=== PATIENT | female | born 1945 | race Caucasian/White ===

== ENCOUNTER 2022-02-27 08:54 | Outpatient (CLI) | payer MEDICARE, BC, SELFPAY ==
--- NOTE | 2022-02-27 09:15 | CRLHL7_ITS ---
For Patients: As a result of the Cures Act, medical imaging exams and procedure reports are released immediately into your electronic medical record. You may view this report before your referring provider. If you have questions, please contact your health care provider. CLINICAL HISTORY: UTI COMPARISON: none TECHNIQUE: Vance scale and color Doppler images were acquired of the kidneys and urinary bladder. FINDINGS: Distension of the left renal pelvis noted measuring 1.4 cm. Normal right renal pelvis. There is no evidence of mass or calculus. The right kidney measures 8.1cm in length and the left kidney measures 8.7cm in length. The renal cortex appears mildly thickened. Bladder wall is mildly prominent measuring 4.6 millimeters. Prevoid bladder volume 178 cc. Postvoid bladder volume 23 cc. Color Doppler images reveal a normal appearance of both ureteral jets. There is no evidence of bladder calculi or diverticula. IMPRESSION: Mild bladder wall thickening is present measuring 4.6 millimeters which may be related to cystitis in the appropriate clinical setting. Distention of the left renal pelvis measuring 1.4 cm, extrarenal pelvis versus mild hydronephrosis. Dictated by Benedicto Miner MD @ 02/27/2022 10:07:32 AM (Electronically Signed)
== END 2022-02-27 08:55 | disposition home or self-care (01) ==
DX: N39.0 Urinary tract infection, site not specified (principal)
CPT/HCPCS: 76770

== ENCOUNTER 2023-05-10 19:36 | Outpatient (CLI) | payer MEDICARE, BC, SELFPAY | END 2023-05-10 19:37 | disposition home or self-care (01) | LOC: NFLDUCREF 19:37 | PROVIDERS: PCP Family Medicine; Visit Provider Nurse Practitioner Family | DX: R30.0 Dysuria (principal) | CPT/HCPCS: 87086; 87186 ==

== ENCOUNTER 2023-07-11 00:04 | Emergency (ER) | payer MEDICARE, BC, SELFPAY ==
--- NOTE | 2023-07-11 | CT_ITS ---
Patient: LIZETH HUTCHINS Facility:?[facility] Patient ID:?[id number] Site Patient ID:?[id number]. Site :?[id number] Study:?CT-Chest/Abd/Pelvis with 74cc nzzaws264 contrast-07/11/2023 4:39:51 AM Ordering Physician:Florinda Cardenas Final Report: INDICATION: Chest and abdominal pain COMPARISON: None TECHNIQUE: CT examination of the chest, abdomen and pelvis was performed following the uneventful intravenous administration of 74 cc of Isovue 3 7. Thin section axial images were obtained from the thoracic inlet through the pubic symphysis. Oral contrast was not administered. Sagittal and coronal reformatted imaging was performed Please note that all CT scans at this facility use dose modulation, iterative reconstruction, and/or weight-based dosing when appropriate to reduce radiation dose to as low as reasonably achievable. FINDINGS: CHEST: The heart size is normal. There is no mediastinal or hilar adenopathy or mass. There is no pericardial effusion. There is a large hiatal hernia with almost all of the stomach in the thorax towards the right. There is no evidence gastric volvulus or closed loop obstruction regarding the stomach. Aside from trace basilar atelectasis, the lungs appear normal. There is no pleural effusion or pneumothorax. ABDOMEN AND PELVIS: LIVER/BILIARY SYSTEM:The liver is normal in size and configuration. There is no focal mass and there is no intra- or extra hepatic biliary ductal dilatation.There is a trace amount of fluid around the gallbladder though I favor this is due to mild ascites rather than gallbladder disease. ADRENALS: Normal KIDNEYS, URETERS and BLADDER:No significant appearing renal finding. A few areas of renal cortical scarring and tiny low density probably benign lesions are noted. The bladder is unremarkable. SPLEEN:Normal appearance. PANCREAS: Appears normal. RETROPERITONEUM and MESENTERY: There is no mass, adenopathy or aortic aneurysm. GASTROINTESTINAL SYSTEM: There are abnormally dilated loops of small bowel with areas of fecalization. There are air-fluid levels. The findings are consistent with a distal small-bowel obstruction. The source is not currently visible though there are 2 potential sources as described below regarding abdominal wall PELVIS: No mass or adenopathy. Mild free fluid. OSSEOUS STRUCTURES: Degenerative change in the spine. No destructive process of boneno significant abdominal wall defect. ABDOMINAL WALL: There are 2 significant appearing hernias. One is a right femoral region hernia that contains fluid only. The bowel approaches the hernia but does not enter it. There is also a hernia to the right of the rectum through the pelvic floor into the ischiorectal fossa. This currently admits only fluid though small bowel adjacent to this. It is possible that the patient`s presumed bowel obstruction is associated with one or both of these hernias. To reiterate, bowel is not currently present in either hernia. OTHER: No free fluid or free air. IMPRESSION: 1. CHEST: Large hiatal hernia with almost all the stomach in the thorax on the right. However, there is no evidence of closed loop obstruction. Trace basilar atelectasis. 2. ABDOMEN AND PELVIS: Findings most likely due to a distal small-bowel obstruction. The exact etiology is uncertain though there are 2 hernias identified that currently only contain fluid. This is a right femoral region hernia and a right pararectal hernia extending into the ischiorectal fossa. Small-bowel loops adjacent to both hernias bed at the current time does not enter either hernia. 3. There is fluid around the gallbladder though I believe this is due to mild ascites rather than gallbladder disease. The ascites is presumably due to the bowel obstruction Please note that all CT scans at this facility use dose modulation, iterative reconstruction, and/or weight-based dosing when appropriate to reduce radiation dose to as low as reasonably achievable. Dictated by Ariel Rodrigues MD @ 07/11/2023 5:31:43 AM Signed by:?Ariel Rodrigues MD @07/11/2023 5:31:43 AM (Electronic Signature)
[2023-07-11 01:00] VITALS: BP 135/74; PULSE 78; RESP 20; TEMP 36.8; O2SAT 98; O2SAT 99
--- NOTE | 2023-07-11 01:08 | ED.GENADULT ---
HPI - General Adult General Time Seen by Provider: 01:08 Date Seen: 07/11/23 Chief complaint: Abdominal Pain Stated complaint: Abdominal,Vomit Time Seen by Provider: 07/11/23 01:08 Source: patient, RN notes reviewed and old records reviewed Mode of arrival: ambulatory Limitations: no limitations History of Present Illness HPI narrative: Patient is a very pleasant 78-year-old female with a history hypertension, chronic kidney disease stage 3 who presents to the emergency room with headache chest pain abdominal pain and vomiting. Patient notes the symptoms were increasing this evening and thus came to the emergency room. I am having a challenging time to know onset of the symptoms in our discussions. Patient did not notes that her forehead mainly hurts and that she has had this happen the past with high blood pressure. She also notes that she has a fluttering and discomfort in her upper chest. She has been vomiting but has not had any diarrhea cough cold congestion fever or chills. She does not know of any ill contacts. She does complain of abdominal pain. She shows this to be the periumbilical area. She has had a hysterectomy in the past. Does not feel bloated at this time. She has not taken anything for pain. Patient notes frequent history of UTI with bladder prolapse. Currently under the care of a urologist at [place]. Related Data Home Medications Medication Instructions Recorded Confirmed levothyroxine 100 mcg capsule 100 mcg PO QDAY 05/10/23 06/06/23 lisinopril 10 mg tablet 10 mg PO DAILY 05/10/23 06/06/23 simvastatin 10 mg tablet 10 mg PO QPM 05/10/23 06/06/23 Previous Rx's Medication Instructions Recorded azithromycin 250 mg tablet See Rx Instructions PO .COMPLEX #6 06/06/23 tabs benzonatate 100 mg capsule 100 mg PO BID PRN cough #30 caps 06/06/23 Allergies Allergy/AdvReac Type Severity Reaction Status Date / Time Sulfa (Sulfonamide Allergy Unknown Unknown Verified 06/06/23 10:02 Antibiotics) Review of Systems Status of ROS: Reports: 10 or more systems reviewed and unremarkable except as noted in History and below [facility] Medical History (Updated 07/11/23 @ 08:59 by Odessa Manzo MD) History of recurrent cystitis ?Z87.440 - Personal history of urinary (tract) infections (ICD-10) Surgical History (Updated 07/11/23 @ 08:36 by Nicol Morillo MD) History of hysterectomy ?Z90.710 - Acquired absence of both cervix and uterus (ICD-10) Social History Smoking Status: Never smoker Second hand tobacco smoke exposure: No How often do you have a drink containing alcohol: never AUDIT-C Alcohol total score: 0 Non-prescribed substance use: denies use Exam Narrative: Exam Narrative: Patient is holding her forehead and a vomit bag. She is mentating normally but does appear to be in acute distress. EOM is full and pupils equal round reactive. Head is atraumatic. Face is symmetrical. Oral cavity with moist mucous membranes. Neck is supple. Heart with a normal rate and rhythm. Lungs are clear bilaterally. Abdomen is with tenderness in the periumbilical area. I do not palpate any bulges in the groin or otherwise. Moving all extremities. Const: Vital Signs, click to edit/add: Vital Signs - 24 hr 07/11/23 01:00 07/11/23 01:00 07/11/23 04:00 Temperature 98.2 F 98.2 F Pulse Rate [Right Pulse Oximeter] 78 Respiratory Rate 20 Blood Pressure [Ri ght Upper Arm] 135/74 Pulse Oximetry 99 98 Oxygen Delivery Me thod Room Air 07/11/23 06:16 07/11/23 07:41 Temperature 98.2 F Pulse Rate [Right Pulse Oximeter] 65 64 Respiratory Rate 20 16 Blood Pressure [Ri ght Upper Arm] 130/70 125/75 Pulse Oximetry 99 98 Oxygen Delivery Me thod Room Air Room Air Documenting provider has reviewed patient's vital signs: yes Course Course ED Course: Differential diagnosis includes but is not limited to subarachnoid hemorrhage, acute coronary syndrome, viral gastroenteritis, bowel obstruction, UTI. Patient will have a stat head CT and then have IV placed with labs to include CBC, comprehensive, CRP, troponin, EKG, urinalysis. Will also give patient Zofran 4 mg IV and 1 L of normal saline. Reevaluation(s) Reevaluation #1: Patient notes improvement with Zofran. Headache much improved. Blood pressure noted to be normal. White count elevated at 14.79 with a normal electrolyte panel. LFTs are within normal limits. She is COVID/influenza negative. She continues to complain of abdominal discomfort. Her pain seems to be periumbilical. No rebound tenderness is noted. She is requesting Tylenol and 650 mg is given. Reevaluation #2: Patient noted to be feeling much better this morning. She really did only receive Tylenol no other pain medication. I will speak to the surgeon on-call as CT has identified a distal small-bowel obstruction. Also present are 2 hernias that do not contain any bowel. Consultations Consultation #1: At the pleasure of speaking with surgical processor regarding this patient. Dr. Downey was able to view the CTs and notes that we are in a position that we could try clear liquids. If patient does well she may be discharged home on clear liquids with slow advance of diet. She will need to follow-up with both surgery and an OBGYN. She currently goes to the [facility]. Vital Signs Vital signs: Initial Vital Signs Temperature 98.2 F 07/11/23 01:00 Temperature Source Temporal Artery Scan 07/11/23 01:00 Pulse Rate 78 07/11/23 01:00 Respiratory Rate 20 07/11/23 01:00 Blood Pressure 135/74 07/11/23 01:00 Blood Pressure Mean 94 07/11/23 01:00 Blood Pressure Position Sitting 07/11/23 01:00 Pulse Oximetry 99 07/11/23 01:00 Oxygen Delivery Method Room Air 07/11/23 01:00 Vital Signs Temperature 98.2 F 07/11/23 01:00 Pulse Rate 78 07/11/23 01:00 Respiratory Rate 20 07/11/23 01:00 Blood Pressure 135/74 07/11/23 01:00 Pulse Oximetry 99 07/11/23 01:00 Oxygen Delivery Method Room Air 07/11/23 01:00 Temperature 98.2 F 07/11/23 06:16 Pulse Rate 64 07/11/23 07:41 Respiratory Rate 16 07/11/23 07:41 Blood Pressure 125/75 07/11/23 07:41 Pulse Oximetry 98 07/11/23 07:41 Oxygen Delivery Method Room Air 07/11/23 07:41 Medications Administered Medications: Generic Name Dose Route Start Last Admin Trade Name Freq PRN Reason Stop Dose Admin Sodium Chloride 1,000 mls @ 125 mls/hr 07/11/23 06:41 07/11/23 06:00 0.9 % Sodium Chloride 1000 Ml IV 125 mls/hr .Q8H TANIYA Administration Discontinued Medications Generic Name Dose Route Start Last Admin Trade Name Son PRN Reason Stop Dose Admin Acetaminophen 650 mg 07/11/23 06:12 07/11/23 04:00 Acetaminophen 325 Mg Tablet PO 07/11/23 06:13 650 mg ONCE ONE Administration Sodium Chloride 1,000 mls @ 1,000 mls/hr 07/11/23 01:10 07/11/23 02:30 0.9 % Sodium Chloride 1000 Ml IV 07/11/23 02:09 Infused .Q1H TANIYA Infusion Ondansetron HCl 4 mg 07/11/23 01:09 07/11/23 01:31 Ondansetron 2 Mg/Ml Inj IVP 07/11/23 01:10 4 mg ONCE ONE Administration Medical Decision Making MDM Narrative Medical decision making narrative: 1. Small bowel obstruction-2 hernias are noted but they do not contain bowel. Patient does have history of abdominal hysterectomy in the past as well as which she believes was a sling placement. She notes that she has been dealing with bladder prolapse and chronic UTIs all there is no evidence of UTI tonight. Patient is given 1 L of normal saline followed by maintenance. Laboratory values show elevated white count of 14.79 with a CRP that is normal. Glucose elevated at 1 6 1 and LFTs and basic panel normal. Bicarb is normal. At this time patient is feeling much better this morning. organizational consultant Dr. Morillo with able to view the CT and feels that we could do a trial of clear liquids. If she tolerates this she will be discharged home. However, she will need to follow-up with OBGYN and surgery next week. 2. Headache-patient notes significant headache that is unusual for her. When she 1st arrived we did do head CT and she had no evidence of abnormality including acute bleed. Once patient had received Zofran she had improvement of the symptoms. A recheck of her blood pressure was normal without any intervention. She did request Tylenol and 650 mg p.o. was given while we were awaiting CT. 3. Chest pain-likely from retching. Patient has negative troponin x2 and a reassuring EKG. Patient has had resolution of her symptoms at this time. Of note however she has a very large hiatal hernia. 3. Disposition- home at this time.Continue with clear liquid diet the rest of today and until noon tomorrow. Tomorrow afternoon you may advance her diet to soft foods such as puddings. If you tolerate that for 24 hours you may advance to normal foods. Please stay well hydrated. You may take your routine medications. Return to the emergency room if you started experiencing increasing pain, vomiting, fever and as needed. Make appointment to see 1 of our surgeons at the [facility] next week. Follow-up with your primary MD or send a message that you should also have an appointment with OBGYN. If [facility] is unable to arrange this you may use our [facility]. They can be reached at [phone]. There is no evidence of urinary tract infection on your labs today. Your white count was slightly elevated at 14.72 which can be normal if you are experiencing increased pain and vomiting. Medical Records Medical records reviewed: Yes I reviewed the patient's medical records Lab Data Lab results reviewed: Yes I reviewed the patient's lab results Labs: Lab Results 07/11/23 07/11/23 07/11/23 Range/Units 00:23 01:00 01:11 WBC (4.50-11.00) K/uL RBC (4.00-5.20) m/uL Hgb (12.0-16.0) gm/dL Hct (33.0-51.0) % MCV (80-100) fL MCH (26-34) pg MCHC (32-36) gm/dL Plt Count (140-440) K/uL Neut % (Auto) (42.0-72.0) % Lymph % (Auto) (20-44) % [place] % (Auto) (0.0-11.0) % Eos % (Auto) (0.0-7.0) % Baso % (Auto) (0.0-3.0) % Neut # (Auto) (1.7-7.0) K/uL Lymph # (Auto) (0.90-2.90) K/uL [place] # (Auto) (0.00-0.90) K/UL Eos # (Auto) (0.00-0.50) K/uL Baso # (Auto) (0.00-0.30) K/uL Sodium 135 (135-149) mmol/L Potassium 4.7 (3.6-5.1) mmol/L Chloride 102 (96-114) mmol/L Carbon Dioxide 22 (20-32) mmol/L Anion Gap 11 (7-15) mEq/L BUN 18 (7-30) mg/dL Creatinine 0.9 (0.5-1.5) mg/dL Estimated GFR 66 ml/min Glucose 161 H (60-115) mg/dL Calcium 9.5 (8.4-10.6) mg/dL Total Bilirubin 0.7 (0.1-1.5) mg/dL AST 28 (12-35) U/L ALT 22 (4-35) U/L Alkaline Phosphatase 68 (40-150) U/L C-Reactive Protein < 0.5 L (0.5-1.0) mg/dL Total Protein 7.7 (6.0-8.3) g/dL Albumin 4.9 (3.3-5.0) g/dL Urine Color (Yellow) Urine Appearance (Clear) Urine pH (5.0-8.5) Ur Specific [place] (1.000-1.030) Urine Protein (Negative) Urine Glucose (UA) (Negative) Urine Ketones (Negative) Urine Blood (Negative) Urine Nitrite (Negative) Urine Bilirubin (Negative) Urine Urobilinogen (0.2-1.0) Ur Leukocyte Esterase (Negative) Urine RBC (0-2) Urine WBC (0-5) Ur Squamous Epith Cells (None-Few) Amorphous Sediment (None) Urine Bacteria (None) SARS-CoV-2 (PCR) Negative SARS-CoV-2 (Negative) Influenza Type A (PCR) Negative PCR FLU A (Negative) Influenza Type B (PCR) Negative PCR FLU B (Negative) POC Troponin I 0.00 L (0.01-0.04) ng/ml 07/11/23 07/11/23 07/11/23 Range/Units 01:55 04:09 05:15 WBC 14.79 H (4.50-11.00) K/uL RBC 5.19 (4.00-5.20) m/uL Hgb 15.1 (12.0-16.0) gm/dL Hct 46.8 (33.0-51.0) % MCV 90 (80-100) fL MCH 29 (26-34) pg MCHC 32 (32-36) gm/dL Plt Count 243 (140-440) K/uL Neut % (Auto) 90.6 H (42.0-72.0) % Lymph % (Auto) 6.7 L (20-44) % [place] % (Auto) 2.2 (0.0-11.0) % Eos % (Auto) 0.3 (0.0-7.0) % Baso % (Auto) 0.1 (0.0-3.0) % Neut # (Auto) 13.40 H (1.7-7.0) K/uL Lymph # (Auto) 1.00 (0.90-2.90) K/uL [place] # (Auto) 0.30 (0.00-0.90) K/UL Eos # (Auto) 0.00 (0.00-0.50) K/uL Baso # (Auto) 0.00 (0.00-0.30) K/uL Sodium (135-149) mmol/L Potassium (3.6-5.1) mmol/L Chloride (96-114) mmol/L Carbon Dioxide (20-32) mmol/L Anion Gap (7-15) mEq/L BUN (7-30) mg/dL Creatinine (0.5-1.5) mg/dL Estimated GFR ml/min Glucose (60-115) mg/dL Calcium (8.4-10.6) mg/dL Total Bilirubin (0.1-1.5) mg/dL AST (12-35) U/L ALT (4-35) U/L Alkaline Phosphatase (40-150) U/L C-Reactive Protein (0.5-1.0) mg/dL Total Protein (6.0-8.3) g/dL Albumin (3.3-5.0) g/dL Urine Color Yellow (Yellow) Urine Appearance Cloudy A (Clear) Urine pH 5.5 (5.0-8.5) Ur Specific [place] 1.020 (1.000-1.030) Urine Protein Negative (Negative) Urine Glucose (UA) Negative (Negative) Urine Ketones Trace A (Negative) Urine Blood Negative (Negative) Urine Nitrite Negative (Negative) Urine Bilirubin Negative (Negative) Urine Urobilinogen 0.2 (0.2-1.0) Ur Leukocyte Esterase Negative (Negative) Urine RBC 0-2 (0-2) Urine WBC 2-5 (0-5) Ur Squamous Epith Cells Few (None-Few) Amorphous Sediment Few A (None) Urine Bacteria Moderate A (None) SARS-CoV-2 (PCR) (Negative) Influenza Type A (PCR) (Negative) Influenza Type B (PCR) (Negative) POC Troponin I 0.01 (0.01-0.04) ng/ml Imaging Data CT Chest/Ab/Pelvis: Attestation: I have reviewed the pertinent imaging results. Radiologist's impression: The heart size is normal. There is no mediastinal or hilar adenopathy or mass. There is no pericardial effusion. There is a large hiatal hernia with almost all of the stomach in the thorax towards the right. There is no evidence gastric volvulus or closed loop obstruction regarding the stomach. Aside from trace basilar atelectasis, the lungs appear normal. There is no pleural effusion or pneumothorax. ABDOMEN AND PELVIS: LIVER/BILIARY SYSTEM:The liver is normal in size and configuration. There is no focal mass and there is no intra- or extra hepatic biliary ductal dilatation.There is a trace amount of fluid around the gallbladder though I favor this is due to mild ascites rather than gallbladder disease. ADRENALS: Normal KIDNEYS, URETERS and BLADDER:No significant appearing renal finding. A few areas of renal cortical scarring and tiny low density probably benign lesions are noted. The bladder is unremarkable. SPLEEN:Normal appearance. PANCREAS: Appears normal. RETROPERITONEUM and MESENTERY: There is no mass, adenopathy or aortic aneurysm. GASTROINTESTINAL SYSTEM: There are abnormally dilated loops of small bowel with areas of fecalization. There are air-fluid levels. The findings are consistent with a distal small-bowel obstruction. The source is not currently visible though there are 2 potential sources as described below regarding abdominal wall PELVIS: No mass or adenopathy. Mild free fluid. OSSEOUS STRUCTURES: Degenerative change in the spine. No destructive process of boneno significant abdominal wall defect. ABDOMINAL WALL: There are 2 significant appearing hernias. One is a right femoral region hernia that contains fluid only. The bowel approaches the hernia but does not enter it. There is also a hernia to the right of the rectum through the pelvic floor into the ischiorectal fossa. This currently admits only fluid though small bowel adjacent to this. It is possible that the patient`s presumed bowel obstruction is associated with one or both of these hernias. To reiterate, bowel is not currently present in either hernia. OTHER: No free fluid or free air. IMPRESSION: 1. CHEST: Large hiatal hernia with almost all the stomach in the thorax on the right. However, there is no evidence of closed loop obstruction. Trace basilar atelectasis. 2. ABDOMEN AND PELVIS: Findings most likely due to a distal small-bowel obstruction. The exact etiology is uncertain though there are 2 hernias identified that currently only contain fluid. This is a right femoral region hernia and a right pararectal hernia extending into the ischiorectal fossa. Small-bowel loops adjacent to both hernias bed at the current time does not enter either hernia. 3. There is fluid around the gallbladder though I believe this is due to mild ascites rather than gallbladder disease. The ascites is presumably due to the bowel obstruction CT scan - head: Attestation: I have reviewed the pertinent imaging results. My impression: I do not note any evidence of acute bleed or abnormality. Radiologist's impression: CSF spaces: Proportionate prominence of the ventricles and sulci, reflecting mild generalized cerebral volume loss. Brain parenchyma: The kincaid-white differentiation is maintained. No sign of mass, hemorrhage, or midline shift. Skull base and calvarium: The visualized paranasal sinuses and mastoid air cells demonstrate no acute or significant findings. The visualized orbits are grossly unremarkable. No skull fractures. Stable scattered scalp nodules, some demonstrating partial calcification. IMPRESSION: No acute intracranial abnormality. ECG Data Attestation: I personally reviewed and interpreted this ECG as follows: Interpretation: EKG by my read shows normal sinus rhythm without any acute ST or T-wave changes. Normal QT and SC intervals. Discharge Plan Discharge Clinical Impression: Small bowel obstruction Abdominal hernia Qualifiers: Hernia type: unspecified Obstruction and gangrene presence: without obstruction or gangrene Recurrence: not specified as recurrent Qualified Code(s): K46.9 - Unspecified abdominal hernia without obstruction or gangrene Patient Disposition: Home, Self-Care Condition: Improved Additional Instructions: Continue with clear liquid diet the rest of today and until noon tomorrow. Tomorrow afternoon you may advance her diet to soft foods such as puddings. If you tolerate that for 24 hours you may advance to normal foods. Please stay well hydrated. You may take your routine medications. Return to the emergency room if you started experiencing increasing pain, vomiting, fever and as needed. Make appointment to see 1 of our surgeons at the [facility] next week. Follow-up with your primary MD or send a message that you should also have an appointment with OBGYN. If [facility] is unable to arrange this you may use our [facility]. They can be reached at . There is no evidence of urinary tract infection on your labs today. Your white count was slightly elevated at 14.72 which can be normal if you are experiencing increased pain and vomiting. Prescriptions: No Action lisinopril 10 mg tablet 10 mg PO DAILY simvastatin 10 mg tablet 10 mg PO QPM levothyroxine 100 mcg capsule 100 mcg PO QDAY Patient Comments: Dose is not confirmed, as patient could not remember. azithromycin 250 mg tablet See Rx Instructions PO .COMPLEX Qty: 6 0RF Rx Instructions: For 250 mg dose pack: take 500 mg today (day 1), then 250 mg for 4 days (days 2-5) PO benzonatate 100 mg capsule 100 mg PO BID PRN (Reason: cough) Qty: 30 0RF Follow Up/Referrals: Angie Cali MD [Primary Care Provider] - Stand Alone Forms: Fatigue [employer] Info Instructions
--- NOTE | 2023-07-11 01:09 | CRLHL7_ITS ---
For Patients: As a result of the Century Cures Act, medical imaging exams and procedure reports are released immediately into your electronic medical record. You may view this report before your referring provider. If you have questions, please contact your health care provider. INDICATION: Headache. TECHNIQUE: CT head without contrast. COMPARISON: 12/23/2021. FINDINGS: CSF spaces: Proportionate prominence of the ventricles and sulci, reflecting mild generalized cerebral volume loss. Brain parenchyma: The kincaid-white differentiation is maintained. No sign of mass, hemorrhage, or midline shift. Skull base and calvarium: The visualized paranasal sinuses and mastoid air cells demonstrate no acute or significant findings. The visualized orbits are grossly unremarkable. No skull fractures. Stable scattered scalp nodules, some demonstrating partial calcification. IMPRESSION: No acute intracranial abnormality. Please note that all CT scans at this facility use dose modulation, iterative reconstruction, and/or weight-based dosing when appropriate to reduce radiation dose to as low as reasonably achievable. Dictated by David Ramos MD @ 07/11/2023 2:21:20 AM (Electronically Signed)
[2023-07-11] MEDS: ONDANSETRON 2 MG/ML inj 4 MG IVP (01:31)
[2023-07-11] MEDS: 0.9 % SODIUM CHLORIDE 1000 ml 1,000 ML IV (01:31)
[2023-07-11 04:00] VITALS: TEMP 36.8
[2023-07-11] MEDS: ACETAMINOPHEN 325 MG TABLET 650 MG PO (04:00)
[2023-07-11 05:30] LABS: Troponin, Point-of-Care* 0.01 ng/ml (0.01-0.04)
[2023-07-11 05:37] LABS: PCR FLU A Negative PCR FLU A (Negative); PCR FLU B Negative PCR FLU B (Negative)
[2023-07-11 05:55] LABS: SARS PCR* Negative SARS-CoV-2 (Negative)
[2023-07-11] MEDS: 0.9 % SODIUM CHLORIDE 1000 ml 1,000 ML 125 ML IV (06:00)
[2023-07-11 06:01] LABS: Hemoglobin* 15.1 gm/dL (12.0-16.0); Red Blood Count 5.19 m/uL (4.00-5.20); White Blood Count* 14.79 K/uL (4.50-11.00)
[2023-07-11 06:02] LABS: Basophils Percent Auto 0.1 % (0.0-3.0); Eosinophils Percent Auto 0.3 % (0.0-7.0); Hematocrit 46.8 % (33.0-51.0); Lymphocytes Percent Auto 6.7 % (20-44); Mean Corpuscular HGB Conc 32 gm/dL (32-36); Mean Corpuscular Hemoglobin 29 pg (26-34); Mean Corpuscular Volume 90 fL (80-100); Monocytes Percent Auto 2.2 % (0.0-11.0); Neutrophils Percent Auto 90.6 % (42.0-72.0); Platelet Count* 243 K/uL (140-440); Slide Review Reflex No
[2023-07-11 06:03] LABS: C Reactive Protein* < 0.5 mg/dL (0.5-1.0)
[2023-07-11 06:04] LABS: Alanine Aminotransferase* 22 U/L (4-35); Albumin* 4.9 g/dL (3.3-5.0); Alkaline Phosphatase* 68 U/L (40-150); Anion Gap 11 mEq/L (7-15); Aspartate Amino Transferase* 28 U/L (12-35); Bilirubin Total* 0.7 mg/dL (0.1-1.5); Blood Urea Nitrogen* 18 mg/dL (7-30); Calcium* 9.5 mg/dL (8.4-10.6); Carbon Dioxide* 22 mmol/L (20-32); Chloride* 102 mmol/L (96-114); Creatinine* 0.9 mg/dL (0.5-1.5); Estimated Glomerular Filt Rate 66 ml/min; Glucose* 161 mg/dL (60-115); Potassium* 4.7 mmol/L (3.6-5.1); Sodium* 135 mmol/L (135-149); Total Protein* 7.7 g/dL (6.0-8.3)
[2023-07-11 06:05] LABS: Appearance Urine Cloudy (Clear); Bilirubin Urine Negative (Negative); Color Urine Yellow (Yellow); Glucose Urine Negative (Negative); Ketones Urine Trace (Negative)
[2023-07-11 06:06] LABS: Amorphous Sediment Urine Few; Bacteria Urine Moderate; Blood Urine Negative (Negative); Leukocyte Esterase Urine Negative (Negative); Nitrite Urine Negative (Negative); Protein Urine Negative (Negative); RBC Urine 0-2 (0-2); Squamous Epithelial Cell Urine Few (None-Few); Urobilinogen Urine 0.2 (0.2-1.0); pH Urine 5.5 (5.0-8.5)
[2023-07-11 06:16] VITALS: BP 130/70; PULSE 65; RESP 20; TEMP 36.8; O2SAT 99
[2023-07-11 07:41] VITALS: BP 125/75; PULSE 64; RESP 16; O2SAT 98
--- NOTE | 2023-07-11 09:15 | ED.NURSE ---
Pt provided with cup of water for PO challenge. Pt tolerates well, no discomfort or complaints. MD notified.
[2023-07-11 09:50] VITALS: BP 126/79; PULSE 65; RESP 16; O2SAT 100
--- NOTE | 2023-07-12 07:44 | ED.NURSE ---
Patient called wanting to know which general surgeon was consulted yesterday because she'd like to follow up with them (as recommended by Dr. Manzo). Advised Dr. Morillo was consulted, clinic scheduling number provided. No further questions/concerns.
== END 2023-07-11 09:51 | disposition home or self-care (01) ==
PROVIDERS: Emergency Provider Family Medicine; PCP Family Medicine
DX: K56.609 Unspecified intestinal obstruction, unspecified as to partial versus complete obstruction (principal); R51.9 Headache, unspecified; R07.9 Chest pain, unspecified
CPT/HCPCS: 36415; 70450; 71260; 74177; 80053; 81003; 81015; 84484; 85025; 86140; 87086; 87631; 93005; 94761; 95992; 96374; 99285; A9270; J2405; J7030; Q9967

== ENCOUNTER 2023-08-13 07:48 | Emergency (ER) | payer MEDICARE, BC, SELFPAY ==
[2023-08-13 07:52] VITALS: BP 96/68; PULSE 106; RESP 18; TEMP 36.6; O2SAT 99; BMI 23.3
--- NOTE | 2023-08-13 08:17 | CRLHL7_ITS ---
For Patients: As a result of the Cures Act, medical imaging exams and procedure reports are released immediately into your electronic medical record. You may view this report before your referring provider. If you have questions, please contact your health care provider. INDICATION: Epigastric and periumbilical abdominal pain. History of bowel obstruction. TECHNIQUE: CT abdomen and pelvis acquired with 69 cc Isovue 370 IV contrast. COMPARISON: Direct comparison to the recent prior study of 07/11/2023 is not possible at the time of this dictation due to a PACS outage, as indicated by the technologist (made to that report. FINDINGS: Lower chest: Right-sided intrathoracic stomach associated with and again axial volvulus. Liver: Unremarkable. Normal in size and attenuation. No suspicious masses. Gallbladder and bile ducts: Unremarkable. No stones or inflammation. No biliary dilatation. Pancreas: Unremarkable. No mass or inflammation. Spleen: Unremarkable. Normal in size. No masses. Adrenal glands: Unremarkable. No nodules. Kidneys: Incidental finding consistent with a benign Bosniak cyst in the interpolar left renal cortex (2; 57).. No suspicious masses, stones, or hydronephrosis. GI tract: Diffuse dilatation of the small bowel with a transition point associated with right perineal hernia described below. No hypo enhancement of the dilated small-bowel wall to indicate ischemia. No wall thickening, intramural hemorrhage or pneumatosis intestinalis. Sigmoid diverticulosis. Normal appendix. Vasculature: Abdominal aorta is normal in caliber. Mesenteric arteries are patent. Lymph nodes: No lymphadenopathy. Peritoneum/Abdominal Wall: Small volume low-density left subphrenic ascites. Circumscribed homogeneous low-density collection in the right inguinal region consistent with a fluid containing direct hernia measuring 3.0 cm in greatest dimension (2; 132). Cluster collapsed loops of small bowel and free fluid consistent with a right perineal hernia associated with th a e proximal small bowel mechanical obstruction. This finding was also described in the prior report of 07/11/2023. Pelvis: Unremarkable. Bones: Unremarkable for age. IMPRESSION: 1. Small-bowel and free fluid containing right perineal hernia associated with a mechanical small-bowel obstruction. No imaging findings to indicate ischemia related to the obstructed small bowel. SURGICAL CONSULTATION IS RECOMMENDED. 2. Incidental findings described above including a circumscribed homogeneous low-density right inguinal collection consistent with a fluid containing direct hernia. 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 Recommendation: Surgical consultation. Please note that all CT scans at this facility use dose modulation, iterative reconstruction, and/or weight-based dosing when appropriate to reduce radiation dose to as low as reasonably achievable. Dictated by Rj Renee MD @ 08/13/2023 10:17:39 AM (Electronically Signed)
[2023-08-13 08:18] VITALS: BP 150/100; PULSE 67; RESP 18; TEMP 36.6; O2SAT 98
--- NOTE | 2023-08-13 08:33 | ED_ITS ---
HPI - Abdominal Pain General Date Seen: 08/13/23 Chief Complaint: Abdominal Pain Stated Complaint: Abdominal pain Time Seen by Provider: 08/13/23 08:08 Source: patient Mode of arrival: ambulatory Limitations: no limitations History of Present Illness HPI narrative: patient is a 78-year-old female presenting to the emergency department for abdominal pain. She has a history of chronic kidney disease and hypertension. states the symptoms are last night she became very nauseated and was dry heaving. She still feeling nauseated at this time. She does states she is Now having a headache and feeling dizzy. has had previous abdominal surgeries but states she a bowel movement this morning that was completely normal. Denies fevers or chills. Does state her daughter has COVID and she has been in contact with her daughters children. denies chest pain, vision changes, he weakness, numbness, dysuria, vaginal bleeding or discharge. Denies having pain like this before. Does states she has multiple hernias include an esophageal hernia. She has not been to eat much since last night due to the nausea. For most her pain is in the epigastric and periumbilical region. She still has her appendix and gallbladder. Related Data Home Medications Medication Instructions Recorded Confirmed levothyroxine 100 mcg capsule 100 mcg PO QDAY 05/10/23 08/13/23 lisinopril 10 mg tablet 10 mg PO DAILY 05/10/23 08/13/23 simvastatin 10 mg tablet 10 mg PO QPM 05/10/23 08/13/23 coQ10 (ubiquinol) 100 mg capsule 100 mg PO DAILY 08/13/23 08/13/23 Allergies Allergy/AdvReac Type Severity Reaction Status Date / Time Sulfa (Sulfonamide Allergy Unknown Unknown Verified 08/13/23 07:58 Antibiotics) Review of Systems Status of ROS Reports: 10 or more systems reviewed and unremarkable except as noted in History and below [facility] Medical History History of recurrent cystitis ?Z87.440 - Personal history of urinary (tract) infections (ICD-10) Surgical History History of hysterectomy ?Z90.710 - Acquired absence of both cervix and uterus (ICD-10) Social History Smoking Status: Never smoker Second hand tobacco smoke exposure: No How often do you have a drink containing alcohol: never AUDIT-C Alcohol total score: 0 Non-prescribed substance use: denies use service: No Exam Narrative: Exam Narrative: Const: Well-nourished, Well-developed, in mild distress Eyes: PERRL, no conjunctival injection, and symmetrical lids HENT: Atraumatic external nose and ears. Moist mucous membranes. Neck: Symmetric, trachea midline, No thyromegaly. CVS: RRR, No murmurs or gallops. Peripheral pulses 2+ and equal in all extremities RESP: Unlabored respiratory effort. Clear to auscultation bilaterally. GI: Mild epigastric and periumblical pain. Nondistended, No rebound or guarding. MSK:Extremities w/o deformity, Normal Active ROM Skin: Warm, Dry. No rashes or lesions. Neuro: Normal Muscle tone, No focal neurological deficits. Psych: Awake, Alert, & Oriented x3. Appropriate mood and affect. Const: Vital Signs, click to edit/add: Vital Signs - 24 hr 08/13/23 07:52 08/13/23 08:18 08/13/23 10:00 Temperature 97.8 F 97.8 F 98.0 F Pulse Rate [Right Pulse Oximeter] 106 H 67 68 Respiratory Rate 18 18 16 Blood Pressure [Ri ght Upper Arm] 96/68 150/100 H 137/69 Pulse Oximetry 99 98 98 Oxygen Delivery Me thod Room Air Room Air Room Air 08/13/23 11:00 08/13/23 14:15 Temperature 97.6 F 98.6 F Pulse Rate [Right Pulse Oximeter] 68 79 Respiratory Rate 18 18 Blood Pressure [Ri ght Upper Arm] 138/68 140/82 H Pulse Oximetry 98 98 Oxygen Delivery Me thod Room Air Room Air Course Vital Signs Vital signs: Initial Vital Signs Temperature 97.8 F 08/13/23 07:52 Temperature Source Temporal Artery Scan 08/13/23 07:52 Pulse Rate 106 H 08/13/23 07:52 Respiratory Rate 18 08/13/23 07:52 Blood Pressure 96/68 08/13/23 07:52 Blood Pressure Mean 77 08/13/23 07:52 Blood Pressure Position Sitting 08/13/23 07:52 Pulse Oximetry 99 08/13/23 07:52 Oxygen Delivery Method Room Air 08/13/23 07:52 Vital Signs Temperature 97.8 F 08/13/23 07:52 Pulse Rate 106 H 08/13/23 07:52 Respiratory Rate 18 08/13/23 07:52 Blood Pressure 96/68 08/13/23 07:52 Pulse Oximetry 99 08/13/23 07:52 Oxygen Delivery Method Room Air 08/13/23 07:52 Temperature 98.6 F 08/13/23 14:15 Pulse Rate 79 08/13/23 14:15 Respiratory Rate 18 08/13/23 14:15 Blood Pressure 140/82 H 08/13/23 14:15 Pulse Oximetry 98 08/13/23 14:15 Oxygen Delivery Method Room Air 08/13/23 14:15 Medications Administered Medications: Discontinued Medications Generic Name Dose Route Start Last Admin Trade Name Freq PRN Reason Stop Dose Admin Diphenhydramine HCl 25 mg 08/13/23 08:17 08/13/23 09:19 Diphenhydramine 50 Mg/Ml Inj IVP 08/13/23 08:18 25 mg ONCE ONE Administration Lactated Ringer's 1,000 mls @ 1,000 mls/hr 08/13/23 08:17 08/13/23 09:09 Lactated Ringers 1000 Ml IV 08/13/23 09:16 1,000 mls/hr .Q1H ONE Administration Metoclopramide HCl 10 mg 08/13/23 08:17 08/13/23 09:29 Metoclopramide Hcl 5 Mg/Ml Inj IVP 08/13/23 08:18 10 mg ONCE ONE Administration Morphine Sulfate 4 mg 08/13/23 14:25 08/13/23 14:37 Morphine 4 Mg/Ml Inj IVP 08/13/23 14:26 4 mg ONCE ONE Administration MDM - Abdominal Pain MDM Narrative Medical decision making narrative: patient is a 78-year-old female presenting to the emergency department for abdominal pain and nausea. She is also having headache and will treat her with fluids, Reglan, Benadryl. We do CT scan to look for any further concerning abdominal abnormalities. Will be tested for COVID/flu/ RSV. Considering her age, gender and location of the pain there is some concern for ACS and will get EKG and troponin. pancreatitis is a concern and lipase ordered. CMP and lipase are delayed as the machine is down for them. Lactate is normal. CBC shows a white count of 14.7. Mostly neutrophils. She is COVID positive. point of care creatinine within normal limits and a CT scan of the abdomen and pelvis was ordered. Of noticed after her fluids and was sent she is feeling better and her heart rate is improved into the high 60s to low 70s. She looks otherwise comfortable right now. CT scan returned showing a perineal hernia causing a small bowel obstruction. I spoke to our surgeon on-call and she states she believes the patient needs a pelvic gaming floor supervisor. I also spoke to the radiologist who read the region he states he is positive that this hernia is causing a small bowel obstruction. considering the location of the hernia I did do a vaginal exam does look for signs of hernia but could only find the prolapsed bladder. A we tried to direct admit to [facility] but due to our PACS system issues were unable to for the images. Due to that we cannot speak to General surgery and and instead will transfer where the patient directly to their ED. Lab Data Labs: Lab Results 08/13/23 08/13/23 08/13/23 Range/Units 08:44 09:00 11:48 WBC 14.74 H (4.50-11.00) K/uL RBC 5.00 (4.00-5.20) m/uL Hgb 14.6 (12.0-16.0) gm/dL Hct 45.4 (33.0-51.0) % MCV 91 (80-100) fL MCH 29 (26-34) pg MCHC 32 (32-36) gm/dL RDW Coeff of Zenon 13.3 (11.5-15.5) % Plt Count 252 (140-440) K/uL Neut % (Auto) 88.2 H (42.0-72.0) % Lymph % (Auto) 7.1 L (20-44) % Bay % (Auto) 4.1 (0.0-11.0) % Eos % (Auto) 0.3 (0.0-7.0) % Baso % (Auto) 0.1 (0.0-3.0) % Neut # (Auto) 13.00 H (1.7-7.0) K/uL Lymph # (Auto) 1.00 (0.90-2.90) K/uL Bay # (Auto) 0.60 (0.00-0.90) K/UL Eos # (Auto) 0.00 (0.00-0.50) K/uL Baso # (Auto) 0.00 (0.00-0.30) K/uL Abs Immat Gran (auto) 0.00 (0.00-0.30) K/uL Imm/Tot Granulo (auto) 0.2 % Sodium 137 (135-149) mmol/L Potassium 4.6 (3.6-5.1) mmol/L Chloride 104 (96-114) mmol/L Carbon Dioxide 20 (20-32) mmol/L Anion Gap 13 (7-15) mEq/L BUN 18 (7-30) mg/dL Creatinine 0.9 (0.5-1.5) mg/dL Estimated Creat Clear 42.39 Estimated GFR 66 ml/min Glucose 143 H (60-115) mg/dL Lactate 1.2 (0.5-1.9) mmol/L Calcium 9.7 (8.4-10.6) mg/dL Magnesium 2.4 (1.5-2.6) mg/dL Total Bilirubin 0.7 (0.1-1.5) mg/dL AST 27 (12-35) U/L ALT 32 (4-35) U/L Alkaline Phosphatase 104 (40-150) U/L Troponin I < 0.01 L (0.01-0.04) ng/mL Total Protein 7.4 (6.0-8.3) g/dL Albumin 4.5 (3.3-5.0) g/dL Lipase 79 (23-300) U/L Urine Color Yellow (Yellow) Urine Appearance Clear (Clear) Urine pH 5.5 (5.0-8.5) Ur Specific [place] <= 1.005 (1.000-1.030) Urine Protein Negative (Negative) Urine Glucose (UA) Negative (Negative) Urine Ketones Negative (Negative) Urine Blood Negative (Negative) Urine Nitrite Negative (Negative) Urine Bilirubin Negative (Negative) Urine Urobilinogen 0.2 (0.2-1.0) Ur Leukocyte Esterase Negative (Negative) Urine RBC 0-2 (0-2) Urine WBC 0-2 (0-5) Ur Squamous Epith Cells Moderate A (None-Few) Urine Bacteria Moderate A (None) SARS-CoV-2 (PCR) POSITIVE SARS-CoV-2 A (Negative) Influenza Type A (PCR) Negative PCR FLU A (Negative) Influenza Type B (PCR) Negative PCR FLU B (Negative) RSV (PCR) Negative PCR RSV (Negative) POC Creatinine 1.1 (0.6-1.3) mg/dl Imaging Data CT abdomen and pelvis: Radiologist's impression: 1. Small-bowel and free fluid containing right perineal hernia associated with a mechanical small-bowel obstruction. No imaging findings to indicate ischemia related to the obstructed small bowel. SURGICAL CONSULTATION IS RECOMMENDED. 2. Incidental findings described above including a circumscribed homogeneous low-density right inguinal collection consistent with a fluid containing direct hernia. 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 Recommendation: Surgical consultation. Please note that all CT scans at this facility use dose modulation, iterative reconstruction, and/or weight-based dosing when appropriate to reduce radiation dose to as low as reasonably achievable. Dictated by Rj Renee MD @ 08/13/2023 10:17:39 AM ECG Data Attestation: I personally reviewed and interpreted this ECG as follows: ECG interpretation date: 08/13/23 Prior ECG tracings: available for review Interpretation: is read as normal sinus rhythm with a rate of 67 beats per minute, normal intervals, normal axis, no ST or T-wave abnormalities. Appears similar to previous EKG on file Discharge Plan Discharge Prescriptions: No Action lisinopril 10 mg tablet 10 mg PO DAILY simvastatin 10 mg tablet 10 mg PO QPM levothyroxine 100 mcg capsule 100 mcg PO QDAY Patient Comments: Dose is not confirmed, as patient could not remember. coQ10 (ubiquinol) 100 mg capsule 100 mg PO DAILY Follow Up/Referrals: Angie Cali MD [Primary Care Provider] -
--- OUTSIDE RECORDS SUMMARY | 2023-08-13 08:35 | XMS_ITS | Encounter Summary ---
Author Name Unknown Organization [facility] Address [address] [place] [address] Care Team Providers Care Boilermaker Name Role Phone Elsewhere, Pcp Primary Care Provider Unavailabl e Reason for Referral * MRI/CAT/PET Scan (Routine) - Authorized Specialty Diagnoses / Procedures Referred By Contac t Referred To Contact Radiology Diagnoses Hernia Perineal Hernia Dysfunction Pelvic Floor Female Constipation Other Female Genital Prolapse Procedures MR Proctogram Dynamic and Sphincter Eval without IV Contrast MR Proctogram Dynamic and Sphincter Eval without IV Contrast Cande Ruiz M.D. [address] [place] [address] [facility] Referral ID Status Reason Start Date Expiration Date V isits Requested Visits Authorized [id number] Authorized 08/07/2023 08/06/2024 1 1 NG PRESSMAN * Outpatient (Routine) - Authorized Specialty Diagnoses / Procedures Referred By Contac t Referred To Contact Colon and Rectal Surgery Diagnoses Hernia Perineal Hernia Dysfunction Pelvic Floor Female Constipation Cande Ruiz M.D. [address] [place] [address] [facility] Referral ID Status Reason Start Date Expiration Date V isits Requested Visits Authorized [id number] Authorized 08/07/2023 08/06/2024 1 1 Scheduling Instructions Dynamic MRI first, then Dr. Rodriguez consult NG PRESSMAN * Outpatient (Routine) - Authorized Specialty Diagnoses / Procedures Referred By Hi steiner Referred To Contact General Surgery Diagnoses Hernia Femoral Cande Ruiz M.D. [address] [place] [address] [facility] Referral ID Status Reason Start Date Expiration Date V isits Requested Visits Authorized [id number] Authorized 08/07/2023 08/06/2024 1 1 NG PRESSMAN Reason for Visit * Reason Onset Date Comments Recent ER Visit 07/12/2023 Encounter Details Date Type Department Care Team (Latest Contact Info) Description 07/12/2023 Clinical Communication Department of Obstetrics and Gynecology, Division of Urogynecology in [place], [place] [address] [place] [address] Cande Ruiz M.D. [address] [place] [address] Recent ER Visit Social History Tobacco Use Types Packs/Day Years Used Date Smoking Tobacco: Former Smokeless Tobacco: Never Alcohol Use Standard Drinks/Week Comments Not Currently 0 (1 standard drink = 0.6 oz pure alcohol) Only at celebrations might have 1 drink Overall Financial Resource Strain (CARDIA) Answe r Date Recorded How hard is it for you to pa y for the very basics like food, housing, medical care, and heating? Not hard at all 06/10/2023 Exercise Vital Sign Answer Date Recorde d On average, how many days pe r week do you engage in moderate to strenuous exercise (like a brisk walk)? Patient declined On average, how many minutes do you engage in exercise at this level? Patient declined 06/10/2023 Hunger Vital Sign Answer Date Recorded Within the past 12 months, y ou worried that your food would run out before you got the money to buy more. Never true 06/10/20 23 Within the past 12 months, t he food you bought just didn't last and you didn't have money to get more. Never true 06/10/2023 PRAPARE - Transportation Answer Date Re corded In the past 12 months, has l ack of transportation kept you from medical appointments or from getting medications? No 05/30 In the past 12 months, has l ack of transportation kept you from meetings, work, or from getting things needed for daily living? No 06/10/2023 Nutrition Answer Date Recorded Nutrition: EVOO Fat Source Unknown 06/10 On average, how many serving s of fruits and vegetables do you eat per day (serving size is equal to 1 cup or approximately the size of a tennis ball)? 0-2 06/10/2023 Dental Answer Date Recorded Dental: Regular Dentist Yes 06/10/20 Employment Answer Date Recorded Employment status Retired 06/10/2023 Housing Stability Answer Date Recorded What is your living situation today? I have a [facility] place to live 06/10/2023 Sex and Gender Information Value Date Recorded Sex Assigned at Female 06/08/2023 11:11 AM GLUING PRESSMAN Gender Identity Female 06/08/2023 11:11 AM GLUING PRESSMAN Sexual Orientation Straight 06/08/2023 11 :11 AM GLUING PRESSMAN documented as of this encounter Plan of Treatment Upcoming Encounters Date Type Department Care Team (Latest Contact Info) Description 10/22/2023 9:00 AM CDT Comprehensive Visit Division of Colon and Rectal Surgery in [place], [place] [address] [place] [address] Sean Rodriguez M.B., Ch.B., M.P.H. [address] [place] [phone] Discharge Disposition: Home or Self Care 10/22/2023 12:00 PM CDT Comprehensive Visit Division of Trauma Critical Care and General Surgery in [place], [place] [address] [place] [phone] Cande Ruiz M.D. [address] [place] [phone] Scheduled Orders Name Type Priority Associated Diagnoses Orde r Schedule MR Proctogram Dynamic and Sphincter Eval without IV Contrast Imaging RAD - Routine (most inpatients and all outpatients) Hernia Perineal Hernia Dysfunction Pelvic Floor Female Constipation Other Female Genital Prolapse Expected: 08/07/2023 (Approximate), Expires: 11/05/2024 Scheduled Referrals Name Type Priority Associated Diagnoses Orde r Schedule General Surgery - Hernia consult (clinic) Outpatient Referral Routine Hernia Femoral Expected: 10/22/2023 (Approximate), Expires: 11/05/2024 Colon and Rectal Surgery - General consult (clinic) Outpatient Referral Routine Hernia Perineal Hernia Dysfunction Pelvic Floor Female Constipation Expected: 08/07/2023 (Approximate), Expires: 11/05/2024 documented as of this encounter Visit Diagnoses Diagnosis Hernia Femoral- Primary Hernia Perineal Hernia Dysfunction Pelvic Floor Female Constipation Other Female Genital Prolapse documented in this encounter Care Teams Boilermaker Relationship Specialty Start Date End Date Elsewhere, Pcp PCP - General Internal Medicine 06/12/23 documented as of this encounter
--- OUTSIDE RECORDS SUMMARY | 2023-08-13 08:35 | XMS_ITS | Encounter Summary ---
Author Name Unknown Organization [facility] Address [address] [place] [address] Care Team Providers Care Payroll Clerk Name Role Phone Elsewhere, Pcp Primary Care Provider Unavailabl e Reason for Visit * Reason Onset Date Comments Pre-visit Intake 06/12/2023 Encounter Details Date Type Department Care Team (Latest Contact Info) Description 06/12/2023 9:45 AM LEGAL ANALYST Clinical Communication Virtual Review in [place], [place] [address] [place] [address] Pre-visit Intake Social History Tobacco Use Types Packs/Day Years [...] your living situation today? I have a [facility] place to live 06/10/2023 Sex and Gender Information Value Date Recorded Sex Assigned at Female 06/08/2023 11:11 AM LEGAL ANALYST Gender Identity Female 06/08/2023 11:11 AM LEGAL ANALYST Sexual Orientation Straight 06/08/2023 11 :11 AM LEGAL ANALYST documented as of this encounter Plan of Treatment Upcoming Encounters Date Type Department Care Team (Latest Contact Info) Description 10/22/2023 9:00 AM CDT Comprehensive Visit Division of Colon and Rectal Surgery in [place], [place] [address] [place] [address] Sean Rodriguez M.B., Ch.B., M.P.H. [address] [place] [phone] Discharge Disposition: Home or Self Care 10/22/2023 12:00 PM CDT Comprehensive Visit Division of Trauma Critical Care and General Surgery in [place], [place] [address] [place] [phone] Cande Ruiz M.D. [address] [place] [phone] documented as of this encounter Visit Diagnoses Not on filedocumented in this encounter Care Teams Payroll Clerk Relationship Specialty Start Date End Date Elsewhere, Pcp PCP - General Internal Medicine 06/12/23 documented as of this encounter
--- OUTSIDE RECORDS SUMMARY | 2023-08-13 08:35 | XMS_ITS | Clinical Summary ---
Author Name Unknown Organization [facility] Address [address] [place] [address] Care Team Providers Care Operations Advisor Name Role Phone Elsewhere, Pcp Primary Care Provider Unavailabl e Source Comments Patient records contain information from all sites at [facility]. For routine questions regarding patient records, call [phone] during business hours, M-F 8:00 AM - 5:00 PM Central Time. Record requests for emergency care only can be directed to [phone] at any time.[facility] Allergies Active Allergy Reactions Criticality Noted Date Comments Sulfamethoxazole-Trimethoprim Rash 2009 Medications Medication Sig Dispensed Refills Start Date End Date Status benzonatate (TESSALON PERLES) 100 mg capsule Take 100 mg by mouth 2 (two) times a day as needed. 0 06/06/2023 Active lisinopriL (PRINIVIL,ZESTRIL) 10 mg tablet Take 10 mg by mouth daily. 0 Active simvastatin (ZOCOR) 10 mg tablet Take 10 mg by mouth at bedtime. 0 Active levothyroxine (SYNTHROID, LEVOTHROID) 50 mcg tablet Take 50 mcg by mouth every morning before breakfast. 0 05/13/2023 Active hydrOXYzine (ATARAX) 25 mg tablet Take 25 mg by mouth every 6 (six) hours as needed. 0 03/12/2022 Active calcium carbonate (calcium carbonate EX) 750 mg (300 mg calcium) chewable tablet Chew 1 tablet as needed for indigestion or heartburn. 0 Active acetaminophen (TYLENOL) 500 mg tablet Take 500 mg by mouth every 6 (six) hours as needed for pain. 0 Active cranberry 500 mg capsule Take 1 capsule by mouth daily. 0 Active cholecalciferol, vitamin D3, (VITAMIN D3 ORAL) Take by mouth. 3000 units in the am and 2000 units in the evening 0 Active ZINC ORAL Take 500 mg by mouth daily. 0 Active co-enzyme Q-10 (CO Q-10) 100 mg capsule Take 100 mg by mouth daily. 0 Active estradioL (ESTRACE) 0.1 mg/g (0.01%) vaginal creamIndications:Urg ency Urinary,Atrophy Vagina Due To Estrogen Deficiency Insert 1 g into the vagina 3 (three) times a week. Place small amount directly on urethra and 1 g inside vagina every night for 2 weeks. Then use 2 nights a week thereafter. 42.5 g 11 06/15/2023 Active Encounters Date Type Department Care Team Description 07/12/2023 Clinical Communication Department of Obstetrics and Gynecology, Division of Urogynecology in [address] [phone] Cande Ruiz M.D. Recent ER Visit 06/15/2023 Orders Only Department of Obstetrics and Gynecology, Division of Urogynecology in [place], [place] [address] [place] [phone] Drea Pepe M.D. 06/14/2023 3:00 PM MARKETING SALES MANAGER Comprehensive Visit Department of Obstetrics and Gynecology, Division of Urogynecology in [address] [phone] Cande Ruiz M.D. Urgency Urinary (Primary Dx); Atrophy Vagina Due To Estrogen Deficiency; Dysfunction Constipation Outlet; Constipation Slow Transit; Cystitis Recurrent; Rectocele 06/14/2023 1:45 PM MARKETING SALES MANAGER Procedure visit Department of Obstetrics and Gynecology, Division of Urogynecology in [place], [place] [address] [place] [phone] Cande Ruiz M.D. Cystocele Midline; Rectocele 06/12/2023 9:45 AM MARKETING SALES MANAGER Clinical Communication Virtual Review in [place], [place] [address] [place] [address] Pre-visit Intake from Last 3 Months Family History Medical History Relation Name Comments Dementia Father Colby Tee Stroke Father Colby Tee Stroke Mother Felecia Tee ongestive hear t Skin cancer Mother's Brother Garfield Tinsley Skin cancer Sister Pati Sanchez Relation Name Status Comments Father Colby Tee Mother Felecia Tee Mother's Brother Garfield Tinsley Sister Pati Sanchez Social History Tobacco Use Types Packs/Day Years [...] money to buy more. Never true 06/10/20 Within the past 12 months, t he [...] your living situation today? [facility] 06/10/2023 Sex and Gender Information Value Date Recorded Sex Assigned at Female 06/08/2023 11:11 AM MARKETING SALES MANAGER Gender Identity Female 06/08/2023 11:11 AM MARKETING SALES MANAGER Sexual Orientation Straight 06/08/2023 11 :11 AM MARKETING SALES MANAGER Last Filed Vital Signs Vital Sign Reading Time Taken Comments Blood Pressure - - Pulse - - Temperature - - Respiratory Rate - - Oxygen Saturation - - Inhaled Oxygen Concentration - - Weight 67.6 kg (149 lb 0.5 oz) 06/14/2023 3:44 P M MARKETING SALES MANAGER shoes on Height 166.4 cm (5' 5.51) 06/14/2023 3:44 PM CS T shoes on Body Mass Index 24.41 06/14/2023 3:44 PM MARKETING SALES MANAGER Plan of Treatment Upcoming Encounters Date Type Department Care Team (Latest Contact Info) Description 10/22/2023 9:00 AM CDT Comprehensive Visit Division of Colon and Rectal Surgery in [place], [place] [address] [place] [address] Sean Rodriguez M.B., Ch.B., M.P.H. [address] [place] [address] Discharge Disposition: Home or Self Care 10/22/2023 12:00 PM CDT Comprehensive Visit Division of Trauma Critical Care and General Surgery in [place], [place] [address] [place] [address] Cande Ruiz M.D. [address] [place] [address] Health Maintenance Due Date Last Done Comments Hepatitis C Screening 1945 Depression Screening (Annual PHQ-2) 07/30/2023 Fall Risk Screen (Annual) 07/30/2023 Thyroid Stimulating Hormone (TSH) test for thyroid function 01/30/2024 01/29/2023, 05/15/2022, 02/27/2022, Additional history exists Creatinine Level (Kidney Fun ction Test) 05/24/2024 05/24/2023, 05/16/2023, 05/25/2022, Additional history exists Potassium Level 05/24/2024 05/24/2023, 04/29, 05/25/2022, Additional history exists Sodium Level 05/24/2024 05/24/2023, 04/29, 05/25/2022, Additional history exists DTaP,Tdap,and Td Vaccines (3 - Td or Tdap) 07/11/2031 07/11/2021, 01/31/2011 Pneumococcal vaccine (65+ years) Completed 04/06/20 15, 03/17/2013 Zoster Vaccines Completed 05/05/2019, 08/2018, 01/31/2011 COVID-19 Vaccine Completed 05/16/2023, , 12/09/2021, Additional history exists Influenza Vaccine Completed 05/16/2023, , 05/12/2021, Additional history exists Procedures Procedure Name Priority Date/Time Associated Diagnosis Comments DIPSTICK, U Routine 06/14/2023 2:13 PM MARKETING SALES MANAGER PH, U Routine 06/14/2023 2:13 PM MARKETING SALES MANAGER OSMOLALITY, U Routine 06/14/2023 2:13 PM MARKETING SALES MANAGER MICROSCOPIC AUTOMATED Routine 06/14/2023 2:13 PM MARKETING SALES MANAGER URINALYSIS WITH MICROSCOPIC Routine 06/14/2023 2:13 PM MARKETING SALES MANAGER Cystocele Midline BACTERIAL CULTURE, AEROBIC + SUSC, URINE Routine 06/14/2023 2:13 PM MARKETING SALES MANAGER Cystocele Midline NE CYSTOMETROGRAM COMPLEX Routine 06/14/2023 1:45 PM MARKETING SALES MANAGER Cystocele Midline Rectocele NE UROFLOWMETRY CMPLX Routine 06/14/2023 1:45 PM MARKETING SALES MANAGER Cystocele Midline Rectocele NE CAMRON PST VOID RESID US NON IMG Routine 06/14/2023 1:45 PM MARKETING SALES MANAGER Cystocele Midline Rectocele from Last 3 Months Results * (ABNORMAL) Dipstick, Urine (06/14/2023 2:13 PM MARKETING SALES MANAGER) Hemoglobin, QL, U Negative Negative 06/14/2023 3:50 PM MARKETING SALES MANAGER DTL Leukocyte Esterase, U Small(A) Negative 06/14/2023 3:50 PM MARKETING SALES MANAGER DTL Nitrite, U Negative Negative 06/14/2023 3:50 PM MARKETING SALES MANAGER DTL Ketone, U Negative Negative mg/dL 06/14/2023 3:50 PM MARKETING SALES MANAGER DTL Glucose, U Negative Negative mg/dL 06/14/2023 3:50 PM MARKETING SALES MANAGER DTL Urine 06/14/2023 2:13 PM MARKETING SALES MANAGER 06/14/2023 3:24 PM MARKETING SALES MANAGER Cande Ruiz M.D. LAB URINE ORDERABL ES Performing Organization Address [facility] Co de Phone Number [facility] [address] [place] [address], [facility] DTL [facility] [address] [place] [address] * (ABNORMAL) Microscopic Automated (06/14/2023 2:13 PM MARKETING SALES MANAGER) Pathologist [facility] Microscopy Abnormal 06/14/2023 3:50 PM MARKETING SALES MANAGER DTL RBC None Seen <3 /hpf 06/14/2023 3:50 PM MARKETING SALES MANAGER DTL WBC 21-30(A) /hpf 06/14/2023 3:50 PM MARKETING SALES MANAGER DTL Comment: ----REFERENCE VALUE---- <4 ??(Males) <11 (Females) Bacteria Present(A) 06/14/2023 3:50 PM MARKETING SALES MANAGER DTL Urine 06/14/2023 2:13 PM MARKETING SALES MANAGER 06/14/2023 3:24 PM MARKETING SALES MANAGER Cande Ruiz M.D. LAB URINE ORDERABL ES Performing Organization Address City/[facility] Co de Phone Number [facility] [address] [place] [address], [facility] DTL [facility] [address] [place] [address] * (ABNORMAL) Bacterial Culture, Aerobic + Susceptibility, Urine (06/14/2023 2:13 PM MARKETING SALES MANAGER) Urine Culture ENTEROCOCCUS FAECALIS >100,000 cfu/mL (A) 06/16/2023 1:34 PM MARKETING SALES MANAGER DTL Urine (Urine, Straight Catheter) 06/14/2023 2:13 PM MARKETING SALES MANAGER 06/14/2023 4:47 PM MARKETING SALES MANAGER Comment:Specimen Source Site : Urine Narrative Organism Antibiotic Method Susceptibility Enterococcus faecalis Levofloxacin SUSCEPTIBI LITY, VIGNESH (MCG/ML) 1 mcg/mL: Susceptible Enterococcus faecalis Nitrofurantoin SUSCEPTIBI LITY, VIGNESH (MCG/ML) <=32 mcg/mL: Susceptible Enterococcus faecalis Vancomycin SUSCEPTIBI LITY, VIGNESH (MCG/ML) <=2 mcg/mL: Susceptible Enterococcus faecalis Penicillin SUSCEPTIBI LITY, VIGNESH (MCG/ML) 2 mcg/mL: Susceptible Cande Ruiz M.D. LAB MICROBIOLOGY - GENERAL ORDERABLES Performing Organization Address City/[facility]/ZIP Co de Phone Number [facility] [address] [place], [place] [address] [address] [place] [address] * pH, Urine (06/14/2023 2:13 PM MARKETING SALES MANAGER) [facility] pH, U 5.5 4.5 - 8.0 06/14/2023 4:3 9 PM MARKETING SALES MANAGER DT Urine 06/14/2023 2:13 PM MARKETING SALES MANAGER 06/14/2023 3:24 PM MARKETING SALES MANAGER Cande Ruiz M.D. LAB URINE ORDERABL ES Performing Organization Address City/[facility]/ZIP Co de Phone Number [facility] [address] [place] [address], [address] [address] * Osmolality, Urine (06/14/2023 2:13 PM MARKETING SALES MANAGER) Pathologist [facility] Osmolality, U 419 150 - 1150 mOsm/kg 06/14/2023 4:39 PM MARKETING SALES MANAGER DTL Urine 06/14/2023 2:13 PM MARKETING SALES MANAGER 06/14/2023 3:24 PM MARKETING SALES MANAGER Cande Ruiz M.D. LAB URINE ORDERABL ES Performing Organization Address City/[facility] Co de Phone Number [facility] [address] [place] [address], [facility] DTL [facility] [address] [place] [address] * Urinalysis with Microscopic: Urine, Straight Catheter (06/14/2023 2:13 PM MARKETING SALES MANAGER) Source Urine, Urine, Straight Catheter 06/14/2023 3:23 PM MARKETING SALES MANAGER DTL Color, U Yellow 06/14/2023 3:23 PM MARKETING SALES MANAGER DTL Clarity, U Clear 06/14/2023 3:23 PM MARKETING SALES MANAGER DTL Protein, U 8 <26 mg/dL 06/14/2023 4:07 PM MARKETING SALES MANAGER DTL Protein/Osmola lity 0.19 <0.42 ratio 06/14/2023 4:39 PM MARKETING SALES MANAGER DTL Predicted 24 HR Protein, U 149 <229 mg/24 h 06/14/2023 4:39 PM MARKETING SALES MANAGER DTL Predicted Range 37-602 mg/24 h 06/14/2023 4:39 PM MARKETING SALES MANAGER DTL Urine (Urine, Straight Catheter) 06/14/2023 2:13 PM MARKETING SALES MANAGER 06/14/2023 3:23 PM MARKETING SALES MANAGER Cande Ruiz M.D. LAB URINE ORDERABL ES Performing Organization Address City/[facility]/ZIP Co de Phone Number [facility] [address] [place] [address], [facility] DTL [facility] [address] [place] [address] * NE CAMRON PST VOID RESID US NON IMG, NE UROFLOWMETRY CMPLX, NE CYSTOMETROGRAM COMPLEX (06/14/2023 1:45 PM MARKETING SALES MANAGER) Narrative Cande Ruiz M.D. - 06/14/2023 1:45 PM MARKETING SALES MANAGER Drea Pepe M.D. ? 06/18/2023 ??9:14 AM OBG Urodynamic Studies Performed by: Cande Ruiz M.D. Authorized by: Cande Ruiz M.D. ?? Care team members present 1. Thierry Daniel R.N., Patrizia PROCEDURE DETAILS: Procedures: Combined (CMG + Uro) Equipment used: calibrated electronically Cough stress test: positive ?? Flow pattern: with intermittency or interruption ?? Interpretation: not interpretable due to voided volume <200 mL ?? Uroflow voided volume (mL): 70 Uroflow post-void residual (mL): 65 (UA and culture collected and sent) Uroflow postvoid residual measured by: catheter ?? Volume infused (mL): 300 Detrusor activity: stable during filling ?? Support of significant prolapsE: no ?? Valsalva-related leakage: present (Stream with lying, sitting and standing) ?? Cough-related leakage: present (Stream with lying, sitting and standing) ?? Volume of stress urinary incontinence: large ?? Repeat Uroflow: yes ?? Repeat Uroflow voided volume (mL): 180 Repeat Uroflow post-void residual (mL): 98 Repeat Uroflow post-void residual measured by: ultrasound Uroflow: abnormal ?? Abnormal pattern due to: intermittency and interruption Cystometry: stress urinary incontinence and no urodynamic evidence of detrusor overactivity ?? The following procedures were performed during this urodynamic study: ?? Bladder irrigation installation, post-void residual - catheter, post-void residual - ultrasound and complex uroflow CONSENT Consent obtained: verbal Consent given by: patient The benefits, risks and alternatives to the procedure and the potential need for sedation or anesthesia as well as the names, roles, and responsibilities of healthcare team members performing significant interventional tasks were discussed with the patient and/or decision maker. UNIVERSAL PROTOCOL All relevant documentation and testing were reviewed and available. All required blood products, implants, devices and or special equipment were made available as applicable. Pre-procedure verification was conducted and the correct site was marked if required. A fire risk assessment was done as applicable. The procedural time-out to verify correct patient, correct side/site, and procedure was conducted prior to performing the procedure and confirmed in a procedural pause. PRE-PROCEDURE DETAILS: ??Indications: urinary incontinence ?Appropriate hand hygiene, gown, cap, mask, protective eyewear, sterile gloves, skin preparation, sterile drape, and strict aseptic technique were utilized as applicable for the procedure.: yes ?Site preparation: ??Povidone-iodine SEDATION / ANESTHESIA Anesthesia method: none POST-PROCEDURE DETAILS ?? Procedure completed successfully: yes ?? Complications: no apparent complications Comments Impression: 1. Abnormal uroflow due to intermittency and interruption 2. Present evidence of large volume stress urinary incontinence 3. No evidence of detrusor overactivity 4. No evidence of incomplete bladder emptying Please correlate clinically. Cande Ruiz M.D. OB GYNE ORDERABLES from Last 3 Months Care Teams Operations Advisor Relationship Specialty Start Date End Date Elsewhere, Pcp PCP - General Internal Medicine 06/12/23
--- OUTSIDE RECORDS SUMMARY | 2023-08-13 08:35 | XMS_ITS | Encounter Summary ---
Author Name Unknown Organization [facility] Address [address] [place] [address] Care Team Providers Care [place] Worker Name Role Phone Unavailable Primary Care Provider Unavailabl e Reason for Referral * Outpatient (Routine) - Closed Specialty Diagnoses / Procedures Referred By Hi t Referred To Contact Diagnoses Cystocele Midline Rectocele Procedures OBG Urodynamic Studies Cande Ruiz M.D. [address] [place] [phone] [facility] Referral ID Status Reason Start Date Expiration Date Visits Re quested Visits Authorized [id number] Closed 04/26/2023 04/25/2024 1 1 Encounter Details Date Type Department Care Team (Late st Contact Info) Description 04/26/2023 Orders Only Department of Obstetrics and Gynecology, Division of Urogynecology in [place], [place] [address] [place] [phone] Lisa Akins, RFransiscoNFransisco [address] [place] [phone] Cystocele Midline (Primary Dx); Rectocele Social History Tobacco Use Types Packs/Day Years Used Date Smoking Tobacco: Never Assessed Nutrition Answer Date Recorded Nutrition: EVOO Fat Source Unknown 03/13 Nutrition: Servings of Fruits/Vegetables per Day Not on file 03/13/2023 Dental Answer Date Recorded Dental: Regular Dentist Unknown 03/13/20 23 Sex and Gender Information Value Date Recorded Sex Assigned at Female 06/08/2023 11:11 AM ASSEMBLER FOR PULLER OVER MACHINE Gender Identity Female 06/08/2023 11:11 AM ASSEMBLER FOR PULLER OVER MACHINE Sexual Orientation Straight 06/08/2023 11 :11 AM ASSEMBLER FOR PULLER OVER MACHINE documented as of this encounter Plan of Treatment Upcoming Encounters Date Type Department Care Team (Latest Contact Info) Description 10/22/2023 9:00 AM CDT Comprehensive Visit Division of Colon and Rectal Surgery in [place], [place] [address] [place] [address] Sean Rodriguez M.B., Ch.B., M.P.H. [address] [place] [phone] Discharge Disposition: Home or Self Care 10/22/2023 12:00 PM CDT Comprehensive Visit Division of Trauma Critical Care and General Surgery in [place], [place] [address] [place] [address] Cande Ruiz M.D. [address] [place] [address] documented as of this encounter Results * [place] CAMRON PST VOID RESID US NON IMG, [place] UROFLOWMETRY CMPLX, [place] CYSTOMETROGRAM COMPLEX (06/14/2023 1:45 PM ASSEMBLER FOR PULLER OVER MACHINE) Narrative Cande Ruiz M.D. - 06/14/2023 1:45 PM ASSEMBLER FOR PULLER OVER MACHINE Drea Pepe M.D. ? 06/18/2023 ??9:14 AM OBG Urodynamic Studies Performed by: Cande Ruiz M.D. Authorized by: Cande Ruiz M.D. ?? Care team members present 1. Thierry Daniel R.N., I.B.C.L.CFransisco PROCEDURE DETAILS: Procedures: Combined (CMG + Uro) [...] clinically. Cande Ruiz M.D. OB GYNE ORDERABLES documented in this encounter Visit Diagnoses Diagnosis Cystocele Midline- Primary Rectocele Cystocele Midline Rectocele documented in this encounter
--- OUTSIDE RECORDS SUMMARY | 2023-08-13 08:35 | XMS_ITS | Clinical Summary ---
Author Name Unknown Organization [facility] Address [place], [place] [address] Care Team Providers Care Healthcare Corporate Account Director Name Role Phone Angie Cali MD Primary Care Provider Allergies Active Allergy Reactions Criticality Noted Date Comments Sulfamethoxazole-Trimethoprim Rash 2009 Medications Medication Sig Dispensed Refills Start Date End Date Status coenzyme q10 100 mg capIndications:Hyperli pidemia, unspecified hyperlipidemia type Take 1 capsule by mouth once daily. 0 04/11/2018 Active hydrOXYzine HCL (ATARAX) 25 mg tabletIndications:Anxi ety TAKE 1 TABLET BY MOUTH EVERY 6 HOURS IF NEEDED FOR ANXIETY OR ITCHING 30 Tablet 0 03/12/2022 Active simvastatin (ZOCOR) 10 mg tabletIndications:Hype rlipidemia, unspecified hyperlipidemia type TAKE 1 TABLET BY MOUTH EVERYDAY AT BEDTIME 90 Tablet 2 04/26/2023 Active levothyroxine (SYNTHROID) 50 mcg tabletIndications:Post surgical hypothyroidism TAKE 1 TABLET (50 MCG) BY MOUTH BEFORE BREAKFAST 90 Tablet 3 05/13/2023 Active lisinopriL (PRINIVIL; ZESTRIL) 10 mg tabletIndications:Hype rtension, unspecified type Take 1 Tablet (10 mg) by mouth once daily. 90 Tablet 3 05/16/2023 Active Active Problems Problem Noted Date Diagnosed Date Colon polyp 05/25/2022 Overview: Colonoscopy 04/2022 TA, SSA, repeat in 5 years DDD (degenerative disc disease), cervical 2019 Hyperparathyroidism 07/28/2019 Overview: evaluated by Endocrinology 07/17; they recommend repeat evaluation 07/19 unless patient has calcium > 11.5 or has an osteoporotic fracture CKD (chronic kidney disease) stage 3, GFR 30-59 ml/min 12/10/2018 Lumbar radicular pain 04/21/2016 Overview: MRI 2015. Mar 2020: physical therapy ordered. Spondylolisthesis of lumbar region 04/21/2016 Hyperlipidemia 01/31/2011 HTN (hypertension) 12/30/2009 Thyroid nodule Encounters Date Type Department Care Team Description 08/06/2023 3:15 PM SIDE SHOW ENTERTAINER Office Visit [facility] [address] [place] [address] Nicol Morillo MD Consult (Small bowel obstruction and abdominal hernia) 08/06/2023 Travel 07/11/2023 Orders Only [facility] Scanner 1 scan: (1-Ord) [place], CHEST ABD PELV W, 07/11/2023 07/11/2023 Orders Only [facility] Scanner 1 scan: (1-Ord) [facility], CT HEAD/BRAIN WO CONTRAST, 07/11/2023 07/11/2023 Medical Messaging [facility] [address] [place] [address] Angie Cali MD Recent emergency room 07/06/2023 Telephone [facility] [address] [place] [address] Angie Cali MD Questions (returning call) 07/05/2023 Telephone [facility] [address] [place] [address] Angie Cali MD Follow Up 06/26/2023 1:55 PM SIDE SHOW ENTERTAINER Phone Office Visit [facility] [address] [place] [address] Adelaida Malone DO Blood Pressure; Telehealth 06/26/2023 Travel 06/26/2023 Nurse Triage [facility] [address] [place] [address] Angie Cali MD High Blood Pressure 06/20/2023 8:00 AM SIDE SHOW ENTERTAINER Ancillary Procedure [facility]tom[facility] [place] [address] 06/20/2023 7:30 AM SIDE SHOW ENTERTAINER Office Visit [facility] John Thompson [place] [address] Miriam Calvo PA Cough (X 2 weeks - [facility] but didn't pick it up because she started to feel better, but now she is feeling worse again) 06/20/2023 Travel 05/25/2023 Telephone [facility] [place] [address] Angie Cali MD Questions 05/24/2023 9:50 AM CDT Orders Only [facility] Jonh Thompson [place] [address] Lab, [facility] 05/23/2023 Travel 05/16/2023 10:30 AM CDT Office Visit [facility] [place] [address] Angie Cali MD Medication Management ( lisinopril, simvastatin); Urinary Problem (Reoccurring UTI, burning on the outer side of bottom. Currently taking an antibiotic and has about 3 doses left and thinks her UTI is not gone.); Immunization/Inject ion 05/16/2023 10:00 AM CDT Ancillary Procedure [facility] [place] [address] 05/15/2023 Travel 05/14/2023 Telephone [facility] [place] [address] Angie Cali MD Questions (Annual Follow-Up) from Last 3 Months Immunizations Name Administration Dates Next Due COVID-19 Vaccine Spikevax (M oderna 50mcg/0.5mL) 12YO+ [id number] Formula PF 05/16/2023 COVID-19 vaccine (iGo-Bio NTech 30mcg/0.3mL) 12YO+ BIVALENT PF, MDV 05/15/2022 COVID-19 vaccine (Pfizer-Bio NTech 30mcg/0.3mL) 12YO+ RADHA-SUCROSE PF, MDV 12/09/2021 COVID-19 vaccine (Mobixell NetworksBio NTech 30mcg/0.3mL) PF, MDV 05/12/2021,10/12/2020,09/21/2020 Influenza, High-dose Inactivated 04/07/2016,02/2015 Influenza, IIV3 (Age >=3 years) 08/21/2012 Influenza, Inactivated AIIV4 (Age 65+ Years) Preserv Free 05/16/2023,05/15/2022,05/12/2021,2019 Influenza, Inactivated IIV3 (Age 65+ Years) Preserv Free 04/15/2019,04/11/2018,04/09/2017 Pneumococcal Poly,23-Valent (Pneumovax) 03/17/2013 Pneumococcal conj 13-Valent (Prevnar 13) 04/06/2015 Tdap 07/11/2021,01/31/2011 Zoster (Shingrix-RZV, recombinant) 05/05/2019, Zoster (Zostavax-ZVL, live) 01/31/2011 Family History Medical History Relation Name Comments Other Father dementia Blood Disease Maternal Grandmother ovaria n Heart Disease Mother CHF Stroke Mother Cancer-breast Other maternal cousi n Cancer-ovarian No Family History Relation Name Status Comments Father Maternal Grandmother Mother Other Social History Tobacco Use Types Packs/Day Years Used Date Smoking Tobacco: Former Cigarettes 0.5 20 0 07/30/1962 - 07/30/1982 Smokeless Tobacco: Never Tobacco Cessation:Counseling Given: Not Answered Comments:1982 Alcohol Use Standard Drinks/Week Comments Yes 0 (1 standard drink = 0.6 oz pur e alcohol) occ PHQ-2 Answer Date Recorded PHQ-2 TOTAL SCORE 0 03/09/2023 Social Connections Answer Date Recorded Frequency of Communication with Friends and Fami ly 0 05/16/2023 Alcohol Use Answer Date Recorded How often do you have a drink containing alcohol ? 1 08/31/2021 How many drinks containing a lcohol do you have on a typical day when you are drinking? 0 08/31/2021 How often do you have five or more drinks on one occasion? 0 08/31/2021 Financial Resource Strain Answer Date R ecorded Difficulty of Paying Living Expenses 3 05/16/2023 Difficulty of Paying Living Expenses Not on file 05/16/2023 Food Insecurity Answer Date Recorded Worried About Running Out of Food in the Last Ye ar 1 05/16/2023 Transportation Needs Answer Date Record ed Lack of Transportation (Medical) 1 05/16/2023 Housing Stability Answer Date Recorded Unable to Pay for Housing in the Last Year 1 05/16/2023 Sex and Gender Information Value Date Recorded Sex Assigned at Not on file Gender Identity Not on file Sexual Orientation Not on file Obstetrics History Para Term AB IAB SAB Ectopic Multiple Livin g Live Births 2 2 2 2 2 Date Outcome GA Total Labor Labor/2nd/3rd Weight Sex Delivery Anes PTL Rox A1 A5 Name Cl in Term Cris ng Term Cris ng Last Filed Vital Signs Vital Sign Reading Time Taken Comments Blood Pressure 127/80 08/06/2023 3:14 PM SIDE SHOW ENTERTAINER Pulse 98 08/06/2023 3:14 PM SIDE SHOW ENTERTAINER Temperature 36.7 ??C (98.1 ??F) 06/20/2023 7:27 AM CS T Respiratory Rate 14 12/14/2021 1:24 PM CDT Oxygen Saturation 100% 08/06/2023 3:14 PM SIDE SHOW ENTERTAINER Inhaled Oxygen Concentration - - Weight 63.7 kg (140 lb 6.4 oz) 08/06/2023 3:14 P M SIDE SHOW ENTERTAINER Height 164 cm (5' 4.57) 05/16/2023 10:29 AM CDT Body Mass Index 23.68 05/16/2023 10:29 AM CDT Plan of Treatment Health Maintenance Due Date Last Done Comments Medicare Wellness for age 65+ 04/19/2021, 04/15/2019, 04/11/2018, Additional history exists Depression screening for age 12+ 03/12/2024 03/12/2023, 03/09/2023, 05/12/2021, Additional history exists BMI (ht and wt on same day) for age 18+ 05/16/2024 05/16/2023, 03/09/2023, 12/09/2021, Additional history exists Tetanus booster 07/11/2031 07/11/2021, 07/0 11/2010, 01/31/2011 Pneumococcal series for age 65+ Completed 5, 03/17/2013 Hepatitis C screening for ag e 18-79 Completed 04/09/2017 Zoster (shingles) series for age 50+ Completed 05/05/2019, 02/28/2019, 01/31/2011 DEXA/DXA scan for age 65+ Completed 2020, 07/25/2019, 04/11/2018, Additional history exists Tdap Completed 07/11/2021, 01/31/2011 COVID-19 vaccine series Completed 05/16/20, 05/15/2022, 12/09/2021, Additional history exists Influenza for age 65+ Completed 05/16/2023 , 05/15/2022, 05/12/2021, Additional history exists Procedures Procedure Name Priority Date/Time Associated Diagnosis Comments SCAN-CT INTERPRETATION 3 12:00 AM SIDE SHOW ENTERTAINER SCAN-CT INTERPRETATION 3 12:00 AM SIDE SHOW ENTERTAINER XR CHEST 2 VIEWS PA AND LATERAL Routine 06/20/2023 7:58 AM SIDE SHOW ENTERTAINER Cough, unspecified type BASIC METABOLIC PANEL Routine 05/24/2023 9:51 AM CDT Hyperkalemia URINE CULTURE Routine 05/16/2023 11:24 AM CDT Recurrent UTI UA W/ SEDIMENT EXAM REFLEXED PER CRITERIA Routine 05/16/2023 11:24 AM CDT Recurrent UTI PTH,INTACT Routine 05/16/2023 11:15 AM CDT Hyperparathyroidism (HC) BASIC METABOLIC PANEL Routine 05/16/2023 11:15 AM CDT Hypertension, unspecified type TRICHOMONAS, SINGH, AND BACTERIAL VAGINOSIS BY KASSIE Routine 05/16/2023 10:55 AM CDT Vulvar itching XR MAMMO BILAT SCREENING Routine 05/16/2023 10:11 AM CDT Visit for screening mammogram from Last 3 Months Results * SCAN-CT INTERPRETATION (07/11/2023 12:00 AM SIDE SHOW ENTERTAINER) Only the most recent of2 resultswithin the time period is included. Anatomical Region Laterality Modality Other Scanner OTHER * XR CHEST 2 VIEWS PA AND LATERAL (06/20/2023 7:58 AM SIDE SHOW ENTERTAINER) Anatomical Region Laterality Modality CHEST, THORAX, Lung, HEART Compu yamile Radiography 06/20/2023 5:16 PM SIDE SHOW ENTERTAINER Impressions 06/20/2023 5:16 PM SIDE SHOW ENTERTAINER No acute findings. Dictated by Benedicto Miner MD @ Jun 20 2023 ??5:16PM (Electronically Signed) ?? Narrative 06/20/2023 5:16 PM SIDE SHOW ENTERTAINER For Patients: ??As a result of the Cures Act, medical imaging exams and procedure reports are released immediately into your electronic medical record. ??You may view this report before your referring provider. ??If you have questions, please contact your health care provider. INDICATION: Cough TECHNIQUE: Chest 2 views COMPARISON: 11/16/2016 FINDINGS: 11.9 cm hiatal hernia. Lungs clear. Procedure Note Benedicto Miner MD - 06/20/2023 For Patients: As a result of the Cures Act, medical imagingexams and procedure reports are released immediately into your electronicmedical record. You may view this report before your referring provider.If you have questions, please contact your health care provider. INDICATION: Cough TECHNIQUE: Chest 2 views COMPARISON: 11/16/2016 FINDINGS: 11.9 cm hiatal hernia. Lungs clear. IMPRESSION: No acute findings. Dictated by Benedicto Miner MD @ Jun 20 2023 5:16PM (Electronically Signed) [facility] * (ABNORMAL) BASIC METABOLIC PANEL (05/24/2023 9:51 AM CDT) Only the most recent of2 resultswithin the time period is included. SODIUM 136 136 - 145 mmol/L 05/24/2023 5:01 PM T [facility] POTASSIUM 5.0 3.5 - 5.1 mmol/L 05/24/2023 5:01 PM T [facility] CHLORIDE 101 98 - 107 mmol/L 05/24/2023 5:01 PM T [facility] CO2,TOTAL 27 22 - 29 mmol/L 05/24/2023 5:01 PM T [facility] ANION GAP 8 5 - 18 05/24/2023 5:01 PM T [facility] GLUCOSE 100(H) 70 - 99 mg/dL 05/24/2023 5:01 PM T [facility] CALCIUM 10.1 8.8 - 10.2 mg/dL 05/24/2023 5:01 PM [facility] BUN 17 8 - 23 mg/dL 05/24/2023 5:01 PM [facility] CREATININE 1.21(H) 0.50 - 0.90 mg/dL 05/24/2023 5:01 PM [facility] BUN/CREAT RATIO 14 10 - 20 5:01 PM T [facility] eGFR 47(L) >90 mL/min/1.7 3m2 05/24/2023 5:01 PM [facility] Comment:As of 2021, eG FR is calculated by the CKD-EPI creatinine equation without race adjustment. ??eGFR can be influenced by muscle mass, exercise, and diet. ??The reported eGFR is an estimation only and is only applicable if the renal function is stable. Blood BLOOD SPECIMEN / Unknown Venipuncture / Unknown 05/24/2023 9:51 AM CDT 05/24/2023 9:52 AM CDT Angie Cali MD CHEMISTRY [facility] [address] [place] [address], * URINE CULTURE (05/16/2023 11:24 AM CDT) CULTURE No growth (<1,000 CFU/mL) 05/17/2023 1:43 PM CDT [facility] Urine URINE SPECIMEN / Unknown Non-Blood / Unknown 05/16/2023 11:24 AM CDT 05/16/2023 11:25 AM CDT Angie Cali MD MICROBIOLOGY [facility] [address] [place] [address], * UA W/ SEDIMENT EXAM REFLEXED PER CRITERIA (05/16/2023 11:24 AM CDT) COLOR Yellow Yellow Color 05/16/2023 11:32 AM CDT [facility] CLARITY Clear Clear Clarity 05/16/2023 11:32 AM CDT [facility] SPECIFIC GRAVITY,URINE 1.025 1.010, 1.015, 1.020, 1.025 05/16/2023 11:32 AM CDT [facility] PH,URINE 5.5 6.0, 7.0, 8.0, 5.5, 6.5, 7.5, 8.5 05/16/2023 11:32 AM CDT [facility] UROBILINOGEN, QUALITATIVE Normal Normal EU/dl 05/16/2023 11:32 AM CDT [facility] PROTEIN, URINE Negative Negative mg/dL 05/16/2023 11:32 AM CDT [facility] GLUCOSE, URINE Negative Negative mg/dL 05/16/2023 11:32 AM CDT [facility] KETONES,URINE Negative Negative mg/dL 05/16/2023 11:32 AM CDT [facility] BILIRUBIN,URI NE Negative Negative 05/16/2023 11:32 AM CDT [facility] OCCULT BLOOD,URINE Negative Negative 05/16/2023 11:32 AM CDT [facility] NITRITE Negative Negative 05/16/2023 11:32 AM CDT [facility] LEUKOCYTE ESTERASE Negative Negative 05/16/2023 11:32 AM CDT [facility] Urine URINE SPECIMEN / Unknown Non-Blood / Unknown 05/16/2023 11:24 AM CDT 05/16/2023 11:25 AM CDT Angie Cali MD URINE [facility] [address] [place] [address], * PTH,INTACT (05/16/2023 11:15 AM CDT) CALCIUM 10.2 8.8 - 10.2 mg/dL 05/17/2023 4:33 AM CDT [facility] PTH,INTACT 36.2 15.0 - 69.0 pg/mL 05/17/2023 4:33 AM CDT [facility] Blood BLOOD SPECIMEN / Unknown Venipuncture / Unknown 05/16/2023 11:15 AM CDT 05/16/2023 11:16 AM CDT Angie Cali MD SEND OUTS [facility] [address] [place] [address], * TRICHOMONAS, SINGH, AND BACTERIAL VAGINOSIS BY KASSIE (05/16/2023 10:55 AM CDT) SINGH SPECIES Negative Negative 3 10:35 PM CDT [facility] SINGH GLABRATA Negative Negative 05/16/2023 10:35 PM CDT [facility] TRICHOMONAS VVA Negative Negative 3 10:35 PM CDT [facility] BACTERIAL VAGINOSIS Negative Negative 05/16/2023 10:35 PM CDT [facility] Other VAGINAL SWAB / Unknown Non-Blood / Unknown 05/16/2023 10:55 AM CDT 05/16/2023 11:29 AM CDT Angie Cali MD MICROBIOLOGY [facility] [address] [place] [address], * XR MAMMO BILAT SCREENING (05/16/2023 10:11 AM CDT) Anatomical Region Laterality Modality BREASTS, Breast Left, Breast Right Bilateral Mammography Impressions 05/16/2023 2:16 PM CDT ??There is no radiographic evidence for malignancy. ??Recommend annual mammograms. MAMMOGRAM ASSESSMENT: ??ACR 1 Negative PATIENTS: You will also receive a letter with your examination results in an easy to read format. ??If you have questions about your results, please contact your referring provider. Narrative 05/16/2023 2:16 PM CDT For Patients: As a result of the Century Cures Act, medical imaging exams and procedure reports are released immediately into your electronic medical record. You may view this report before your referring provider. If you have questions, please contact your health care provider. XR MAMMO BILAT SCREENING [[id number]] CLINICAL HISTORY: ??This is an asymptomatic 77 y.o. patient. INDICATION FOR EXAM: Mammogram Screening. TECHNIQUE: CC & MLO views were obtained. ??This study was evaluated with the assistance of Computer-Aided Detection. COMPARISON FILM: Yes 05/15/22 [employer] 05/12/21 [facility] FINDINGS: ??The breasts have scattered areas of fibroglandular density. There are no dominant masses, suspicious micro calcifications or areas of architectural distortion. Angie Cali MD MAMMO from Last 3 Months Advance Directives Documents on File Type Date Recorded Patient [employer] Special[employer] Expl anation Healthcare Directive 05/02/2016 11:56 AM [facility]ENTS/DIRECTIVE, JESSICA ACOSTA, 11/21/2010 Latest Code Status on File Code Status Date Activated Date Inactivated Comments Full Code 12/14/2021 7:39 AM 12/14/2021 3:26 PM Question Answer Comments Code Status Discussion: Discussed Care Teams Healthcare Corporate Account Director Relationship Specialty Start Date End Date Angie Cali MD [address] [place] [address] PCP - General 01/24/10
--- OUTSIDE RECORDS SUMMARY | 2023-08-13 08:35 | XMS_ITS | Encounter Summary ---
Author Name Unknown Organization [facility] Address [address] [place] [address] Care Team Providers Care Greenhouse Grower Name Role Phone Elsewhere, Pcp Primary Care Provider Unavailabl e Reason for Referral * Physical Therapy (Routine) - Authorized Specialty Diagnoses / Procedures Referred By Hi steiner Referred To Contact Diagnoses Urgency Urinary Procedures PT Evaluate and treat Drea Pepe M.D. [address] [place] [address] [facility] Region Referral ID Status Reason Start Date Expiration Date V isits Requested Visits Authorized [id number] Authorized 06/14/2023 06/13/2024 99 99 PMENT OPERATOR WAREHOUSE Reason for Visit * Appointment Request (Routine) - Closed Specialty Diagnoses / Procedures Referred By Hi steiner Referred To Contact Obstetrics and Gynecology Diagnoses Prolapse Genital Female Angie Cali M.D. [address] [place] [phone] Referral ID Status Reason Start Date Expiration Date Visits Re quested Visits Authorized [id number] Closed 03/15/2023 03/14/2024 1 1 Encounter Details Date Type Department Care Team (Latest Contact Info) Description 06/14/2023 3:00 PM EQUIPMENT OPERATOR WAREHOUSE Comprehensive Visit Department of Obstetrics and Gynecology, Division of Urogynecology in [place], [place] [address] [place] [address] Cande Grissom M.D. [address] [place] [address] Urgency Urinary (Primary Dx); Atrophy Vagina Due To Estrogen Deficiency; Dysfunction Constipation Outlet; Constipation Slow Transit; Cystitis Recurrent; Rectocele Social History Tobacco Use Types Packs/Day [...] your living situation today? I [facility] a [facility] to live 06/10/2023 Sex and Gender Information Value Date Recorded Sex Assigned at Female 06/08/2023 11:11 AM EQUIPMENT OPERATOR WAREHOUSE Gender Identity Female 06/08/2023 11:11 AM EQUIPMENT OPERATOR WAREHOUSE Sexual Orientation Straight 06/08/2023 11 :11 AM EQUIPMENT OPERATOR WAREHOUSE documented as of this encounter Last Filed Vital Signs Vital Sign Reading Time Taken Comments Blood Pressure - - Pulse - - Temperature - - Respiratory Rate - - Oxygen Saturation - - Inhaled Oxygen Concentration - - Weight 67.6 kg (149 lb 0.5 oz) 06/14/2023 3:44 P M EQUIPMENT OPERATOR WAREHOUSE shoes on Height 166.4 cm (5' 5.51) 06/14/2023 3:44 PM CS T shoes on Body Mass Index 24.41 06/14/2023 3:44 PM EQUIPMENT OPERATOR WAREHOUSE documented in this encounter Consult Notes * Cande Grissom M.D. - 06/14/2023 3:00 PM CST Division of Urogynecology & Female Pelvic Reconstructive Surgery SUBJECTIVE REFERRAL SOURCE Angie Cali M.D. I reviewed referring and relevant historical documentation regarding this patient. REASON FOR CONSULT Recurrent UTI, urinary urgency/frequency HISTORY OF PRESENT ILLNESS Ms. Shell is a 77 y.o. para 2 (vaginal) with HTN, HLD, GERD, hypothyroidism who presents with the following concerns: VAGINAL SYMPTOMS: She has a longstanding history of pelvic organ prolapse. She had a vaginal hysterectomy, anterior and posterior repairs as well as a bladder repair in the . She in 1995 had recurrent prolapse and had another repair which included anterior and posterior repairs as well as an additional bladder repair. Over the past few years she has noticed a recurrence of her prolapse, and now notices a small amount of tissue protruding beyond the vaginal opening. This is not overly bothersome to her, she only notices it when she wipes. She denies pelvic pressure or discomfort. She is not sexually active. URINARY SYMPTOMS: She reports bothersome urinary urgency and frequency. She voids up to 15 times a day and 3-4 times at night. The voids are sometimes small in volume. She will have leakage related to her urgency on her way to the restroom approximately 3 to 4 times a week. She does not use a pad every day. She alsowill have occasional leakage with laughing, coughing, or sneezing. This happens about 3 times a week and the leakage is small volume. The urgency and frequency is much more bothersome to her than thestress urinary incontinence. She also endorses a history of 2-3 UTIs every year. This is very distressing to her. Her last UTI was in February of this year. She underwent cystoscopy and renal ultrasound with an outside provider earlier this year. Per patient report, cystoscopy showed a bladder diverticulum but was otherwise normal. BOWEL SYMPTOMS: The patient struggles with constipation. If she will have a bowel movement every 2-3 days. Her stool consistency is often hard, and she describes it as ???abi.?? She will strain with having a bowel movement. She does have some stool trapping and will splint occasionally. Review of Systems: All other systems reviewed and are negative. HISTORY REVIEW: There is no problem list on file for this patient. MEDICAL HISTORY Past Medical History: Diagnosis Date Anxiety Generalized Disorder 1999 Cataract 2001 Gastroesophageal Reflux Disease NOS Hyperlipidemia Hypertension NOS Hyperthyroidism 2021 Renal Disease ? SURGICAL HISTORY Past Surgical History: Procedure Laterality Date BLADDER SURGERY 1982 and 1995 COLON SURGERY 1982 & 1995 OTHER SURGICAL HISTORY Knee arthroscopy 2019 SUPRACERVICAL HYSTERECTOMY 1982 had hysterotony - nkt sure what all removed THYROID SURGERY 2021 FAMILY HISTORY Breast-Relevant Family History No family history of breast, ovarian, colon, or pancreatic cancer. SOCIAL HISTORY Sexual history as noted above. OBJECTIVE PHYSICAL EXAMINATION Baby Nurse: Drea Pepe MD Examiner: Cande Grissom MD Vitals: 06/14/23 1544 Weight: 67.6 kg Height: 166.4 cm Constitutional: Appears well-nourished and groomed. Abdomen: Soft, nontender, nondistended Genitourinary Exam: External Genitalia: No pain on cotton swab test of the vulva. Perineum, labia majora, labia minora, clitoral correa, glans, and vestibule anatomy are intact with no signs of scarring, obliteration, hyper- or hypopigmentation. Urethral Meatus: Normal size and position. No urethral prolapse. Atrophy is Present Urethra: Hypermobility not present. No masses or tenderness on palpation. Bladder: No tenderness or masses on palpation. Pelvic Floor: Tension: Present Tenderness: Absent Kegel strength: 1/5 Coordination: Absent Non-relaxation: Present Vagina: No lesions with physiologic discharge. Atrophy is Absent Uterus and Cervix: Small, mobile, nontender, no masses or lesions Adnexa: No palpable masses, nontender POP-Q Prolapse Stage: Stage 3 rectocele, Stage 2 apical, stage 1 anterior Aa -3 Ba -3 C -4 Gh 3 Pb 3 TVL 8 Ap +2 Bp +2 D - DIAGNOSTICS LABS/TESTS REVIEW: I reviewed the patient's outside records. Relevant labs and test results: Lab Results Component Value Date CREATININE 1.21 (H) 05/24/2023 Lab Results Component Value Date CLARITYU Clear 06/14/2023 COLORU Yellow 06/14/2023 RBCU None Seen 06/14/2023 NITRITEU Negative 06/14/2023 LEUKOCYTESU Small (A) 06/14/2023 GLUCOSEU Negative 06/14/2023 KETONESU Negative 06/14/2023 URODYNAMIC TESTING: Abnormal uroflow with intermittency. No detrusor overactivity with filling. Large volume stress urinary incontinence. Patient voided to a normal PVR. ASSESSMENT / PLAN #1 Urgency-predominant mixed urinary incontinence #2 Recurrent urinary tract infections #3 Constipation #4 Rectocele #5 Pelvic floor dysfunction Her main concerns today were the urinary symptoms. Therefore, she was initiated on an OAB/UUI care pathway with an education packet for behavioral modification, vaginal estrogen therapy for reductionin UTIs as well as urinary symptoms, and referral to physical therapy for pelvic floor dysfunction and OAB/UUI. She also has ongoing constipation and rectocele, which has recurred multiple times. This could increase stool burden and subsequent risk of UTIs. I recommend physical therapy and Miralax first, with re-evaluation after these treatments have been implemented. She may be a surgical candidate in the future, if needed for stool trapping. Plan: - Vaginal estrogen therapy - Referral for pelvic floor physical therapy - OAB education packet - Miralax daily for constipation management - Return to clinic in 3-6 months for follow-up Signed by: Cande Grissom M.D. 06/14/2023 BILLING Total visit time: 40 minutes PMENT OPERATOR WAREHOUSE documented in this encounter Miscellaneous Notes * Addendum Note - Cande Grissom M.D. - 06/14/2023 3:00 PM CSTAddended by: CANDE GRISSOM on: 07/01/2023 11:05 AM Modules accepted: Level of Service PMENT OPERATOR WAREHOUSE documented in this encounter Plan of Treatment Upcoming Encounters Date Type Department Care Team (Latest Contact Info) Description 10/22/2023 9:00 AM CDT Comprehensive Visit Division of Colon and Rectal Surgery in [place], [place] [address] [place] [phone] Sean Rodriguez M.B., Ch.B., M.P.H. [address] [place] [phone] Discharge Disposition: Home or Self Care 10/22/2023 12:00 PM CDT Comprehensive Visit Division of Trauma Critical Care and General Surgery in [place], [place] [address] [place] [address] Cande Grissom M.D. 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
--- OUTSIDE RECORDS SUMMARY | 2023-08-13 08:35 | XMS_ITS | Encounter Summary ---
Author Name Unknown Organization [facility] Address [address] [place] [address] Care Team Providers Care Director Of Catering Sales Name Role Phone Elsewhere, Pcp Primary Care Provider Unavailabl e Reason for Visit * Outpatient (Routine) - Closed Specialty Diagnoses / Procedures Referred By Hi steiner Referred To Contact Diagnoses Cystocele Midline Rectocele Procedures OBG Urodynamic Studies Cande Ruiz M.D. [address] [place] [address] [facility] Referral ID Status Reason Start Date Expiration Date Visits Re quested Visits Authorized [id number] Closed 04/26/2023 04/25/2024 1 1 Encounter Details Date Type Department Care Team (Latest Contact Info) Description 06/14/2023 1:45 PM BANDER HAND Procedure visit Department of Obstetrics and Gynecology, Division of Urogynecology in [place], [place] [address] [place] [phone] Cande Ruiz M.D. [address] [place] [phone] Cystocele Midline; Rectocele Social History Tobacco Use Types Packs/Day [...] your living situation today? I have a [facility] place to live 06/10/2023 Sex and Gender Information Value Date Recorded Sex Assigned at Female 06/08/2023 11:11 AM BANDER HAND Gender Identity Female 06/08/2023 11:11 AM BANDER HAND Sexual Orientation Straight 06/08/2023 11 :11 AM BANDER HAND documented as of this encounter Procedure Notes * Drea Pepe M.D. - 06/14/2023 1:45 PM CSTAssociated Order(s): OBG Urodynamic Studies Pre-Procedure Diagnose(s): Cystocele Midline; Rectocele Post-Procedure Diagnose(s): Cystocele Midline; Rectocele OBG Urodynamic Studies Performed by: Cande Ruiz M.D. Authorized by: Cande Ruiz M.D. Care team members present 1. Thierry Daniel R.N., IBelinda PROCEDURE DETAILS: Procedures: Combined (CMG + Uro) Equipment used: calibrated electronically Cough stress test: positive Flow pattern: with intermittency or interruption Interpretation: not interpretable due to voided volume <200 mL Uroflow voided volume (mL): 70 Uroflow post-void residual (mL): 65 (UA and culture collected and sent) Uroflow postvoid residual measured by: catheter Volume infused (mL): 300 Detrusor activity: stable during filling Support of significant prolapsE: no Valsalva-related leakage: present (Stream with lying, sitting and standing) Cough-related leakage: present (Stream with lying, sitting and standing) Volume of stress urinary incontinence: large Repeat Uroflow: yes Repeat Uroflow voided volume (mL): 180 Repeat Uroflow post-void residual (mL): 98 Repeat Uroflow post-void residual measured by: ultrasound Uroflow: abnormal Abnormal pattern due to: intermittency and interruption Cystometry: stress urinary incontinence and no urodynamic evidence of detrusor overactivity The following procedures were performed during this urodynamic study: Bladder irrigation installation, post-void residual - catheter, [...] confirmed in a procedural pause. PRE-PROCEDURE DETAILS: Indications: urinary incontinence Appropriate hand hygiene, gown, cap, mask, protective eyewear, sterile gloves, skin preparation, sterile drape, and strict aseptic technique were utilized as applicable for the procedure.: yes Site preparation: Povidone-iodine SEDATION / ANESTHESIA Anesthesia method: none POST-PROCEDURE DETAILS Procedure completed successfully: yes Complications: no apparent complications Comments Impression: 1. Abnormal uroflow due to intermittency and interruption 2. Present evidence of large volume stress urinary incontinence 3. No evidence of detrusor overactivity 4. No evidence of incomplete bladder emptying Please correlate clinically. SR VICE PRESIDENT ER HAND documented in this encounter Plan of Treatment Upcoming Encounters Date Type Department Care Team (Latest Contact Info) Description 10/22/2023 9:00 AM CDT Comprehensive Visit Division of Colon and Rectal Surgery in [place], [place] [address] [place] [phone] Sean Rodriguez M.B., Ch.B., M.P.H. [address] [place] [phone] Discharge Disposition: Home or Self Care 10/22/2023 12:00 PM CDT Comprehensive Visit Division of Trauma Critical Care and General Surgery in [place], [place] [address] [place] [phone] Cande Ruiz M.D. [address] [place] [phone] documented as of this encounter Procedures Procedure Name Priority Date/Time Associated Diagnosis Comments DIPSTICK, U Routine 06/14/2023 2:13 PM BANDER HAND MICROSCOPIC AUTOMATED Routine 06/14/2023 2:13 PM BANDER HAND BACTERIAL CULTURE, AEROBIC + SUSC, URINE Routine 06/14/2023 2:13 PM BANDER HAND Cystocele Midline PH, U Routine 06/14/2023 2:13 PM BANDER HAND OSMOLALITY, U Routine 06/14/2023 2:13 PM BANDER HAND URINALYSIS WITH MICROSCOPIC Routine 06/14/2023 2:13 PM BANDER HAND Cystocele Midline CT CYSTOMETROGRAM COMPLEX Routine 06/14/2023 1:45 PM BANDER HAND Cystocele Midline Rectocele CT UROFLOWMETRY CMPLX Routine 06/14/2023 1:45 PM BANDER HAND Cystocele Midline Rectocele CT CAMRON PST VOID RESID US NON IMG Routine 06/14/2023 1:45 PM BANDER HAND Cystocele Midline Rectocele documented in this encounter Results * (ABNORMAL) Dipstick, Urine (06/14/2023 2:13 PM BANDER HAND) Hemoglobin, QL, U Negative Negative 06/14/2023 3:50 PM BANDER HAND DTL Leukocyte Esterase, U Small(A) Negative 06/14/2023 3:50 PM BANDER HAND DTL Nitrite, U Negative Negative 06/14/2023 3:50 PM BANDER HAND DTL Ketone, U Negative Negative mg/dL 06/14/2023 3:50 PM BANDER HAND DTL Glucose, U Negative Negative mg/dL 06/14/2023 3:50 PM BANDER HAND DTL Urine 06/14/2023 2:13 PM BANDER HAND 06/14/2023 3:24 PM BANDER HAND Cande Ruiz M.D. LAB URINE ORDERABL ES [facility] [address] [place] [address], [facility] [address] [place] [address] * pH, Urine (06/14/2023 2:13 PM BANDER HAND) pH, U 5.5 4.5 - 8.0 06/14/2023 4:3 9 PM BANDER HAND DTL Urine 06/14/2023 2:13 PM BANDER HAND 06/14/2023 3:24 PM BANDER HAND Cande Ruiz M.D. LAB URINE ORDERABL JOSE LUIS Performing Organization Address City/[facility]/ZIP Co de Phone Number [facility] [address] [place] [address], [facility] [address] [place] [address] * Osmolality, Urine (06/14/2023 2:13 PM BANDER HAND) Osmolality, U 419 150 - 1150 mOsm/kg 06/14/2023 4:39 PM BANDER HAND DTL Urine 06/14/2023 2:13 PM BANDER HAND 06/14/2023 3:24 PM BANDER HAND Cande Ruiz M.D. LAB URINE ORDERABL JOSE LUIS Performing Organization Address [facility] Co de Phone Number [facility] [address] [place] [address], [facility] [address] [place] [address] * (ABNORMAL) Microscopic Automated (06/14/2023 2:13 PM BANDER HAND) Pathologist [facility] Microscopy Abnormal 06/14/2023 3:50 PM BANDER HAND DTL RBC None Seen <3 /hpf 06/14/2023 3:50 PM BANDER HAND DTL WBC 21-30(A) /hpf 06/14/2023 3:50 PM BANDER HAND DTL Comment: ----REFERENCE VALUE---- <4 ??(Males) <11 (Females) Bacteria Present(A) 06/14/2023 3:50 PM BANDER HAND DTL Urine 06/14/2023 2:13 PM BANDER HAND 06/14/2023 3:24 PM BANDER HAND Cande Ruiz M.D. LAB URINE ORDERCHRISTINA AMAYA Performing Organization Address City/[facility] Co de Phone Number [facility] [address] [place] [address], [facility] [address] [place] [address] * Urinalysis with Microscopic: Urine, Straight Catheter (06/14/2023 2:13 PM BANDER HAND) Source Urine, Urine, Straight Catheter 06/14/2023 3:23 PM BANDER HAND DTL Color, U Yellow 06/14/2023 3:23 PM BANDER HAND DTL Clarity, U Clear 06/14/2023 3:23 PM BANDER HAND DTL Protein, U 8 <26 mg/dL 06/14/2023 4:07 PM BANDER HAND DTL Protein/Osmola lity 0.19 <0.42 ratio 06/14/2023 4:39 PM BANDER HAND DTL Predicted 24 HR Protein, U 149 <229 mg/24 h 06/14/2023 4:39 PM BANDER HAND DTL Predicted Range 37-602 mg/24 h 06/14/2023 4:39 PM BANDER HAND DTL Urine (Urine, Straight Catheter) 06/14/2023 2:13 PM BANDER HAND 06/14/2023 3:23 PM BANDER HAND Cande Ruiz M.D. LAB URINE ORDERABL ES Performing Organization Address [facility] Co de Phone Number [facility] [address] [place] [address], [facility] [address] [place] [address] * (ABNORMAL) Bacterial Culture, Aerobic + Susceptibility, Urine (06/14/2023 2:13 PM BANDER HAND) Pathologist [facility] Urine Culture ENTEROCOCCUS FAECALIS >100,000 cfu/mL (A) 06/16/2023 1:34 PM BANDER HAND DTL Urine (Urine, Straight Catheter) 06/14/2023 2:13 PM BANDER HAND 06/14/2023 4:47 PM BANDER HAND Comment:Specimen Source Site : Urine Narrative Organism Antibiotic Method Susceptibility Enterococcus faecalis Levofloxacin SUSCEPTIBI LITY, VIGNESH (MCG/ML) 1 mcg/mL: Susceptible Enterococcus faecalis Nitrofurantoin SUSCEPTIBI LITY, VIGNESH (MCG/ML) <=32 mcg/mL: Susceptible Enterococcus faecalis Vancomycin SUSCEPTIBI LITY, VIGNESH (MCG/ML) <=2 mcg/mL: Susceptible Enterococcus faecalis Penicillin SUSCEPTIBI LITY, VIGNESH (MCG/ML) 2 mcg/mL: Susceptible Cande Ruiz M.D. LAB MICROBIOLOGY - GENERAL ORDERABLES [facility] [address] [place] [address], [place] DTL [facility] [address] [place] [address] * CT CAMRON PST VOID RESID US NON IMG, CT UROFLOWMETRY CMPLX, CT CYSTOMETROGRAM COMPLEX (06/14/2023 1:45 PM BANDER HAND) Narrative Cande Ruiz M.D. - 06/14/2023 1:45 PM BANDER HAND Drea Pepe M.D. ? 06/18/2023 ??9:14 AM OBG Urodynamic Studies Performed by: Cande Ruiz M.D. Authorized by: Cande Ruiz M.D. ?? Care team members present 1. Thierry Daniel R.N., IBelinda PROCEDURE DETAILS: Procedures: Combined (CMG + Uro) [...] in this encounter Visit Diagnoses Diagnosis Cystocele Midline Rectocele documented in this encounter Care Teams Director Of Catering Sales Relationship Specialty Start Date End Date Elsewhere, Pcp PCP - General Internal Medicine 06/12/23 documented as of this encounter
--- OUTSIDE RECORDS SUMMARY | 2023-08-13 08:35 | XMS_ITS | Referral Summary ---
Author Name Unknown Organization [facility] Address [address] [place] [address] Care Team Providers Care Gis Geographer Name Role Phone Elsewhere, Pcp Primary Care Provider Unavailabl e Source Comments Patient records contain information from all sites at [facility]. For routine questions regarding patient records, call [phone] during business hours, M-F 8:00 AM - 5:00 PM Central Time. Record requests for emergency care only can be directed to [phone] at any time.[facility] Encounters Date Type Department Care Team Description 07/12/2023 Clinical Communication Department of Obstetrics and Gynecology, Division of Urogynecology in [place], [place] [address] [place] [phone] Cande Ruiz M.D. Recent ER Visit 06/15/2023 Orders Only Department of Obstetrics and Gynecology, Division of Urogynecology in [place], [place] [address] [place] [phone] Drea Pepe M.D. 06/14/2023 1:45 PM FIRST AID NURSE Procedure visit Department of Obstetrics and Gynecology, Division of Urogynecology in [place], [place] [address] [place] [phone] Cande Ruiz M.D. Cystocele Midline; Rectocele 06/14/2023 3:00 PM FIRST AID NURSE Comprehensive Visit Department of Obstetrics and Gynecology, Division of Urogynecology in [place], [place] [address] [place] [address] Cande Ruiz M.D. Urgency Urinary (Primary Dx); Atrophy Vagina Due To Estrogen Deficiency; Dysfunction Constipation Outlet; Constipation Slow Transit; Cystitis Recurrent; Rectocele 06/12/2023 9:45 AM FIRST AID NURSE Clinical Communication Virtual Review in [place], [place] [address] [place] [address] Pre-visit Intake from Last 3 Months Allergies Active Allergy Reactions Criticality Noted Date [...] week thereafter. 42.5 g 11 06/15/2023 Active Social History Tobacco Use Types Packs/Day Years [...] your living situation today? I have a [facility] place to live 06/10/2023 Sex and Gender Information Value Date Recorded Sex Assigned at Female 06/08/2023 11:11 AM FIRST AID NURSE Gender Identity Female 06/08/2023 11:11 AM FIRST AID NURSE Sexual Orientation Straight 06/08/2023 11 :11 AM FIRST AID NURSE Last Filed Vital Signs Vital Sign Reading Time Taken Comments Blood Pressure - - Pulse - - Temperature - - Respiratory Rate - - Oxygen Saturation - - Inhaled Oxygen Concentration - - Weight 67.6 kg (149 lb 0.5 oz) 06/14/2023 3:44 P M FIRST AID NURSE shoes on Height 166.4 cm (5' 5.51) 06/14/2023 3:44 PM CS T shoes on Body Mass Index 24.41 06/14/2023 3:44 PM FIRST AID NURSE Plan of Treatment Upcoming Encounters Date Type Department Care Team (Latest Contact Info) Description 10/22/2023 9:00 AM CDT Comprehensive Visit Division of Colon and Rectal Surgery in [place], [place] [address] [place] [phone] Sean Rodriguez M.B., Ch.B., M.P.H. [address] [place] [phone] Discharge Disposition: Home or Self Care 10/22/2023 12:00 PM CDT Comprehensive Visit Division of Trauma Critical Care and General Surgery in [place], [place] [address] [place] [address] Cande Ruiz M.D. [address] [place] [phone] Procedures Procedure Name Priority Date/Time Associated Diagnosis Comments DIPSTICK, U Routine 06/14/2023 2:13 PM FIRST AID NURSE PH, U Routine 06/14/2023 2:13 PM FIRST AID NURSE OSMOLALITY, U Routine 06/14/2023 2:13 PM FIRST AID NURSE MICROSCOPIC AUTOMATED Routine 06/14/2023 2:13 PM FIRST AID NURSE URINALYSIS WITH MICROSCOPIC Routine 06/14/2023 2:13 PM FIRST AID NURSE Cystocele Midline BACTERIAL CULTURE, AEROBIC + SUSC, URINE Routine 06/14/2023 2:13 PM FIRST AID NURSE Cystocele Midline [place] CYSTOMETROGRAM COMPLEX Routine 06/14/2023 1:45 PM FIRST AID NURSE Cystocele Midline Rectocele [place] UROFLOWMETRY CMPLX Routine 06/14/2023 1:45 PM FIRST AID NURSE Cystocele Midline Rectocele [place] CAMRON PST VOID RESID US NON IMG Routine 06/14/2023 1:45 PM FIRST AID NURSE Cystocele Midline Rectocele from Last 3 Months Results * (ABNORMAL) Dipstick, Urine (06/14/2023 2:13 PM FIRST AID NURSE) Hemoglobin, QL, U Negative Negative 06/14/2023 3:50 PM FIRST AID NURSE DTL Leukocyte Esterase, U Small(A) Negative 06/14/2023 3:50 PM FIRST AID NURSE DTL Nitrite, U Negative Negative 06/14/2023 3:50 PM FIRST AID NURSE DTL Ketone, U Negative Negative mg/dL 06/14/2023 3:50 PM FIRST AID NURSE DTL Glucose, U Negative Negative mg/dL 06/14/2023 3:50 PM FIRST AID NURSE DTL Urine 06/14/2023 2:13 PM FIRST AID NURSE 06/14/2023 3:24 PM FIRST AID NURSE Cande Ruiz M.D. [place] [address], [facility] [place] [address] * (ABNORMAL) Microscopic Automated (06/14/2023 2:13 PM FIRST AID NURSE) Microscopy Abnormal 06/14/2023 3:50 PM FIRST AID NURSE DTL RBC None Seen <3 /hpf 06/14/2023 3:50 PM FIRST AID NURSE DTL WBC 21-30(A) /hpf 06/14/2023 3:50 PM FIRST AID NURSE DTL Comment: ----REFERENCE VALUE---- <4 ??(Males) <11 (Females) Bacteria Present(A) 06/14/2023 3:50 PM FIRST AID NURSE DTL Urine 06/14/2023 2:13 PM FIRST AID NURSE 06/14/2023 3:24 PM FIRST AID NURSE Cande Ruiz M.D. LAB URINE ORDERABL ES Performing Organization Address [facility] Co de Phone Number [facility] [address] [place] [address], [facility] [address] [place] [address] * (ABNORMAL) Bacterial Culture, Aerobic + Susceptibility, Urine (06/14/2023 2:13 PM FIRST AID NURSE) Urine Culture ENTEROCOCCUS FAECALIS >100,000 cfu/mL (A) 06/16/2023 1:34 PM FIRST AID NURSE DTL Urine (Urine, Straight Catheter) 06/14/2023 2:13 PM FIRST AID NURSE 06/14/2023 4:47 PM FIRST AID NURSE Comment:Specimen Source Site : Urine Narrative Organism Antibiotic Method Susceptibility Enterococcus faecalis Levofloxacin SUSCEPTIBI LITY, VIGNESH (MCG/ML) 1 mcg/mL: Susceptible Enterococcus faecalis Nitrofurantoin SUSCEPTIBI LITY, VIGNESH (MCG/ML) <=32 mcg/mL: Susceptible Enterococcus faecalis Vancomycin SUSCEPTIBI LITY, VIGNESH (MCG/ML) <=2 mcg/mL: Susceptible Enterococcus faecalis Penicillin SUSCEPTIBI LITY, VIGNESH (MCG/ML) 2 mcg/mL: Susceptible Cande Ruiz M.D. LAB MICROBIOLOGY - GENERAL ORDERABLES Performing Organization Address [facility] Co de Phone Number [facility] [address] [place] [address], [facility] [address] [place] [address] * pH, Urine (06/14/2023 2:13 PM FIRST AID NURSE) pH, U 5.5 4.5 - 8.0 06/14/2023 4:3 9 PM FIRST AID NURSE DTL Urine 06/14/2023 2:13 PM FIRST AID NURSE 06/14/2023 3:24 PM FIRST AID NURSE Cande Ruiz M.D. LAB URINE ORDERABL ES Performing Organization Address City/[facility]/ZIP Co de Phone Number [facility] [address] [place] [address], [facility] [address] [place] [address] * Osmolality, Urine (06/14/2023 2:13 PM FIRST AID NURSE) Osmolality, U 419 150 - 1150 mOsm/kg 06/14/2023 4:39 PM FIRST AID NURSE DTL Urine 06/14/2023 2:13 PM FIRST AID NURSE 06/14/2023 3:24 PM FIRST AID NURSE Cande Ruiz M.D. LAB URINE ORDERABL ES Performing Organization Address [facility] Co de Phone Number [facility] [address] [place] [address], [facility] [place] [address] [place] [address] * Urinalysis with Microscopic: Urine, Straight Catheter (06/14/2023 2:13 PM FIRST AID NURSE) Source Urine, Urine, Straight Catheter 06/14/2023 3:23 PM FIRST AID NURSE DTL Color, U Yellow 06/14/2023 3:23 PM FIRST AID NURSE DTL Clarity, U Clear 06/14/2023 3:23 PM FIRST AID NURSE DTL Protein, U 8 <26 mg/dL 06/14/2023 4:07 PM FIRST AID NURSE DTL Protein/Osmola lity 0.19 <0.42 ratio 06/14/2023 4:39 PM FIRST AID NURSE DTL Predicted 24 HR Protein, U 149 <229 mg/24 h 06/14/2023 4:39 PM FIRST AID NURSE DTL Predicted Range 37-602 mg/24 h 06/14/2023 4:39 PM FIRST AID NURSE DTL Urine (Urine, Straight Catheter) 06/14/2023 2:13 PM FIRST AID NURSE 06/14/2023 3:23 PM FIRST AID NURSE Cande Ruiz M.D. LAB URINE ORDERABL ES Performing Organization Address City/[facility]/ZIP Co de Phone Number [facility] [address] [place] [address], [address] [address] * [place] CAMRON PST VOID RESID US NON IMG, [place] UROFLOWMETRY CMPLX, [place] CYSTOMETROGRAM COMPLEX (06/14/2023 1:45 PM FIRST AID NURSE) Narrative Cande Ruiz M.D. - 06/14/2023 1:45 PM FIRST AID NURSE Drea Pepe M.D. ? 06/18/2023 ??9:14 AM [...] ORDERABLES from Last 3 Months Care Teams Gis Geographer Relationship Specialty Start Date End Date Elsewhere, Pcp PCP - General Internal Medicine 06/12/23
--- OUTSIDE RECORDS SUMMARY | 2023-08-13 08:35 | XMS_ITS ---
Author Name Unknown Organization [facility] Address [address] [place] [address] Care Team Providers Care Client Solutions Manager Name Role Phone Unavailable Unavailable Unavailable Surgery Details Not on file Complications Check Surgery Details section. Procedure Estimated Blood Loss Check Surgery Details section. Procedure Findings Check Surgery Details section. Procedure Specimens Taken Check Surgery Details section.
--- OUTSIDE RECORDS SUMMARY | 2023-08-13 08:35 | XMS_ITS | Encounter Summary ---
Author Name Unknown Organization [facility] Address [address] [place] [address] Care Team Providers Care Media Arts Professor Name Role Phone Elsewhere, Pcp Primary Care Provider Unavailabl e Encounter Details Date Type Department Care Team (Late st Contact Info) Description 06/15/2023 Orders Only Department of Obstetrics and Gynecology, Division of Urogynecology in [place], [place] [address] [place] [address] Drea Pepe M.D. [address] [place] [address] Social History Tobacco Use Types Packs/Day Years [...] your living situation today? I have a [facility] place to live 06/10/2023 Sex and Gender Information Value Date Recorded Sex Assigned at Female 06/08/2023 11:11 AM MERCHANDISE CLERK Gender Identity Female 06/08/2023 11:11 AM MERCHANDISE CLERK Sexual Orientation Straight 06/08/2023 11 :11 AM MERCHANDISE CLERK documented as of this encounter Plan of Treatment Upcoming Encounters Date Type Department Care Team (Latest Contact Info) Description 10/22/2023 9:00 AM CDT Comprehensive Visit Division of Colon and Rectal Surgery in [place], [place] [address] [place] [address] Sean Rodriguez M.B., Ch.B., M.P.H. 200 [place] [address] Discharge Disposition: Home or Self Care 10/22/2023 12:00 PM CDT Comprehensive Visit Division of Trauma Critical Care and General Surgery in [place], [place] [address] [place] [address] Cande Ruiz M.D. 200 [place] [address] documented as of this encounter Visit Diagnoses Not on filedocumented in this encounter Care Teams Media Arts Professor Relationship Specialty Start Date End Date Elsewhere, Pcp PCP - General Internal Medicine 06/12/23 documented as of this encounter
--- OUTSIDE RECORDS SUMMARY | 2023-08-13 08:36 | XMS_ITS | Data Portability ---
Author Name Unknown Address [address] [place] [address] Phone [phone] Organization [facility] Address [address] [place] [address] Care Team Providers Care Medical Office Receptionist Name Role Phone ZAYRAMARINA BLANDISTIN Primary Care Provider Assessment No assessment recorded. Plan of Treatment Reminders Order Date Submit Date Provider Last Modified By Organization Details Last Modified Time Details Appointments None recorded. Lab urinalysis, dipstick 2021 022 [email or web address] [facility], [address], [address], [place], [address], 11:37:24 urinalysis, dipstick 2021 022 [email or web address] [facility], [address], [address], [place], [address], 11:36:45 Referral None recorded. Procedures None recorded. Surgeries None recorded. Imaging None recorded. Medication Orders nitrofurant oin macrocrysta l 50 mg capsule 2021 [facility] [id number] [facility] [employer], [address] [place] [address], [address], 11:50:51 Patient TargetsNo targets recorded. Patient Instructions Encounter Date Encounter Id Patient Instructions Last Modified By Organization Details Last Modified Time 03/14/2022 [id number] will have her finish out another month of the macrobid and then stop, see if any further UTI. If so, consider cystoscopy and fulguration of bladder diverticulum. [email or web address] Not available 03/14/2022 11:51:24 02/23/2022 [id number] will set up for renal and bladder U/S in [place]. call with report, cysto after that. [email or web address] Not available 02/23/2022 11:48:17 Reason for Referral None Reported. Results Created Date Observation Date Name Description Value Unit Range Abnormal Flag LastModifiedBy Organization Detail LastModifiedTime 02/24/20 22 02/23/2022 urina lysis , dipst ick pH-Status 6.5 Not Available [facility] [address], [place], [address], 02/23/2022 11:32:56 03/14/20 22 03/14/2022 urina lysis , dipst ick Ketones-Stat us 15 Not Available [facility] [address], [place], [address], 03/14/2022 11:37:00 02/24/20 22 02/23/2022 bladd er scan (PROC ) No observ ation record ed. BARCODE Not Available 02/23/2022 15:02:31 03/07/20 22 02/27/2022 US, renal No observ ation record ed. [email or web address] [facility] Radiology Department [address] [place], [address], 03/08/2022 12:47:38 Result Notes None recorded. Procedures Surgical History Date Name Laterality Status Provider Name and Address Organization Details Recorded Time 03/14/20 Cystoscopy- female completed Milan Abreu MD [address] [place] [address],[address], [address], [place] [facility]rology 03/14/2022 11:50:23 02/24/20 Bladder Scan completed Milan Abreu MD [address] [place] [address],[address], [place], [address], [facility] Urology 02/23/2022 11:32:51 Total Hysterectomy completed Milan Abreu MD [address], [place], [address], [facility] Urology 02/23/2022 11:31:20 Imaging Results Imaging Date Name Status LastModified by Organiz ation Details LastModified Time 02/23/2022 bladder scan (PROC) completed BARCODE Information not available 02/23/2022 15:02:31 02/27/2022 US, renal completed [email or web address] [facility] Radiology Department [address] [place], [address], 03/08/2022 12:47:38 Procedure Notes None recorded. Medical Equipment None Reported. Allergies Allergen ID Allergen Name Allergen Category Reaction Reaction Severity Criticality Documentation Date Start Date Code Code System Note Provider Name and Address Organization Details Recorded Time [id number] Substance with sulfonami de structure and antibacte rial mechanism of action (substanc e) medicatio n Not available Not available Not available 02/23/2022 21464 8003 SNOMED Milan Abreu MD [address], [place], [address], [facility] Urology 11:29:08 Medications Name Sig Start Date Stop Date Status Note LastModified by Organization Details LastModified Time amoxicillin 500 mg capsule TAKE ONE CAPSULE BY MOUTH THREE TIMES A DAY FOR 7 DAYS 02/23 completed Not Available Not Available Not Available nitrofurant oin macrocrysta l 50 mg capsule Take 1 capsule every day by oral route for 30 days. 2021 active Not Available Not Available Not Avai lable citalopram 10 mg tablet TAKE 1 TABLET BY MOUTH EVERY DAY active Not Available Not Available No t Available simvastatin 10 mg tablet TAKE 1 TABLET BY MOUTH EVERYDAY AT BEDTIME active Not Available Not Available No t Available ciprofloxac in 500 mg tablet TAKE 1 TABLET BY MOUTH TWICE A DAY FOR 5 DAYS 02/23 completed Not Available Not Available Not Available levothyroxi ne 50 mcg tablet TAKE 1 TABLET (50 MCG) BY MOUTH BEFORE BREAKFAST . active Not Available Not Available No t Available cephalexin 500 mg capsule TAKE 1 CAPSULE BY MOUTH THREE TIMES A DAY 02/23 completed Not Available Not Available Not Available simvastatin 20 mg tablet TAKE 1/2 TABLET BY MOUTH AT BEDTIME 02/23 completed Not Available Not Available Not Available lisinopril 10 mg tablet TAKE 1 TABLET BY MOUTH EVERY DAY active Not Available Not Available No t Available hydroxyzine HCl 25 mg tablet TAKE 1 TABLET BY MOUTH EVERY 6 HOURS IF NEEDED FOR ANXIETY OR ITCHING 02/23 completed Not Available Not Available Not Available oxycodone 5 mg tablet 02/23 completed Not Available Not Available Not Available Vitals Date Recorded Body weight Body mass index (BMI) Body height Provider Name and Address Organization Details Last Updated DateTime 02/23/2022 92177.86 g 25.7 kg/m2 162.56 cm Milan Abreu MD [address] [place] [address],[address] [phone] [place] [address] Urolog 02/23/2022 11:28:52 Date Recorded Body height Body mass index (BMI) Body weight Provider Name and Address Organization Details Last Updated DateTime 03/14/2022 162.56 cm 25.7 kg/m2 09036.86 g Johana Eli [facility] Urology 03/14/2022 11:27:05 Social History Question Answer Notes LastModified by Organizat ion Details LastModified Time Tobacco Smoking Status Former Smoker Milan Abreu MD [address] [place] [address], [phone] 02/23/2022 11:30:53 What Is Your Level Of Alcohol Consumption? Occasional [email or web address] Information not available 02/23/2022 What Is Your Level Of Caffeine Consumption? Occasional [email or web address] Information not available 02/23/2022 When Did You Quit Smoking? 17+yearsgem mathis [email or web address] Information not available 02/23/2022 What Was The Date Of Your Most Recent Tobacco Screening? 03/14/2022 [email or web address] Information not available 03/14/2022 Sex: Female Functional Status None recorded. Mental Status None recorded. Family History Nothing Reported. Medical History Condition Response Sexually Transmitted Infection N Diabetes N Other N Bleeding Disorder N High Blood Pressure Y Kidney Stones N High Cholesterol Y GERD/Acid Reflux N Heart Disease N Cancer N Depression N Lung Disease N Gynecological History Statement/Question Response Sexually Active? N Obstetrics History GPAL:G 2 P 0 0 0 0 Immunizations Vaccine Type Date Status Provider Name and Address Organization Details Recorded Time Influenza vaccine, quadrivalent, adjuvanted 05/12/2021 completed Od[place] cerda, [facility] 03/14/2022 11:36:18 zoster recombinant 02/28/2019 [facility] 11:36:18 zoster recombinant 05/05/2019 [facility] 11:36:18 Influenza, high dose seasonal 04/06/2015 [facility]22 11:36:18 COVID-19, mRNA, LNP-S, PF, 30 mcg/0.3 mL dose 09/21/2020 [facility]22 11:36:18 COVID-19, mRNA, LNP-S, PF, 30 mcg/0.3 mL dose 05/12/2021 [facility]22 11:36:18 Tdap 07/11/2021 [facility]22 11:36:18 influenza, trivalent, adjuvanted 04/11/2018 [facility] 11:36:18 Tdap 01/31/2011 [facility]2022 11:36:18 influenza, trivalent, adjuvanted 04/09/2017 [facility]/2022 11:36:18 Influenza vaccine, quadrivalent, adjuvanted 04/19/2020 [facility]2022 11:36:18 pneumococcal polysaccharide PPV23 03/17/2013 [facility]22 11:36:18 influenza, trivalent, adjuvanted 04/15/2019 [facility]/2022 11:36:18 Influenza, seasonal, injectable 08/21/2012 completed Odessa cerda [facility] 03/14/2022 11:36:18 Influenza, high dose seasonal 04/07/2016 completed Odessa cerda [facility] 03/14/2022 11:36:18 COVID-19, mRNA, LNP-S, PF, 30 mcg/0.3 mL dose, guerda-sucrose 12/09/2021 completed Odessa cerda [facility] 03/14/2022 11:36:18 COVID-19, mRNA, LNP-S, PF, 30 mcg/0.3 mL dose 10/12/2020 completed Odessa cerda [facility] 03/14/2022 11:36:18 zoster live 01/31/2011 completed Odessa cerda [facility] 03/14/2022 11:36:18 Pneumococcal conjugate PCV 13 04/06/2015 completed Od[place] cerda [facility] 03/14/2022 11:36:18 Past Encounters Encounter ID Performer Location Encounter Start Date Encounter Closed Date Diagnosis/Indication [id number] Milan Abreu MD [place] [id number] [facility] [address] [place] [address] 02/23/2022 11:02:40 02/24/2022 13:17:51 Retention of urine Recurrent urinary tract infection [id number] Milan Abreu MD [place] [id number] [facility] [address] [place] [address] 03/14/2022 11:23:50 03/17/2022 16:58:28 Recurrent urinary tract infection Health Concerns Section Related Observation LastModified by Organization Detai ls LastModified Time None Recorded Concern Status LastModified by Organization Details LastModified Time None Recorded Advance Directives Directive None Recorded Payers Encounter Date Sequence Insurance Name Policy Number Policy James Covered Member ID James Member ID Guarantor Name 03/14/2022 1 [place] [employer] Katharine Shell [id number] Katharine Shell 03/14/2022 2 [place] [facility] [place]ARE [place]PPLEMENT[place] [id number] Katharine Shell [id number] Katharine Shell 02/23/2022 1 [facility] [facility] [id number] Katharine Bowman [id number] Katharine Shell Notes Date Note Type Note Provider Name and Address Organization Details Recorded Time 02/23/2022 text/html HPI Notes: seein g for recurring UTI, 5x since Jul. previously rarely got UTI's. taking dialy macrobid now since last infection treated. UA clear and PVR 113ml today. has some mild incontinence some with cough and some with urge if bladder full. bowel OK . no imaging done. did have hematuria 1-2x with the UTI's. no hx stones. had hyster and cystocele/rectocel e repair twice 1982 and 1995. she does feel like there is some drooping of things again. Milan Abreu MD [address] [place] [address],[address], [address], [facility] 02/23/2022 11:52:08 03/14/2022 text/html HPI Notes: here for cysto for recurrent UTI. Imaging negative. UA clear today. taking daily 50mg macrobid for last 2 months and no UTI on that. Milan Abreu MD [address] [place] [address],[address], [place], [address], [facility] 03/14/2022 11:51:36 OBGyn Episode No OBEpisode recorded.
[2023-08-13 09:09] LABS: Lactate* 1.2 mmol/L (0.5-1.9)
[2023-08-13] MEDS: LACTATED RINGERS 1000 ML 1,000 ML IV (09:09)
[2023-08-13 09:11] LABS: Basophils Percent Auto 0.1 % (0.0-3.0); Eosinophils Percent Auto 0.3 % (0.0-7.0); Hematocrit 45.4 % (33.0-51.0); Hemoglobin* 14.6 gm/dL (12.0-16.0); Immature Granulocytes Pct Auto 0.2 %; Lymphocytes Percent Auto 7.1 % (20-44); Mean Corpuscular HGB Conc 32 gm/dL (32-36); Mean Corpuscular Hemoglobin 29 pg (26-34); Mean Corpuscular Volume 91 fL (80-100); Monocytes Percent Auto 4.1 % (0.0-11.0); Neutrophils Percent Auto 88.2 % (42.0-72.0); Platelet Count* 252 K/uL (140-440); RDW Coefficient of Variation % 13.3 % (11.5-15.5); White Blood Count* 14.74 K/uL (4.50-11.00)
[2023-08-13 09:16] LABS: SARS PCR* POSITIVE SARS-CoV-2 (Negative)
[2023-08-13 09:18] LABS: Creatinine, Point-of-Care* 1.1 mg/dl (0.6-1.3)
[2023-08-13] MEDS: diphenhydrAMINE 50 MG/ML inj 25 MG IVP (09:19)
[2023-08-13 09:21] LABS: Slide Review Reflex No
[2023-08-13] MEDS: METOCLOPRAMIDE HCL 5 MG/ML INJ 10 MG IVP (09:29)
[2023-08-13 09:39] LABS: Chloride* 104 mmol/L (96-114); Potassium* 4.6 mmol/L (3.6-5.1); Sodium* 137 mmol/L (135-149)
[2023-08-13 09:56] LABS: Troponin I* < 0.01 ng/mL (0.01-0.04)
[2023-08-13 10:00] VITALS: BP 137/69; PULSE 68; RESP 16; TEMP 36.7; O2SAT 98
[2023-08-13 10:16] LABS: PCR FLU A Negative PCR FLU A (Negative); PCR FLU B Negative PCR FLU B (Negative); PCR RSV Negative PCR RSV (Negative)
[2023-08-13 11:00] VITALS: BP 138/68; PULSE 68; RESP 18; TEMP 36.4; O2SAT 98
--- NOTE | 2023-08-13 11:16 | PC.NURSE ---
Called [facility] referral line, will be pushing imaging for surgeon to review. Pt up to commode, collecting urine. abdominal pain 10/06.
[2023-08-13 11:32] LABS: Albumin* 4.5 g/dL (3.3-5.0)
[2023-08-13 11:35] LABS: Alkaline Phosphatase* 104 U/L (40-150); Anion Gap 13 mEq/L (7-15); Aspartate Amino Transferase* 27 U/L (12-35); Bilirubin Total* 0.7 mg/dL (0.1-1.5); Blood Urea Nitrogen* 18 mg/dL (7-30); Calcium* 9.7 mg/dL (8.4-10.6); Carbon Dioxide* 20 mmol/L (20-32); Creatinine* 0.9 mg/dL (0.5-1.5); Est. Creatinine Clearance* 42.39; Estimated Glomerular Filt Rate 66 ml/min; Glucose* 143 mg/dL (60-115); Lipase* 79 U/L (23-300); Total Protein* 7.4 g/dL (6.0-8.3)
[2023-08-13 11:36] LABS: Alanine Aminotransferase* 32 U/L (4-35); Magnesium* 2.4 mg/dL (1.5-2.6)
[2023-08-13 11:57] LABS: Appearance Urine Clear (Clear); Bilirubin Urine Negative (Negative); Blood Urine Negative (Negative); Color Urine Yellow (Yellow); Glucose Urine Negative (Negative); Ketones Urine Negative (Negative); Leukocyte Esterase Urine Negative (Negative); Nitrite Urine Negative (Negative); Protein Urine Negative (Negative); Specific Gravity Urine <= 1.005 (1.000-1.030); Urobilinogen Urine 0.2 (0.2-1.0); pH Urine 5.5 (5.0-8.5)
[2023-08-13 12:46] LABS: Bacteria Urine Moderate; RBC Urine 0-2 (0-2); Squamous Epithelial Cell Urine Moderate (None-Few); WBC Urine 0-2 (0-5)
--- NOTE | 2023-08-13 13:16 | PC.NURSE ---
Pt resting comfortably, waiting for [place] call back. VSS
--- NOTE | 2023-08-13 13:17 | P.EN_ITS ---
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 She was seen last week for multiple hernias in clinic - given her history of surgery for bladder and rectal prolapse and the unusual location of the hernia, she was referred back to her pelvic metal flooring installer team at [place]. She presented today with vomiting and epigastric pain though she has had bowel movements. CT shows small bowel obstruction with the transition point in a perineal hernia. Previous CT showed a pararectal hernia containing fluid only. This hernia is not palpable per the ER MD. After reviewing her records and films, given the complexity of her pelvic floor history and location of the hernia, I recommend transfer to a facility where she has pelvic floor specialists available - I would not be able to repair the hernia here.
[2023-08-13 14:15] VITALS: BP 140/82; PULSE 79; RESP 18; TEMP 37; O2SAT 98
--- NOTE | 2023-08-13 14:16 | PC.NURSE ---
Pt states abdominal pain is worsening, requesting something for pain. , Laina, here.
--- NOTE | 2023-08-13 14:29 | PC.NURSE ---
Attempted to call RN to RN report to [place] ED, no report is needed.
[2023-08-13] MEDS: MORPHINE 4 MG/ML INJ IVP (14:37)
== END 2023-08-13 14:59 | disposition short-term general hospital (02) ==
LOC: ED 08:28
PROVIDERS: Emergency Provider Student in an Organized Health Care Education/Training Program; PCP Family Medicine
DX: K56.609 Unspecified intestinal obstruction, unspecified as to partial versus complete obstruction (principal)
CPT/HCPCS: 36415; 74177; 80053; 81001; 82565; 83605; 83690; 83735; 84484; 85025; 87086; 87631; 93005; 96374; 96375; 99283; 99285; J1200; J2270; J2765; J7120; Q9967

== ENCOUNTER 2023-08-13 14:41 | Outpatient (CLI) | payer MEDICARE, BC, SELFPAY ==
--- OUTSIDE RECORDS SUMMARY | 2023-08-16 17:30 | XMS_ITS | Data Portability ---
Author Name Unknown Address [address] [place] [id number] Phone [phone] Organization [facility] Address [address] [place] [address] Care Team Providers Care Range Mounter Name Role Phone ZAYRAMARINA BLANDISTIN Primary Care Provider Assessment No assessment recorded. Plan of Treatment Reminders Order Date Submit Date Provider Last Modified By Organization Details Last Modified Time Details Appointments None recorded. Lab urinalysis, dipstick 2021 022 [email or web address] [facility], [address], [address], [place], [address], 11:37:24 urinalysis, dipstick 2021 022 [email or web address] [facility], [address], [address], [place], [address], 11:36:45 Referral None recorded. Procedures None recorded. Surgeries None recorded. Imaging None recorded. Medication Orders nitrofurant oin macrocrysta l 50 mg capsule 2021 [facility] [id number] [facility] [employer], [address] [place] [address], [address], 11:50:51 Patient TargetsNo targets recorded. Patient Instructions Encounter Date Encounter Id Patient Instructions Last Modified By Organization Details Last Modified Time 03/14/2022 [id number] will have her finish out another month of the macrobid and then stop, see if any further UTI. If so, consider cystoscopy and fulguration of bladder diverticulum. [email or web address] Not available 03/14/2022 11:51:24 02/23/2022 [id number] will set up for renal and bladder U/S in [place]. call with report, cysto after that. [email or web address] Not available 02/23/2022 11:48:17 Reason for Referral None Reported. Results Created Date Observation Date Name Description Value Unit Range Abnormal Flag LastModifiedBy Organization Detail LastModifiedTime 02/24/20 22 02/23/2022 urina lysis , dipst ick pH-Status 6.5 Not Available [facility] [address], [place], [address], 02/23/2022 11:32:56 03/14/20 22 03/14/2022 urina lysis , dipst ick Ketones-Stat us 15 Not Available [facility] [address], [place], [address], 03/14/2022 11:37:00 02/24/20 22 02/23/2022 bladd er scan (PROC ) No observ ation record ed. BARCODE Not Available 02/23/2022 15:02:31 03/07/20 22 02/27/2022 US, renal No observ ation record ed. [email or web address] [facility] Radiology Department [address] [place], [address], 03/08/2022 12:47:38 Result Notes None recorded. Procedures Surgical History Date Name Laterality Status Provider Name and Address Organization Details Recorded Time 03/14/20 Cystoscopy- female completed Milan Abreu MD [address] [place] [address],[address], [address], [place] [facility] 03/14/2022 11:50:23 02/24/20 Bladder Scan completed Milan Abreu MD [address] [place] [address],[address], [place], [address], [facility] 02/23/2022 11:32:51 Total Hysterectomy completed Milan Abreu MD [address], [place], [address], [facility] 02/23/2022 11:31:20 Imaging Results Imaging Date Name Status LastModified by Organiz ation Details LastModified Time 02/23/2022 bladder scan (PROC) completed BARCODE Information not available 02/23/2022 15:02:31 02/27/2022 US, renal completed [email or web address] [facility] Radiology Department [address] [place], [address], 03/08/2022 12:47:38 Procedure Notes None recorded. Medical Equipment None Reported. Allergies Allergen ID Allergen Name Allergen Category Reaction Reaction Severity Criticality Documentation Date Start Date Code Code System Note Provider Name and Address Organization Details Recorded Time [id number] Substance with sulfonami de structure and antibacte rial mechanism of action (substanc e) medicatio n Not available Not available Not available 02/23/2022 43640 8003 SNOMED Milan Abreu MD [address], [place], [address], [facility] 11:29:08 Medications Name Sig Start Date [...] Address Organization Details Last Updated DateTime 02/23/2022 43004.86 g 25.7 kg/m2 162.56 cm Milan Abreu MD [address] [place] [address],[address] [address] [place] [address] Urolog 02/23/2022 11:28:52 Date Recorded Body height Body mass index (BMI) Body weight Provider Name and Address Organization Details Last Updated DateTime 03/14/2022 162.56 cm 25.7 kg/m2 47827.86 g Johana Eli [facility] 03/14/2022 11:27:05 Social History Question Answer Notes LastModified by Organizat ion Details LastModified Time Tobacco Smoking Status Former Smoker Milan Abreu MD [address] [place] [address], [phone] 02/23/2022 11:30:53 What Is Your Level Of Alcohol Consumption? Occasional [email or web address] Information not available 02/23/2022 What Is Your Level Of Caffeine Consumption? Occasional [email or web address] Information not available 02/23/2022 When Did You Quit Smoking? 16+yearsgem mathis Information not available 02/23/2022 What Was The Date Of Your Most Recent Tobacco Screening? 03/14/2022 [email or web address] Information not available 03/14/2022 Sex: Female Functional Status None recorded. Mental Status None recorded. Family History Nothing Reported. Medical History Condition Response Other N High Blood Pressure Y Kidney Stones N Lung Disease N Depression N GERD/Acid Reflux N Diabetes N Sexually Transmitted Infection N Bleeding Disorder N Cancer N High Cholesterol Y Heart Disease N Gynecological History Statement/Question Response Sexually Active? N Obstetrics History GPAL:G 2 P 0 0 0 0 Immunizations Vaccine Type Date Status Provider Name and Address Organization Details Recorded Time Influenza vaccine, quadrivalent, adjuvanted 05/12/2021 completed [place] cerda, [facility] 03/14/2022 11:36:18 zoster recombinant [facility]28[facility]2019 [facility] 11:36:18 zoster recombinant 05/05/2019 [facility] 11:36:18 Influenza, high dose seasonal 04/06/2015 [facility] 11:36:18 COVID-19, mRNA, LNP-S, PF, 30 mcg/0.3 mL dose 09/21/2020 [facility] 11:36:18 COVID-19, mRNA, LNP-S, PF, 30 mcg/0.3 mL dose 05/12/2021 [facility] 11:36:18 Tdap 07/11/2021 [facility]2022 11:36:18 influenza, trivalent, adjuvanted 04/11/2018 [facility]/2022 11:36:18 Tdap 01/31/2011 [facility]/2022 11:36:18 influenza, trivalent, adjuvanted 04/09/2017 [facility]/2022 11:36:18 Influenza vaccine, quadrivalent, adjuvanted 04/19/2020 [facility]2022 11:36:18 pneumococcal polysaccharide PPV23 03/17/2013 [facility]22 11:36:18 influenza, trivalent, adjuvanted 04/15/2019 [facility]/2022 11:36:18 Influenza, seasonal, injectable 08/21/2012 completed Odessa cerda [facility] 03/14/2022 11:36:18 Influenza, high dose seasonal 04/07/2016 completed Odessa cerda [facility] 03/14/2022 11:36:18 COVID-19, mRNA, LNP-S, PF, 30 mcg/0.3 mL dose, guerda-sucrose 12/09/2021 completed Od[place] cerda [facility] 03/14/2022 11:36:18 COVID-19, mRNA, LNP-S, PF, 30 mcg/0.3 mL dose 10/12/2020 completed Od[place] cerda [facility] 03/14/2022 11:36:18 zoster live 01/31/2011 completed Od[place] cerda [facility] 03/14/2022 11:36:18 Pneumococcal conjugate PCV 13 04/06/2015 completed Od[place] cerda [facility] 03/14/2022 11:36:18 Past Encounters Encounter ID Performer Location Encounter Start Date Encounter Closed Date Diagnosis/Indication [id number] Milan Abreu MD [place] [id number] [facility] [address] [place] [address] 02/23/2022 11:02:40 02/24/2022 13:17:51 Retention of urine Recurrent urinary tract infection [id number] Milan Abreu MD [place] [id number] [facility] [address] [place] [address] 03/14/2022 11:23:50 03/17/2022 16:58:28 Recurrent urinary tract infection Health Concerns Section Related Observation LastModified by Organization Detai ls LastModified Time None Recorded Concern Status LastModified by Organization Details LastModified Time None Recorded Advance Directives Directive None Recorded Payers Encounter Date Sequence Insurance Name Policy Number Policy James Covered Member ID James Member ID Guarantor Name 03/14/2022 1 [place] [employer] Katharine Shell [id number] Katharine Shell 03/14/2022 2 [place] [facility] (MEDICARE SUPPLEMENT) [id number] Katharine Shell [id number] Katharine Shell 02/23/2022 1 [facility] [id number] aKtharine Bowman [id number] Katharine Shell Notes Date Note Type Note [...] drooping of things again. Milan Abreu MD [address] [place] [address],[address], [address], [facility] 02/23/2022 11:52:08 03/14/2022 text/html HPI Notes: here for cysto for recurrent UTI. Imaging negative. UA clear today. taking daily 50mg macrobid for last 2 months and no UTI on that. Milan Abreu MD [address] [place] [address],[address], [place], [address], [facility] 03/14/2022 11:51:36 OBGyn Episode No OBEpisode recorded.
--- OUTSIDE RECORDS SUMMARY | 2023-08-16 17:30 | XMS_ITS | Clinical Summary ---
Author Name Unknown Organization [facility] Address [address] [place] [address] Care Team Providers Care Automatic Fabric Cutter Name Role Phone Elsewhere, Pcp Primary Care Provider Unavailabl e Source Comments Patient records contain information from all sites at [facility]. For routine questions regarding patient records, call [phone] during business hours, M-F 8:00 AM - 5:00 PM Central Time. Record requests for emergency care only can be directed to [phone] at any time.[facility] Allergies Active Allergy Reactions Criticality Noted Date [...] Encounters Date Type Department Care Team Description 08/16/2023 Clinical Communication Department of Obstetrics and Gynecology, Division of Urogynecology in [place], [place] [address] [place] [address] Cande uRiz M.D. Communication (AM) 08/14/2023 Clinical Communication Division of Thoracic Surgery in [place], [place] [address] [place] [address] Prescheduling, Provider 08/13/2023 4:14 PM SERVICE CENTER ASSISTANT - 08/13/2023 9:14 PM SERVICE CENTER ASSISTANT Emergency [facility] Emergency Department [address] [place] [phone] Elizabeth Hutton, P.A.-C. 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 Recent ER Visit 06/15/2023 Orders Only Department of Obstetrics and Gynecology, Division of Urogynecology in [place], [place] [address] [place] [address] Drea Pepe M.D. 06/14/2023 3:00 PM SERVICE CENTER ASSISTANT Comprehensive Visit Department of Obstetrics and Gynecology, Division of Urogynecology in [place], [place] [address] [place] [phone] Cande Ruiz M.D. Urgency Urinary (Primary Dx); Atrophy Vagina Due To Estrogen Deficiency; Dysfunction Constipation Outlet; Constipation Slow Transit; Cystitis Recurrent; Rectocele 06/14/2023 1:45 PM SERVICE CENTER ASSISTANT Procedure visit Department of Obstetrics and Gynecology, Division of Urogynecology in [place], [place] [address] [place] [phone] Cande Ruiz M.D. Cystocele Midline; Rectocele 06/12/2023 9:45 AM SERVICE CENTER ASSISTANT Clinical Communication Virtual Review in [place], [place] [address] [place] [address] Pre-visit Intake from Last 3 Months Family [...] your living situation today? I have a [facility] place to live 06/10/2023 Sex and Gender Information Value Date Recorded Sex Assigned at Female 06/08/2023 11:11 AM SERVICE CENTER ASSISTANT Gender Identity Female 06/08/2023 11:11 AM SERVICE CENTER ASSISTANT Sexual Orientation Straight 06/08/2023 11 :11 AM SERVICE CENTER ASSISTANT Last Filed Vital Signs Vital Sign Reading Time Taken Comments Blood Pressure 147/73 08/13/2023 7:00 PM SERVICE CENTER ASSISTANT Pulse 79 08/13/2023 7:49 PM SERVICE CENTER ASSISTANT Temperature 37 ??C (98.6 ??F) 08/13/2023 4:09 PM SERVICE CENTER ASSISTANT Respiratory Rate 18 08/13/2023 4:09 PM SERVICE CENTER ASSISTANT Oxygen Saturation 96% 08/13/2023 7:49 PM SERVICE CENTER ASSISTANT Inhaled Oxygen Concentration - - Weight 67.6 kg (149 lb 0.5 oz) 06/14/2023 3:44 P M SERVICE CENTER ASSISTANT shoes on Height 166.4 cm (5' 5.51) 06/14/2023 3:44 PM CS T shoes on Body Mass Index 24.41 06/14/2023 3:44 PM SERVICE CENTER ASSISTANT Plan of Treatment Upcoming Encounters Date Type Department Care Team (Latest Contact Info) Description 08/28/2023 1:30 PM SERVICE CENTER ASSISTANT Clinical Communication Virtual Review in [place], [place] [address] [place] [address] 08/29/2023 3:00 PM SERVICE CENTER ASSISTANT Comprehensive Visit Division of Thoracic Surgery in [place], [place] [address] [place] [address] Ramakrishna Rodriges M.D. [address] [place] [phone] 09/10/2023 1:00 PM SERVICE CENTER ASSISTANT Comprehensive Visit Division of Trauma Critical Care and General Surgery in [place], [place] [address] [place] [address] Cande Ruiz M.D. [address] [place] [phone] 10/22/2023 9:00 AM CDT Comprehensive Visit Division of Colon and Rectal Surgery in [place], [place] [address] [place] [address] Sean Rodriguez M.B., Ch.B., M.P.H. [address] [place] [phone] Discharge Disposition: Home or Self Care Health Maintenance Due Date Last Done Comments Hepatitis C Screening 1945 Depression Screening (Annual PHQ-2) 07/30/2023 Fall Risk Screen (Annual) 07/30/2023 Thyroid Stimulating Hormone (TSH) test for thyroid function 01/30/2024 01/29/2023, 05/15/2022, 02/27/2022, Additional history exists Creatinine Level (Kidney Fun ction Test) 08/13/2024 08/13/2023, 05/24/2023, 05/16/2023, Additional history exists Potassium Level 08/13/2024 08/13/2023, 04/30, 05/16/2023, Additional history exists Sodium Level 08/13/2024 08/13/2023, 04/30, 05/16/2023, Additional history exists DTaP,Tdap,and Td Vaccines (3 - Td or Tdap) 07/11/2031 07/11/2021, 01/31/2011 Pneumococcal vaccine (65+ years) Completed 04/06/20 15, 03/17/2013 Zoster Vaccines Completed 05/05/2019, 08/2018, 01/31/2011 COVID-19 Vaccine Completed 05/16/2023, , 12/09/2021, Additional history exists Influenza Vaccine Completed 05/16/2023, , 05/12/2021, Additional history exists Procedures Procedure Name Priority Date/Time Associated Diagnosis Comments CT ABDOMEN PELVIS WITH IV CONTRAST RAD - Semiurgent (Fast; most ED patients; some inpatients) 08/13/2023 6:10 PM SERVICE CENTER ASSISTANT LIPASE, S/P STAT 08/13/2023 4:46 PM SERVICE CENTER ASSISTANT LACTATE, B/P STAT 08/13/2023 4:46 PM SERVICE CENTER ASSISTANT HEPATIC FUNCTION PANEL, S STAT 08/13/2023 4:46 PM SERVICE CENTER ASSISTANT BASIC METABOLIC PANEL, S/P STAT 08/13/2023 4:46 PM SERVICE CENTER ASSISTANT CBC WITH DIFFERENTIAL, B STAT 08/13/2023 4:46 PM SERVICE CENTER ASSISTANT OUTSIDE CT BODY Routine 08/13/2023 9:45 AM SERVICE CENTER ASSISTANT OUTSIDE CT BODY Routine 07/11/2023 4:00 AM SERVICE CENTER ASSISTANT OUTSIDE CT NEURO Routine 07/11/2023 1:45 AM SERVICE CENTER ASSISTANT DIPSTICK, U Routine 06/14/2023 2:13 PM SERVICE CENTER ASSISTANT PH, U Routine 06/14/2023 2:13 PM SERVICE CENTER ASSISTANT OSMOLALITY, U Routine 06/14/2023 2:13 PM SERVICE CENTER ASSISTANT MICROSCOPIC AUTOMATED Routine 06/14/2023 2:13 PM SERVICE CENTER ASSISTANT URINALYSIS WITH MICROSCOPIC Routine 06/14/2023 2:13 PM SERVICE CENTER ASSISTANT Cystocele Midline BACTERIAL CULTURE, AEROBIC + SUSC, URINE Routine 06/14/2023 2:13 PM SERVICE CENTER ASSISTANT Cystocele Midline ID CYSTOMETROGRAM COMPLEX Routine 06/14/2023 1:45 PM SERVICE CENTER ASSISTANT Cystocele Midline Rectocele ID UROFLOWMETRY CMPLX Routine 06/14/2023 1:45 PM SERVICE CENTER ASSISTANT Cystocele Midline Rectocele ID CAMRON PST VOID RESID US NON IMG Routine 06/14/2023 1:45 PM SERVICE CENTER ASSISTANT Cystocele Midline Rectocele from Last 3 Months Results * CT Abdomen Pelvis with IV Contrast (08/13/2023 6:10 PM SERVICE CENTER ASSISTANT) Anatomical Region Laterality Modality Abdomen, Pelvis, Abdominal R ST LOS, Abdominal ARZ LOS, Abdominal FLA LOS N/A Computed Tomograp hy, Computed Tomography 08/13/2023 5:45 PM SERVICE CENTER ASSISTANT Impressions 08/13/2023 7:19 PM SERVICE CENTER ASSISTANT 1. No definite acute findings in the abdomen. No findings of significant bowel obstruction 2. Large nonobstructive hiatal hernia fat-containing the entire stomach and a portion of transverse colon. 3. Small amount of ascites in the pelvis of uncertain etiology. 6. Mild gallbladder distention without evidence of cholecystitis. Narrative 08/13/2023 7:19 PM SERVICE CENTER ASSISTANT EXAM: ??CT ABDOMEN PELVIS WITH IV CONTRAST COMPARISON: ??None FINDINGS: ?? There are few mildly dilated loops of small bowel in the mid and upper abdomen without a discrete point of transition. Large ??hiatal hernia that contains the entire stomach and portion of the transverse colon. Of note the top of the hiatal hernia is not included on this abdominal CT. Suggestion of mural thickening involving the stomach, without significant soft tissue stranding in the surrounding fat. The loop of colon within the chest is not pathologically dilated and does not appear acutely inflamed. High density presumed oral contrast, within several nondilated loops of small bowel in the left abdomen. The gallbladder is distended, without secondary findings of cholecystitis. Minimal prominence intrahepatic biliary ducts. Nondilated pancreatic duct. Otherwise unremarkable liver and adrenals. Calcified splenic granulomas. Some questionable patchy hypoattenuation in the right inferior pole of the kidney series 6 image 49. Otherwise, symmetric enhancement of the kidneys. Subcentimeter renal cysts. No hydronephrosis. No obvious focal abnormality of the bladder. Hysterectomy. Small amount of ascites in the pelvis that extends about the cecum of uncertain etiology. Scattered colonic diverticula. Findings suggestive of pelvic floor prolapse. Rounded masslike area of low density in the right inguinal region more likely represents fluid in the inguinal canal than a lymph node (series 3 image 136). Patchy opacities in the subcutaneous tissues of the anterior abdominal wall likely related to injections. Small predominantly fat-containing anterior abdominal wall hernia just to the right of midline (series 3 images 67-73). Scarring and atelectasis greatest in the right lower lobe with chronic appearing compression from the large hiatal hernia. Procedure Note Arabella Busby M.D. - 08/13/2023 EXAM: CT ABDOMEN PELVIS WITH IV CONTRAST COMPARISON: None FINDINGS: There are few mildly dilated loops of small bowel in the mid and upperabdomen without a discrete point of transition. Large hiatal hernia thatcontains the entire stomach and portion of the transverse colon. Of notethe top of the hiatal hernia is not included on this abdominal CT. Suggestion of mural thickening involvingthe stomach, without significant soft tissue stranding in the surroundingfat. The loop of colon within the chest is not pathologically dilated anddoes not appear acutely inflamed. High density presumed oral contrast, within several nondilated loops ofsmall bowel in the left abdomen. The gallbladder is distended, without secondary findings of cholecystitis.Minimal prominence intrahepatic biliary ducts. Nondilated pancreaticduct. Otherwise unremarkable liver and adrenals. Calcified splenic granulomas.Some questionable patchy hypoattenuation in the right inferior pole of thekidney series 6 image 49. Otherwise, symmetric enhancement of the kidneys.Subcentimeter renal cysts. No hydronephrosis. No obvious focal abnormality of the bladder.Hysterectomy. Small amount of ascites in the pelvis that extends about the cecum ofuncertain etiology. Scattered colonic diverticula. Findings suggestive ofpelvic floor prolapse. Rounded masslike area of low density in the rightinguinal region more likely represents fluid in the inguinal canal than a lymph node (series 3 [id number]). Patchy opacities in the subcutaneous tissues of the anteriorabdominal wall likely related to injections. Small predominantlyfat-containing anterior abdominal wall hernia just to the right of midline (series 3 images 67-73). Scarring and atelectasis greatest in the right lower lobe with chronicappearing compression from the large hiatal hernia. IMPRESSION: 1. No definite acute findings in the abdomen. No findings of significantbowel obstruction 2. Large nonobstructive hiatal hernia fat-containing the entire stomachand a portion of transverse colon. 3. Small amount of ascites in the pelvis of uncertain etiology. 6. Mild gallbladder distention without evidence of cholecystitis. Elizabeth Hutton P.A.-C. IMG CT PROCEDURES * (ABNORMAL) Hepatic Function Panel (08/13/2023 4:46 PM SERVICE CENTER ASSISTANT) Bilirubin, Total, S 0.5 0.0 - 1.2 mg/dL 08/13/2023 5:29 PM SERVICE CENTER ASSISTANT DTL Bilirubin, Direct, S <0.2 0.0 - 0.3 mg/dL 08/13/2023 5:29 PM SERVICE CENTER ASSISTANT DTL Aspartate Aminotransferase (AST), S 22 8 - 43 U/L 08/13/2023 5:29 PM SERVICE CENTER ASSISTANT DTL Alanine Aminotransferase (ALT), S 26 7 - 45 U/L 08/13/2023 5:29 PM SERVICE CENTER ASSISTANT DTL Alkaline Phosphatase, S 89 35 - 104 U/L 08/13/2023 5:29 PM SERVICE CENTER ASSISTANT DTL Albumin, S 4.1 3.5 - 5.0 g/dL 08/13/2023 5:29 PM SERVICE CENTER ASSISTANT DTL Protein, Total, S 6.0(L) 6.3 - 7.9 g/dL 08/13/2023 5:29 PM SERVICE CENTER ASSISTANT DTL Blood (Blood, Venous) 08/13/2023 4:46 PM SERVICE CENTER ASSISTANT 08/13/2023 5:07 PM SERVICE CENTER ASSISTANT Elizabeth Hutton P.A.-C. LAB BLOOD ADD-ON [place] [address] [place], [place] [address] DTL [facility] [address] [place] [address] * (ABNORMAL) CBC with Differential, Blood (08/13/2023 4:46 PM SERVICE CENTER ASSISTANT) Hemoglobin 14.0 11.6 - 15.0 g/dL 08/13/2023 4:55 PM SERVICE CENTER ASSISTANT STMA Hematocrit 43.4 35.5 - 44.9 % 08/13/2023 4:55 PM SERVICE CENTER ASSISTANT STMA Erythrocytes 4.80 3.92 - 5.13 x10(12)/L 08/13/2023 4:55 PM SERVICE CENTER ASSISTANT STMA MCV 90.4 78.2 - 97.9 fL 08/13/2023 4:55 PM SERVICE CENTER ASSISTANT STMA RBC Distrib Width 13.4 12.2 - 16.1 % 08/13/2023 4:55 PM SERVICE CENTER ASSISTANT STMA Platelet Count 229 157 - 371 x10(9)/L 08/13/2023 4:55 PM SERVICE CENTER ASSISTANT STMA Leukocytes 12.5(H) 3.4 - 9.6 x10(9)/L 08/13/2023 4:55 PM SERVICE CENTER ASSISTANT STMA Neutrophils 10.57(H) 1.56 - 6.45 x10(9)/L 08/13/2023 4:55 PM SERVICE CENTER ASSISTANT DHPM Lymphocytes 1.14 0.95 - 3.07 x10(9)/L 08/13/2023 4:55 PM SERVICE CENTER ASSISTANT STMA Monocytes 0.68 0.26 - 0.81 x10(9)/L 08/13/2023 4:55 PM SERVICE CENTER ASSISTANT STMA Eosinophils 0.10 0.03 - 0.48 x10(9)/L 08/13/2023 4:55 PM SERVICE CENTER ASSISTANT STMA Basophils <0.03 0.01 - 0.08 x10(9)/L 08/13/2023 4:55 PM SERVICE CENTER ASSISTANT STMA Blood (Blood, Venous) 08/13/2023 4:46 PM SERVICE CENTER ASSISTANT 08/13/2023 4:52 PM SERVICE CENTER ASSISTANT Elizabeth Hutton P.A.-C. LAB BLOOD ADD-ON [facility] [address] [place] [address] * Lipase (08/13/2023 4:46 PM SERVICE CENTER ASSISTANT) Lipase, S 26 13 - 60 U/L 08/13/2023 5: 29 PM SERVICE CENTER ASSISTANT DTL Blood (Blood, Venous) 08/13/2023 4:46 PM SERVICE CENTER ASSISTANT 08/13/2023 5:07 PM SERVICE CENTER ASSISTANT Elizabeth Hutton P.A.-C. LAB BLOOD ADD-ON [facility] [address] [place] [id number] DTL [facility] [address] [place] [address] * Lactate (08/13/2023 4:46 PM SERVICE CENTER ASSISTANT) Pathologist [facility] Lactate, P 1.1 0.5 - 2.2 mmol/L 08/13/2023 5:07 PM SERVICE CENTER ASSISTANT [facility] Blood (Blood, Venous) 08/13/2023 4:46 PM SERVICE CENTER ASSISTANT 08/13/2023 4:52 PM SERVICE CENTER ASSISTANT Elizabeth Hutton P.A.-C. LAB BLOOD NON ADD -ON [facility] [address] [place] [address] * Basic Metabolic Panel (08/13/2023 4:46 PM SERVICE CENTER ASSISTANT) Potassium, P 4.5 3.6 - 5.2 mmol/L 08/13/2023 5:09 PM SERVICE CENTER ASSISTANT STMA Sodium, P 139 135 - 145 mmol/L 08/13/2023 5:09 PM SERVICE CENTER ASSISTANT STMA Chloride, P 102 98 - 107 mmol/L 08/13/2023 5:09 PM SERVICE CENTER ASSISTANT STMA Bicarbonate, P 23 22 - 29 mmol/L 08/13/2023 5:09 PM SERVICE CENTER ASSISTANT STMA Anion Gap, P 14 7 - 15 08/13/2023 5:09 PM SERVICE CENTER ASSISTANT STMA BUN (Blood Urea Nitrogen), P 14 6 - 21 mg/dL 08/13/2023 5:09 PM SERVICE CENTER ASSISTANT STMA Creatinine 0.94 0.59 - 1.04 mg/dL 08/13/2023 5:09 PM SERVICE CENTER ASSISTANT STMA Estimated GFR (eGFR) 62 >=60 mL/min/BSA 08/13/2023 5:09 PM SERVICE CENTER ASSISTANT STMA Comment: Estimated GFR calculated using the 2020 CKD_EPI creatinine equation. Calcium, Total, P 9.4 8.8 - 10.2 mg/dL 08/13/2023 5:09 PM SERVICE CENTER ASSISTANT STMA Glucose, P 99 70 - 140 mg/dL 08/13/2023 5:09 PM SERVICE CENTER ASSISTANT STMA Blood (Blood, Venous) 08/13/2023 4:46 PM SERVICE CENTER ASSISTANT 08/13/2023 4:52 PM SERVICE CENTER ASSISTANT Elizabeth Hutton P.A.-C[place] [address] * CT ABDOMEN PELVIS W CON-Outside CT Body (08/13/2023 9:45 AM SERVICE CENTER ASSISTANT) Only the most recent of2 resultswithin the time period is included. Narrative IIMS - 08/14/2023 5:16 PM SERVICE CENTER ASSISTANT This order has been created and auto-finalized to support the import of outside images. If available, original interpretation can be found on the Media Tab in Chart Review, in Document Viewer, or as an image in QREADS. If a re-interpretation or overread is required please follow defined workflow. ?? Provider Not In System IMG CT PROCEDURES IIMS NA * CT HEAD/BRAIN WO CON-Outside CT Neuro (07/11/2023 1:45 AM SERVICE CENTER ASSISTANT) Narrative IIMS - 08/14/2023 1:04 PM SERVICE CENTER ASSISTANT This order has been created and auto-finalized to support the import of outside images. If available, original interpretation can be found on the Media Tab in Chart Review, in Document Viewer, or as an image in QREADS. If a re-interpretation or overread is required please follow defined workflow. ?? Provider Not In System IMG CT PROCEDURES Performing Organization Address City/[facility] Co de Phone Number [facility] NA * (ABNORMAL) Dipstick, Urine (06/14/2023 2:13 PM SERVICE CENTER ASSISTANT) Hemoglobin, QL, U Negative Negative 06/14/2023 3:50 PM SERVICE CENTER ASSISTANT DTL Leukocyte Esterase, U Small(A) Negative 06/14/2023 3:50 PM SERVICE CENTER ASSISTANT DTL Nitrite, U Negative Negative 06/14/2023 3:50 PM SERVICE CENTER ASSISTANT DTL Ketone, U Negative Negative mg/dL 06/14/2023 3:50 PM SERVICE CENTER ASSISTANT DTL Glucose, U Negative Negative mg/dL 06/14/2023 3:50 PM SERVICE CENTER ASSISTANT DTL Urine 06/14/2023 2:13 PM SERVICE CENTER ASSISTANT 06/14/2023 3:24 PM SERVICE CENTER ASSISTANT Cande Ruiz M.D. LAB URINE ORDERABL ES Performing Organization Address [facility] Co de Phone Number [facility] [address] DTL [facility] [address] [place] [address] * (ABNORMAL) Microscopic Automated (06/14/2023 2:13 PM SERVICE CENTER ASSISTANT) Microscopy Abnormal 06/14/2023 3:50 PM SERVICE CENTER ASSISTANT DTL RBC None Seen <3 /hpf 06/14/2023 3:50 PM SERVICE CENTER ASSISTANT DTL WBC 21-30(A) /hpf 06/14/2023 3:50 PM SERVICE CENTER ASSISTANT DTL Comment: ----REFERENCE VALUE---- <4 ??(Males) <11 (Females) Bacteria Present(A) 06/14/2023 3:50 PM SERVICE CENTER ASSISTANT DTL Urine 06/14/2023 2:13 PM SERVICE CENTER ASSISTANT 06/14/2023 3:24 PM SERVICE CENTER ASSISTANT Cande Ruiz M.D. LAB URINE ORDERABL ES Performing Organization Address [facility] Co de Phone Number [facility] [address] [place] [address], [facility] [address] [place] [address] * (ABNORMAL) Bacterial Culture, Aerobic + Susceptibility, Urine (06/14/2023 2:13 PM SERVICE CENTER ASSISTANT) Urine Culture ENTEROCOCCUS FAECALIS >100,000 cfu/mL (A) 06/16/2023 1:34 PM SERVICE CENTER ASSISTANT DTL Urine (Urine, Straight Catheter) 06/14/2023 2:13 PM SERVICE CENTER ASSISTANT 06/14/2023 4:47 PM SERVICE CENTER ASSISTANT Comment:Specimen Source Site : Urine Narrative Organism Antibiotic Method Susceptibility Enterococcus faecalis Levofloxacin SUSCEPTIBI LITY, VIGNESH (MCG/ML) 1 mcg/mL: Susceptible Enterococcus faecalis Nitrofurantoin SUSCEPTIBI LITY, VIGNESH (MCG/ML) <=32 mcg/mL: Susceptible Enterococcus faecalis Vancomycin SUSCEPTIBI LITY, VIGNESH (MCG/ML) <=2 mcg/mL: Susceptible Enterococcus faecalis Penicillin SUSCEPTIBI LITY, VIGNESH (MCG/ML) 2 mcg/mL: Susceptible Cande Ruiz M.D. LAB MICROBIOLOGY - GENERAL ORDERABLES Performing Organization Address City/[facility] Co de Phone Number [facility] [address] [place] [address], [facility] [address] [place] [address] * pH, Urine (06/14/2023 2:13 PM SERVICE CENTER ASSISTANT) pH, U 5.5 4.5 - 8.0 06/14/2023 4:3 9 PM SERVICE CENTER ASSISTANT DTL Urine 06/14/2023 2:13 PM SERVICE CENTER ASSISTANT 06/14/2023 3:24 PM SERVICE CENTER ASSISTANT Cande Ruiz M.D. LAB URINE ORDERABL ES Performing Organization Address City/[facility]/ZIP Co de Phone Number [facility] [address] [place] [address], [facility] [address] [place] [address] * Osmolality, Urine (06/14/2023 2:13 PM SERVICE CENTER ASSISTANT) Osmolality, U 419 150 - 1150 mOsm/kg 06/14/2023 4:39 PM SERVICE CENTER ASSISTANT DTL Urine 06/14/2023 2:13 PM SERVICE CENTER ASSISTANT 06/14/2023 3:24 PM SERVICE CENTER ASSISTANT Cande Ruiz M.D. LAB URINE ORDERABL ES Performing Organization Address [facility] Co de Phone Number [facility] [address] [place] [address], [facility] [address] [place] [address] * Urinalysis with Microscopic: Urine, Straight Catheter (06/14/2023 2:13 PM SERVICE CENTER ASSISTANT) Source Urine, Urine, Straight Catheter 06/14/2023 3:23 PM SERVICE CENTER ASSISTANT DTL Color, U Yellow 06/14/2023 3:23 PM SERVICE CENTER ASSISTANT DTL Clarity, U Clear 06/14/2023 3:23 PM SERVICE CENTER ASSISTANT DTL Protein, U 8 <26 mg/dL 06/14/2023 4:07 PM SERVICE CENTER ASSISTANT DTL Protein/Osmola lity 0.19 <0.42 ratio 06/14/2023 4:39 PM SERVICE CENTER ASSISTANT DTL Predicted 24 HR Protein, U 149 <229 mg/24 h 06/14/2023 4:39 PM SERVICE CENTER ASSISTANT DTL Predicted Range 37-602 mg/24 h 06/14/2023 4:39 PM SERVICE CENTER ASSISTANT DTL Urine (Urine, Straight Catheter) 06/14/2023 2:13 PM SERVICE CENTER ASSISTANT 06/14/2023 3:23 PM SERVICE CENTER ASSISTANT Cande Ruiz M.D. LAB URINE ORDERABL ES Performing Organization Address City/[facility]/ZIP Co de Phone Number [facility] [address] [place] [address], [facility] DTL [facility] 200 [place] [address] * ID CAMRON PST VOID RESID US NON IMG, ID UROFLOWMETRY CMPLX, ID CYSTOMETROGRAM COMPLEX (06/14/2023 1:45 PM SERVICE CENTER ASSISTANT) Narrative Cande Ruiz M.D. - 06/14/2023 1:45 PM SERVICE CENTER ASSISTANT Drea Pepe M.D. ? 06/18/2023 ??9:14 AM OBG Urodynamic Studies Performed by: Cande Ruiz M.D. Authorized by: Cande Ruiz M.D. ?? Care team members present 1. Thierry Daniel R.N., IEricaCFransiscoLFransiscoC. PROCEDURE DETAILS: Procedures: Combined (CMG + Uro) [...] ORDERABLES from Last 3 Months Care Teams Automatic Fabric Cutter Relationship Specialty Start Date End Date Elsewhere, Pcp PCP - General Internal Medicine 06/12/23
--- OUTSIDE RECORDS SUMMARY | 2023-08-16 17:30 | XMS_ITS | Referral Summary ---
Author Name Unknown Organization [facility] Address [address] [place] [address] Care Team Providers Care Nickel Plant Operator Name Role Phone Elsewhere, Pcp Primary Care Provider Unavailabl e Source Comments Patient records contain information from all sites at [facility]. For routine questions regarding patient records, call [phone] during business hours, M-F 8:00 AM - 5:00 PM Central Time. Record requests for emergency care only can be directed to [phone] at any time.[facility] Encounters Date Type Department Care Team Description 08/16/2023 Clinical Communication Department of Obstetrics and Gynecology, Division of Urogynecology in [place], [place] [address] [place] [phone] Cande Ruiz M.D. Communication ([facility]) 08/14/2023 Clinical Communication Division of Thoracic Surgery in [place], [place] [address] [place] [phone] Prescheduling, Provider 08/13/2023 4:14 PM [employer]MENT [employer] - 08/13/2023 9:14 PM [employer]MENT [employer] Emergency [facility] Emergency Department [address] [place] [phone] Elizabeth Hutton, PFransiscoA.CalebC. 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 Recent ER Visit 06/15/2023 Orders Only Department of Obstetrics and Gynecology, Division of Urogynecology in [place], [place] [address] [place] [phone] Drea Pepe M.D. 06/14/2023 1:45 PM [employer] Procedure visit Department of Obstetrics and Gynecology, Division of Urogynecology in [place], [place] [address] [place] [phone] Cande Ruiz M.D. Cystocele Midline; Rectocele 06/14/2023 3:00 PM [employer] Comprehensive Visit Department of Obstetrics and Gynecology, Division of Urogynecology in [place], [place] [address] [place] [phone] Cande Ruiz M.D. Urgency Urinary (Primary Dx); Atrophy Vagina Due To Estrogen Deficiency; Dysfunction Constipation Outlet; Constipation Slow Transit; Cystitis Recurrent; Rectocele 06/12/2023 9:45 AM [employer]MENT INTERNS[employer]IP Clinical Communication Virtual Review in [place], [place] 200 [place] [address] Pre-visit Intake from Last 3 Months Allergies [...] your living situation today? I have a [facility] place to live 06/10/2023 Sex and Gender Information Value Date Recorded Sex Assigned at Female 06/08/2023 11:11 AM [employer]MENT [employer] Gender Identity Female 06/08/2023 11:11 AM [employer] Sexual Orientation Straight 06/08/2023 11 :11 AM [employer]MENT [employer] Last Filed Vital Signs Vital Sign Reading Time Taken Comments Blood Pressure 147/73 08/13/2023 7:00 PM [employer] Pulse 79 08/13/2023 7:49 PM [employer]MENT [employer] Temperature 37 ??C (98.6 ??F) 08/13/2023 4:09 PM [employer] Respiratory Rate 18 08/13/2023 4:09 PM [employer]MENT [employer] Oxygen Saturation 96% 08/13/2023 7:49 PM [employer]MENT [employer] Inhaled Oxygen Concentration - - Weight 67.6 kg (149 lb 0.5 oz) 06/14/2023 3:44 P M [employer] shoes on Height 166.4 cm (5' 5.51) 06/14/2023 3:44 PM CS T shoes on Body Mass Index 24.41 06/14/2023 3:44 PM [employer]MENT [employer] Plan of Treatment Upcoming Encounters Date Type Department Care Team (Latest Contact Info) Description 08/28/2023 1:30 PM [employer] Clinical Communication Virtual Review in [place], [place] [address] [place], [place] [address] 08/29/2023 3:00 PM [employer] Comprehensive Visit Division of Thoracic Surgery in [place], [place] [address] [place] [phone] Ramakrishna Rodriges M.D. [address] [place] [phone] 09/10/2023 1:00 PM [employer] Comprehensive Visit Division of Trauma Critical Care and General Surgery in [place], [place] [address] [place] [phone] Cande Ruiz M.D. [address] [place] [phone] 10/22/2023 9:00 AM CDT Comprehensive Visit Division of Colon and Rectal Surgery in [place], [place] [address] [place] [phone] Sean Rodriguez M.B., Ch.B., M.P.H. [address] [place] [phone] Discharge Disposition: Home or Self Care Procedures Procedure Name Priority Date/Time Associated Diagnosis Comments CT ABDOMEN PELVIS WITH IV CONTRAST RAD - Semiurgent (Fast; most ED patients; some inpatients) 08/13/2023 6:10 PM [employer]MENT [employer] LIPASE, S/P STAT 08/13/2023 4:46 PM [employer] LACTATE, B/P STAT 08/13/2023 4:46 PM [employer] HEPATIC FUNCTION PANEL, S STAT 08/13/2023 4:46 PM [employer] BASIC METABOLIC PANEL, S/P STAT 08/13/2023 4:46 PM [employer]MENT [employer] CBC WITH DIFFERENTIAL, B STAT 08/13/2023 4:46 PM [employer]MENT INTER[employer] OUTSIDE CT BODY Routine 08/13/2023 9:45 AM [employer]MENT INTER[employer] OUTSIDE CT BODY Routine 07/11/2023 4:00 AM [employer]MENT [employer] OUTSIDE CT NEURO Routine 07/11/2023 1:45 AM [employer]MENT [employer] DIPSTICK, U Routine 06/14/2023 2:13 PM [employer] PH, U Routine 06/14/2023 2:13 PM [employer] OSMOLALITY, U Routine 06/14/2023 2:13 PM [employer] MICROSCOPIC AUTOMATED Routine 06/14/2023 2:13 PM [employer]MENT [employer] URINALYSIS WITH MICROSCOPIC Routine 06/14/2023 2:13 PM [employer]MENT [employer]IP Cystocele Midline BACTERIAL CULTURE, AEROBIC + SUSC, URINE Routine 06/14/2023 2:13 PM [employer]MENT [employer] Cystocele Midline NM CYSTOMETROGRAM COMPLEX Routine 06/14/2023 1:45 PM [employer]MENT [employer] Cystocele Midline Rectocele NM UROFLOWMETRY CMPLX Routine 06/14/2023 1:45 PM [employer]MENT INTER[employer]IP Cystocele Midline Rectocele NM CAMRON PST VOID RESID US NON IMG Routine 06/14/2023 1:45 PM [employer]MENT [employer]IP Cystocele Midline Rectocele from Last 3 Months Results * CT Abdomen Pelvis with IV Contrast (08/13/2023 6:10 PM [employer]MENT [employer]) Anatomical Region Laterality Modality Abdomen, Pelvis, Abdominal R ST LOS, Abdominal ARZ LOS, Abdominal FLA LOS N/A Computed Tomograp hy, Computed Tomography 08/13/2023 5:45 PM [employer]MENT [employer] Impressions 08/13/2023 7:19 PM [employer] 1. No definite acute findings in the abdomen. No findings of significant bowel obstruction 2. Large nonobstructive hiatal hernia fat-containing the entire stomach and a portion of transverse colon. 3. Small amount of ascites in the pelvis of uncertain etiology. 6. Mild gallbladder distention without evidence of cholecystitis. Narrative 08/13/2023 7:19 PM [employer] EXAM: ??CT ABDOMEN PELVIS WITH IV CONTRAST [...] canal than a lymph node (series 3 [id number]). Patchy opacities in the subcutaneous tissues of [...] (ABNORMAL) Hepatic Function Panel (08/13/2023 4:46 PM [employer]) Bilirubin, Total, S 0.5 0.0 - 1.2 mg/dL 08/13/2023 5:29 PM [employer] DTL Bilirubin, Direct, S <0.2 0.0 - 0.3 mg/dL 08/13/2023 5:29 PM [employer] DTL Aspartate Aminotransferase (AST), S 22 8 - 43 U/L 08/13/2023 5:29 PM [employer] DTL Alanine Aminotransferase (ALT), S 26 7 - 45 U/L 08/13/2023 5:29 PM [employer] DTL Alkaline Phosphatase, S 89 35 - 104 U/L 08/13/2023 5:29 PM [employer] DTL Albumin, S 4.1 3.5 - 5.0 g/dL 08/13/2023 5:29 PM [employer] DTL Protein, Total, S 6.0(L) 6.3 - 7.9 g/dL 08/13/2023 5:29 PM [employer] DTL Blood (Blood, Venous) 08/13/2023 4:46 PM [employer] 08/13/2023 5:07 PM [employer]MENT [employer] Elizabeth Hutton P.A.-C. LAB BLOOD ADD-ON [facility] [address] [place] [address], [facility] DTL [facility] [address] [place] [address] * (ABNORMAL) CBC with Differential, Blood (08/13/2023 4:46 PM [employer]) Hemoglobin 14.0 11.6 - 15.0 g/dL 08/13/2023 4:55 PM [employer] STMA Hematocrit 43.4 35.5 - 44.9 % 08/13/2023 4:55 PM [employer] STMA Erythrocytes 4.80 3.92 - 5.13 x10(12)/L 08/13/2023 4:55 PM [employer] STMA MCV 90.4 78.2 - 97.9 fL 08/13/2023 4:55 PM [employer] STMA RBC Distrib Width 13.4 12.2 - 16.1 % 08/13/2023 4:55 PM [employer] STMA Platelet Count 229 157 - 371 x10(9)/L 08/13/2023 4:55 PM [employer] STMA Leukocytes 12.5(H) 3.4 - 9.6 x10(9)/L 08/13/2023 4:55 PM [employer] STMA Neutrophils 10.57(H) 1.56 - 6.45 x10(9)/L 08/13/2023 4:55 PM [employer] DHPM Lymphocytes 1.14 0.95 - 3.07 x10(9)/L 08/13/2023 4:55 PM [employer] STMA Monocytes 0.68 0.26 - 0.81 x10(9)/L 08/13/2023 4:55 PM [employer] STMA Eosinophils 0.10 0.03 - 0.48 x10(9)/L 08/13/2023 4:55 PM [employer] STMA Basophils <0.03 0.01 - 0.08 x10(9)/L 08/13/2023 4:55 PM [employer] STMA Blood (Blood, Venous) 08/13/2023 4:46 PM [employer] 08/13/2023 4:52 PM [employer] Elizabeth Hutton P.A.-C. LAB BLOOD ADD-ON [facility] [address] [place] [address], [facility] [address] [place], [place] [phone] [place] [address] [address] [place] [address] * Lipase (08/13/2023 4:46 PM [employer]MENT [employer]) Lipase, S 26 13 - 60 U/L 08/13/2023 5: 29 PM [employer]MENT [employer] DTL Blood (Blood, Venous) 08/13/2023 4:46 PM [employer] 08/13/2023 5:07 PM [employer]MENT [employer] Elizabeth Hutton P.A.-C. LAB BLOOD ADD-ON Performing Organization Address City/[facility]/ZIP Co de Phone Number [facility] [address] [place] [address], [facility] 200 [place] [address] * Lactate (08/13/2023 4:46 PM [employer]MENT [employer]) Lactate, P 1.1 0.5 - 2.2 mmol/L 08/13/2023 5:07 PM [employer]MENT [employer] STMA Blood (Blood, Venous) 08/13/2023 4:46 PM [employer]MENT [employer] 08/13/2023 4:52 PM [employer]MENT INTER[employer] Elizabeth Hutton P.A.-C. LAB BLOOD NON ADD -ON [facility] [address] [place] [address], [facility] [address] [place] [address] * Basic Metabolic Panel (08/13/2023 4:46 PM [employer]MENT [employer]) Potassium, P 4.5 3.6 - 5.2 mmol/L 08/13/2023 5:09 PM [employer]MENT [employer] STMA Sodium, P 139 135 - 145 mmol/L 08/13/2023 5:09 PM [employer]MENT INTERNS[employer] STMA Chloride, P 102 98 - 107 mmol/L 08/13/2023 5:09 PM [employer]MENT [employer] STMA Bicarbonate, P 23 22 - 29 mmol/L 08/13/2023 5:09 PM [employer]MENT [employer] STMA Anion Gap, P 14 7 - 15 08/13/2023 5:09 PM [employer]MENT [employer] STMA BUN (Blood Urea Nitrogen), P 14 6 - 21 mg/dL 08/13/2023 5:09 PM [employer]MENT INTER[employer] STMA Creatinine 0.94 0.59 - 1.04 mg/dL 08/13/2023 5:09 PM [employer]MENT [employer] STMA Estimated GFR (eGFR) 62 >=60 mL/min/BSA 08/13/2023 5:09 PM [employer]MENT [employer] STMA Comment: Estimated GFR calculated using the 2020 CKD_EPI creatinine equation. Calcium, Total, P 9.4 8.8 - 10.2 mg/dL 08/13/2023 5:09 PM [employer]MENT [employer] STMA Glucose, P 99 70 - 140 mg/dL 08/13/2023 5:09 PM [employer]MENT [employer] STMA Blood (Blood, Venous) 08/13/2023 4:46 PM [employer]MENT [employer]IP 08/13/2023 4:52 PM [employer]MENT [employer] Elizabeth Hutton P.A.-C. LAB BLOOD ADD-ON [facility] [address] [place] [address], [facility] STMA [facility] [address] [place] [address] * CT ABDOMEN PELVIS W CON-Outside CT Body (08/13/2023 9:45 AM [employer]MENT [employer]) Only the most recent of2 resultswithin the time period is included. Narrative IIMS - 08/14/2023 5:16 PM [employer] This order has been created and auto-finalized to support the import of outside images. If available, original interpretation can be found on the Media Tab in Chart Review, in Document Viewer, or as an image in QREADS. If a re-interpretation or overread is required please follow defined workflow. ?? Provider Not In System IMG CT PROCEDURES Performing Organization Address [facility] Co de Phone Number IIMN NA * CT HEAD/BRAIN WO CON-Outside CT Neuro (07/11/2023 1:45 AM [employer]MENT [employer]) Narrative IIMN - 08/14/2023 1:04 PM [employer] This order has been created and auto-finalized to support the import of outside images. If available, original interpretation can be found on the Media Tab in Chart Review, in Document Viewer, or as an image in QREADS. If a re-interpretation or overread is required please follow defined workflow. ?? Provider Not In System IMG CT PROCEDURES Performing Organization Address [facility] de Phone Number IIMN NA * (ABNORMAL) Dipstick, Urine (06/14/2023 2:13 PM [employer]MENT [employer]) Pathologist [facility] Hemoglobin, QL, U Negative Negative 06/14/2023 3:50 PM [employer]MENT [employer] DTL Leukocyte Esterase, U Small(A) Negative 06/14/2023 3:50 PM [employer]MENT [employer] DTL Nitrite, U Negative Negative 06/14/2023 3:50 PM [employer]MENT [employer] DTL Ketone, U Negative Negative mg/dL 06/14/2023 3:50 PM [employer]MENT [employer] DTL Glucose, U Negative Negative mg/dL 06/14/2023 3:50 PM [employer]MENT INTER[employer] DTL Urine 06/14/2023 2:13 PM [employer] 06/14/2023 3:24 PM [employer] Cande Ruiz M.D. LAB URINE ORDERABL ES Performing Organization Address City/[facility]/ZIP Co de Phone Number [facility] [address] [place] [address], [place] DTL [facility] [address] [place] [address] * (ABNORMAL) Microscopic Automated (06/14/2023 2:13 PM [employer]MENT [employer]) Microscopy Abnormal 06/14/2023 3:50 PM [employer]MENT [employer] DTL RBC None Seen <3 /hpf 06/14/2023 3:50 PM [employer]MENT INTER[employer] DTL WBC 21-30(A) /hpf 06/14/2023 3:50 PM [employer]MENT [employer] DTL Comment: ----REFERENCE VALUE---- <4 ??(Males) <11 (Females) Bacteria Present(A) 06/14/2023 3:50 PM [employer]MENT INTER[employer]IP DTL Urine 06/14/2023 2:13 PM [employer] 06/14/2023 3:24 PM [employer] Cande Ruiz M.D. LAB URINE ORDERABL ES Performing Organization Address [facility] Co de Phone Number [facility] [address] [place] [address], [facility] [address] [place] [address] * (ABNORMAL) Bacterial Culture, Aerobic + Susceptibility, Urine (06/14/2023 2:13 PM [employer]MENT [employer]) Urine Culture ENTEROCOCCUS FAECALIS >100,000 cfu/mL (A) 06/16/2023 1:34 PM [employer]MENT INTER[employer] DTL Urine (Urine, Straight Catheter) 06/14/2023 2:13 PM [employer] 06/14/2023 4:47 PM [employer] Comment:Specimen Source Site : Urine Narrative Organism Antibiotic Method Susceptibility Enterococcus faecalis Levofloxacin SUSCEPTIBI LITY, VIGNESH (MCG/ML) 1 mcg/mL: Susceptible Enterococcus faecalis Nitrofurantoin SUSCEPTIBI LITY, VIGNESH (MCG/ML) <=32 mcg/mL: Susceptible Enterococcus faecalis Vancomycin SUSCEPTIBI LITY, VIGNESH (MCG/ML) <=2 mcg/mL: Susceptible Enterococcus faecalis Penicillin SUSCEPTIBI LITY, VIGNESH (MCG/ML) 2 mcg/mL: Susceptible Cande Ruiz M.D. LAB MICROBIOLOGY - GENERAL ORDERABLES Performing Organization Address City/[facility] Co de Phone Number [facility] [address] [place] [address], [place] [facility] [address] [place] [address] * pH, Urine (06/14/2023 2:13 PM [employer]MENT [employer]) Pathologist [facility] pH, U 5.5 4.5 - 8.0 06/14/2023 4:3 9 PM [employer]MENT [employer]IP DTL Urine 06/14/2023 2:13 PM [employer] 06/14/2023 3:24 PM [employer] Cande Ruiz M.D. LAB URINE ORDERABL ES Performing Organization Address [facility] Co de Phone Number [facility] [address] [place] [address], [facility] [address] [place] [address] * Osmolality, Urine (06/14/2023 2:13 PM [employer]MENT [employer]) [facility] Osmolality, U 419 150 - 1150 mOsm/kg 06/14/2023 4:39 PM [employer]MENT [employer]IP DTL Urine 06/14/2023 2:13 PM [employer] 06/14/2023 3:24 PM [employer] Cande Ruiz M.D. LAB URINE ORDERABL ES Performing Organization Address [facility] de Phone Number [facility] [address] [place] [address], [facility] [address] [place] [address] * Urinalysis with Microscopic: Urine, Straight Catheter (06/14/2023 2:13 PM [employer]MENT [employer]) Source Urine, Urine, Straight Catheter 06/14/2023 3:23 PM [employer]MENT [employer] DTL Color, U Yellow 06/14/2023 3:23 PM [employer]MENT [employer] DTL Clarity, U Clear 06/14/2023 3:23 PM [employer]MENT [employer] DTL Protein, U 8 <26 mg/dL 06/14/2023 4:07 PM [employer]MENT [employer] DTL Protein/Osmola lity 0.19 <0.42 ratio 06/14/2023 4:39 PM [employer]MENT [employer] DTL Predicted 24 HR Protein, U 149 <229 mg/24 h 06/14/2023 4:39 PM [employer]MENT [employer] DTL Predicted Range 37-602 mg/24 h 06/14/2023 4:39 PM [employer]MENT [employer] DTL Urine (Urine, Straight Catheter) 06/14/2023 2:13 PM [employer]MENT [employer]IP 06/14/2023 3:23 PM [employer]MENT INTER[employer]IP Cande Ruiz M.D. LAB URINE ORDERABL ES [facility] [address] [place] [address], [facility] [place] [address] [place] [address] * NM CAMRON PST VOID RESID US NON IMG, NM UROFLOWMETRY CMPLX, NM CYSTOMETROGRAM COMPLEX (06/14/2023 1:45 PM [employer]MENT [employer]) Narrative Cande Ruiz M.D. - 06/14/2023 1:45 PM [employer]MENT [employer] Drea Pepe M.D. ? 06/18/2023 ??9:14 AM OBG Urodynamic Studies Performed by: Cande Ruiz M.D. Authorized by: Cande Ruiz M.D. ?? Care team members present 1. Thierry Daniel R.N., I.B.C.L.C. PROCEDURE DETAILS: Procedures: Combined (CMG + Uro) [...] ORDERABLES from Last 3 Months Care Teams Nickel Plant Operator Relationship Specialty Start Date End Date Elsewhere, Pcp PCP - General Internal Medicine 06/12/23
--- OUTSIDE RECORDS SUMMARY | 2023-08-16 17:31 | XMS_ITS | Encounter Summary ---
Author Name Unknown Organization [facility] Address [address] [place] [address] Care Team Providers Care Loader [employer] Name Role Phone Elsewhere, Pcp Primary Care Provider Unavailabl e Encounter Details Date Type Department Care Team (Late st Contact Info) Description 06/15/2023 Orders Only Department of Obstetrics and Gynecology, Division of Urogynecology in [place], [place] [address] [place] [phone] Drea Pepe M.D. [address] [place] [phone] Social History Tobacco Use Types Packs/Day Years [...] your living situation today? I have a [facility] place to live 06/10/2023 Sex and Gender Information Value Date Recorded Sex Assigned at Female 06/08/2023 11:11 AM WIRE LOOP MACHINE OPERATOR Gender Identity Female 06/08/2023 11:11 AM WIRE LOOP MACHINE OPERATOR Sexual Orientation Straight 06/08/2023 11 :11 AM WIRE LOOP MACHINE OPERATOR documented as of this encounter Plan of Treatment Upcoming Encounters Date Type Department Care Team (Latest Contact Info) Description 08/28/2023 1:30 PM WIRE LOOP MACHINE OPERATOR Clinical Communication Virtual Review in [place], [place] [address] [place] [address] 08/29/2023 3:00 PM WIRE LOOP MACHINE OPERATOR Comprehensive Visit Division of Thoracic Surgery in [place], [place] [address] [place] [phone] Ramakrishna Rodriges M.D. [address] [place] [phone] 09/10/2023 1:00 PM WIRE LOOP MACHINE OPERATOR Comprehensive Visit Division of Trauma Critical Care and General Surgery in [place], [place] [address] [place] [phone] Caned Ruiz M.D. [address] [place] [phone] 10/22/2023 9:00 AM CDT Comprehensive Visit Division of Colon and Rectal Surgery in [place], [place] [address] [place] [phone] Sean Rodriguez M.B., Ch.B., M.P.H. [address] [place] [phone] Discharge Disposition: Home or Self Care documented as of this encounter Visit Diagnoses Not on filedocumented in this encounter Care Teams Loader [employer] Relationship Specialty Start Date End Date Elsewhere, Pcp PCP - General Internal Medicine 06/12/23 documented as of this encounter
--- OUTSIDE RECORDS SUMMARY | 2023-08-16 17:31 | XMS_ITS | Encounter Summary ---
Author Name Unknown Organization [facility] Address [address] [place] [address] Care Team Providers Care Electric Meter Inspector Name Role Phone Elsewhere, Pcp Primary Care Provider Unavailabl e Reason for Referral * Physical Therapy (Routine) - Authorized Specialty Diagnoses / Procedures Referred By Hi steiner Referred To Contact Diagnoses Urgency Urinary Procedures PT Evaluate and treat Drea Pepe M.D. [address] [place] [address] 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 [address] [place] [phone] Referral ID Status Reason Start Date Expiration Date Visits Re quested Visits Authorized [id number] Closed 03/15/2023 03/14/2024 1 1 Encounter Details Date Type Department Care Team (Latest Contact Info) Description 06/14/2023 3:00 PM HADOOP ANALYST Comprehensive Visit Department of Obstetrics and Gynecology, Division of Urogynecology in [place], [place] [address] [place] [address] Cande Grissom M.D. [address] [place] [address] Urgency Urinary (Primary Dx); Atrophy Vagina Due [...] Sex Assigned at Female 06/08/2023 11:11 AM HADOOP ANALYST Gender Identity Female 06/08/2023 11:11 AM HADOOP ANALYST Sexual Orientation Straight 06/08/2023 11 :11 AM HADOOP ANALYST documented as of this encounter Last Filed Vital Signs Vital Sign Reading Time Taken Comments Blood Pressure - - Pulse - - Temperature - - Respiratory Rate - - Oxygen Saturation - - Inhaled Oxygen Concentration - - Weight 67.6 kg (149 lb 0.5 oz) 06/14/2023 3:44 P M HADOOP ANALYST shoes on Height 166.4 cm (5' 5.51) 06/14/2023 3:44 PM CS T shoes on Body Mass Index 24.41 06/14/2023 3:44 PM HADOOP ANALYST documented in this encounter Consult Notes * [...] history as noted above. OBJECTIVE PHYSICAL EXAMINATION Liner Checker: Drea Pepe MD Examiner: Cande Grissom MD [...] 06/14/2023 BILLING Total visit time: 40 minutes OP ANALYST documented in this encounter Miscellaneous Notes * Addendum Note - Cande Grissom M.D. - 06/14/2023 3:00 PM CSTAddended by: CANDE GRISSOM on: 07/01/2023 11:05 AM Modules accepted: Level of Service OP ANALYST documented in this encounter Plan of Treatment Upcoming Encounters Date Type Department Care Team (Latest Contact Info) Description 08/28/2023 1:30 PM HADOOP ANALYST Clinical Communication Virtual Review in [place], [place] [address] [place] [address] 08/29/2023 3:00 PM HADOOP ANALYST Comprehensive Visit Division of Thoracic Surgery in [place], [place] [address] [place] [phone] Ramakrishna Rodriges M.D. [address] [place] [phone] 09/10/2023 1:00 PM HADOOP ANALYST Comprehensive Visit Division of Trauma Critical Care and General Surgery in [place], [place] [address] [place] [phone] Cande Grissom M.D. [address] [place] [phone] 10/22/2023 9:00 AM CDT Comprehensive Visit Division of Colon and Rectal Surgery in [place], [place] [address] [place] [phone] Sean Rodriguez M.B., Ch.B., M.P.H. [address] [place] [phone] Discharge Disposition: Home or Self Care documented as of this encounter Visit Diagnoses Diagnosis Urgency Urinary- Primary Atrophy Vagina Due To Estrogen Deficiency Dysfunction Constipation Outlet Constipation Slow Transit Cystitis Recurrent Rectocele documented in this encounter Care Teams Electric Meter Inspector Relationship Specialty Start Date End Date Elsewhere, Pcp PCP - General Internal Medicine 06/12/23 documented as of this encounter
--- OUTSIDE RECORDS SUMMARY | 2023-08-16 17:31 | XMS_ITS | Encounter Summary ---
Author Name Unknown Organization [facility] Address [address] [place] [address] Care Team Providers Care Group Managing Director Name Role Phone Elsewhere, Pcp Primary Care Provider Unavailabl e Encounter Details Date Type Department Care Team (Latest Contact Info) Description 08/13/2023 Intake [facility] Social History Tobacco Use Types Packs/Day Years [...] your living situation today? I have a [facility] place to live 06/10/2023 Sex and Gender Information Value Date Recorded Sex Assigned at Female 06/08/2023 11:11 AM FISH WARDEN Gender Identity Female 06/08/2023 11:11 AM FISH WARDEN Sexual Orientation Straight 06/08/2023 11 :11 AM FISH WARDEN documented as of this encounter Plan of Treatment Upcoming Encounters Date Type Department Care Team (Latest Contact Info) Description 08/28/2023 1:30 PM FISH WARDEN Clinical Communication Virtual Review in [place], [place] [address] [place] [address] 08/29/2023 3:00 PM FISH WARDEN Comprehensive Visit Division of Thoracic Surgery in [place], [place] [address] [place] [phone] Ramakrishna Rodriges M.D. [address] [place] [phone] 09/10/2023 1:00 PM FISH WARDEN Comprehensive Visit Division of Trauma Critical Care and General Surgery in [place], [place] [address] [place] [address] Cande Ruiz M.D. [address] [place] [phone] 10/22/2023 9:00 AM CDT Comprehensive Visit Division of Colon and Rectal Surgery in [place], [place] [address] [place] [phone] Sean Rodriguez M.B., ChFransiscoB., M.P.H. [address] [place] [address] Discharge Disposition: Home or Self Care documented as of this encounter Visit Diagnoses Not on filedocumented in this encounter Care Teams Group Managing Director Relationship Specialty Start Date End Date Elsewhere, Pcp PCP - General Internal Medicine 06/12/23 documented as of this encounter
--- OUTSIDE RECORDS SUMMARY | 2023-08-16 17:31 | XMS_ITS | Encounter Summary ---
Author Name Unknown Organization [facility] Address [address] [place] [address] Care Team Providers Care Laboratory Inspector Name Role Phone Elsewhere, Pcp Primary [...] without IV Contrast Cande Ruiz M.D. [address] [place] [address] [facility] Referral ID Status Reason Start Date Expiration Date V isits Requested Visits Authorized [id number] Authorized 08/07/2023 08/06/2024 1 1 ER HELPER * Outpatient (Routine) - Authorized Specialty Diagnoses / Procedures Referred By Contac t Referred To Contact Colon and Rectal Surgery Diagnoses Hernia Perineal Hernia Dysfunction Pelvic Floor Female Constipation Cande Ruiz M.D. [address] [place] [address] [facility] Referral ID Status Reason Start Date Expiration Date V isits Requested Visits Authorized [id number] Authorized 08/07/2023 08/06/2024 1 1 Scheduling Instructions Dynamic MRI first, then Dr. Rodriguez consult ER HELPER * Outpatient (Routine) - Authorized Specialty Diagnoses / Procedures Referred By Hi steiner Referred To Contact General Surgery Diagnoses Hernia Femoral Cande Ruiz M.D. [address] [place] [address] [facility] Referral ID Status Reason Start Date Expiration Date V isits Requested Visits Authorized [id number] Authorized 08/07/2023 08/06/2024 1 1 ER HELPER Reason for Visit * Reason Onset Date Comments Recent ER Visit 07/12/2023 Encounter Details Date Type Department Care Team (Latest Contact Info) Description 07/12/2023 Clinical Communication Department of Obstetrics and Gynecology, Division of Urogynecology in [place], [place] [address] [place] [address] Cande Ruiz M.D. [address] [place] [address] Recent ER Visit Social History Tobacco Use [...] your living situation today? I have a [facility] place to live 06/10/2023 Sex and Gender Information Value Date Recorded Sex Assigned at Female 06/08/2023 11:11 AM TINNER HELPER Gender Identity Female 06/08/2023 11:11 AM TINNER HELPER Sexual Orientation Straight 06/08/2023 11 :11 AM TINNER HELPER documented as of this encounter Plan of Treatment Upcoming Encounters Date Type Department Care Team (Latest Contact Info) Description 08/28/2023 1:30 PM TINNER HELPER Clinical Communication Virtual Review in [place], [place] [address] [place] [address] 08/29/2023 3:00 PM TINNER HELPER Comprehensive Visit Division of Thoracic Surgery in [place], [place] [address] [place] [phone] Ramakrishna Rodriges M.D. [address] [place] [phone] 09/10/2023 1:00 PM TINNER HELPER Comprehensive Visit Division of Trauma Critical Care and General Surgery in [place], [place] [address] [place] [address] Cande Ruiz M.D. [address] [place] [phone] 10/22/2023 9:00 AM CDT Comprehensive Visit Division of Colon and Rectal Surgery in [place], [place] [address] [place] [address] Sean Rodriguez M.B., Ch.B., M.P.H. [address] [place] [phone] Discharge Disposition: Home or Self Care Scheduled Orders Name Type Priority Associated Diagnoses Orde r Schedule MR Proctogram Dynamic and Sphincter Eval without IV Contrast Imaging RAD - Routine (most inpatients and all outpatients) Hernia Perineal Hernia Dysfunction Pelvic Floor Female Constipation Other Female Genital Prolapse Expected: 09/10/2023 (Approximate), Expires: 11/05/2024 Scheduled Referrals Name Type [...] Prolapse documented in this encounter Care Teams Laboratory Inspector Relationship Specialty Start Date End Date Elsewhere, Pcp PCP - General Internal Medicine 06/12/23 documented as of this encounter
--- OUTSIDE RECORDS SUMMARY | 2023-08-16 17:31 | XMS_ITS ---
Author Name Unknown Organization [facility] Address [address] [place] [address] Care Team Providers Care Domestic Freight Forwarder Name Role Phone Unavailable Unavailable Unavailable Surgery Details Not on file Complications Check Surgery Details section. Procedure Estimated Blood Loss Check Surgery Details section. Procedure Findings Check Surgery Details section. Procedure Specimens Taken Check Surgery Details section.
--- OUTSIDE RECORDS SUMMARY | 2023-08-16 17:31 | XMS_ITS | Encounter Summary ---
Author Name Unknown Organization [facility] Address [address] [place] [address] Care Team Providers Care Apprentice Painter Brush Name Role Phone Elsewhere, Pcp Primary Care Provider Unavailabl e Reason for Referral * Outpatient (Routine) - Authorized Specialty Diagnoses / Procedures Referred By Hi steiner Referred To Contact Thoracic Surgery Diagnoses Hernia Hiatal Elizabeth Hutton P.A.-C. [address] [place] [phone] [facility] Referral ID Status Reason Start Date Expiration Date V isits Requested Visits Authorized [id number] Authorized 08/13/2023 08/12/2026 1 1 ER MATE Reason for Visit * Reason Comments Abdominal Pain Encounter Details Date Type Department Care Team (Late st Contact Info) Description 08/13/2023 4:14 PM GUNNER MATE - 08/13/2023 9:14 PM GUNNER MATE Emergency [facility] Emergency Department [address] [place] [phone] Elizabeth Hutton P.A.-C. 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 [facility] 06/10/2023 Sex and Gender Information Value Date Recorded Sex Assigned at Female 06/08/2023 11:11 AM GUNNER MATE Gender Identity Female 06/08/2023 11:11 AM GUNNER MATE Sexual Orientation Straight 06/08/2023 11 :11 AM GUNNER MATE documented as of this encounter Last Filed Vital Signs Vital Sign Reading Time Taken Comments Blood Pressure 147/73 08/13/2023 7:00 PM GUNNER MATE Pulse 79 08/13/2023 7:49 PM GUNNER MATE Temperature 37 ??C (98.6 ??F) 08/13/2023 4:09 PM GUNNER MATE Respiratory Rate 18 08/13/2023 4:09 PM GUNNER MATE Oxygen Saturation 96% 08/13/2023 7:49 PM GUNNER MATE Inhaled Oxygen Concentration - - Weight - - Height - - Body Mass Index - - documented in this encounter Discharge Instructions * Discharge Instructions* Elizabeth Hutton P.A.-C. - 08/13/2023 8:28 PM GUNNER MATE I spoke with the thoracic surgeon at [place], both surgeries can not be performed at the same time You will need to follow-up with thoracic surgery for the hiatal hernia Please schedule your procedure with local surgeon for the bilateral femoral hernia Please go to the nearest emergency department if you develop chest pain or shortness of breath, or worsening abdominal pain ER MATE * Attachments The following attachments cannot be sent through Care Everywhere. * Femoral Hernia Adult (Yemeni) * Hernia Adult (Yemeni) documented in this encounter Medications at Time of Discharge Medication Sig Dispensed Refills Start Date End Date acetaminophen (TYLENOL) 500 mg tablet Take 500 mg by mouth every 6 (six) hours as needed for pain. 0 benzonatate (TESSALON PERLES) 100 mg capsule Take 100 mg by mouth 2 (two) times a day as needed. 0 06/06/2023 calcium carbonate (calcium carbonate EX) 750 mg (300 mg calcium) chewable tablet Chew 1 tablet as needed for indigestion or heartburn. 0 cholecalciferol, vitamin D3, (VITAMIN D3 ORAL) Take by mouth. 3000 units in the am and 2000 units in the evening 0 co-enzyme Q-10 (CO Q-10) 100 mg capsule Take 100 mg by mouth daily. 0 cranberry 500 mg capsule Take 1 capsule by mouth daily. 0 estradioL (ESTRACE) 0.1 mg/g (0.01%) vaginal creamIndications:Urgenc y Urinary,Atrophy Vagina Due To Estrogen Deficiency Insert 1 g into the vagina 3 (three) times a week. Place small amount directly on urethra and 1 g inside vagina every night for 2 weeks. Then use 2 nights a week thereafter. 42.5 g 11 06/15/2023 hydrOXYzine (ATARAX) 25 mg tablet Take 25 mg by mouth every 6 (six) hours as needed. 0 03/12/2022 levothyroxine (SYNTHROID, LEVOTHROID) 50 mcg tablet Take 50 mcg by mouth every morning before breakfast. 0 05/13/2023 lisinopriL (PRINIVIL,ZESTRIL) 10 mg tablet Take 10 mg by mouth daily. 0 simvastatin (ZOCOR) 10 mg tablet Take 10 mg by mouth at bedtime. 0 ZINC ORAL Take 500 mg by mouth daily. 0 documented as of this encounter ED Notes * Elizabeth Hutton P.A.-C. - 08/13/2023 4:36 PM CST SUBJECTIVE CHIEF COMPLAINT/REASON FOR VISIT Abdominal Pain HISTORY OF PRESENT ILLNESS Katharine Shell is a 78-year-old female with a history of hypertension, hyperlipidemia, CKD stage 3,cystocele and rectocele repair, and cervical degenerative disc disease who presents to the Emergency Department via EMS for the evaluation of abdominal pain. Beginning yesterday, the patient began to experience diffuse abdominal pain and nausea. She states that she has not had any emesis but reports that she was dry heaving last night. She reported to her local ED in [place] this morning whereshe was found to be COVID positive. A CT was also obtained which showed a small bowel obstruction and perineal hernia. Given her results, her local ED referred her to [facility] ED for further evaluation. Unfortunately, the records from her visit this morning along with the results of her workup is not available. While here, the patient reports that she has not eaten in over 24 hours. She did try to drink water at the hospital this morning, but was not able to drink much. She denies any fevers. The patient reports that her last bowel movement was this morning at the hospital. There are no other complaints at this time. History provided by: Patient and medical records hub cutter needed/used: no REVIEW OF SYSTEMS Constitutional: Positive for appetite change. Negative for fatigue. Gastrointestinal: Positive for abdominal pain and nausea. Negative for vomiting. OBJECTIVE Initial Vitals Temperature 08/13/23 1609 37 ??C Pulse Rate 08/13/23 1609 72 Heart Rate -- Resp Rate 08/13/23 1609 18 Blood Pressure 08/13/23 1609 (!) 165/73 SpO2 08/13/23 1609 98 % Pain Score 08/13/23 1624 3 PHYSICAL EXAMINATION Constitutional: Nursing note and vitals reviewed. No distress. HENT: Head: Atraumatic. Right Ear: Tympanic membrane normal. Left Ear: Tympanic membrane normal. Mouth/Throat: Oropharynx is clear and moist. Mucous membranes are moist. Eyes: Conjunctivae are normal. Neck: Neck supple. Cardiovascular: Normal rate. Pulses are palpable. No murmur heard. Pulmonary/Chest: Effort normal and breath sounds normal. No respiratory distress. She has no wheezes. Abdominal: Soft. Bowel sounds are normal. There is abdominal tenderness in the periumbilical area. Hypoactive bowel sounds. Musculoskeletal: Cervical back: Neck supple. Neurological: Alert and oriented to person, place, and time. Skin: Skin is warm and dry. Psychiatric: She has a normal mood and affect. ASSESSMENT/PLAN Assessment and Plan This is a 78-year-old female who presents from an outside hospital with a known small bowel obstruction and perineal hernia. On arrival, the patient is afebrile, hemodynamically stable, aside from being hypertensive, and saturating well on room air. Given that we are not able to view the imaging from her CT scan earlier this morning despite our best efforts to obtain images from OTH, we will needto repeat the CT abdomen along with labs. Plan to place an NG tube here in the ED after CT to confirm there is a SBO as physical exam is reassuring without distended abdomen and present bowel sounds. Final disposition pending the results of the ED course. DIFFERENTIAL DIAGNOSES SBO vs strangulated hernia vs volvulus . I reviewed the following external records: outside ED records. ED Course as of 08/14/23 0914 SunAug 13, 2023 1704 CBC with Differential, Blood(!): Hemoglobin 14.0 Hematocrit 43.4 Erythrocytes 4.80 MCV 90.4 RBC Distrib Width 13.4 Platelet Count 229 White Blood Cell Count 12.5(!) Neutrophils 10.57(!) Lymphocytes 1.14 Monocytes 0.68 Eosinophils 0.10 Basophils <0.03 Leukocytosis 1719 Basic Metabolic Panel: Potassium, P 4.5 Sodium, P 139 Chloride, P 102 Bicarbonate, P 23 Anion Gap, P 14 BUN (Blood Urea Nitrogen), P 14 Creatinine 0.94 Estimated GFR (eGFR) 62 Calcium, Total, P 9.4 Glucose, P 99 Normal creatinine, no electrolyte abnormalities requiring emergent repletion. 1756 Lipase: Lipase, S 26 1756 Hepatic Function Panel(!): Bilirubin, Total, S 0.5 Bilirubin, Direct, S <0.2 Aspartate Aminotransferase (AST), S 22 Alanine Aminotransferase (ALT), S 26 Alkaline Phosphatase, S 89 Albumin, S 4.1 Protein, Total, S 6.0(!) 1756 Lactate: Lactate 1.1 1950 Discussed case with General surgery, they agree that there is no evidence of small-bowel obstruction on CT. They recommended thoracic surgery consultation for hiatal hernia. Bilateral femoral hernias are noted and are not obstructing at this time, however patient has followed up locally and will schedule surgery for the hernias with local surgeon. 2022 Discussed with thoracic surgery. 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 large hiatal hernia without obstruction. will review formal radiology report. I discussed the management of the patient with: Surgery; and thoracic surgery. I personally performed the services described in this documentation, as scribed in my presence, andit is both accurate and complete. Elizabeth Hutton P.A.-C. 08/14/23 0917 ER MATE documented in this encounter Plan of Treatment Upcoming Encounters Date Type Department Care Team (Latest Contact Info) Description 08/28/2023 1:30 PM GUNNER MATE Clinical Communication Virtual Review in [place], [place] 200 [place] [address] 08/29/2023 3:00 PM GUNNER MATE Comprehensive Visit Division of Thoracic Surgery in [place], [place] [address] [place] [phone] Ramakrishna Rodriges M.D. [address] [place] [phone] 09/10/2023 1:00 PM GUNNER MATE Comprehensive Visit Division of Trauma Critical Care and General Surgery in [place], [place] [address] [place] [phone] Cande Ruiz M.D. [address] [place] [phone] 10/22/2023 9:00 AM CDT Comprehensive Visit Division of Colon and Rectal Surgery in [place], [place] [address] [place] [phone] Sean Rodriguez M.B., Ch.B., M.P.H. [address] [place] [phone] Discharge Disposition: Home or Self Care Scheduled Referrals Name Type Priority Associated Diagnoses Orde r Schedule POST ED VISIT Thoracic Surgery Outpatient Referral Routine Hernia Hiatal Expected: 08/14/2023 (Approximate), Expires: 11/11/2024 documented as of this encounter Procedures Procedure Name Priority Date/Time Associated Diagnosis Comments CT ABDOMEN PELVIS WITH IV CONTRAST RAD - Semiurgent (Fast; most ED patients; some inpatients) 08/13/2023 6:10 PM GUNNER MATE HEPATIC FUNCTION PANEL, S STAT 08/13/2023 4:46 PM GUNNER MATE CBC WITH DIFFERENTIAL, B STAT 08/13/2023 4:46 PM GUNNER MATE LIPASE, S/P STAT 08/13/2023 4:46 PM GUNNER MATE LACTATE, B/P STAT 08/13/2023 4:46 PM GUNNER MATE BASIC METABOLIC PANEL, S/P STAT 08/13/2023 4:46 PM GUNNER MATE documented in this encounter Results * CT Abdomen Pelvis with IV Contrast (08/13/2023 6:10 PM GUNNER MATE) Anatomical Region Laterality Modality Abdomen, Pelvis, Abdominal R ST LOS, Abdominal ARZ LOS, Abdominal FLA LOS N/A Computed Tomograp hy, Computed Tomography 08/13/2023 5:45 PM GUNNER MATE Impressions 08/13/2023 7:19 PM GUNNER MATE 1. No definite acute findings in the abdomen. No findings of significant bowel obstruction 2. Large nonobstructive hiatal hernia fat-containing the entire stomach and a portion of transverse colon. 3. Small amount of ascites in the pelvis of uncertain etiology. 6. Mild gallbladder distention without evidence of cholecystitis. Narrative 08/13/2023 7:19 PM GUNNER MATE EXAM: ??CT ABDOMEN PELVIS WITH IV CONTRAST [...] canal than a lymph node (series 3 ). Patchy opacities in the subcutaneous tissues of [...] without evidence of cholecystitis. Elizabeth Hutton P.A.-C. [facility] CT PROCEDURES * Lipase (08/13/2023 4:46 PM GUNNER MATE) Lipase, S 26 13 - 60 U/L 08/13/2023 5: 29 PM GUNNER MATE DTL Blood (Blood, Venous) 08/13/2023 4:46 PM GUNNER MATE 08/13/2023 5:07 PM GUNNER MATE Elizabeth Hutton P.A.-C. LAB BLOOD ADD-ON Performing Organization Address City/[facility]/ZIP Co de Phone Number [facility] [place] 200 [place] [address], [facility] 200 [place] [address] * Lactate (08/13/2023 4:46 PM GUNNER MATE) Pathologist [facility] Lactate, P 1.1 0.5 - 2.2 mmol/L 08/13/2023 5:07 PM [facility] Blood (Blood, Venous) 08/13/2023 4:46 PM GUNNER MATE 08/13/2023 4:52 PM GUNNER MATE Elizabeth MedinaCFransisco LAB BLOOD NON ADD -ON Performing Organization Address City/[facility]/ZIP Co de Phone Number [facility] [place] [address] [place] [address], [facility] 200 [place] [address] * (ABNORMAL) Hepatic Function Panel (08/13/2023 4:46 PM GUNNER MATE) Bilirubin, Total, S 0.5 0.0 - 1.2 mg/dL 08/13/2023 5:29 PM GUNNER MATE DTL Bilirubin, Direct, S <0.2 0.0 - 0.3 mg/dL 08/13/2023 5:29 PM GUNNER MATE DTL Aspartate Aminotransferase (AST), S 22 8 - 43 U/L 08/13/2023 5:29 PM GUNNER MATE DTL Alanine Aminotransferase (ALT), S 26 7 - 45 U/L 08/13/2023 5:29 PM GUNNER MATE DTL Alkaline Phosphatase, S 89 35 - 104 U/L 08/13/2023 5:29 PM GUNNER MATE DTL Albumin, S 4.1 3.5 - 5.0 g/dL 08/13/2023 5:29 PM GUNNER MATE DTL Protein, Total, S 6.0(L) 6.3 - 7.9 g/dL 08/13/2023 5:29 PM GUNNER MATE DTL Blood (Blood, Venous) 08/13/2023 4:46 PM GUNNER MATE 08/13/2023 5:07 PM GUNNER MATE Elizabeth Hutton P.A.-C. LAB BLOOD ADD-ON [facility] [address] [place] [address], [facility] [address] [place] [address] * Basic Metabolic Panel (08/13/2023 4:46 PM GUNNER MATE) Potassium, P 4.5 3.6 - 5.2 mmol/L 08/13/2023 5:09 PM GUNNER MATE STMA Sodium, P 139 135 - 145 mmol/L 08/13/2023 5:09 PM GUNNER MATE STMA Chloride, P 102 98 - 107 mmol/L 08/13/2023 5:09 PM GUNNER MATE STMA Bicarbonate, P 23 22 - 29 mmol/L 08/13/2023 5:09 PM GUNNER MATE STMA Anion Gap, P 14 7 - 15 08/13/2023 5:09 PM GUNNER MATE STMA BUN (Blood Urea Nitrogen), P 14 6 - 21 mg/dL 08/13/2023 5:09 PM GUNNER MATE STMA Creatinine 0.94 0.59 - 1.04 mg/dL 08/13/2023 5:09 PM GUNNER MATE STMA Estimated GFR (eGFR) 62 >=60 mL/min/BSA 08/13/2023 5:09 PM GUNNER MATE STMA Comment: Estimated GFR calculated using the 2020 CKD_EPI creatinine equation. Calcium, Total, P 9.4 8.8 - 10.2 mg/dL 08/13/2023 5:09 PM GUNNER MATE STMA Glucose, P 99 70 - 140 mg/dL 08/13/2023 5:09 PM GUNNER MATE STMA Blood (Blood, Venous) 08/13/2023 4:46 PM GUNNER MATE 08/13/2023 4:52 PM GUNNER MATE Elizabeth Hutton P.A.-C. LAB BLOOD ADD-ON [facility] [address] [place] [address], [facility] STMA [facility] [address] [place] [address] * (ABNORMAL) CBC with Differential, Blood (08/13/2023 4:46 PM GUNNER MATE) Pathologist [facility] Hemoglobin 14.0 11.6 - 15.0 g/dL 08/13/2023 4:55 PM GUNNER MATE STMA Hematocrit 43.4 35.5 - 44.9 % 08/13/2023 4:55 PM GUNNER MATE STMA Erythrocytes 4.80 3.92 - 5.13 x10(12)/L 08/13/2023 4:55 PM GUNNER MATE STMA MCV 90.4 78.2 - 97.9 fL 08/13/2023 4:55 PM GUNNER MATE STMA RBC Distrib Width 13.4 12.2 - 16.1 % 08/13/2023 4:55 PM GUNNER MATE STMA Platelet Count 229 157 - 371 x10(9)/L 08/13/2023 4:55 PM GUNNER MATE STMA Leukocytes 12.5(H) 3.4 - 9.6 x10(9)/L 08/13/2023 4:55 PM GUNNER MATE STMA Neutrophils 10.57(H) 1.56 - 6.45 x10(9)/L 08/13/2023 4:55 PM GUNNER MATE DHPM Lymphocytes 1.14 0.95 - 3.07 x10(9)/L 08/13/2023 4:55 PM GUNNER MATE STMA Monocytes 0.68 0.26 - 0.81 x10(9)/L 08/13/2023 4:55 PM GUNNER MATE STMA Eosinophils 0.10 0.03 - 0.48 x10(9)/L 08/13/2023 4:55 PM GUNNER MATE STMA Basophils <0.03 0.01 - 0.08 x10(9)/L 08/13/2023 4:55 PM GUNNER MATE STMA Blood (Blood, Venous) 08/13/2023 4:46 PM GUNNER MATE 08/13/2023 4:52 PM GUNNER MATE Elizabeth Hutton P.A.-C. 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 documented in this encounter Administered Medications Inactive Administered Medications - up to 3 most recent administrations Medication Order MAR Action Action Date Dose Rate Site iohexoL 300 mg iodine/mL solution 1-200 mL (OMNIPAQUE) 1-200 mL, intravenous, Once in imaging, contrast, Starting on Sun08/13/23 at 1733, For 1 dose, Imaging Protocol Orders, Dose per Radiant Medication Guidelines Given 08/13/2023 5:44 PM GUNNER MATE 140 mL NaCl 0.9 % bolus 1,000 mL 1,000 mL, intravenous, at 1,000 mL/hr, Administer over 1 Hours, Once, On Sun08/13/23 at 1701, For 1 dose New Bag 08/13/2023 5:30 PM GUNNER MATE 1,000 mL 100 0 mL/hr sodium chloride (PF) 0.9 % injection 1-100 mL 1-100 mL, intravenous, Once, On Sun08/13/23 at 1734, For 1 dose, Imaging Protocol Orders Given 08/13/2023 5:44 PM GUNNER MATE 50 mL documented in this encounter Active and Recently Administered Medications Times are shown in GUNNER MATE. Scheduled Medication Order 08/11/2023 08/12/2023 08/13/2023 NaCl 0.9 % bolus 1,000 mL (COMPLETED) 1,000 mL, intravenous, at 1,000 mL/hr, Administer over 1 Hours, Once, On Sun08/13/23 at 1701, For 1 dose 1730 (New Bag - Prov ider: Jennifer Oliver R.N.)2030 (Stopped - Provider: Jennifer Oliver R.N.) sodium chloride (PF) 0.9 % injection 1-100 mL (COMPLETED) 1-100 mL, intravenous, Once, On 08/13/23 at 1734, For 1 dose, Imaging Protocol Orders 1744 (Given - Provid er: Mc Pleitez R.N.) PRN Medication Order 08/11/2023 08/12/2023 08/13/2023 iohexoL 300 mg iodine/mL solution 1-200 mL (OMNIPAQUE) (COMPLETED) 1-200 mL, intravenous, Once in imaging, contrast, Starting on Sun08/13/23 at 1733, For 1 dose, Imaging Protocol Orders, Dose per Radiant Medication Guidelines 1744 (Given - Provid er: Mc Pleitez R.N.) documented in this encounter Care Teams Apprentice Painter Brush Relationship Specialty Start Date End Date Elsewhere, Pcp PCP - General Internal Medicine 06/12/23 documented as of this encounter
--- OUTSIDE RECORDS SUMMARY | 2023-08-16 17:31 | XMS_ITS | Encounter Summary ---
Author Name Unknown Organization [facility] Address [address] [place] [address] Care Team Providers Care First Responder Name Role Phone Elsewhere, Pcp Primary Care Provider Unavailabl e Reason for Visit * Reason Onset Date Comments Communication 08/16/2023 AMM Encounter Details Date Type Department Care Team (Latest Contact Info) Description 08/16/2023 Clinical Communication Department of Obstetrics and Gynecology, Division of Urogynecology in [place], [place] [address] [place] [address] Cande Ruiz M.D. [address] [place] [address] Communication (AMM) Social History Tobacco Use Types Packs/Day Years [...] your living situation today? I have a [facility] place to live 06/10/2023 Sex and Gender Information Value Date Recorded Sex Assigned at Female 06/08/2023 11:11 AM SENIOR PHYSICIAN Gender Identity Female 06/08/2023 11:11 AM SENIOR PHYSICIAN Sexual Orientation Straight 06/08/2023 11 :11 AM SENIOR PHYSICIAN documented as of this encounter Plan of Treatment Upcoming Encounters Date Type Department Care Team (Latest Contact Info) Description 08/28/2023 1:30 PM SENIOR PHYSICIAN Clinical Communication Virtual Review in [place], [place] [address] [place] [address] 08/29/2023 3:00 PM SENIOR PHYSICIAN Comprehensive Visit Division of Thoracic Surgery in [place], [place] [address] [place] [phone] Ramakrishna Rodriges M.D. [address] [place] [phone] 09/10/2023 1:00 PM SENIOR PHYSICIAN Comprehensive Visit Division of Trauma Critical Care and General Surgery in [place], [place] [address] [place] [phone] Cande Ruiz M.D. [address] [place] [phone] 10/22/2023 9:00 AM CDT Comprehensive Visit Division of Colon and Rectal Surgery in [place], [place] [address] [place] [address] Sean Rodriguez M.B., Ch.B., M.P.H. [address] [place] [phone] Discharge Disposition: Home or Self Care documented as of this encounter Visit Diagnoses Not on filedocumented in this encounter Care Teams First Responder Relationship Specialty Start Date End Date Elsewhere, Pcp PCP - General Internal Medicine 06/12/23 documented as of this encounter
--- OUTSIDE RECORDS SUMMARY | 2023-08-16 17:31 | XMS_ITS | Encounter Summary ---
Author Name Unknown Organization [facility] Address [address] [place] [address] Care Team Providers Care Tetryl Nitrator Operator Name Role Phone Elsewhere, Pcp Primary Care Provider Unavailabl e Reason for Visit * Reason Onset Date Comments Pre-visit Intake 06/12/2023 Encounter Details Date Type Department Care Team (Latest Contact Info) Description 06/12/2023 9:45 AM ELECTRONIC PARTS SALESPERSON Clinical Communication Virtual Review in [place], [place] [address] [place] [address] Pre-visit Intake Social History Tobacco Use Types [...] your living situation today? I have a [facility] place to live 06/10/2023 Sex and Gender Information Value Date Recorded Sex Assigned at Female 06/08/2023 11:11 AM ELECTRONIC PARTS SALESPERSON Gender Identity Female 06/08/2023 11:11 AM ELECTRONIC PARTS SALESPERSON Sexual Orientation Straight 06/08/2023 11 :11 AM ELECTRONIC PARTS SALESPERSON documented as of this encounter Plan of Treatment Upcoming Encounters Date Type Department Care Team (Latest Contact Info) Description 08/28/2023 1:30 PM ELECTRONIC PARTS SALESPERSON Clinical Communication Virtual Review in [place], [place] [address] [place] [address] 08/29/2023 3:00 PM ELECTRONIC PARTS SALESPERSON Comprehensive Visit Division of Thoracic Surgery in [place], [place] [address] [place] [phone] Ramakrishna Rodriges M.D. [address] [place] [phone] 09/10/2023 1:00 PM ELECTRONIC PARTS SALESPERSON Comprehensive Visit Division of Trauma Critical Care and General Surgery in [place], [place] [address] [place] [phone] Cande Ruiz M.D. [address] [place] [phone] 10/22/2023 9:00 AM CDT Comprehensive Visit Division of Colon and Rectal Surgery in [place], [place] 200 [place] [phone] Sean Rodriguez M.B., ChFransiscoB., M.P.H. 200 [place] [phone] Discharge Disposition: Home or Self Care documented as of this encounter Visit Diagnoses Not on filedocumented in this encounter Care Teams Tetryl Nitrator Operator Relationship Specialty Start Date End Date Elsewhere, Pcp PCP - General Internal Medicine 06/12/23 documented as of this encounter
--- OUTSIDE RECORDS SUMMARY | 2023-08-16 17:31 | XMS_ITS | Encounter Summary ---
Author Name Unknown Organization [facility] Address [address] [place] [address] Care Team Providers Care Surety Bond Agent Name Role Phone Unavailable Primary Care Provider Unavailabl e Reason for Referral * Outpatient (Routine) - Closed Specialty Diagnoses / Procedures Referred By Hi t Referred To Contact Diagnoses Cystocele Midline Rectocele Procedures OBG Urodynamic Studies Cande Ruiz M.D. [address] [place] [phone] [facility] Referral ID Status Reason Start Date Expiration Date Visits Re quested Visits Authorized [id number] Closed 04/26/2023 04/25/2024 1 1 Encounter Details Date Type Department Care Team (Late st Contact Info) Description 04/26/2023 Orders Only Department of Obstetrics and Gynecology, Division of Urogynecology in [place], [place] [address] [place] [phone] Lisa Akins, RFransiscoNFransisco [address] [place] [phone] Cystocele Midline (Primary Dx); Rectocele Social History Tobacco Use Types Packs/Day Years Used Date Smoking Tobacco: Never Assessed Nutrition Answer Date Recorded Nutrition: EVOO Fat Source Unknown 03/13 Nutrition: Servings of Fruits/Vegetables per Day Not on file 03/13/2023 Dental Answer Date Recorded Dental: Regular Dentist Unknown 03/13/20 23 Sex and Gender Information Value Date Recorded Sex Assigned at Female 06/08/2023 11:11 AM CASE PICKER Gender Identity Female 06/08/2023 11:11 AM CASE PICKER Sexual Orientation Straight 06/08/2023 11 :11 AM CASE PICKER documented as of this encounter Plan of Treatment Upcoming Encounters Date Type Department Care Team (Latest Contact Info) Description 08/28/2023 1:30 PM CASE PICKER Clinical Communication Virtual Review in [place], [place] 200 [place] [address] 08/29/2023 3:00 PM CASE PICKER Comprehensive Visit Division of Thoracic Surgery in [place], [place] [address] [place] [phone] Ramakrishna Rodriges M.D. [address] [place] [phone] 09/10/2023 1:00 PM CASE PICKER Comprehensive Visit Division of Trauma Critical Care and General Surgery in [place], [place] [address] [place] [phone] Cande Ruiz M.D. [address] [place] [phone] 10/22/2023 9:00 AM CDT Comprehensive Visit Division of Colon and Rectal Surgery in [place], [place] [address] [place] [phone] Sean Rodriguez M.B., Ch.B., M.P.H. [address] [place] [phone] Discharge Disposition: Home or Self Care documented as of this encounter Results * [place] CAMRON PST VOID RESID US NON IMG, [place] UROFLOWMETRY CMPLX, [place] CYSTOMETROGRAM COMPLEX (06/14/2023 1:45 PM CASE PICKER) Narrative Cande Ruiz M.D. - 06/14/2023 1:45 PM CASE PICKER Drea Pepe M.D. ? 06/18/2023 ??9:14 AM [...]
--- OUTSIDE RECORDS SUMMARY | 2023-08-16 17:31 | XMS_ITS | Encounter Summary ---
Author Name Unknown Organization [facility] Address [address] [place] [address] Care Team Providers Care Recoil Spring Winder Name Role Phone Elsewhere, Pcp Primary Care Provider Unavailabl e Encounter Details Date Type Department Care Team (Late st Contact Info) Description 08/14/2023 Clinical Communication Division of Thoracic Surgery in [place], [place] [address] [place] [phone] Prescheduling, Provider Social History Tobacco Use Types Packs/Day Years [...] your living situation today? I have a [facility] place to live 06/10/2023 Sex and Gender Information Value Date Recorded Sex Assigned at Female 06/08/2023 11:11 AM PRESS MAINTAINER Gender Identity Female 06/08/2023 11:11 AM PRESS MAINTAINER Sexual Orientation Straight 06/08/2023 11 :11 AM PRESS MAINTAINER documented as of this encounter Plan of Treatment Upcoming Encounters Date Type Department Care Team (Latest Contact Info) Description 08/28/2023 1:30 PM PRESS MAINTAINER Clinical Communication Virtual Review in [place], [place] 200 [place] [address] 08/29/2023 3:00 PM PRESS MAINTAINER Comprehensive Visit Division of Thoracic Surgery in [place], [place] [address] [place] [phone] Ramakrishna Rodriges M.D. [address] [place] [phone] 09/10/2023 1:00 PM PRESS MAINTAINER Comprehensive Visit Division of Trauma Critical Care and General Surgery in [place], [place] [address] [place] [phone] Cande Ruiz M.D. [address] [place] [phone] 10/22/2023 9:00 AM CDT Comprehensive Visit Division of Colon and Rectal Surgery in [place], [place] 200 [place] [phone] Sean Rodriguez M.B., Ch.B., M.P.H. 200 [place] [phone] Discharge Disposition: Home or Self Care documented as of this encounter Visit Diagnoses Not on filedocumented in this encounter Care Teams Recoil Spring Winder Relationship Specialty Start Date End Date Elsewhere, Pcp PCP - General Internal Medicine 06/12/23 documented as of this encounter
--- OUTSIDE RECORDS SUMMARY | 2023-08-16 17:31 | XMS_ITS | Encounter Summary ---
Author Name Unknown Organization [facility] Address [address] [place] [address] Care Team Providers Care Propulsion Systems Engineer Name Role Phone Elsewhere, Pcp Primary Care Provider Unavailabl e Reason for Visit * Outpatient (Routine) - Closed Specialty Diagnoses / Procedures Referred By Hi steiner Referred To Contact Diagnoses Cystocele Midline Rectocele Procedures OBG Urodynamic Studies Cande Ruiz M.D. 200 [place] [phone] [facility] Referral ID Status Reason Start Date Expiration Date Visits Re quested Visits Authorized [id number] Closed 04/26/2023 04/25/2024 1 1 Encounter Details Date Type Department Care Team (Latest Contact Info) Description 06/14/2023 1:45 PM BIOMETRICS SPECIALIST Procedure visit Department of Obstetrics and Gynecology, Division of Urogynecology in [place], [place] [address] [place] [phone] Cande Ruiz M.D. [address] [place] [phone] Cystocele Midline; Rectocele Social History Tobacco Use [...] your living situation today? I have a [facility] place to live 06/10/2023 Sex and Gender Information Value Date Recorded Sex Assigned at Female 06/08/2023 11:11 AM BIOMETRICS SPECIALIST Gender Identity Female 06/08/2023 11:11 AM BIOMETRICS SPECIALIST Sexual Orientation Straight 06/08/2023 11 :11 AM BIOMETRICS SPECIALIST documented as of this encounter Procedure Notes [...] of incomplete bladder emptying Please correlate clinically. TALENT ADVISOR ETRICS SPECIALIST documented in this encounter Plan of Treatment Upcoming Encounters Date Type Department Care Team (Latest Contact Info) Description 08/28/2023 1:30 PM BIOMETRICS SPECIALIST Clinical Communication Virtual Review in [place], [place] 200 [place] [address] 08/29/2023 3:00 PM BIOMETRICS SPECIALIST Comprehensive Visit Division of Thoracic Surgery in [place], [place] [address] [place] [phone] Ramakrishna Rodriges M.D. [address] [place] [phone] 09/10/2023 1:00 PM BIOMETRICS SPECIALIST Comprehensive Visit Division of Trauma Critical Care and General Surgery in [place], [place] [address] [place] [phone] Cande Ruiz M.D. [address] [place] [phone] 10/22/2023 9:00 AM CDT Comprehensive Visit Division of Colon and Rectal Surgery in [place], [place] [address] [place] [phone] Sean Rodriguez M.B., Ch.B., M.P.H. [address] [place] [phone] Discharge Disposition: Home or Self Care documented as of this encounter Procedures Procedure Name Priority Date/Time Associated Diagnosis Comments DIPSTICK, U Routine 06/14/2023 2:13 PM BIOMETRICS SPECIALIST MICROSCOPIC AUTOMATED Routine 06/14/2023 2:13 PM BIOMETRICS SPECIALIST BACTERIAL CULTURE, AEROBIC + SUSC, URINE Routine 06/14/2023 2:13 PM BIOMETRICS SPECIALIST Cystocele Midline PH, U Routine 06/14/2023 2:13 PM BIOMETRICS SPECIALIST OSMOLALITY, U Routine 06/14/2023 2:13 PM BIOMETRICS SPECIALIST URINALYSIS WITH MICROSCOPIC Routine 06/14/2023 2:13 PM BIOMETRICS SPECIALIST Cystocele Midline [place] CYSTOMETROGRAM COMPLEX Routine 06/14/2023 1:45 PM BIOMETRICS SPECIALIST Cystocele Midline Rectocele [place] UROFLOWMETRY CMPLX Routine 06/14/2023 1:45 PM BIOMETRICS SPECIALIST Cystocele Midline Rectocele [place] CAMRON PST VOID RESID US NON IMG Routine 06/14/2023 1:45 PM BIOMETRICS SPECIALIST Cystocele Midline Rectocele documented in this encounter Results * (ABNORMAL) Dipstick, Urine (06/14/2023 2:13 PM BIOMETRICS SPECIALIST) Hemoglobin, QL, U Negative Negative 06/14/2023 3:50 PM BIOMETRICS SPECIALIST DTL Leukocyte Esterase, U Small(A) Negative 06/14/2023 3:50 PM BIOMETRICS SPECIALIST DTL Nitrite, U Negative Negative 06/14/2023 3:50 PM BIOMETRICS SPECIALIST DTL Ketone, U Negative Negative mg/dL 06/14/2023 3:50 PM BIOMETRICS SPECIALIST DTL Glucose, U Negative Negative mg/dL 06/14/2023 3:50 PM BIOMETRICS SPECIALIST DTL Urine 06/14/2023 2:13 PM BIOMETRICS SPECIALIST 06/14/2023 3:24 PM BIOMETRICS SPECIALIST Cande Ruiz M.D. LAB URINE ORDERABL ES [facility] [address] [place] [address], [facility] DTL [facility] 200 [place] [address] * pH, Urine (06/14/2023 2:13 PM BIOMETRICS SPECIALIST) Pathologist [facility] pH, U 5.5 4.5 - 8.0 06/14/2023 4:3 9 PM BIOMETRICS SPECIALIST DTL Urine 06/14/2023 2:13 PM BIOMETRICS SPECIALIST 06/14/2023 3:24 PM BIOMETRICS SPECIALIST Cande Ruiz M.D. LAB URINE ORDERABL ES Performing Organization Address City/[facility] Co de Phone Number [facility] [address] [place] [address], [facility] 200 [place] [address] * Osmolality, Urine (06/14/2023 2:13 PM BIOMETRICS SPECIALIST) Pathologist [facility] Osmolality, U 419 150 - 1150 mOsm/kg 06/14/2023 4:39 PM BIOMETRICS SPECIALIST DTL Urine 06/14/2023 2:13 PM BIOMETRICS SPECIALIST 06/14/2023 3:24 PM BIOMETRICS SPECIALIST Cande Ruiz M.D. LAB URINE ORDERABL ES Performing Organization Address City/[facility] Co de Phone Number [facility] [address] [place] [address], [address] [address] * (ABNORMAL) Microscopic Automated (06/14/2023 2:13 PM BIOMETRICS SPECIALIST) Pathologist [facility] Microscopy Abnormal 06/14/2023 3:50 PM BIOMETRICS SPECIALIST DTL RBC None Seen <3 /hpf 06/14/2023 3:50 PM BIOMETRICS SPECIALIST DTL WBC 21-30(A) /hpf 06/14/2023 3:50 PM BIOMETRICS SPECIALIST DTL Comment: ----REFERENCE VALUE---- <4 ??(Males) <11 (Females) Bacteria Present(A) 06/14/2023 3:50 PM BIOMETRICS SPECIALIST DTL Urine 06/14/2023 2:13 PM BIOMETRICS SPECIALIST 06/14/2023 3:24 PM BIOMETRICS SPECIALIST Cande Ruiz M.D. LAB URINE ORDERABL ES Performing Organization Address [facility] Co de Phone Number [facility] [address] [place] [address], [facility] [address] [address] * Urinalysis with Microscopic: Urine, Straight Catheter (06/14/2023 2:13 PM BIOMETRICS SPECIALIST) Source Urine, Urine, Straight Catheter 06/14/2023 3:23 PM BIOMETRICS SPECIALIST DTL Color, U Yellow 06/14/2023 3:23 PM BIOMETRICS SPECIALIST DTL Clarity, U Clear 06/14/2023 3:23 PM BIOMETRICS SPECIALIST DTL Protein, U 8 <26 mg/dL 06/14/2023 4:07 PM BIOMETRICS SPECIALIST DTL Protein/Osmola lity 0.19 <0.42 ratio 06/14/2023 4:39 PM BIOMETRICS SPECIALIST DTL Predicted 24 HR Protein, U 149 <229 mg/24 h 06/14/2023 4:39 PM BIOMETRICS SPECIALIST DTL Predicted Range 37-602 mg/24 h 06/14/2023 4:39 PM BIOMETRICS SPECIALIST DTL Urine (Urine, Straight Catheter) 06/14/2023 2:13 PM BIOMETRICS SPECIALIST 06/14/2023 3:23 PM BIOMETRICS SPECIALIST Cande Ruiz M.D. LAB URINE ORDERABL ES Performing Organization Address [facility] Co de Phone Number [facility] [address] [place] [address], [facility] [address] [place] [address] * (ABNORMAL) Bacterial Culture, Aerobic + Susceptibility, Urine (06/14/2023 2:13 PM BIOMETRICS SPECIALIST) Urine Culture ENTEROCOCCUS FAECALIS >100,000 cfu/mL (A) 06/16/2023 1:34 PM BIOMETRICS SPECIALIST DTL Urine (Urine, Straight Catheter) 06/14/2023 2:13 PM BIOMETRICS SPECIALIST 06/14/2023 4:47 PM BIOMETRICS SPECIALIST Comment:Specimen Source Site : Urine Narrative Organism Antibiotic Method Susceptibility Enterococcus faecalis Levofloxacin SUSCEPTIBI LITY, VIGNESH (MCG/ML) 1 mcg/mL: Susceptible Enterococcus faecalis Nitrofurantoin SUSCEPTIBI LITY, VIGNESH (MCG/ML) <=32 mcg/mL: Susceptible Enterococcus faecalis Vancomycin SUSCEPTIBI LITY, VIGNESH (MCG/ML) <=2 mcg/mL: Susceptible Enterococcus faecalis Penicillin SUSCEPTIBI LITY, VIGNESH (MCG/ML) 2 mcg/mL: Susceptible Cande Ruiz M.D. LAB MICROBIOLOGY - GENERAL ORDERABLES [facility] [address] [place] [address], [facility] [address] [place] [address] * [place] CAMRON PST VOID RESID US NON IMG, [place] UROFLOWMETRY CMPLX, [place] CYSTOMETROGRAM COMPLEX (06/14/2023 1:45 PM BIOMETRICS SPECIALIST) Narrative Cande Ruiz M.D. - 06/14/2023 1:45 PM BIOMETRICS SPECIALIST Drea Pepe M.D. ? 06/18/2023 ??9:14 AM [...] Rectocele documented in this encounter Care Teams Propulsion Systems Engineer Relationship Specialty Start Date End Date Elsewhere, Pcp PCP - General Internal Medicine 06/12/23 documented as of this encounter
--- OUTSIDE RECORDS SUMMARY | 2023-08-16 17:31 | XMS_ITS | Clinical Summary ---
Author Name Unknown Organization [employer] Address [place], [place] [address] Care Team Providers Care Accounts Manager Name Role Phone Angie Cali MD Primary [...] Encounters Date Type Department Care Team Description 08/14/2023 Telephone [facility] [address] [place] [address] Angie Cali MD Questions (FUTURE APPOINTMENTS) 08/13/2023 Orders Only [facility] Scanner 1 scan: (1-Ord) [facility], CT ABDOMEN PELVIS W CON, 08/13/2023 08/06/2023 3:15 PM [employer]IDE [employer] Office Visit [facility] [address] [place] [address] Nicol Morillo MD Consult (Small bowel obstruction and abdominal hernia) 08/06/2023 Travel 07/11/2023 Orders Only [facility] Scanner 1 scan: (1-Ord) [place], CHEST ABD PELV W, 07/11/2023 07/11/2023 Orders Only [facility] Scanner 1 scan: (1-Ord) [facility], CT HEAD/BRAIN WO CONTRAST, 07/11/2023 07/11/2023 Medical Messaging [facility] [address] [place] [address] Angie Cali MD Recent emergency room 07/06/2023 Telephone [facility] [address] [place] [address] Angie Cali MD Questions (returning call) 07/05/2023 Telephone [facility] [address] [place] [address] Angie Cali MD Follow Up 06/26/2023 1:55 PM [employer] Phone Office Visit [facility] [place] [address] [address] Adelaida Malone DO Blood Pressure; Telehealth 06/26/2023 Travel 06/26/2023 Nurse Triage [facility] Gennaro Branerson Thompson [facility] [address] Angie Cali MD High Blood Pressure 06/20/2023 8:00 AM [employer]IDE [employer] Ancillary Procedure [facility]enn[facility] [address] 06/20/2023 7:30 AM OUTSIDE [employer] Office [facility] [address] Miriam Calvo PA Cough (X 2 weeks - [facility] but didn't pick it up because she started to feel better, but now she is feeling worse again) 06/20/2023 Travel 05/25/2023 Telephone [facility] [address] Angie Cali MD Questions 05/24/2023 9:50 AM CDT Orders Only [facility] [place] [address] [address] Lab, [facility] 05/23/2023 Travel 05/16/2023 10:30 AM CDT Office Visit [facility]enn[facility] [address] Angie Cali MD Medication Management ( lisinopril, simvastatin); Urinary Problem (Reoccurring UTI, burning on the outer side of bottom. Currently taking an antibiotic and has about 3 doses left and thinks her UTI is not gone.); Immunization/Inject ion 05/16/2023 10:00 AM CDT Ancillary Procedure [facility] [address] from Last 3 Months Immunizations Name Administration Dates Next Due COVID-19 Vaccine Spikevax (M oderna 50mcg/0.5mL) 12YO+ [id number] Formula PF 05/16/2023 COVID-19 vaccine ([employer] 30mcg/0.3mL) 12YO+ BIVALENT PF, MDV 05/15/2022 COVID-19 vaccine ([employer] NT[employer] 30mcg/0.3mL) 12YO+ RADHA-SUCROSE PF, MDV 12/09/2021 COVID-19 vaccine ([employer] 30mcg/0.3mL) PF, MDV 05/12/2021,10/12/2020,09/21/2020 Influenza, High-dose [...] Comments Blood Pressure 127/80 08/06/2023 3:14 PM [employer]IDE [employer] Pulse 98 08/06/2023 3:14 PM [employer] Temperature 36.7 ??C (98.1 ??F) 06/20/2023 7:27 AM CS T Respiratory Rate 14 12/14/2021 1:24 PM CDT Oxygen Saturation 100% 08/06/2023 3:14 PM [employer]IDE [employer] Inhaled Oxygen Concentration - - Weight 63.7 kg (140 lb 6.4 oz) 08/06/2023 3:14 P M [employer] Height 164 cm (5' 4.57) 05/16/2023 10:29 [...] Additional history exists Tetanus booster 07/11/2031 07/11/2021, 07/11/2010, 01/31/2011 Pneumococcal series for age 65+ Completed 5, 03/17/2013 Hepatitis C screening for ag e 18-79 Completed 04/09/2017 Zoster (shingles) series for age 50+ Completed 05/05/2019, 02/28/2019, 01/31/2011 DEXA/DXA scan for age 65+ Completed 2020, 07/25/2019, 04/11/2018, Additional history exists Tdap Completed 07/11/2021, 01/31/2011 COVID-19 vaccine series Completed 05/16/20 23, 05/15/2022, 12/09/2021, Additional history exists Influenza for age 65+ Completed 05/16/2023 , 05/15/2022, 05/12/2021, Additional history exists Procedures Procedure Name Priority Date/Time Associated Diagnosis Comments SCAN-CT INTERPRETATION 4 12:00 AM OUTSIDE [employer] SCAN-CT INTERPRETATION 3 12:00 AM [employer] SCAN-CT INTERPRETATION 3 12:00 AM [employer] XR CHEST 2 VIEWS PA AND LATERAL Routine 06/20/2023 7:58 AM [employer] Cough, unspecified type BASIC METABOLIC PANEL Routine [...] Last 3 Months Results * SCAN-CT INTERPRETATION (08/13/2023 12:00 AM [employer]) Only the most recent of3 resultswithin the time period is included. Anatomical Region Laterality Modality Other Scanner OTHER * XR CHEST 2 VIEWS PA AND LATERAL (06/20/2023 7:58 AM OUT[employer]IDE [employer]) Anatomical Region Laterality Modality CHEST, THORAX, Lung, HEART Compu yamile Radiography 06/20/2023 5:16 PM [employer]IDE [employer] Impressions 06/20/2023 5:16 PM [employer] No acute findings. Dictated by Benedicto Miner MD @ Jun 20 2023 ??5:16PM (Electronically Signed) ?? Narrative 06/20/2023 5:16 PM [employer] For Patients: ??As a result of the [...] - 145 mmol/L 05/24/2023 5:01 PM T [facility] POTASSIUM 5.0 3.5 - 5.1 mmol/L 05/24/2023 5:01 PM T [facility] CHLORIDE 101 98 - 107 mmol/L 05/24/2023 5:01 PM T [facility] CO2,TOTAL 27 22 - 29 mmol/L 05/24/2023 5:01 PM T [facility] ANION GAP 8 5 - 18 05/24/2023 5:01 PM T [facility] GLUCOSE 100(H) 70 - 99 mg/dL 05/24/2023 5:01 PM T [facility] CALCIUM 10.1 8.8 - 10.2 mg/dL 05/24/2023 5:01 PM T [facility] BUN 17 8 - 23 mg/dL 05/24/2023 5:01 PM T [facility] CREATININE 1.21(H) 0.50 - 0.90 mg/dL 05/24/2023 5:01 PM T [facility] BUN/CREAT RATIO 14 10 - 20 5:01 PM T [facility] eGFR 47(L) >90 mL/min/1.7 3m2 05/24/2023 5:01 PM [facility] Comment:As of 2021, eG FR [...] 9:52 AM CDT Angie Cali MD CHEMISTRY Performing Organization Address City/[facility]/ZIP Co de Phone Number [facility] [address] [place] [address], * URINE CULTURE (05/16/2023 11:24 AM CDT) CULTURE No growth (<1,000 CFU/mL) 05/17/2023 1:43 PM CDT [facility] Urine URINE SPECIMEN / Unknown Non-Blood / Unknown 05/16/2023 11:24 AM CDT 05/16/2023 11:25 AM CDT Angie Cali MD MICROBIOLOGY Performing Organization Address [facility] Co de Phone Number [facility] [address] [place] [address], [place] * UA W/ SEDIMENT EXAM REFLEXED PER CRITERIA (05/16/2023 11:24 AM CDT) COLOR Yellow Yellow Color 05/16/2023 11:32 AM CDT [facility] CLARITY Clear Clear Clarity 05/16/2023 11:32 AM CDT [facility] SPECIFIC GRAVITY,URINE 1.025 1.010, 1.015, 1.020, 1.025 05/16/2023 11:32 AM CDT [facility] PH,URINE 5.5 6.0, 7.0, 8.0, 5.5, 6.5, 7.5, 8.5 05/16/2023 11:32 AM CDT [facility] UROBILINOGEN, QUALITATIVE Normal Normal EU/dl 05/16/2023 11:32 AM CDT [facility] PROTEIN, URINE Negative Negative mg/dL 05/16/2023 11:32 AM CDT [facility] GLUCOSE, URINE Negative Negative mg/dL 05/16/2023 11:32 AM CDT [facility] KETONES,URINE Negative Negative mg/dL 05/16/2023 11:32 AM CDT [facility] BILIRUBIN,URI NE Negative Negative 05/16/2023 11:32 AM CDT [facility] OCCULT BLOOD,URINE Negative Negative 05/16/2023 11:32 AM CDT [facility] NITRITE Negative Negative 05/16/2023 11:32 AM CDT [facility] LEUKOCYTE ESTERASE Negative Negative 05/16/2023 11:32 AM CDT [facility] Urine URINE SPECIMEN / Unknown Non-Blood / Unknown 05/16/2023 11:24 AM CDT 05/16/2023 11:25 AM CDT Angie Cali MD URINE [facility] [address] [place] [address], * PTH,INTACT (05/16/2023 11:15 AM CDT) CALCIUM 10.2 8.8 - 10.2 mg/dL 05/17/2023 4:33 AM CDT [facility] PTH,INTACT 36.2 15.0 - 69.0 pg/mL 05/17/2023 4:33 AM CDT [facility] Blood BLOOD SPECIMEN / Unknown Venipuncture / Unknown 05/16/2023 11:15 AM CDT 05/16/2023 11:16 AM CDT Angie Cali MD SEND OUTS [facility] [address] [place] [address], * TRICHOMONAS, SINGH, AND BACTERIAL VAGINOSIS BY KASSIE (05/16/2023 10:55 AM CDT) SINGH SPECIES Negative Negative 3 10:35 PM CDT [facility] SINGH GLABRATA Negative Negative 05/16/2023 10:35 PM CDT [facility] TRICHOMONAS VVA Negative Negative 3 10:35 PM CDT [facility] BACTERIAL VAGINOSIS Negative Negative 05/16/2023 10:35 PM CD[address] [facility] Other VAGINAL SWAB / Unknown Non-Blood / Unknown 05/16/2023 10:55 AM CDT 05/16/2023 11:29 AM CDT Angie Cali MD MICROBIOLOGY [facility] [address] [place] [address], * XR MAMMO BILAT SCREENING (05/16/2023 10:11 [...] health care provider. XR MAMMO BILAT SCREENING [[id number]] CLINICAL HISTORY: ??This is an asymptomatic 77 y.o. patient. INDICATION FOR EXAM: Mammogram Screening. TECHNIQUE: CC & MLO views were obtained. ??This study was evaluated with the assistance of Computer-Aided Detection. COMPARISON FILM: Yes 05/15/22 CH4e 05/12/21 CH4e FINDINGS: ??The breasts have scattered areas of fibroglandular density. There are no dominant masses, suspicious micro calcifications or areas of architectural distortion. Angie Cali MD MAMMO from Last 3 Months Advance Directives Documents on File Type Date Recorded Patient Executive Officer Expl anation Healthcare Directive 05/02/2016 11:56 AM [facility] [employer] [employer]/DIRECTIVE, JESSICA ACOSTA, 11/21/2010 Latest Code Status on File Code Status Date Activated Date Inactivated Comments Full Code 12/14/2021 7:39 AM 12/14/2021 3:26 PM Question Answer Comments Code Status Discussion: Discussed Care Teams Accounts Manager Relationship Specialty Start Date End Date Angie Cali MD [facility] [place] [address] PCP - General 01/24/10
== END 2023-08-13 14:42 | disposition home or self-care (01) ==
PROVIDERS: PCP Family Medicine; Visit Provider Student in an Organized Health Care Education/Training Program
DX: K56.609 Unspecified intestinal obstruction, unspecified as to partial versus complete obstruction (principal)
CPT/HCPCS: A0425; A0427

== ENCOUNTER 2023-11-14 17:00 | Observation (INO) | payer MEDICARE, BC, SELFPAY ==
[2023-11-14] VITALS (18 sets, daily range): BP systolic 142–187; BP diastolic 76–99; PULSE 69–99; RESP 18; TEMP 36.2; O2SAT 90–100; BMI 26.6
--- NOTE | 2023-11-14 17:21 | ED_ITS ---
HPI - General Adult General Chief complaint: Hip Injury/Pain Stated complaint: L hip fall Time Seen by Provider: 11/14/23 17:21 History of Present Illness HPI narrative: sudden onset of left hip pain. denies injury 78-year-old woman presenting to the emergency department with complaint of severe left hip pain of sudden onset. She does not recall any particular movement or anything else that happen. She was in usual state of health yesterday. She does note that this pain is familiar but it has been sometime since she felt this and acknowledge though never to this degree of pain. She says this left hip is shot and should be getting a replacement. She says the primary has been prescribing some muscle relaxers other pain medications but can not recall. Does not describing radicular symptoms. I ask about inguinal area pain and she does not know about that. She continues to keep her hand pressed firmly to her upper anterior iliac crest area. Is not noting back pain. Was seen recently I believe it [facility] for bladder prolapse and had a recent urinary tract infection but she says she is not having symptoms consistent with that at this time. When asked questions she becomes increasingly flustered. She is tremulous in apparent pain. Reviewing records later shows prior visits here with suspected small-bowel obstruction with pelvic floor dysfunction and large hiatal hernia. Last transferred to [facility]. Related Data Home Medications Medication Instructions Recorded Confirmed levothyroxine 100 mcg capsule 100 mcg PO QDAY 05/10/23 08/13/23 lisinopril 10 mg tablet 10 mg PO DAILY 05/10/23 08/13/23 simvastatin 10 mg tablet 10 mg PO QPM 05/10/23 08/13/23 coQ10 (ubiquinol) 100 mg capsule 100 mg PO DAILY 08/13/23 08/13/23 Allergies Allergy/AdvReac Type Severity Reaction Status Date / Time Sulfa (Sulfonamide Allergy Unknown Unknown Verified 11/14/23 19:56 Antibiotics) Review of Systems Status of ROS: Reports: 6 or more systems reviewed and unremarkable except as noted in History and below [facility] Medical History History of recurrent cystitis ?Z87.440 - Personal history of urinary (tract) infections (ICD-10) Surgical History History of hysterectomy ?Z90.710 - Acquired absence of both cervix and uterus (ICD-10) Social History Smoking Status: Never smoker Second hand tobacco smoke exposure: No How often do you have a drink containing alcohol: never AUDIT-C Alcohol total score: 0 Non-prescribed substance use: denies use service: No Exam Narrative: Exam Narrative: Pleasant. She is tremulous in apparent pain as noted. Cranial nerves 2-12 are intact. Speaking fluidly. Head is atraumatic. Moving all extremities without apparent difficulty other than left leg has a pillow propped under the knee and she is reluctant to move this leg secondary to apparent pain. Catching her nely th a little bit. Oxygenating well. Elevated blood pressure noted on initial vitals. Skin is warm and dry. Well-perfused peripherally. No lower extremity edema. I do not see evidence of injury. I do not appreciate swelling in the inguinal area. Abdomen is soft and nontender. She is however tender to palpation in the inguinal area on the left and at the upper iliac crest edge. She does not have back pain or flank pain to palpation. No SI joint area pain. She does not have pain consistent with IT band or over the greater trochanter of the left hip. There is some discomfort but not consistent with the degree of pain she is demonstrating otherwise with internal or external rotation of the hip. Const: Vital Signs, click to edit/add: Vital Signs - 24 hr 11/14/23 17:02 11/14/23 17:40 11/14/23 18:22 Temperature 97.2 F L Pulse Rate 88 Pulse Rate [Right Pulse Oximeter] 89 Respiratory Rate 18 Blood Pressure Blood Pressure [Ri ght Upper Arm] 187/99 H Pulse Oximetry 100 99 97 Oxygen Delivery Me thod Room Air 11/14/23 18:30 11/14/23 18:45 11/14/23 19:00 Temperature Pulse Rate 79 79 72 Pulse Rate [Right Pulse Oximeter] Respiratory Rate Blood Pressure Blood Pressure [Ri ght Upper Arm] Pulse Oximetry 97 97 90 Oxygen Delivery Me thod 11/14/23 19:15 11/14/23 19:30 11/14/23 19:36 Temperature Pulse Rate 88 83 78 Pulse Rate [Right Pulse Oximeter] Respiratory Rate Blood Pressure 154/76 H Blood Pressure [Ri ght Upper Arm] Pulse Oximetry 98 93 99 Oxygen Delivery Me thod 11/14/23 19:37 11/14/23 20:32 11/14/23 21:05 Temperature Pulse Rate 85 98 99 Pulse Rate [Right Pulse Oximeter] Respiratory Rate Blood Pressure Blood Pressure [Ri ght Upper Arm] Pulse Oximetry 98 98 96 Oxygen Delivery Me thod 11/14/23 21:30 11/14/23 21:31 11/14/23 21:32 Temperature Pulse Rate 84 83 85 Pulse Rate [Right Pulse Oximeter] Respiratory Rate Blood Pressure 142/77 H Blood Pressure [Ri ght Upper Arm] Pulse Oximetry 97 98 96 Oxygen Delivery Me thod 11/14/23 22:51 11/14/23 23:00 11/14/23 23:30 Temperature Pulse Rate 74 69 70 Pulse Rate [Right Pulse Oximeter] Respiratory Rate Blood Pressure Blood Pressure [Ri ght Upper Arm] Pulse Oximetry 96 96 98 Oxygen Delivery Me thod 11/15/23 00:01 Temperature Pulse Rate 62 Pulse Rate [Right Pulse Oximeter] Respiratory Rate Blood Pressure Blood Pressure [Ri ght Upper Arm] Pulse Oximetry 96 Oxygen Delivery Me thod Documenting provider has reviewed patient's vital signs: yes Course Vital Signs Vital signs: Initial Vital Signs Temperature 97.2 F L 11/14/23 17:02 Temperature Source Temporal Artery Scan 11/14/23 17:02 Pulse Rate 89 11/14/23 17:02 Respiratory Rate 18 11/14/23 17:02 Blood Pressure 187/99 H 11/14/23 17:02 Blood Pressure Mean 128 H 11/14/23 17:02 Blood Pressure Position Sitting 11/14/23 17:02 Pulse Oximetry 100 11/14/23 17:02 Oxygen Delivery Method Room Air 11/14/23 17:02 Vital Signs Temperature 97.2 F L 11/14/23 17:02 Pulse Rate 89 11/14/23 17:02 Respiratory Rate 18 11/14/23 17:02 Blood Pressure 187/99 H 11/14/23 17:02 Pulse Oximetry 100 11/14/23 17:02 Oxygen Delivery Method Room Air 11/14/23 17:02 Temperature 97.2 F L 11/14/23 17:02 Pulse Rate 62 11/15/23 00:01 Respiratory Rate 18 11/14/23 17:02 Blood Pressure 142/77 H 11/14/23 21:31 Pulse Oximetry 96 11/15/23 00:01 Oxygen Delivery Method Room Air 11/14/23 17:02 Medications Administered Medications: Discontinued Medications Generic Name Dose Route Start Last Admin Trade Name Son PRN Reason Stop Dose Admin Hydromorphone HCl 1 mg 11/14/23 17:34 11/14/23 17:48 Hydromorphone 0.5 Mg/0.5 Ml Inj IM 11/14/23 17:35 1 mg ONCE ONE Administration Sodium Chloride 1,000 mls @ 1,000 mls/hr 11/14/23 19:14 11/14/23 21:00 0.9 % Sodium Chloride 1000 Ml IV 11/14/23 20:13 Infused .Q1H ONE Infusion Sodium Chloride 500 mls @ 500 mls/hr 11/15/23 00:28 11/15/23 01:40 0.9 % Sodium Chloride 500 Ml IV 11/15/23 01:27 Infused .Q1H ONE Infusion Ketorolac Tromethamine 15 mg 11/14/23 19:14 11/14/23 19:32 Ketorolac 15 Mg/Ml Inj IVP 11/14/23 19:15 15 mg ONCE ONE Administration Lorazepam 0.5 mg 11/14/23 17:34 11/14/23 17:47 Lorazepam 0.5 Mg Tablet PO 11/14/23 17:35 0.5 mg ONCE ONE Administration Ondansetron HCl 4 mg 11/14/23 18:33 11/14/23 18:38 Ondansetron Odt 4 Mg Tab PO 11/14/23 18:34 4 mg ONCE ONE Administration Ondansetron HCl 4 mg 11/14/23 19:14 11/14/23 19:32 Ondansetron 2 Mg/Ml Inj IVP 11/14/23 19:15 4 mg ONCE ONE Administration Promethazine HCl 12.5 mg 11/14/23 19:48 11/14/23 20:29 Promethazine 25 Mg/Ml Inj IVP 11/14/23 19:49 12.5 mg ONCE ONE Administration Medical Decision Making MDM Narrative Medical decision making narrative: Certainly possible that there is osteoarthritic pain. Does not have pain in the thigh consistent with a nerve entrapment otherwise. Is not high risk for vascular disruption. Ureteral stone and colic? I think reasonable to start with controlling her pain. I might be able to get a better history at this point. Will begin also with x-ray imaging of the left hip and pelvis. In considerable and reproducible pain. Given IM Dilaudid. Also half a mg of oral Ativan. Subsequently has been dry heaving. Pain reported not improved. Given Zofran. IV fluids. Seems confused in some conversation as reported by daughter. On reassessment does not appear to have any sensory or motor deficits. Is not complaining of any dizziness. Daughter notes that she is asking the same question repeatedly; not remembering answer apparently. She does however look quite uncomfortable dry heaving with emesis bag held up in both hands. Does seem to be quite stressed and symptoms more global. Ordered for promethazine low-dose ketorolac as pain reportedly unchanged. Will also do CT imaging of abdomen and pelvis since x-rays reviewed by me only appear to show some osteoarthritic change. No other acute bony abnormality appreciated. I have reviewed CT imaging and appears to have numerous loops of small bowel. Do not appreciate hydronephrosis. No acute bony abnormality. Radiology over-read of CT IV contrast of abdomen pelvis as below Study:?CT Abdomen/Pelvis W/ 79CC ISOVUE 370-11/14/2023 8:29:33 PM Ordering Physician:LINUS Final Report: INDICATION: Severe left hip and inguinal pain. TECHNIQUE: CT of the abdomen and pelvis acquired with 79 cc Isovue 370 IV contrast. Coronal and sagittal reconstructions. COMPARISON: CT of the abdomen and pelvis 08/13/2023. FINDINGS: The liver, gallbladder, pancreas, and adrenal glands are negative. Calcified splenic granulomas. No biliary dilation. Hepatic and portal veins are patent. Symmetric enhancement of the kidneys. No hydronephrosis or ureteral dilation. Excreted contrast within the renal collecting systems and ureters limits evaluation for calculi. No bladder wall thickening. Stable diverticulum arising from the left lateral bladder wall. Hysterectomy. Partially visualized large hiatal hernia containing the entire stomach and a segment of transverse colon. No signs of inflammation within the visualized hernia sac. Multiple small bowel loops descend into the lower pelvis along either side of the rectum without current evidence of obstruction. Moderate amount of stool throughout the colon. Colonic diverticulosis without evidence of diverticulitis. Negative appendix. No intraperitoneal free air or fluid. No lymphadenopathy. Persistent fluid within a small right inguinal hernia. Right basilar atelectasis or scarring adjacent to the hiatal hernia. Calcified granuloma right lower lobe. Right convex lumbar curve. Degenerative changes of the spine and hips. No acute fracture identified. IMPRESSION: 1. No acute findings in the abdomen or pelvis. No findings to explain left hip/inguinal pain. 2. Partially visualized large hiatal hernia containing the entire stomach and a segment of transverse colon. 3. Small bowel loops descend into the lower pelvis along either side of the rectum without current evidence of obstruction. On reassessment is no longer nauseated. Actually seems quite energetic. Pain is resolved. Daughter with concern that is still asking same questions. She is demonstrating good movement of all extremities at this point. No abdominal pain to palpation. Normal [id number]. Heel to gonzalez is normal. She is exhibiting no pain now in her left leg. Still with some global amnestic symptoms was sent for head CT. Unclear if this is medication affect. I would score 1 on NIH stroke scale I did discuss these findings with our general surgeon on-call. Reviewing again with Ms. Shell she does endorse regular bowel movements though seems to have a little difficulty remembering. Has been encouraged apparently to take MiraLax and has been believe that she has been having daily movements. She also has been passing gas here in the emergency department. Does not appear to be obstructed. I do review these images also with radiologist again for any underlying bony abnormality might explain her initial complaint of pain. Question if this may have been related to some bowel drifting into pelvic pouch and intestinal colic referring pain into the left hip area. Imaging however is reassuring at this time. Talking with family further, there is extensive evaluation in process at [facility]. I reviewed also imaging from prior visits here suggesting small bowel obstruction. No surgeries have yet been done a but anticipating potential multi specialty surgery to address problems of the pelvic floor and large upper abd ominal hiatal hernia. Head CT reviewed by me looks to be unremarkable with residual contrast evident in vasculature. Radiology over-read also noting unremarkable for acute abnormality. With initially presenting symptoms resolved, we are discussing potential discharge. I had asked nursing to ambulate Ms. Shell. On returning to discuss this with her she clearly does not remember what has just happened; that she just went for a walk with nursing. It does appear to be transient global amnesia however I place a call to Stroke Neuro. Unfortunately by time of Ms. Shell's original presentation, MRI was not available. Symptoms of amnesia became more evident over course of time in the emergency department. She still is not complaining of dizziness. Reportedly ambulating on par. I do return though after my consult with Stroke Neuro to do further exam and does appear to have some visual field cut laterally in the left eye. Exam is a little bit of challenge though as she seems to be having difficulty remembering what is being asked of her. This might be concerning for brain stem/cerebellar insult. Requesting then CT angio of head and neck. Further anticipating admission for MRI. Reviewed head and neck angio images with Stroke Neuro. Vasculature looks generally quite patent particularly with regard to the posterior circulation. Rechecking again with Ms. Shell. Still appears to have some loss of lateral visual field in the left eye. Still without sensory deficits otherwise. Notes herself to be right-handed though then quickly corrects well ambidextrous. Daughter acknowledges that seems to be clearing some but still demonstrating confusion. I would assess her also to be clearing cognitively. Reviewed again with Stroke Neuro recommending admission MRI for clarification of puzzling case. I discussed with overnight hospitalist for admission for observation and basic brain MRI in the morning with further workup per this result. Formal radiology over-read of CTA head and neck is still pending. Medical Records Medical records reviewed: Yes I reviewed the patient's medical records Lab Data Lab results reviewed: Yes I reviewed the patient's lab results Labs: Lab Results 11/14/23 11/14/23 11/15/23 Range/Units 19:21 21:00 00:13 WBC 10.04 (4.50-11.00) K/uL RBC 4.45 (4.00-5.20) m/uL Hgb 13.2 (12.0-16.0) gm/dL Hct 40.5 (33.0-51.0) % MCV 91 (80-100) fL MCH 30 (26-34) pg MCHC 33 (32-36) gm/dL RDW Coeff of Zenon 12.7 (11.5-15.5) % Plt Count 183 (140-440) K/uL Neut % (Auto) 89.4 H (42.0-72.0) % Lymph % (Auto) 7.7 L (20-44) % [place] % (Auto) 2.4 (0.0-11.0) % Eos % (Auto) 0.3 (0.0-7.0) % Baso % (Auto) 0.1 (0.0-3.0) % Neut # (Auto) 9.00 H (1.7-7.0) K/uL Lymph # (Auto) 0.80 L (0.90-2.90) K/uL [place] # (Auto) 0.20 (0.00-0.90) K/UL Eos # (Auto) 0.03 (0.00-0.50) K/uL Baso # (Auto) 0.01 (0.00-0.30) K/uL Abs Immat Gran (auto) 0.01 (0.00-0.30) K/uL Imm/Tot Granulo (auto) 0.1 % INR (0.91-1.10) APTT (23-33) Seconds Sodium 137 (135-149) mmol/L Potassium 4.1 (3.6-5.1) mmol/L Chloride 107 (96-114) mmol/L Carbon Dioxide 22 (20-32) mmol/L Anion Gap 8 (7-15) mEq/L BUN 23 (7-30) mg/dL Creatinine 0.8 (0.5-1.5) mg/dL Estimated Creat Clear 42.39 Estimated GFR 76 ml/min Glucose 138 H (60-115) mg/dL Calcium 9.3 (8.4-10.6) mg/dL C-Reactive Protein < 0.5 L (0.5-1.0) mg/dL Urine Color Yellow (Yellow) Urine Appearance Clear (Clear) Urine pH 7.5 (5.0-8.5) Ur Specific [place] 1.020 (1.000-1.030) Urine Protein Negative (Negative) Urine Glucose (UA) Negative (Negative) Urine Ketones 1+ A (Negative) Urine Blood Negative (Negative) Urine Nitrite Negative (Negative) Urine Bilirubin Negative (Negative) Urine Urobilinogen 0.2 (0.2-1.0) Ur Leukocyte Esterase Negative (Negative) Urine RBC 0-2 (0-2) Urine WBC 0-2 (0-5) Ur Squamous Epith Cells None (None-Few) Urine Bacteria None (None) Lab Acknowledgement Test Added 11/15/23 Range/Units 19:21 WBC (4.50-11.00) K/uL RBC (4.00-5.20) m/uL Hgb (12.0-16.0) gm/dL Hct (33.0-51.0) % MCV (80-100) fL MCH (26-34) pg MCHC (32-36) gm/dL RDW Coeff of Zenon (11.5-15.5) % Plt Count (140-440) K/uL Neut % (Auto) (42.0-72.0) % Lymph % (Auto) (20-44) % [place] % (Auto) (0.0-11.0) % Eos % (Auto) (0.0-7.0) % Baso % (Auto) (0.0-3.0) % Neut # (Auto) (1.7-7.0) K/uL Lymph # (Auto) (0.90-2.90) K/uL [place] # (Auto) (0.00-0.90) K/UL Eos # (Auto) (0.00-0.50) K/uL Baso # (Auto) (0.00-0.30) K/uL Abs Immat Gran (auto) (0.00-0.30) K/uL Imm/Tot Granulo (auto) % INR 0.89 L (0.91-1.10) APTT 28 (23-33) Seconds Sodium (135-149) mmol/L Potassium (3.6-5.1) mmol/L Chloride (96-114) mmol/L Carbon Dioxide (20-32) mmol/L Anion Gap (7-15) mEq/L BUN (7-30) mg/dL Creatinine (0.5-1.5) mg/dL Estimated Creat Clear Estimated GFR ml/min Glucose (60-115) mg/dL Calcium (8.4-10.6) mg/dL C-Reactive Protein (0.5-1.0) mg/dL Urine Color (Yellow) Urine Appearance (Clear) Urine pH (5.0-8.5) Ur Specific [place] (1.000-1.030) Urine Protein (Negative) Urine Glucose (UA) (Negative) Urine Ketones (Negative) Urine Blood (Negative) Urine Nitrite (Negative) Urine Bilirubin (Negative) Urine Urobilinogen (0.2-1.0) Ur Leukocyte Esterase (Negative) Urine RBC (0-2) Urine WBC (0-5) Ur Squamous Epith Cells (None-Few) Urine Bacteria (None) Lab Acknowledgement ECG Data Attestation: I personally reviewed and interpreted this ECG as follows: (Normal sinus rhythm without acute ischemic changes. Rate of 71) Discharge Plan Discharge Clinical Impression: Altered mental status Patient Disposition: Admitted As Observation Condition: Improved
--- NOTE | 2023-11-14 17:34 | XR_ITS ---
Patient: LIZETH HUTCHINS Facility:?[facility] Patient ID:?[id number] Site Patient ID:?[id number]. Site :?[id number] Study:?XRay-Hip Left 2 VIEW AND PELVIS-11/14/2023 6:22:47 PM Ordering Physician:LINUS Final Report: Indication: Hip pain Technique: Left hip 2 views Comparison: None Findings: Bones: Alignment is normal. No fractures or bone lesions. Mild diffuse demineralization of the visualized bones. Joint spaces: Moderate bilateral hip and SI joint degenerative changes. Soft tissues: Unremarkable. Impression: Moderate degenerative changes. No acute fractures or dislocations. Dictated by Reid Ware MD @ 11/14/2023 6:40:29 PM Signed by:?Reid Ware MD @11/14/2023 6:40:29 PM (Electronic Signature)
[2023-11-14] MEDS: LORazepam 0.5 MG TABLET PO (17:47)
[2023-11-14] MEDS: HYDROmorphone 0.5 mg/0.5 ml inj 1 MG IM (17:48)
--- OUTSIDE RECORDS SUMMARY | 2023-11-14 18:00 | XMS_ITS | Encounter Summary ---
Author Name Unknown Organization [facility] Address [address] [place] [address] Care Team Providers Care Pathological Technician Name Role Phone Elsewhere, Pcp Primary Care Provider Unavailabl e Reason for Visit * Outpatient (Routine) - Closed Specialty Diagnoses / Procedures Referred By Hi steiner Referred To Contact Thoracic Surgery Diagnoses Hernia Hiatal Elizabeth Hutton P.A.-C. [address] [place] [phone] [facility] Referral ID Status Reason Start Date Expiration Date Visits Re quested Visits Authorized [id number] Closed 08/13/2023 08/12/2026 1 1 Encounter Details Date Type Department Care Team (Late st Contact Info) Description 08/29/2023 3:00 PM PROVIDER SERVICE REPRESENTATIVE Comprehensive Visit Division of Thoracic Surgery in [place], [place] [address] [place] [phone] Ramakrishna Rodriges M.D. [address] [place] [phone] Hernia Hiatal Social History Tobacco Use Types Packs/Day Years [...] situation today? I have a [facility] place to live 06/10/2023 Sex and Gender Information Value Date Recorded Sex Assigned at Female 06/08/2023 11:11 AM PROVIDER SERVICE REPRESENTATIVE Gender Identity Female 06/08/2023 11:11 AM PROVIDER SERVICE REPRESENTATIVE Sexual Orientation Straight 06/08/2023 11 :11 AM PROVIDER SERVICE REPRESENTATIVE documented as of this encounter Consult Notes * Ramakrishna Rodriges M.D. - 08/29/2023 3:00 PM CST SUBJECTIVE REFERRAL SOURCE I am seeing the patient at the request of Dr. Hutton from [facility]. REASON FOR CONSULT I am seeing the patient in regard to her large hiatal hernia. HISTORY OF PRESENT ILLNESS She is 78 years old. She lives in [place], [place]. She has recently had 2 visits to the emergency department in [place] which was earlier this month. At that time, a CT scan of her abdomen wasobtained which was initially thought to potentially show signs of a partial bowel obstruction, and she had been transferred to the emergency department at [place]. This was on August 13. What the patient describes is bilateral lower abdominal crampy discomfort. In the second episode where she was transferred to [place], her symptoms resolved as the ambulance was coming to pick her up and she had a bowel movement, and by the time she got to [facility], her symptoms had completely resolved. Her CT scan was read as showing no acute findings in the abdomen, specifically no findings of any evidence of any bowel obstruction. She was noted to have a large nonobstructive hiatal hernia containing most of the stomach and a portion of the transverse colon. She was also noted to have some mildgallbladder distention. On review of her symptoms, the patient denies any history of any reflux symptoms or very, very occasional. She is not currently on any acid-suppressing medicine. She takes Tums a couple of times a year when she has what she interprets as heartburn symptoms. She also denies any postprandial abdominal discomfort or any dysphagia symptoms. She reports that maybe once every 4 or 5 months she will have the sensation of food sticking, particularly bulky foods, which the sensati on passes usually quite rapidly, particularly if she drinks a bit a liquid. She is not noted to be anemic. Her hemoglobin when she was in the emergency room in mid-July 2013. She is being evaluated in the next couple weeks by Colorectal Surgery. She saw a general surgeon, Dr. Angie Cali, on August 06 regarding her right femoral hernia, right perirectal hernia. The CT of her abdomen does s how a fluid-filled right femoral hernia and a right perirectal hernia, in addition to the hiatal hernia. Dr. Cali did recommend to the patient that she undergo repair of her right femoral hernia, which would be approached laparoscopically with mesh. The patient does have prior visits with Dr. Cande Ruiz from Urogynecology. She felt that the patient does have ongoing constipation and a rectocele and would potentially be a candidate for surgical procedure with the urogynecologists to treat her symptoms of recurrent urinary tract infections, constipation, rectocele, as well as pelvic floordysfunction. Patient's past medical history is significant for hypothyroidism status post a partialthyroidectomy. She has taken Synthroid. She has had a hysterectomy, cystocele, and rectocele surgical treatment in the past with arthroscopic knee surgery. She is currently on lisinopril and Zocor. ASSESSMENT / PLAN I met with the patient and her daughter. We had a discussion about the anatomic and functional abnormality in patients with hiatal hernia. Although she certainly does have a significant hiatal hernia, she does not really have any symptoms that I think are specifically correlated with the presence of the hernia. The 2 episodes that have brought her to the emergency room I think are not consistent with symptoms related to the hiatal hernia. She does have other issues in her abdomen and pelvis I think which are more likely the cause, and I would not recommend surgical treatment of the hiatal hernia at this point since I do not think she is symptomatic. Ramakrishna Rodriges M.D. CT CT Job ID: [id number] IDER SERVICE REPRESENTATIVE documented in this encounter Plan of Treatment Not on file documented as of this encounter Visit Diagnoses Diagnosis Hernia Hiatal documented in this encounter Care Teams Pathological Technician Relationship Specialty Start Date End Date Elsewhere, Pcp PCP - General Internal Medicine 06/12/23 documented as of this encounter
--- OUTSIDE RECORDS SUMMARY | 2023-11-14 18:00 | XMS_ITS | Data Portability ---
Author Name Unknown Address [address] [place] [address] Phone [phone] Organization [facility] Address [address] [facility] [address] [place] [address] Care Team Providers Care Director Of Ancillary Services Name Role Phone ZAYRAMARINA BLANDISTIN Primary Care Provider [phone] Assessment No assessment recorded. Plan of Treatment Reminders Order Date Submit Date Provider Last Modified By Organization Details Last Modified Time Details Appointments None recorded. Lab urinalysis, dipstick 2021 022 [email or web address] [facility], [address] [facility] [address], [address], [place], [address], 11:37:24 urinalysis, dipstick 2021 022 [email or web address] [facility], [address], [address], [place], [address], 11:36:45 Referral None recorded. Procedures None recorded. Surgeries None recorded. Imaging None recorded. Medication Orders nitrofurant oin macrocrysta l 50 mg capsule 2021 [facility] [id number] [facility] [employer], [address] [place] [address], [address], 11:50:51 Patient TargetsNo targets recorded. Patient Instructions Encounter Date Encounter Id Patient Instructions Last Modified By Organization Details Last Modified Time 03/14/2022 [id number] will have her finish out another month of the macrobid and then stop, see if any further UTI. If so, consider cystoscopy and fulguration of bladder diverticulum. [email or web address] Not available 03/14/2022 11:51:24 02/23/2022 [id number] will set up for renal and bladder U/S in [place]. call with report, cysto after that. [email or web address] Not available 02/23/2022 11:48:17 Reason for Referral None Reported. Results Created Date Observation Date Name Description Value Unit Range Abnormal Flag LastModifiedBy Organization Detail LastModifiedTime 02/24/20 22 02/23/2022 urina lysis , dipst ick pH-Status 6.5 Not Available [facility] [address] [facility] [address], [place], [address], 02/23/2022 11:32:56 03/14/20 22 03/14/2022 urina lysis , dipst ick Ketones-Stat us 15 Not Available [facility] [address] [facility] [address], [place], [address], 03/14/2022 11:37:00 02/24/20 22 02/23/2022 bladd er scan (PROC ) No observ ation record ed. BARCODE Not Available 02/23/2022 15:02:31 03/07/20 22 02/27/2022 US, renal No observ ation record ed. [email or web address] [facility] Radiology Department [address] [place], [address], 03/08/2022 12:47:38 Result Notes None recorded. Procedures Surgical History Date Name Laterality Status Provider Name and Address Organization Details Recorded Time 03/14/20 Cystoscopy- female completed Milan Abreu MD [address] [place] [address],[address], [address], [place] [facility] 03/14/2022 11:50:23 02/24/20 Bladder Scan completed Milan Abreu MD [address] [place] [address],[address], [place], [address], [facility] 02/23/2022 11:32:51 Total Hysterectomy completed Milan Abreu MD [address] [facility],[address], [place], [address], [facility] 02/23/2022 11:31:20 Imaging Results Imaging Date Name Status LastModified by Organiz ation Details LastModified Time 02/23/2022 bladder scan (PROC) completed BARCODE Information not available 02/23/2022 15:02:31 02/27/2022 US, renal completed [email or web address] [facility] Radiology Department [address] [place], [address], 03/08/2022 12:47:38 Procedure Notes None recorded. Medical Equipment None Reported. Allergies Allergen ID Allergen Name Allergen Category Reaction Reaction Severity Criticality Documentation Date Start Date Code Code System Note Provider Name and Address Organization Details Recorded Time 550172 Substance with sulfonami de structure and antibacte rial mechanism of action (substanc e) medicatio n Not available Not available Not available 02/23/2022 25141 8003 SNOMED Milan Abreu MD [address] [facility],[address], [place], [address], [facility] 11:29:08 Medications Name Sig Start Date [...] Address Organization Details Last Updated DateTime 02/23/2022 07983.86 g 25.7 kg/m2 162.56 cm Milan Abreu MD [address] [place] [address],[address] [phone] [place] [address] Urolog 02/23/2022 11:28:52 Date Recorded Body height Body mass index (BMI) Body weight Provider Name and Address Organization Details Last Updated DateTime 03/14/2022 162.56 cm 25.7 kg/m2 [address]147[address] [facility] 03/14/2022 11:27:05 Social History Question Answer Notes LastModified by Organizat ion Details LastModified Time Tobacco Smoking Status Former Smoker Milan Abreu MD [address] [place] [address], [phone] 02/23/2022 11:30:53 What Is Your Level Of Alcohol Consumption? Occasional [email or web address] Information not available 02/23/2022 What Is Your Level Of Caffeine Consumption? Occasional [email or web address] Information not available 02/23/2022 When Did You Quit Smoking? 17+yearsgem mathis [email or web address] Information not available 02/23/2022 What Was The Date Of Your Most Recent Tobacco Screening? 03/14/2022 [email or web address] Information not available 03/14/2022 Sex: Female Functional Status None recorded. Mental Status None recorded. Family History Nothing Reported. Medical History Condition Response Diabetes N Sexually Transmitted Infection N Bleeding Disorder N Other N High Blood Pressure Y Kidney Stones N High Cholesterol Y GERD/Acid Reflux N Heart Disease N Cancer N Depression N Lung Disease N Gynecological History Statement/Question Response Sexually Active? N Obstetrics History GPAL:G 2 P 0 0 0 0 Immunizations Vaccine Type Date Status Provider Name and Address Organization Details Recorded Time Influenza vaccine, quadrivalent, adjuvanted 05/12/2021 completed [place] cerda, [facility] 03/14/2022 11:36:18 zoster recombinant 02/28/2019 [facility]/14/2022 11:36:18 zoster recombinant 05/05/2019 [facility] 03/14/2022 11:36:18 Influenza, high dose seasonal 04/06/2015 [facility] 03/14/2022 11:36:18 COVID-19, mRNA, LNP-S, PF, 30 mcg/0.3 mL dose 09/21/2020 [facility]/2022 11:36:18 COVID-19, mRNA, LNP-S, PF, 30 mcg/0.3 mL dose 05/12/2021 [facility] 03/14/2022 11:36:18 Tdap 07/11/2021 [facility] 03/14/2022 11:36:18 influenza, trivalent, adjuvanted 04/11/2018 [facility] 03/14/2022 11:36:18 Tdap 01/31/2011 [facility] 03/14/2022 11:36:18 influenza, trivalent, adjuvanted 04/09/2017 [facility] 03/14/2022 11:36:18 Influenza vaccine, quadrivalent, adjuvanted 04/19/2020 [facility] 03/14/2022 11:36:18 pneumococcal polysaccharide PPV23 03/17/2013 [facility] 03/14/2022 11:36:18 influenza, trivalent, adjuvanted 04/15/2019 [facility] 03/14/2022 11:36:18 Influenza, seasonal, injectable 08/21/2012 completed [place] cerda [facility] 03/14/2022 11:36:18 Influenza, high dose seasonal 04/07/2016 completed [place] cerda [facility] 03/14/2022 11:36:18 COVID-19, mRNA, LNP-S, PF, 30 mcg/0.3 mL dose, guerda-sucrose 12/09/2021 completed Od[place] cerda [facility] 03/14/2022 11:36:18 COVID-19, mRNA, LNP-S, PF, 30 mcg/0.3 mL dose 10/12/2020 completed [place] cerda [facility] 03/14/2022 11:36:18 zoster live 01/31/2011 completed Od[place] cerda [facility] 03/14/2022 11:36:18 Pneumococcal conjugate PCV 13 04/06/2015 completed [place] cerda [facility] 03/14/2022 11:36:18 Past Encounters Encounter ID Performer Location Encounter Start Date Encounter Closed Date Diagnosis/Indication Diagnosis SNOMED-CT Code [id number] Milan Abreu MD [address] [address] 02/23/2022 11:02:40 02/24/2022 13:17:51 Retention of urine [id number] Recurrent urinary tract infection 270890196 [id number] Milan Abreu MD [address] [address] 03/14/2022 11:23:50 03/17/2022 16:58:28 Recurrent urinary tract infection 553582045 Health Concerns Section Related Observation LastModified by Organization Detai ls LastModified Time None Recorded Concern Status LastModified by Organization Details LastModified Time None Recorded Advance Directives Directive None Recorded Payers Encounter Date Sequence Insurance Name Policy Number Policy James Covered Member ID James Member ID Guarantor Name 03/14/2022 1 [place] [employer] Katharine Shell [id number] Katharine Shell 03/14/2022 2 [place] [id number] Katharine Shell [id number] Katharine Shell 02/23/2022 1 [place] [id number] Katharine Bowman [id number] Katharine Shell Notes Date Note Type Note [...] drooping of things again. Milan Abreu MD [address] [place] [address],[address] [place] [address], [phone], [facility] 02/23/2022 11:52:08 03/14/2022 text/html HPI Notes: here for cysto for recurrent UTI. Imaging negative. UA clear today. taking daily 50mg macrobid for last 2 months and no UTI on that. Milan Abreu MD [address] [place] [address],[address], [place], [address], [facility] 03/14/2022 11:51:36 OBGyn Episode No OBEpisode recorded.
--- OUTSIDE RECORDS SUMMARY | 2023-11-14 18:00 | XMS_ITS | Encounter Summary ---
Author Name Unknown Organization [facility] Address [address] [place] [address] Care Team Providers Care Busperson Name Role Phone Elsewhere, Pcp Primary Care Provider Unavailabl e Reason for Visit * Reason Onset Date Comments Pre-visit Intake 11/06/2023 Encounter Details Date Type Department Care Team (Latest Contact Info) Description 11/06/2023 10:00 AM CDT Clinical Communication Virtual Review in [place], [place] [address] [place] [address] Pre-visit Intake Social History Tobacco Use Types Packs/Day Years Used Date Smoking Tobacco: Former Passive Smoke Exposure: Past Smokeless Tobacco: Never Tobacco Cessation:Counseling Given: Not Answered Alcohol Use Standard Drinks/Week Comments Not Currently [...] the money to buy more. Never true 11/12/20 23 Within the past 12 months, t [...] your living situation today? 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
--- OUTSIDE RECORDS SUMMARY | 2023-11-14 18:00 | XMS_ITS | Encounter Summary ---
Author Name Unknown Organization [facility] Address [address] [place] [address] Care Team Providers Care Meat Specialist Name Role Phone Elsewhere, Pcp Primary Care Provider Unavailabl e Reason for Visit * Reason Onset Date Comments [facility] - Outside Materials 10/19/2023 Encounter Details Date Type Department Care Team (Latest Contact Info) Description 10/19/2023 Clinical Communication Division of Colon and Rectal Surgery in [place], [place] [address] [place] [address] Sean Rodriguez M.B., Ch.B., M.P.H. [address] [place] [address] [facility] [employer] Social History Tobacco Use Types Packs/Day Years Used Date Smoking Tobacco: Former Passive Smoke Exposure: Past Smokeless Tobacco: Never Alcohol Use Standard Drinks/Week [...] your living situation today? I have a [facility] place to live 06/10/2023 Sex and Gender Information Value Date Recorded Sex Assigned at Female 06/08/2023 11:11 AM SLICER MACHINE OPERATOR Gender Identity Female 06/08/2023 11:11 AM SLICER MACHINE OPERATOR Sexual Orientation Straight 06/08/2023 11 :11 AM SLICER MACHINE OPERATOR documented as of this encounter Plan of Treatment Not on file documented as of this encounter Visit Diagnoses Not on filedocumented in this encounter Care Teams Meat Specialist Relationship Specialty Start Date End Date Elsewhere, Pcp PCP - General Internal Medicine 06/12/23 documented as of this encounter
--- OUTSIDE RECORDS SUMMARY | 2023-11-14 18:00 | XMS_ITS | Referral Summary ---
Author Name Unknown Organization [facility] Address [address] [place] [id number] Care Team Providers Care Criminal Records Technician Name Role Phone Elsewhere, Pcp Primary Care Provider Unavailabl e Source Comments Patient records contain information from all sites at [facility]. For routine questions regarding patient records, call [phone] during business hours, M-F 8:00 AM - 5:00 PM Central Time. Record requests for emergency care only can be directed to [phone] at any time.[facility] Encounters Date Type Department Care Team Description 11/08/2023 2:30 PM CDT Comprehensive Visit Division of Metabolic and Abdominal Wall Reconstructive Surgery in [address] [phone] Karine Klein M.D. Hernia Femoral 11/06/2023 10:00 AM CDT Clinical Communication Virtual Review in [place], [place] [address] [place] [address] Pre-visit Intake 10/22/2023 10:00 AM CDT Ancillary Procedure Department of Radiology in [place], [place] [address] [place] [phone] Sean Rodriguez M.B., Ch.B., M.P.H. 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 [facility] - Outside Materials 10/19/2023 3:15 PM CDT Clinical Communication Virtual Review in [place], [place] [address] [place] [address] 10/08/2023 6:18 AM CDT - 10/08/2023 11:59 PM CDT Hospital Encounter Department of Radiology, [facility], in [address] [phone] Cadne Ruiz M.D. Hernia Perineal; Hernia; Dysfunction Pelvic Floor Female; Constipation; Other Female Genital Prolapse Discharge Disposition: Home or Self Care 10/01/2023 Clinical Communication Department of Obstetrics and Gynecology, Division of Urogynecology in [place], [place] [address] [place] [phone] Cande Ruiz M.D. Communication 09/26/2023 2:30 PM SIEVE REPAIRER Comprehensive Visit Department of Rehabilitation Services in [address] [phone] Drea Pepe M.D. Buchholtz, Marie F, P.TFransisco Urgency Urinary (Primary Dx) 08/29/2023 3:00 PM SIEVE REPAIRER Comprehensive Visit Division of Thoracic Surgery in [address] [phone] Ramakrishna Rodriges M.D. Hernia Hiatal 08/23/2023 10:00 AM SIEVE REPAIRER Clinical Communication Virtual Review in [address] [address] Pre-visit Intake 08/16/2023 Clinical Communication Department of Obstetrics and Gynecology, Division of Urogynecology in [place], [place] [address] [place] [phone] Cande Ruiz M.D. Communication ([facility]) from Last 3 Months Allergies Active Allergy Reactions Criticality Noted Date Comments Sulfa (Sulfonamide Antibiotics) Rash 02/2023 Sulfamethoxazole-Trimethoprim Rash 2009 Medications Medication Sig Dispensed Refills Start Date End Date Status lisinopriL (PRINIVIL,ZESTRIL) 10 mg tablet Take 10 mg by mouth daily. Active simvastatin (ZOCOR) 10 mg tablet Take 10 mg by mouth at bedtime. Active levothyroxine (SYNTHROID, LEVOTHROID) 50 mcg tablet Take 50 mcg by mouth every morning before breakfast. 05/13/2023 Active hydrOXYzine (ATARAX) 25 mg tablet Take 25 mg by mouth every 6 (six) hours as needed. 03/12/2022 Active acetaminophen (TYLENOL) 500 mg tablet Take 500 mg by mouth every 6 (six) hours as needed for pain. Active cholecalciferol (VITAMIN D3) 50 mcg (2,000 Unit) capsule Take 50 mcg by mouth daily. Active ZINC ORAL Take 50 mg by mouth daily. Active co-enzyme Q-10 (CO Q-10) 100 mg capsule Take 100 mg by mouth daily. Active estradioL (ESTRACE) 0.1 mg/g (0.01%) vaginal creamIndications:Urg ency Urinary,Atrophy Vagina Due To Estrogen Deficiency Insert 1 g into the vagina 3 (three) times a week. Place small amount directly on urethra and 1 g inside vagina every night for 2 weeks. Then use 2 nights a week thereafter. 42.5 g 11 06/15/2023 Active polyethylene glycol (Miralax) 17 gram/dose oral powder as needed. Active UNABLE TO FIND 2 (two) times a day. Med Name: CHICKEN STERNUM CARTILAGE Active omega-3 fatty acids-fish oil 300-1,000 mg per capsule Take 1-2 g by mouth daily. Active psyllium seed (METAMUCIL SUGAR FREE ORAL) Take 2 Scoops by mouth daily. Active calcium carbonate (calcium carbonate EX) 750 mg (300 mg calcium) chewable tablet Chew 1 tablet as needed for indigestion or heartburn. 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 [facility] to [facility] 06/10/2023 Sex and Gender Information Value Date Recorded Sex Assigned at Female 06/08/2023 11:11 AM SIEVE REPAIRER Gender Identity Female 06/08/2023 11:11 AM SIEVE REPAIRER Sexual Orientation Straight 06/08/2023 11 :11 AM SIEVE REPAIRER Last Filed Vital Signs Vital Sign Reading Time Taken Comments Blood Pressure 147/73 08/13/2023 7:00 PM SIEVE REPAIRER Pulse 79 08/13/2023 7:49 PM SIEVE REPAIRER Temperature 37 ??C (98.6 ??F) 08/13/2023 4:09 PM SIEVE REPAIRER Respiratory Rate 18 08/13/2023 4:09 PM SIEVE REPAIRER Oxygen Saturation 96% 08/13/2023 7:49 PM SIEVE REPAIRER Inhaled Oxygen Concentration - - Weight 67.6 kg (149 lb 0.5 oz) 06/14/2023 3:44 P M SIEVE REPAIRER shoes on Height 166.4 cm (5' 5.51) 06/14/2023 3:44 PM CS T shoes on Body Mass Index 24.41 06/14/2023 3:44 PM SIEVE REPAIRER Plan of Treatment Not on file Procedures Procedure Name Priority Date/Time Associated Diagnosis Comments INTERPRETATION OF OUTSIDE CT ABDOMEN AND OR PELVIS RAD - Routine (most inpatients and all outpatients) 10/22/2023 10:07 AM CDT Dysfunction Pelvic Floor Female Constipation Hernia Perineal MR PROCTOGRAM DYNAMIC AND SPHINCTER EVAL WITHOUT IV CONTRAST RAD - Routine (most inpatients and all outpatients) 10/08/2023 8:13 AM CDT Hernia Perineal Hernia Dysfunction Pelvic Floor Female Constipation Other Female Genital Prolapse BASIC METABOLIC PANEL, S/P STAT 08/13/2023 4:46 PM SIEVE REPAIRER EXTI THYROID-STIMULATING HORMONE-SENSITIVE (S-TSH), S Routine 01/29/2023 1:04 PM CDT from Last 3 Months or Most Recently Relevant to Health Maintenance Results * Interpretation of Outside CT Abdomen and or Pelvis (10/22/2023 10:07 AM CDT) Anatomical Region Laterality Modality Abdomen, Pelvis, Abdominal R ST LOS, Abdominal ARZ LOS, Abdominal FLA LOS, Other N/A Computed Tomography Impressions 10/23/2023 8:11 AM CDT 1. Mild interval progression of a distal small bowel obstruction, likely on the basis of adhesions. 2. Very large esophageal hiatal hernia, which contains almost the entire stomach. 3. Marked laxity of the pelvic floor musculature, predominantly on the right. 4. Nonspecific tiny amount of ascites is not significantly changed in volume. Narrative 10/23/2023 8:11 AM CDT EXAM: ??INTERPRETATION OF OUTSIDE CT ABDOMEN AND OR PELVIS with IV contrast 08/13/2023. COMPARISON: ??Outside CT 07/11/2023. FINDINGS: Slight interval increase in dilatation of multiple loops of fluid- filled proximal and mid small bowel (now measuring up to 3.7 cm in diameter), with a transition point to decompressed loops of distal small bowel in the mid pelvis (series 4, image 62). Findings are consistent with mild interval progression of distal small bowel obstruction, likely on the basis of adhesions. No wall thickening of the obstructed loop of small bowel. Tiny amount of ascites, predominantly around the spleen and in the right deep pelvis is not significantly changed in volume. Fluid remains present in a small direct right inguinal hernia. Large esophageal hiatal hernia, which includes almost the entire stomach. Supraumbilical right paramedian ventral hernia contains fat and a tiny amount of fluid. Hysterectomy. Laxity of the pelvic floor musculature, particularly on the right. Colonic diverticulosis, without evidence for acute diverticulitis. Tiny bilateral renal cysts and cortical scarring in both kidneys. Calcified splenic granulomas. Aortic calcifications. Calcified granuloma right lung base. Mild atelectasis or fibrosis both lung bases. Degenerative changes in the spine. Mild anterolisthesis of L4 on L5. Procedure Note Vik Sanchez M.D. - 10/23/2023 EXAM: INTERPRETATION OF OUTSIDE CT ABDOMEN AND OR PELVIS with IV contrast08/13/2023. COMPARISON: Outside CT 07/11/2023. FINDINGS: Slight interval increase in dilatation of multiple loops offluid- filled proximal and mid small bowel (now measuring up to 3.7 cm indiameter), with a transition point to decompressed loops of distal smallbowel in the mid pelvis (series 4, image 62). Findings are consistent with mild interval progression ofdistal small bowel obstruction, likely on the basis of adhesions. No wallthickening of the obstructed loop of small bowel. Tiny amount of ascites,predominantly around the spleen and in the right deep pelvis is not significantly changed in volume. Fluidremains present in a small direct right inguinal hernia. Large esophagealhiatal hernia, which includes almost the entire stomach. Supraumbilicalright paramedian ventral hernia contains fat and a tiny amount of fluid. Hysterectomy. Laxity of the pelvic floor musculature, particularly on theright. Colonic diverticulosis, without evidence for acute diverticulitis.Tiny bilateral renal cysts and cortical scarring in both kidneys.Calcified splenic granulomas. Aortic calcifications. Calcified granuloma right lung base. Mild atelectasis orfibrosis both lung bases. Degenerative changes in the spine. Mildanterolisthesis of L4 on L5. IMPRESSION: 1. Mild interval progression of a distal small bowel obstruction, likelyon the basis of adhesions. 2. Very large esophageal hiatal hernia, which contains almost the entirestomach. 3. Marked laxity of the pelvic floor musculature, predominantly on theright. 4. Nonspecific tiny amount of ascites is not significantly changed involume. Sean Chatterjee, Jacinta, M.P.H. IMG CT PROCEDURES * MR Proctogram Dynamic and Sphincter Eval without IV Contrast (10/08/2023 8:13 AM CDT) Anatomical Region Laterality Modality Abdomen, Pelvis, Abdominal R ST LOS, Abdominal ARZ LOS, Abdominal FLA LOS N/A Magnetic Resonance Impressions 10/08/2023 4:19 PM CDT 1. Asymmetric thinning of anal sphincter complex. The anal canal is coapted at rest. 2. Abnormal low position of anorectal junction at rest, exacerbated with straining and evacuation. 3. Moderate size anterior rectocele measuring 3 cm, that empties with defecation. 4. Large enterocele with straining. 5. Intra rectal intussusception. 6. Asymmetric laxity and bulging of lower right levator muscle at rest, exacerbated with straining. 7. Abnormal low position of bladder neck at rest, exacerbated with straining. Urethral hypermobility. Narrative 10/08/2023 4:19 PM CDT EXAM: ??MR PROCTOGRAM DYNAMIC AND SPHINCTER EVAL WITHOUT IV CONTRAST ANATOMY: ??Endoanal imaging of the anal sphincters was performed. The external anal sphincter diffuse thinning. The internal anal sphincter thinning involving the left anterolateral quadrant at 12-4 o'clock. Puborectalis thinning of the left limb with bilateral tear. INCIDENTAL FINDINGS: Hysterectomy. Colonic diverticulosis. Trace pelvic fluid. Urinary bladder Bilateral posterolateral diverticula. Right inguinal hernia containing fluid. FUNCTION: ??Dynamic MR proctography was performed. Anal canal is coapted at rest. Anorectal angle measures 134 degrees at rest, 119 degrees during squeeze, and 146 degrees during simulated defecation, indicating adequate squeeze function Anorectal junction is located ??5.2 cm below pubococcygeal line at rest, 4.1 cm below at squeeze, and 7.3 cm below the pubococcygeal line at maximum descent. Indicating excessive pelvic floor descent at rest and with defecation. During simulated defecation, approximately 90% of rectal contents are evacuated. ?? There is a 3 cm anterior rectocele, completely evacuating with defecation. Intrarectal intussusception. There is a large enterocele, bulging into the introitus. Bladder neck is located 1.0 cm below the pubococcygeal line at rest. Bladder neck .descends to a maximum of 1.7 cm below the pubococcygeal line. 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 The vaginal Bolivar is located 3.2 cm above the pubococcygeal line at rest and descending stairs 0.7 cm above the coccygeal line with straining.. Coronal and anatomic images of the levator at rest and during Valsalva demonstrate asymmetric bulging of lower right levator muscle at rest, exacerbated with straining. Procedure Note Jamari Muniz M.D., Ph.D. - 10/08/2023 EXAM: MR PROCTOGRAM DYNAMIC AND SPHINCTER EVAL WITHOUT IV CONTRAST ANATOMY: Endoanal imaging of the anal sphincters was performed. The external anal sphincter diffuse thinning. The internal anal sphincter thinning involving the left anterolateralquadrant at 12-4 o'clock. Puborectalis thinning of the left limb with bilateral tear. INCIDENTAL FINDINGS: Hysterectomy. Colonic diverticulosis. Trace pelvicfluid. Urinary bladder Bilateral posterolateral diverticula. Right inguinal hernia containingfluid. FUNCTION: Dynamic MR proctography was performed. Anal canal is coapted at rest. Anorectal angle measures 134 degrees at rest, 119 degrees during squeeze,and 146 degrees during simulated defecation, indicating adequate squeezefunction Anorectal junction is located 5.2 cm below pubococcygeal line at rest,4.1 cm below at squeeze, and 7.3 cm below the pubococcygeal line atmaximum descent. Indicating excessive pelvic floor descent at rest andwith defecation. During simulated defecation, approximately 90% of rectal contents areevacuated. There is a 3 cm anterior rectocele, completely evacuating withdefecation. Intrarectal intussusception. There is a large enterocele, bulging into the introitus. Bladder neck is located 1.0 cm below the pubococcygeal line at rest.Bladder neck .descends to a maximum of 1.7 cm below the pubococcygealline. 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 The vaginal Bolivar is located 3.2 cm above the pubococcygeal line at restand descending stairs 0.7 cm above the coccygeal line with straining.. Coronal and anatomic images of the levator at rest and during Valsalvademonstrate asymmetric bulging of lower right levator muscle at rest,exacerbated with straining. IMPRESSION: 1. Asymmetric thinning of anal sphincter complex. The anal canal iscoapted at rest. 2. Abnormal low position of anorectal junction at rest, exacerbated withstraining and evacuation. 3. Moderate size anterior rectocele measuring 3 cm, that empties withdefecation. 4. Large enterocele with straining. 5. Intra rectal intussusception. 6. Asymmetric laxity and bulging of lower right levator muscle at rest,exacerbated with straining. 7. Abnormal low position of bladder neck at rest, exacerbated withstraining. Urethral hypermobility. Cande Ruiz M.D. G MRI PROCEDURES * Basic Metabolic Panel (08/13/2023 4:46 PM SIEVE REPAIRER) Potassium, P 4.5 3.6 - 5.2 mmol/L 08/13/2023 5:09 PM SIEVE REPAIRER STMA Sodium, P 139 135 - 145 mmol/L 08/13/2023 5:09 PM SIEVE REPAIRER STMA Chloride, P 102 98 - 107 mmol/L 08/13/2023 5:09 PM SIEVE REPAIRER STMA Bicarbonate, P 23 22 - 29 mmol/L 08/13/2023 5:09 PM SIEVE REPAIRER STMA Anion Gap, P 14 7 - 15 08/13/2023 5:09 PM SIEVE REPAIRER STMA BUN (Blood Urea Nitrogen), P 14 6 - 21 mg/dL 08/13/2023 5:09 PM SIEVE REPAIRER STMA Creatinine 0.94 0.59 - 1.04 mg/dL 08/13/2023 5:09 PM SIEVE REPAIRER STMA Estimated GFR (eGFR) 62 >=60 mL/min/BSA 08/13/2023 5:09 PM SIEVE REPAIRER STMA Comment: Estimated GFR calculated using the 2020 CKD_EPI creatinine equation. Calcium, Total, P 9.4 8.8 - 10.2 mg/dL 08/13/2023 5:09 PM SIEVE REPAIRER STMA Glucose, P 99 70 - 140 mg/dL 08/13/2023 5:09 PM SIEVE REPAIRER STMA Blood (Blood, Venous) 08/13/2023 4:46 PM SIEVE REPAIRER 08/13/2023 4:52 PM SIEVE REPAIRER Elizabeth Hutton P.A.-C. LAB BLOOD ADD-ON [facility] [address] [place] [address], [facility] [address] [place] [address] from Last 3 Months or Most Recently Relevant to Health Maintenance Care Teams Criminal Records Technician Relationship Specialty Start Date End Date Elsewhere, Pcp PCP - General Internal Medicine 06/12/23
--- OUTSIDE RECORDS SUMMARY | 2023-11-14 18:00 | XMS_ITS | Encounter Summary ---
Author Name Unknown Organization [facility] Address [address] [place] [address] Care Team Providers Care Obiee Lead Developer Name Role Phone Elsewhere, Pcp Primary Care Provider Unavailabl e Reason for Visit * Reason Onset Date Comments Communication 10/01/2023 Encounter Details Date Type Department Care Team (Latest Contact Info) Description 10/01/2023 Clinical Communication Department of Obstetrics and Gynecology, Division of Urogynecology in [place], [place] [address] [place] [address] Cande Ruiz M.D. [address] [place] [address] Communication Social History Tobacco Use Types Packs/Day Years [...] your living situation today? I have a [facility] place to live 06/10/2023 Sex and Gender Information Value Date Recorded Sex Assigned at Female 06/08/2023 11:11 AM PRODUCT SUPPORT CONSULTANT Gender Identity Female 06/08/2023 11:11 AM PRODUCT SUPPORT CONSULTANT Sexual Orientation Straight 06/08/2023 11 :11 AM PRODUCT SUPPORT CONSULTANT documented as of this encounter Plan of Treatment Not on file documented as of this encounter Visit Diagnoses Not on filedocumented in this encounter Care Teams Obiee Lead Developer Relationship Specialty Start Date End Date Elsewhere, Pcp PCP - General Internal Medicine 06/12/23 documented as of this encounter
--- OUTSIDE RECORDS SUMMARY | 2023-11-14 18:00 | XMS_ITS | Clinical Summary ---
Author Name Unknown Organization [facility] Address [address] [place] [address] Care Team Providers Care Special Agent Group Insurance Name Role Phone Elsewhere, Pcp Primary Care Provider Unavailabl e Source Comments Patient records contain information from all sites at [facility]. For routine questions regarding patient records, call [phone] during business hours, M-F 8:00 AM - 5:00 PM Central Time. Record requests for emergency care only can be directed to [phone] at any time.[facility] Allergies Active Allergy Reactions Criticality Noted Date [...] 10/25/2023 Hernia Perineal 10/25/2023 Obstruction Intestinal 10/25/2023 Encounters Date Type Department Care Team Description 11/08/2023 2:30 PM CDT Comprehensive Visit Division of Metabolic and Abdominal Wall Reconstructive Surgery in [address] [address] Karine Klein M.D. Hernia Femoral 11/06/2023 10:00 AM CDT Clinical Communication Virtual Review in [address] [address] Pre-visit Intake 10/22/2023 10:00 AM CDT Ancillary Procedure Department of Radiology in [address] [address] Sean Rodriguez M.B., Ch.B., M.P.H. Dysfunction Pelvic Floor Female; Constipation; Hernia Perineal 10/22/2023 9:00 AM CDT Comprehensive Visit Division of Colon and Rectal Surgery in [address] [address] Sean Rodriguez M.B., Ch.B., M.P.H. Dysfunction Pelvic Floor Female (Primary Dx); Constipation; Hernia Perineal; Obstruction Intestinal (HCC) 10/19/2023 3:15 PM CDT Clinical Communication Virtual Review in [place], [place] [address] [place] [address] 10/19/2023 Clinical Communication Division of Colon and Rectal Surgery in [place], [place] [address] [place] [phone] Sean Rodriguez M.B., Ch.B., M.P.H. OSM - Outside Materials 10/08/2023 6:18 AM CDT - 10/08/2023 11:59 PM CDT Hospital Encounter Department of Radiology, [facility], in [address] [address] Cande Ruiz M.D. Hernia Perineal; Hernia; Dysfunction Pelvic Floor Female; Constipation; Other Female Genital Prolapse Discharge Disposition: Home or Self Care 10/01/2023 Clinical Communication Department of Obstetrics and Gynecology, Division of Urogynecology in [address] [address] Cande Ruiz M.D. Communication 09/26/2023 2:30 PM SURVEYOR OIL WELL DIRECTIONAL Comprehensive Visit Department of Rehabilitation Services in [address] [address] Drea Pepe M.D. Buchholtz, Marie F, P.TFransisco Urgency Urinary (Primary Dx) 08/29/2023 3:00 PM SURVEYOR OIL WELL DIRECTIONAL Comprehensive Visit Division of Thoracic Surgery in [address] [address] Ramakrishna Rodriges M.D. Hernia Hiatal 08/23/2023 10:00 AM SURVEYOR OIL WELL DIRECTIONAL Clinical Communication Virtual Review in [address] [address] Pre-visit Intake 08/16/2023 Clinical Communication Department of Obstetrics and Gynecology, Division of Urogynecology in [address] [address] Cande Ruiz M.D. Communication (AMM) from Last 3 Months Family History Medical [...] living situation today? I have a [facility] place to live 06/10/2023 Sex and Gender Information Value Date Recorded Sex Assigned at Female 06/08/2023 11:11 AM SURVEYOR OIL WELL DIRECTIONAL Gender Identity Female 06/08/2023 11:11 AM SURVEYOR OIL WELL DIRECTIONAL Sexual Orientation Straight 06/08/2023 11 :11 AM SURVEYOR OIL WELL DIRECTIONAL Last Filed Vital Signs Vital Sign Reading Time Taken Comments Blood Pressure 147/73 08/13/2023 7:00 PM SURVEYOR OIL WELL DIRECTIONAL Pulse 79 08/13/2023 7:49 PM SURVEYOR OIL WELL DIRECTIONAL Temperature 37 ??C (98.6 ??F) 08/13/2023 4:09 PM SURVEYOR OIL WELL DIRECTIONAL Respiratory Rate 18 08/13/2023 4:09 PM SURVEYOR OIL WELL DIRECTIONAL Oxygen Saturation 96% 08/13/2023 7:49 PM SURVEYOR OIL WELL DIRECTIONAL Inhaled Oxygen Concentration - - Weight 67.6 kg (149 lb 0.5 oz) 06/14/2023 3:44 P M SURVEYOR OIL WELL DIRECTIONAL shoes on Height 166.4 cm (5' 5.51) 06/14/2023 3:44 PM CS T shoes on Body Mass Index 24.41 06/14/2023 3:44 PM SURVEYOR OIL WELL DIRECTIONAL Plan of Treatment Health Maintenance Due Date [...] METABOLIC PANEL, S/P STAT 08/13/2023 4:46 PM SURVEYOR OIL WELL DIRECTIONAL EXTI THYROID-STIMULATING HORMONE-SENSITIVE (S-TSH), S Routine 01/29/2023 [...] line. 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 The vaginal [place] is located 3.2 cm above the pubococcygeal [...] pubococcygealline. 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 The vaginal [place] is located 3.2 cm above the pubococcygeal [...] exacerbated withstraining. Urethral hypermobility. Cande Ruiz M.D. IMG MRI PROCEDURES * Basic Metabolic Panel (08/13/2023 4:46 PM SURVEYOR OIL WELL DIRECTIONAL) Potassium, P 4.5 3.6 - 5.2 mmol/L 08/13/2023 5:09 PM SURVEYOR OIL WELL DIRECTIONAL STMA Sodium, P 139 135 - 145 mmol/L 08/13/2023 5:09 PM SURVEYOR OIL WELL DIRECTIONAL STMA Chloride, P 102 98 - 107 mmol/L 08/13/2023 5:09 PM SURVEYOR OIL WELL DIRECTIONAL STMA Bicarbonate, P 23 22 - 29 mmol/L 08/13/2023 5:09 PM SURVEYOR OIL WELL DIRECTIONAL STMA Anion Gap, P 14 7 - 15 08/13/2023 5:09 PM SURVEYOR OIL WELL DIRECTIONAL STMA BUN (Blood Urea Nitrogen), P 14 6 - 21 mg/dL 08/13/2023 5:09 PM SURVEYOR OIL WELL DIRECTIONAL STMA Creatinine 0.94 0.59 - 1.04 mg/dL 08/13/2023 5:09 PM SURVEYOR OIL WELL DIRECTIONAL STMA Estimated GFR (eGFR) 62 >=60 mL/min/BSA 08/13/2023 5:09 PM SURVEYOR OIL WELL DIRECTIONAL STMA Comment: Estimated GFR calculated using the 2020 CKD_EPI creatinine equation. Calcium, Total, P 9.4 8.8 - 10.2 mg/dL 08/13/2023 5:09 PM SURVEYOR OIL WELL DIRECTIONAL STMA Glucose, P 99 70 - 140 mg/dL 08/13/2023 5:09 PM SURVEYOR OIL WELL DIRECTIONAL STMA Blood (Blood, Venous) 08/13/2023 4:46 PM SURVEYOR OIL WELL DIRECTIONAL 08/13/2023 4:52 PM SURVEYOR OIL WELL DIRECTIONAL Elizabeth Hutton P.A.-C. LAB BLOOD ADD-ON [facility] [address] [place] [address], [facility] [address] [place] [address] from Last 3 Months or Most Recently Relevant to Health Maintenance Care Teams Special Agent Group Insurance Relationship Specialty Start Date End Date Elsewhere, Pcp PCP - General Internal Medicine 06/12/23
--- OUTSIDE RECORDS SUMMARY | 2023-11-14 18:00 | XMS_ITS | Encounter Summary ---
Author Name Unknown Organization [facility] Address [address] [place] [address] Care Team Providers Care Subsea Engineer Name Role Phone Elsewhere, Pcp Primary Care Provider Unavailabl e Encounter Details Date Type Department Care Team (Latest Contact Info) Description 10/22/2023 10:00 AM CDT Ancillary Procedure Department of Radiology in [place], [place] [address] [place] [address] Sean Rodriguez M.B., Ch.B., M.P.H. 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 Procedure Note Vik Sancehz M.D. - 10/23/2023 EXAM: INTERPRETATION OF OUTSIDE [...] Sean Chatterjee, Jacinta, M.P.H. 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
--- OUTSIDE RECORDS SUMMARY | 2023-11-14 18:00 | XMS_ITS | Encounter Summary ---
Author Name Unknown Organization [facility] Address [address] [place] [address] Care Team Providers Care Utility Worker Forge Name Role Phone Elsewhere, Pcp Primary Care Provider Unavailabl e Reason for Referral * Physical Therapy (Routine) - Authorized Specialty Diagnoses / Procedures Referred By Hi t Referred To Contact Diagnoses Urgency Urinary Procedures PT Ongoing treatment [address] [address] [facility]ly [facility] Referral ID Status Reason Start Date Expiration Date V isits Requested Visits Authorized [id number] Authorized 09/26/2023 09/25/2024 99 99 L PRINTING MACHINIST Reason for Visit * Physical Therapy (Routine) - Authorized Specialty Diagnoses / Procedures Referred By Hi steiner Referred To Contact Diagnoses Urgency Urinary Procedures PT Evaluate and treat Drea Pepe M.D. [address] [place] [address] [facility] Region Referral ID Status Reason Start Date Expiration Date V isits Requested Visits Authorized [id number] Authorized 06/14/2023 06/13/2024 99 99 Encounter Details Date Type Department Care Team (Latest Contact Info) Description 09/26/2023 2:30 PM LABEL PRINTING MACHINIST Comprehensive Visit Department of Rehabilitation Services in [address] [address] Drea Pepe M.D. [address] [place] [address] Anupama Lockhart P.T. Urgency Urinary (Primary Dx) Social History Tobacco Use Types Packs/Day Years [...] living situation today? I have a [facility] place to live 06/10/2023 Sex and Gender Information Value Date Recorded Sex Assigned at Female 06/08/2023 11:11 AM LABEL PRINTING MACHINIST Gender Identity Female 06/08/2023 11:11 AM LABEL PRINTING MACHINIST Sexual Orientation Straight 06/08/2023 11 :11 AM LABEL PRINTING MACHINIST documented as of this encounter Consult Notes * Anupama Lockhart P.T. - 09/26/2023 2:30 PM CST Physical Therapy Outpatient Evaluation/Treatment By co-signing this note, the provider certifies the therapy being provided to this patient is reasonable and necessary for the diagnosis or treatment of this patient. SUBJECTIVE Patient's Name: Katharine Julia Shell Referring Provider: Drea Pepe, * Visit Diagnosis: 1. Urgency Urinary Reason for Referral: urinary urgency and prolapse Onset Date: 08/14/23 Payor: MEDICARE / Plan: MEDICARE A AND B / Product Type: Medicare / QuickGifts Visit Count: 1 PERTINENT MEDICAL / SURGICAL HISTORY: There is no problem list on file for this patient. Past Surgical History: Procedure Laterality Date BLADDER SURGERY 1982 and 1995 COLON SURGERY 1982 & 1995 OTHER SURGICAL HISTORY Knee arthroscopy 2019 SUPRACERVICAL HYSTERECTOMY 1982 had hysterotony - nkt sure what all removed THYROID SURGERY 2021 Patient presents to outpatient physical therapy for evaluation of symptoms including: Urinary urgency and prolapse Overall patient reports status is worsening , remains the same. History of Present Illness: pt states she has had 2 vaginal births and each time was told that she tore and could have benefited from a Aggravating Factors: bowel movements and needing to bear down Relieving Factors: rest Previous Treatments: Surgery - states she has had prolapse repair surgery twice Prior Function/Occupational Profile: retired Family/Caregiver Present: No Patient goals: to have less urinary urgency Patient Comments: pt reports she was told to perform some kegels but really has never had formal instruction on how to do this and is wanting to learn as much as she can today from this visit as she has a long way to drive in order to come to these appointments. OBJECTIVE REVIEW OF SYSTEMS PHYSICAL EXAM Pain: 0/10 Ortho Exam Pelvic Floor: Consent Consent for Pelvic Floor Exam: Consents to evaluation Internal Perineal Muscles Vaginal Strength: (2) Poor Vaginal Muscle Substitution: Gluteus (Holds breath and uses abdominals too) Vaginal Proprioception: Impaired Bladder Function Bladder Function: Urination urgency Frequency of Urination: pt states she frequently will leak when rushing to the bathroom Incontinence: Coughing, Sneezing Bowel Function Frequency of Bowel Movements: Reports some constipation and difficulty emptying at times if constipated TREATMENT Treatment today consisted of: Therapeutic Exercise: Seated pelvic floor contractions x 10 Seated hip abd 10'' x 10 with pelvic floor contraction Seated hip add 10'' x 10 with pelvic floor contraction Supine hooklying pelvic floor contractions Therapeutic Functional Activity: Edu on urge supression techniques Edu on bowel constipation reduction techniques Edu on positioning using a squatty potty for increased angle to improved emptying with bowel movements Home Exercise Program/Education: daily exercises Assessment Clinical Impression: Patient presents to physical therapy with signs and symptoms consistent with urinary urgency and pelvic floor weakness and prolapse. Impairments: weakness Functional deficits: urinary urgency Rehab Potential: Patient has Good potential to achieve established physical therapy goals within the time frame outlined below, provided active participation in the physical therapy treatment plan and home program. Comorbid Conditions: None Personal Factors: Age Clinical Presentation: Stable Examination elements: 1-2 Clinical Decision Making: Moderate complexity clinical decision making Functional Goals and Timeframes: PT Outpatient Goals PT Goal #1: Patient will have improved pelvic floor strength to 3/5 or greater. PT Goal #1 Date: 12/25/23 PT Goal #2: Patient will have 8/10 days without any urinary leakage or urgency. PT Goal #2 Date: 12/25/23 PT Goal #3: Patient will be I in HEP for improved pelvic floor strength. PT Goal #3 Date: 12/25/23 Plan Patient was educated regarding evaluative findings, diagnosis, prognosis, potential risks and benefits of rehabilitation interventions. A collaborative effort was used to establish goals and plan of care. The patient was informed of the right to make decisions regarding care, including refusal of examination or treatment or selection of services from another provider if desired. The treatment plan may be progressed or modified based upon the patient's response to treatment. Treatment Plan: Plan: Continue with current plan PT Plan Comments: con't with pelvic floor strengthening techniques Start of Plan of Care: 09/27/2023 PT Next Certification Date: 12/26/23 Number of Visits:10 visits PT Duration: 90 days PT Frequency: Treatment interventions may include: Treatment/Interventions: Therapeutic exercise, Therapeutic functional activity, Neuromuscular re-education, Manual therapy, Therapeutic modalities as needed, Self-care/home management, Group therapy Other PT Interventions: biofeedback Plan for next session: con't with pelvic floor strengthening techniques and review of HEP for prison strengthening of pelvic floor muscles. Time Spent with Patient 60 min Eval, TA and TE - 1 unit of each L PRINTING MACHINIST documented in this encounter Plan of Treatment Not on file documented as of this encounter Visit Diagnoses Diagnosis Urgency Urinary- Primary documented in this encounter Care Teams Utility Worker Forge Relationship Specialty Start Date End Date Elsewhere, Pcp PCP - General Internal Medicine 06/12/23 documented as of this encounter
--- OUTSIDE RECORDS SUMMARY | 2023-11-14 18:00 | XMS_ITS | Encounter Summary ---
Author Name Unknown Organization [facility] Address [address] [place] [address] Care Team Providers Care Marble Polisher Hand Name Role Phone Elsewhere, Pcp Primary Care Provider Unavailabl e Encounter Details Date Type Department Care Team (Latest Contact Info) Description 10/19/2023 3:15 PM CDT Clinical Communication Virtual Review in [place], [place] [address] [place] [address] Social History Tobacco Use Types Packs/Day Years [...] your living situation today? I have a [facility] place to live 06/10/2023 Sex and Gender Information Value Date Recorded Sex Assigned at Female 06/08/2023 11:11 AM GOVERNOR ASSEMBLER Gender Identity Female 06/08/2023 11:11 AM GOVERNOR ASSEMBLER Sexual Orientation Straight 06/08/2023 11 :11 AM GOVERNOR ASSEMBLER documented as of this encounter Miscellaneous Notes * Addendum Note - Zabrina Martinez - 10/19/2023 3:45 PM CDTAddended by: ZABRINA MARTINEZ on: 10/19/2023 03:45 PM Modules accepted: Orders documented in this encounter Plan of Treatment Not on file documented as of this encounter Visit Diagnoses Not on filedocumented in this encounter Care Teams Marble Polisher Hand Relationship Specialty Start Date End Date Elsewhere, Pcp PCP - General Internal Medicine 06/12/23 documented as of this encounter
--- OUTSIDE RECORDS SUMMARY | 2023-11-14 18:00 | XMS_ITS | Encounter Summary ---
Author Name Unknown Organization [facility] Address [address] [place] [address] Care Team Providers Care Guest Experience Manager Name Role Phone Elsewhere, Pcp Primary Care Provider Unavailabl e Encounter Details Date Type Department Care Team (Late st Contact Info) Description 08/14/2023 Clinical Communication Division of Thoracic Surgery in [place], [place] [address] [place] [address] Prescheduling, Provider Social History Tobacco Use Types [...] your living situation today? I have a [facility] place to live 06/10/2023 Sex and Gender Information Value Date Recorded Sex Assigned at Female 06/08/2023 11:11 AM SUPERVISOR TAPING Gender Identity Female 06/08/2023 11:11 AM SUPERVISOR TAPING Sexual Orientation Straight 06/08/2023 11 :11 AM SUPERVISOR TAPING documented as of this encounter Plan of Treatment Not on file documented as of this encounter Visit Diagnoses Not on filedocumented in this encounter Care Teams Guest Experience Manager Relationship Specialty Start Date End Date Elsewhere, Pcp PCP - General Internal Medicine 06/12/23 documented as of this encounter
--- OUTSIDE RECORDS SUMMARY | 2023-11-14 18:00 | XMS_ITS | Encounter Summary ---
Author Name Unknown Organization 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 [address] [place] [phone] [facility] Referral ID Status Reason Start Date Expiration Date Visits Re quested Visits Authorized [id number] Closed 08/07/2023 08/06/2024 1 1 Encounter Details Date Type Department Care Team (Latest Contact Info) Description 10/22/2023 9:00 AM CDT Comprehensive Visit Division of Colon and Rectal Surgery in [place], [place] [address] [place] [phone] Sean Rodriguez M.B., Ch.B., M.P.H. 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 I have a [facility] place to live 06/10/2023 Sex and Gender Information Value Date Recorded Sex Assigned at Female 06/08/2023 11:11 AM DOUGHNUT ICER MACHINE Gender Identity Female 06/08/2023 11:11 AM DOUGHNUT ICER MACHINE Sexual Orientation Straight 06/08/2023 11 :11 AM DOUGHNUT ICER MACHINE documented as of this encounter Consult Notes * Sean Rodriguez M.B., Ch.B., M.P.H. - 10/22/2023 9:00 AM CDT OUTPATIENT CONSULTATION Division of Colon & Rectal Surgery Katharine Shell is a 78 y.o. y.o. female who was referred by Cande Ruiz M.D.. SUBJECTIVE Katharine's history is well documented by the referring provider above and in the summary below. Their self-reported IMPACT Questionnaire is as scanned into their medical records. Please refer to this for specific symptomatology. The following portions of the patient's history were reviewed and updated as appropriate: allergies, current medications, family history, medical history, social history, surgical history and problem list. Of note she has hypertension, hyperlipidemia, CKD stage 3, cystocele and rectocele repair, and cervical degenerative disc disease. She presented to ED in July with small bowel obstruction. OBJECTIVE Clinical Examination Digital rectal examination revealed low to normal resting and squeeze pressures. Sphincter thin throughout but no palpable defect. Rectocele, moderate. Large defect in the right levator plate. Grade 3 intussusception on anoscopy. Investigations MR Proctogram Dynamic and Sphincter Eval without IV Contrast Result Date: 10/08/2023 EXAM: MR PROCTOGRAM DYNAMIC AND SPHINCTER EVAL WITHOUT IV CONTRAST ANATOMY: Endoanal imaging of theanal sphincters was performed. The external anal sphincter diffuse thinning. The internal anal sphincter thinning involving the left anterolateral quadrant at 12-4 o'clock. Puborectalis thinning of the left limb with bilateral tear. INCIDENTAL FINDINGS: Hysterectomy. Colonic diverticulosis. Trace pelvic fluid. Urinary bladder Bilateral posterolateral diverticula. Right inguinal hernia containing fluid. FUNCTION: Dynamic MR proctography was performed. Anal canal is coapted at rest. Anorectal angle measures 134 degrees at rest, 119 degrees during squeeze, and 146 degrees during simulated defecation, indicating adequate squeeze function Anorectal junction is located 5.2 cm below pubococcygeal line at rest, 4.1 cm below at squeeze, and 7.3 cm below the pubococcygeal line at maximum descent. Indicating excessive pelvic floor descent at rest and with defecation. During simulated defecation, approximately 90% of rectal contents are evacuated. There is a 3 cm anterior rectocele, completely evacuating with defecation. Intrarectal intussusception. There is a large enterocele, bulging into theintroitus. Bladder neck is located 1.0 cm below the pubococcygeal line at rest. Bladder neck .descends to a maximum of 1.7 cm below the pubococcygeal line. 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 The vaginal [place] is located 3.2 cm above the pubococcygeal line at rest and descending stairs 0.7 cm above thecoccygeal line with straining.. Coronal and anatomic images of the levator at rest and during Valsalva demonstrate asymmetric bulging of lower right levator muscle at rest, exacerbated with straining. 1. Asymmetric thinning of anal sphincter complex. [...] at rest, exacerbated with straining. Urethral hypermobility. CT Abdomen Pelvis with IV Contrast Result Date: 08/24/2023 EXAM: CT ABDOMEN PELVIS WITH IV CONTRAST COMPARISON: None. FINDINGS: There are a few mildly dilatedloops of small bowel in the mid and upper abdomen without a discrete point of transition. Large hiatal hernia that contains the entire stomach and portion of the transverse colon. Of note the top of the hiatal hernia is not included on this abdominal CT. Suggestion of mural thickening involving thestomach, without significant soft tissue stranding in the surrounding fat. The loop of colon withinthe chest is not pathologically dilated and does not appear acutely inflamed. High density presumedoral contrast, within several nondilated loops of small [...] greatest in the right lower lobe with chronic-appearing compression from the large hiatal hernia. 1. No definite acute findings in the abdomen. No findings of significant bowel obstruction 2. Largenonobstructive hiatal hernia fat-containing the entire stomach and a portion of transverse colon. 3. Small amount of ascites in the pelvis of uncertain etiology. 4. Mild gallbladder distention without evidence of cholecystitis. 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 Her history is well documented by Dr. Ruiz. She has a background of a vaginal hysterectomy, anterior and posterior repairs in the 80s, with redo repairs in the mid 90s alongside a cystocele repair. She has had recurrent small-bowel obstruction with a recent admission to the emergency room in July there was managed conservatively. Her background is otherwise as documented above. Her main concern is one of difficulty with defecation. She has had longstanding constipation with bowel movements every 2 to 3 days. She we will strain and pass what she describes as solid stool, often having to splint. She feels as if she has rectal prolapse but is certainly aware of vaginal prolapse though this is not overly bothersome. She also notes urinary urgency and frequency with the occasional stress incontinence. His symptoms are as otherwise documented in her IMPACT form which was scanned into her medical records. Examination and imaging is as documented above. Of note she does seem to have a large right levatordefect, grade 3 rectal prolapse and a significant enterocele. In the first instance I would like to obtain an over read of the CT undertaken during her recent emergency admission. Based on my review the obstruction seems to be in the pelvis the need the relatedto her levator hernia or adhesional disease. I took the opportunity to review conservative management strategies. We discussed optimization of bowel movements including hydration and fibre. With regards to the latter, I have recommended supplemental psyllium starting with 2 rounded teaspoons in 8 ounces of water daily allowing 2 weeks to let the gastrointestinal system and microbiome adjust to the additional fiber before changing dose. If tolerated, but the benefits are less than hoped for, shemay double the dose. Further, we reviewed the role of habit training, biofeedback and pelvic floor musculoskeletal therapy with the assistance of a pelvic floor physiotherapist. Finally, I emphasizedthe importance of exercising 30 minutes a day (vigorous aerobic) to help motility and GI-brain function. I did discuss potential operative management including the levator hernia repair and a ventral rectopexy. I would like to review her at our pelvic floor multidisciplinary meeting which will the in mid October. 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
--- OUTSIDE RECORDS SUMMARY | 2023-11-14 18:00 | XMS_ITS | Encounter Summary ---
Author Name Unknown Organization [facility] Address [address] [place] [address] Care Team Providers Care Music Assistant Name Role Phone Elsewhere, Pcp Primary Care Provider Unavailabl e Reason for Referral * MRI/CAT/PET Scan (Routine) - Closed Specialty Diagnoses / Procedures Referred By Lindaac t Referred To Contact Radiology Diagnoses Hernia Perineal Hernia Dysfunction Pelvic Floor Female Constipation Other Female Genital Prolapse Procedures MR Proctogram Dynamic and Sphincter Eval without IV Contrast MR Proctogram Dynamic and Sphincter Eval without IV Contrast Cande Ruiz M.D. 200 [place] [phone] [facility] Referral ID Status Reason Start Date Expiration Date Visits Re quested Visits Authorized [id number] Closed 08/07/2023 08/06/2024 1 1 Reason for Visit * MRI/CAT/PET Scan (Routine) - Closed Specialty Diagnoses / Procedures Referred By Contac t Referred To Contact Radiology Diagnoses Hernia Perineal Hernia Dysfunction Pelvic Floor Female Constipation Other Female Genital Prolapse Procedures MR Proctogram Dynamic and Sphincter Eval without IV Contrast MR Proctogram Dynamic and Sphincter Eval without IV Contrast Cande Ruiz M.D. [address] [place] [phone] [facility] Referral ID Status Reason Start Date Expiration Date Visits Re quested Visits Authorized [id number] Closed 08/07/2023 08/06/2024 1 1 Encounter Details Date Type Department Care Team (Latest Contact Info) Description 10/08/2023 6:18 AM CDT - 10/08/2023 11:59 PM CDT Hospital Encounter Department of Radiology, [facility], in [place], [place] [address] [place] [phone] Cande Ruiz M.D. [address] [place] [phone] Hernia Perineal; Hernia; Dysfunction Pelvic Floor Female; Constipation; Other Female Genital Prolapse Discharge Disposition: Home or Self Care Social [...] your living situation today? I have a [facility] place to live 06/10/2023 Sex and Gender Information Value Date Recorded Sex Assigned at Female 06/08/2023 11:11 AM MILK CONDENSER Gender Identity Female 06/08/2023 11:11 AM MILK CONDENSER Sexual Orientation Straight 06/08/2023 11 :11 AM MILK CONDENSER documented as of this encounter Medications at Time of Discharge Medication Sig Dispensed Refills Start Date End Date acetaminophen (TYLENOL) 500 mg tablet Take 500 mg by mouth every 6 (six) hours as needed for pain. cholecalciferol (VITAMIN D3) 50 mcg (2,000 Unit) capsule Take 50 mcg by mouth daily. co-enzyme Q-10 (CO Q-10) 100 mg capsule Take 100 mg by mouth daily. estradioL (ESTRACE) 0.1 mg/g (0.01%) vaginal creamIndications:Urgency Urinary,Atrophy Vagina Due To Estrogen Deficiency Insert 1 g into the vagina 3 (three) times a week. Place small amount directly on urethra and 1 g inside vagina every night for 2 weeks. Then use 2 nights a week thereafter. 42.5 g 11 06/15/2023 hydrOXYzine (ATARAX) 25 mg tablet Take 25 mg by mouth every 6 (six) hours as needed. 03/12/2022 levothyroxine (SYNTHROID, LEVOTHROID) 50 mcg tablet Take 50 mcg by mouth every morning before breakfast. 05/13/2023 lisinopriL (PRINIVIL,ZESTRIL) 10 mg tablet Take 10 mg by mouth daily. simvastatin (ZOCOR) 10 mg tablet Take 10 mg by mouth at bedtime. ZINC ORAL Take 50 mg by mouth daily. documented as of this encounter Nursing Notes * Yadira Connor R.N. - 10/08/2023 6:45 AM CDT Gel Administration Screening: * If also ordered with Glucagon, perform that screening as well. If not ordered with Glucagon, verify with Technologist if this may have been an oversight and Glucagon is wanted. Does patient have an allergy or sensitivity to Lidocaine or other amide-type (Prilocaine, Mepivacaine, Bupivacaine, Levobupivacaine, Articaine, Ropivacaine) local anesthetics? NO If no, continue Prostate exams only: Does patient have a latex allergy? NO If no, administer as ordered and outlined in medication reference document. * Yadira Connor R.N. - 10/08/2023 6:45 AM CDT Rectal Administration Screening: * If also ordered with Glucagon, perform that screening as well. If not ordered with Glucagon, verify with Technologist if this may have been an oversight and Glucagon is wanted (Rectal exams typically use Glucagon). Does patient have known or suspected rectal perforation? NO If no, continue. Has patient had past rectal surgeries? YES If no, continue. Prepare and administered as ordered and outlined in medication reference document. documented in this encounter Plan of Treatment Not on file documented as of this encounter Procedures Procedure Name Priority Date/Time Associated Diagnosis Comments MR PROCTOGRAM DYNAMIC AND SPHINCTER EVAL WITHOUT IV CONTRAST RAD - Routine (most inpatients and all outpatients) 10/08/2023 8:13 AM CDT Hernia Perineal Hernia Dysfunction Pelvic Floor Female Constipation Other Female Genital Prolapse documented in this encounter Results * MR Proctogram Dynamic and Sphincter Eval [...] line. 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 The vaginal [place] is located 3.2 cm above the pubococcygeal [...] pubococcygealline. 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 The vaginal [place] is located 3.2 cm above the pubococcygeal [...] exacerbated withstraining. Urethral hypermobility. Cande Ruiz M.D. IMDavid MRI PROCEDURES documented in this encounter Visit Diagnoses Diagnosis Hernia Perineal Hernia Dysfunction Pelvic Floor Female Constipation Other Female Genital Prolapse documented in this encounter Administered Medications Inactive Administered Medications - up to 3 most recent administrations Medication Order MAR Action Action Date Dose Rate Site lidocaine HCL 2 % topical jelly 5 mL (GLYDO) 5 mL, rectal, Once, On Sun10/08/23 at 0715, For 1 dose, Imaging Protocol Orders, Use as directed. Given 10/08/2023 6:55 AM CDT 5 mL ultrasound gel topical gel 60-180 mL 60-180 mL, rectal, Once, On Sun10/08/23 at 0715, For 1 dose, Imaging Protocol Orders, Dose per Radiant Medication Guidelines Given 10/08/2023 7:31 AM CDT 180 mL documented in this encounter Care Teams Music Assistant Relationship Specialty Start Date End Date Elsewhere, Pcp PCP - General Internal Medicine 06/12/23 documented as of this encounter
--- OUTSIDE RECORDS SUMMARY | 2023-11-14 18:00 | XMS_ITS | Encounter Summary ---
Author Name Unknown Organization [facility] Address [address] [place] [address] Care Team Providers Care Recorder Helper Gravity Prospecting Name Role Phone Elsewhere, Pcp Primary Care Provider Unavailabl e Reason for Visit * Reason Onset Date Comments Pre-visit Intake 08/23/2023 Encounter Details Date Type Department Care Team (Latest Contact Info) Description 08/23/2023 10:00 AM ASBESTOS CEMENT SHEET SUPERVISOR Clinical Communication Virtual Review in [place], [place] [address] [place] [address] Pre-visit Intake Social History Tobacco Use Types Packs/Day Years Used Date Smoking Tobacco: Former Smokeless Tobacco: Never Tobacco Cessation:Counseling Given: Not [...] your living situation today? I have a [facility] place to live 06/10/2023 Sex and Gender Information Value Date Recorded Sex Assigned at Female 06/08/2023 11:11 AM ASBESTOS CEMENT SHEET SUPERVISOR Gender Identity Female 06/08/2023 11:11 AM ASBESTOS CEMENT SHEET SUPERVISOR Sexual Orientation Straight 06/08/2023 11 :11 AM ASBESTOS CEMENT SHEET SUPERVISOR documented as of this encounter Plan of Treatment Not on file documented as of this encounter Visit Diagnoses Not on filedocumented in this encounter Care Teams Recorder Helper [employer]ity Prospecting Relationship Specialty Start Date End Date Elsewhere, Pcp PCP - General Internal Medicine 06/12/23 documented as of this encounter
--- OUTSIDE RECORDS SUMMARY | 2023-11-14 18:00 | XMS_ITS | Encounter Summary ---
Author Name Unknown Organization [facility] Address [address] [place] [address] Care Team Providers Care Book Store Associate Name Role Phone Elsewhere, Pcp Primary Care Provider Unavailabl e Reason for Visit * Outpatient (Routine) - Closed Specialty Diagnoses / Procedures Referred By Hi steiner Referred To Contact General Surgery Diagnoses Hernia Femoral Cande Ruiz M.D. [address] [place] [address] [facility] Referral ID Status Reason Start Date Expiration Date Visits Re quested Visits Authorized [id number] Closed 08/07/2023 08/06/2024 1 1 Encounter Details Date Type Department Care Team (Latest Contact Info) Description 11/08/2023 2:30 PM CDT Comprehensive Visit Division of Metabolic and Abdominal Wall Reconstructive Surgery in [place], [place] [address] [place] [address] Karine Klein M.D. [address] [place] [phone] Hernia Femoral Social History Tobacco Use Types Packs/Day Years Used Date Smoking Tobacco: Former Passive Smoke Exposure: Past Smokeless Tobacco: Never Alcohol Use Standard Drinks/Week Comments Not Currently 0 (1 standard drink = 0.6 oz pure alcohol) Only at celebrations might have 1 drink Overall Financial Resource Strain (CARDIA) Ehsane r Date Recorded How hard is it [...] your living situation today? I have a [facility] place to live 06/10/2023 Sex and Gender Information Value Date Recorded Sex Assigned at Female 06/08/2023 11:11 AM TOOL ADJUSTER Gender Identity Female 06/08/2023 11:11 AM TOOL ADJUSTER Sexual Orientation Straight 06/08/2023 11 :11 AM TOOL ADJUSTER documented as of this encounter Progress Notes * Esme Xavier M.D. - 11/08/2023 2:30 PM CDT Images from the original note were not included. @DATE@ 2-813 CHIEF COMPLAINT/REASON FOR VISIT Katharine Shell is a pleasant 78 y.o. female who presents for evaluation of femoral hernia. She was referred by Cande Ruiz M.D.. HISTORY OF PRESENT ILLNESS Ms. Shell was referred for evaluation of left femoral hernia. Patient has no symptoms associated to her left femoral hernia. Past medical history is relevant for pelvic floor dysfunction for which she is being followed by Colorectal Surgery and OBGYN. Current issues started more than a year ago with recurrent UTIs, her last one reportedly 1 year ago and no antibiotics since then. She also has chronic constipation due to this and initially took Miralax daily but is now taking Metamucil daily. She had a recent admission to the ED in July 2023 for small bowel obstruction that was managed non-operatively. She was last seen by Dr. Rodriguez of [facility] on 10/22/2023 who discussed review of her case with pelvic floor multidisciplinary meeting in mid October, as well as potential operative management including the levator hernia repair and a ventral rectopexy. Past surgical history: vaginal cystocele, rectocele, hysterectomy repair in 1982 at OSH, repeat vaginal cystocele and rectocele repair in 1995 at OSH, knee arthroscopy, and thyroid surgery 2022. Other past medical history: hypertension, hyperlipidemia, CKD stage 3, hypothyroidism, and cervicaldegenerative disc disease. She quit smoking in 1977, smoked for around 4 years, less than 1 pack a day. There is no height or weight on file to calculate BMI. The patient does not use nicotine products. The patient is not diabetic. The patient is not on immunosuppressant medications. The patient is not on blood thinners The indication for blood thinner is: NA REVIEW OF SYSTEMS All pertinent items noted in HPI. HOME MEDICATIONS Prior to Admission medications Medication Sig Start Date End Date Taking? Authorizing Provider acetaminophen (TYLENOL) 500 mg tablet Take 500 mg by mouth every 6 (six) hours as needed for pain. Provider, Historical calcium carbonate (calcium carbonate EX) 750 mg (300 mg calcium) chewable tablet Chew 1 tablet as needed for indigestion or heartburn. Provider, Historical cholecalciferol (VITAMIN D3) 50 mcg (2,000 Unit) capsule Take 50 mcg by mouth daily. Provider, Historical co-enzyme Q-10 (CO Q-10) 100 mg capsule Take 100 mg by mouth daily. Provider, Historical estradioL (ESTRACE) 0.1 mg/g (0.01%) vaginal cream Insert 1 g into the vagina 3 (three) times a week. Place small amount directly on urethra and 1 g inside vagina every night for 2 weeks. Then use 2 nights a week thereafter. 06/15/23 Drea Pepe M.D. hydrOXYzine (ATARAX) 25 mg tablet Take 25 mg by mouth every 6 (six) hours as needed. 03/12/22 Provider, Historical levothyroxine (SYNTHROID, LEVOTHROID) 50 mcg tablet Take 50 mcg by mouth every morning before breakfast. 05/13/23 Provider, Historical lisinopriL (PRINIVIL,ZESTRIL) 10 mg tablet Take 10 mg by mouth daily. Provider, Historical omega-3 fatty acids-fish oil 300-1,000 mg per capsule Take 1-2 g by mouth daily. Provider, Historical polyethylene glycol (Miralax) 17 gram/dose oral powder as needed. Provider, Historical psyllium seed (METAMUCIL SUGAR FREE ORAL) Take 2 Scoops by mouth daily. Provider, Historical simvastatin (ZOCOR) 10 mg tablet Take 10 mg by mouth at bedtime. Provider, Historical UNABLE TO FIND 2 (two) times a day. Med Name: CHICKEN STERNUM CARTILAGE Provider, Historical ZINC ORAL Take 50 mg by mouth daily. Provider, Historical ALLERGIES Allergies Allergen Reactions Sulfa (Sulfonamide Antibiotics) Rash Sulfamethoxazole-Trimethoprim Rash PAST MEDICAL/SURGICAL HISTORY Past Medical History: Diagnosis Date Anxiety Generalized Disorder 1999 Cataract 2001 Gastroesophageal Reflux Disease NOS Hyperlipidemia Hypertension NOS Hyperthyroidism 2021 Renal Disease ? Past Surgical History: Procedure Laterality Date BLADDER SURGERY 1982 and 1995 COLON SURGERY 1982 & 1995 OTHER SURGICAL HISTORY Knee arthroscopy 2019 SUPRACERVICAL HYSTERECTOMY 1982 had hysterotony - nkt sure what all removed THYROID SURGERY 2021 PHYSICAL EXAM Gen: alert and oriented, in no acute distress Lungs: normal breathing effort, on room air Abd: soft, non-tender, non-distended : palpable left femoral hernia during Valsalva maneuvers Ext: no ulcers or edema Leukocytes Date Value Ref Range Status 08/13/2023 12.5 (H) 3.4 - 9.6 x10(9)/L Final Hemoglobin Date Value Ref Range Status 08/13/2023 14.0 11.6 - 15.0 g/dL Final Hematocrit Date Value Ref Range Status 08/13/2023 43.4 35.5 - 44.9 % Final MCV Date Value Ref Range Status 08/13/2023 90.4 78.2 - 97.9 fL Final Platelet Count Date Value Ref Range Status 08/13/2023 229 157 - 371 x10(9)/L Final Imaging: Interpretation of Outside CT Abdomen and or Pelvis Result Date: 10/23/2023 EXAM: INTERPRETATION OF OUTSIDE CT ABDOMEN AND OR PELVIS with IV contrast 08/13/2023. COMPARISON: Outside CT 07/11/2023. FINDINGS: Slight interval increase in dilatation of multiple loops of fluid-filled proximal and mid small bowel (now measuring [...] spine. Mild anterolisthesis of L4 on L5. 1. Mild interval progression of a distal small bowel obstruction, likely on the basis of adhesions.2. Very large esophageal hiatal hernia, which contains almost the entire stomach. 3. Marked laxity of the pelvic floor musculature, predominantly on the right. 4. Nonspecific tiny amount of ascites is not significantly changed in volume. MR Proctogram Dynamic and Sphincter Eval without [...] line. 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 The vaginal Smith is located 3.2 cm above the pubococcygeal [...] gallbladder distention without evidence of cholecystitis. ASSESSMENT AND PLAN Ms. Shell is a 78 y.o. female that present with several hernias including left femoral hernia, right inguinal hernia, large nonobstructive hiatal hernia. She is referred to us to discuss repair of left femoral hernia in conjunction with CRS and OBGYN. She denies family history of hernia disease. We discussed waiting for the multidisciplinary's committee decision regarding surgery to decide on how to proceed with her left femoral hernia. If teams decide to proceed with surgery, we can discuss surgical options for femoral hernia repair. If no surgery is deemed appropriate, we can discuss follow up of her femoral hernia. Patient agrees with plan. All questions were answered. Esme Siddiqui M.D. Associated attestation - Karine Klein M.D. - 11/12/2023 6:09 PM CDT I saw and evaluated the patient, participating in the cam portions of the service. I reviewed the resident/fellow???s note. I agree with the resident/fellow???s findings and plan. Pleasant 78 y/o F with pelvic floor dysfunction and a left fluid containing inguinal hernia. She isbeing evaluated for a perineal hernia repair and possible surgical intervention for her pelvic organ prolapse. We will attend the pelvic floor multidisciplinary meeting. My preference would to not perform a concomitant procedure, however if they feel that is beneficial then we would perform and open femoral hernia repair. All questions answered. documented in this encounter Plan of Treatment Not on file documented as of this encounter Visit Diagnoses Diagnosis Hernia Femoral documented in this encounter Care Teams Book Store Associate Relationship Specialty Start Date End Date Elsewhere, Pcp PCP - General Internal Medicine 06/12/23 documented as of this encounter
--- OUTSIDE RECORDS SUMMARY | 2023-11-14 18:00 | XMS_ITS ---
Author Name Unknown Organization [facility] Address [address] [place] [address] Care Team Providers Care Child Welfare Assistant Name Role Phone Unavailable Unavailable Unavailable Surgery Details Not on file Complications Check Surgery Details section. Procedure Estimated Blood Loss Check Surgery Details section. Procedure Findings Check Surgery Details section. Procedure Specimens Taken Check Surgery Details section.
--- OUTSIDE RECORDS SUMMARY | 2023-11-14 18:00 | XMS_ITS | Encounter Summary ---
Author Name Unknown Organization [facility] Address [address] [place] [address] Care Team Providers Care Cloth Spreader Screen Printing Name Role Phone Elsewhere, Pcp Primary Care Provider Unavailabl e Reason for Visit * Reason Onset Date Comments Communication 08/16/2023 AMM Encounter Details Date Type Department Care Team (Latest Contact Info) Description 08/16/2023 Clinical Communication Department of Obstetrics and Gynecology, Division of Urogynecology in [place], [place] [address] [place] [address] Cande Ruiz M.D. [address] [place] [phone] Communication (AMM) Social History Tobacco Use Types [...] your living situation today? I have a [facility] place to live 06/10/2023 Sex and Gender Information Value Date Recorded Sex Assigned at Female 06/08/2023 11:11 AM TOUR BUS DRIVER Gender Identity Female 06/08/2023 11:11 AM TOUR BUS DRIVER Sexual Orientation Straight 06/08/2023 11 :11 AM TOUR BUS DRIVER documented as of this encounter Plan of Treatment Not on file documented as of this encounter Visit Diagnoses Not on filedocumented in this encounter Care Teams Cloth Spreader Screen Printing Relationship Specialty Start Date End Date Elsewhere, Pcp PCP - General Internal Medicine 06/12/23 documented as of this encounter
--- OUTSIDE RECORDS SUMMARY | 2023-11-14 18:01 | XMS_ITS | Encounter Summary ---
Author Name Unknown Organization [facility] Address [address] [place] [address] Care Team Providers Care Head Of Transport Logistics Name Role Phone Elsewhere, Pcp Primary Care [...] your living situation today? I have a [facility] place to live 06/10/2023 Sex and Gender Information Value Date Recorded Sex Assigned at Female 06/08/2023 11:11 AM LOCATION AND MEASUREMENT TECHNICIAN Gender Identity Female 06/08/2023 11:11 AM LOCATION AND MEASUREMENT TECHNICIAN Sexual Orientation Straight 06/08/2023 11 :11 AM LOCATION AND MEASUREMENT TECHNICIAN documented as of this encounter Plan of Treatment Not on file documented as of this encounter Visit Diagnoses Not on filedocumented in this encounter Care Teams Head Of Transport Logistics Relationship Specialty Start Date End Date Elsewhere, Pcp PCP - General Internal Medicine 06/12/23 documented as of this encounter
--- OUTSIDE RECORDS SUMMARY | 2023-11-14 18:01 | XMS_ITS | Encounter Summary ---
Author Name Unknown Organization [facility] Address [address] [place] [address] Care Team Providers Care State Highway Police Officer Name Role Phone Elsewhere, Pcp Primary Care Provider Unavailabl e Reason for Referral * Outpatient (Routine) - Closed Specialty Diagnoses / Procedures Referred By Hi steiner Referred To Contact Thoracic Surgery Diagnoses Hernia Hiatal Elizabeth Hutton P.A.-C. [address] [place] [phone] [facility] Referral ID Status Reason Start Date Expiration Date Visits Re quested Visits Authorized [id number] Closed 08/13/2023 08/12/2026 1 1 TRONEURODIAGNOSTIC TECHNOLOGIST Reason for Visit * Reason Comments Abdominal Pain Encounter Details Date Type Department Care Team (Late st Contact Info) Description 08/13/2023 4:14 PM ELECTRONEURODIAGNOSTIC TECHNOLOGIST - 08/13/2023 9:14 PM ELECTRONEURODIAGNOSTIC TECHNOLOGIST Emergency [facility] Emergency Department [address] [place] [phone] Elizabeth Hutton P.A.-C. [address] [place] [phone] Hernia Hiatal (Primary Dx); Bilateral Femoral Hernia [...] your living situation today? I have a [facility] place to live 06/10/2023 Sex and Gender Information Value Date Recorded Sex Assigned at Female 06/08/2023 11:11 AM ELECTRONEURODIAGNOSTIC TECHNOLOGIST Gender Identity Female 06/08/2023 11:11 AM ELECTRONEURODIAGNOSTIC TECHNOLOGIST Sexual Orientation Straight 06/08/2023 11 :11 AM ELECTRONEURODIAGNOSTIC TECHNOLOGIST documented as of this encounter Last Filed Vital Signs Vital Sign Reading Time Taken Comments Blood Pressure 147/73 08/13/2023 7:00 PM ELECTRONEURODIAGNOSTIC TECHNOLOGIST Pulse 79 08/13/2023 7:49 PM ELECTRONEURODIAGNOSTIC TECHNOLOGIST Temperature 37 ??C (98.6 ??F) 08/13/2023 4:09 PM ELECTRONEURODIAGNOSTIC TECHNOLOGIST Respiratory Rate 18 08/13/2023 4:09 PM ELECTRONEURODIAGNOSTIC TECHNOLOGIST Oxygen Saturation 96% 08/13/2023 7:49 PM ELECTRONEURODIAGNOSTIC TECHNOLOGIST Inhaled Oxygen Concentration - - Weight - - Height - - Body Mass Index - - documented in this encounter Discharge Instructions * Discharge Instructions* Elizabeth Hutton P.A.-C. - 08/13/2023 8:28 PM ELECTRONEURODIAGNOSTIC TECHNOLOGIST I spoke with the thoracic surgeon at [facility], both surgeries can not be performed at the same time You will need to follow-up with thoracic surgery for the hiatal hernia Please schedule your procedure with local surgeon for the bilateral femoral hernia Please go to the nearest emergency department if you develop chest pain or shortness of breath, or worsening abdominal pain TRONEURODIAGNOSTIC TECHNOLOGIST * Attachments The following attachments cannot be sent through Care Everywhere. * Femoral Hernia Adult (Djiboutian) * Hernia Adult (Djiboutian) documented in this encounter Medications at Time [...] daily. estradioL (ESTRACE) 0.1 mg/g (0.01%) vaginal creamIndications:Urgen cy Urinary,Atrophy Vagina Due To Estrogen Deficiency Insert [...] ORAL Take 50 mg by mouth daily. benzonatate (TESSALON PERLES) 100 mg capsule Take 100 mg by mouth 2 (two) times a day as needed. 06/06/2023 08/23/2023 calcium carbonate (calcium carbonate EX) 750 mg (300 mg calcium) chewable tablet Chew 1 tablet as needed for indigestion or heartburn. 08/23/2023 cranberry 500 mg capsule Take 1 capsule by mouth daily. 08/23/2023 documented as of this encounter ED Notes [...] She reported to her local ED in [place] this morning whereshe was found to be COVID positive. A CT was also obtained which showed a small bowel obstruction and perineal hernia. Given her results, her local ED referred her to [facility] ED for further evaluation. [...] History provided by: Patient and medical records molded goods controls operator needed/used: no REVIEW OF SYSTEMS Constitutional: Positive [...] creatinine, no electrolyte abnormalities requiring emergent repletion. 175 Lipase: Lipase, S 26 175 Hepatic Function Panel(!): Bilirubin, Total, S 0.5 Bilirubin, Direct, S <0.2 Aspartate Aminotransferase (AST), S 22 Alanine Aminotransferase (ALT), S 26 Alkaline Phosphatase, S 89 Albumin, S 4.1 Protein, Total, S 6.0(!) 175 Lactate: Lactate 1.1 1950 Discussed case with [...] with thoracic surgery Final Diagnoses: as of 08/14/23913 Hernia Hiatal Bilateral Femoral Hernia Without Obstruction [...] and complete. Elizabeth Hutton P.A.-C. 08/14/23 0917 TRONEURODIAGNOSTIC TECHNOLOGIST documented in this encounter Plan of Treatment Scheduled Referrals Name Type Priority Associated Diagnoses Orde r Schedule POST ED VISIT Thoracic Surgery Outpatient Referral Routine Hernia Hiatal Expected: 08/14/2023 (Approximate), Expires: 11/11/2024 documented as of this encounter Procedures Procedure Name Priority Date/Time Associated Diagnosis Comments CT ABDOMEN PELVIS WITH IV CONTRAST RAD - Semiurgent (Fast; most ED patients; some inpatients) 08/13/2023 6:10 PM ELECTRONEURODIAGNOSTIC TECHNOLOGIST HEPATIC FUNCTION PANEL, S STAT 08/13/2023 4:46 PM ELECTRONEURODIAGNOSTIC TECHNOLOGIST CBC WITH DIFFERENTIAL, B STAT 08/13/2023 4:46 PM ELECTRONEURODIAGNOSTIC TECHNOLOGIST LIPASE, S/P STAT 08/13/2023 4:46 PM ELECTRONEURODIAGNOSTIC TECHNOLOGIST LACTATE, B/P STAT 08/13/2023 4:46 PM ELECTRONEURODIAGNOSTIC TECHNOLOGIST BASIC METABOLIC PANEL, S/P STAT 08/13/2023 4:46 PM ELECTRONEURODIAGNOSTIC TECHNOLOGIST documented in this encounter Results * CT Abdomen Pelvis with IV Contrast (08/13/2023 6:10 PM ELECTRONEURODIAGNOSTIC TECHNOLOGIST) Anatomical Region Laterality Modality Abdomen, Pelvis, Abdominal R ST LOS, Abdominal ARZ LOS, Abdominal FLA LOS N/A Computed Tomograp hy, Computed Tomography 08/13/2023 5:45 PM ELECTRONEURODIAGNOSTIC TECHNOLOGIST Impressions 08/13/2023 7:19 PM ELECTRONEURODIAGNOSTIC TECHNOLOGIST 1. No definite acute findings in the abdomen. No findings of significant bowel obstruction 2. Large nonobstructive hiatal hernia fat-containing the entire stomach and a portion of transverse colon. 3. Small amount of ascites in the pelvis of uncertain etiology. 4. Mild gallbladder distention without evidence of cholecystitis. Narrative 08/13/2023 7:19 PM ELECTRONEURODIAGNOSTIC TECHNOLOGIST EXAM: ??CT ABDOMEN PELVIS WITH IV CONTRAST COMPARISON: ??None. FINDINGS: ?? There are a few mildly dilated loops of small bowel [...] chronic-appearing compression from the large hiatal hernia. Elizabeth Hutton P.A.-C. IMG CT PROCEDURES * Lipase (08/13/2023 4:46 PM ELECTRONEURODIAGNOSTIC TECHNOLOGIST) Lipase, S 26 13 - 60 U/L 08/13/2023 5: 29 PM ELECTRONEURODIAGNOSTIC TECHNOLOGIST DTL Blood (Blood, Venous) 08/13/2023 4:46 PM ELECTRONEURODIAGNOSTIC TECHNOLOGIST 08/13/2023 5:07 PM ELECTRONEURODIAGNOSTIC TECHNOLOGIST Elizabeth Hutton P.A.-C. LAB BLOOD ADD-ON Performing Organization Address City/[facility]/ZIP Co de Phone Number [facility] [address] [place] [address], [facility] DTL [facility] [address] [place] [address] * Lactate (08/13/2023 4:46 PM ELECTRONEURODIAGNOSTIC TECHNOLOGIST) Lactate, P 1.1 0.5 - 2.2 mmol/L 08/13/2023 5:07 PM ELECTRONEURODIAGNOSTIC TECHNOLOGIST STMA Blood (Blood, Venous) 08/13/2023 4:46 PM ELECTRONEURODIAGNOSTIC TECHNOLOGIST 08/13/2023 4:52 PM ELECTRONEURODIAGNOSTIC TECHNOLOGIST Elizabeth Hutton P.A.-C. LAB BLOOD NON ADD -ON [facility] [address] [place] [address], [facility] STMA [facility] [address] [place] [address] * (ABNORMAL) Hepatic Function Panel (08/13/2023 4:46 PM ELECTRONEURODIAGNOSTIC TECHNOLOGIST) Bilirubin, Total, S 0.5 0.0 - 1.2 mg/dL 08/13/2023 5:29 PM ELECTRONEURODIAGNOSTIC TECHNOLOGIST DTL Bilirubin, Direct, S <0.2 0.0 - 0.3 mg/dL 08/13/2023 5:29 PM ELECTRONEURODIAGNOSTIC TECHNOLOGIST DTL Aspartate Aminotransferase (AST), S 22 8 - 43 U/L 08/13/2023 5:29 PM ELECTRONEURODIAGNOSTIC TECHNOLOGIST DTL Alanine Aminotransferase (ALT), S 26 7 - 45 U/L 08/13/2023 5:29 PM ELECTRONEURODIAGNOSTIC TECHNOLOGIST DTL Alkaline Phosphatase, S 89 35 - 104 U/L 08/13/2023 5:29 PM ELECTRONEURODIAGNOSTIC TECHNOLOGIST DTL Albumin, S 4.1 3.5 - 5.0 g/dL 08/13/2023 5:29 PM ELECTRONEURODIAGNOSTIC TECHNOLOGIST DTL Protein, Total, S 6.0(L) 6.3 - 7.9 g/dL 08/13/2023 5:29 PM ELECTRONEURODIAGNOSTIC TECHNOLOGIST DTL Blood (Blood, Venous) 08/13/2023 4:46 PM ELECTRONEURODIAGNOSTIC TECHNOLOGIST 08/13/2023 5:07 PM ELECTRONEURODIAGNOSTIC TECHNOLOGIST Elizabeth Hutton P.A.-C. LAB BLOOD ADD-ON [facility] [address] [place] [address], [facility] DTL [facility] [address] [place] [address] * Basic Metabolic Panel (08/13/2023 4:46 PM ELECTRONEURODIAGNOSTIC TECHNOLOGIST) Potassium, P 4.5 3.6 - 5.2 mmol/L 08/13/2023 5:09 PM ELECTRONEURODIAGNOSTIC TECHNOLOGIST STMA Sodium, P 139 135 - 145 mmol/L 08/13/2023 5:09 PM ELECTRONEURODIAGNOSTIC TECHNOLOGIST STMA Chloride, P 102 98 - 107 mmol/L 08/13/2023 5:09 PM ELECTRONEURODIAGNOSTIC TECHNOLOGIST STMA Bicarbonate, P 23 22 - 29 mmol/L 08/13/2023 5:09 PM ELECTRONEURODIAGNOSTIC TECHNOLOGIST STMA Anion Gap, P 14 7 - 15 08/13/2023 5:09 PM ELECTRONEURODIAGNOSTIC TECHNOLOGIST STMA BUN (Blood Urea Nitrogen), P 14 6 - 21 mg/dL 08/13/2023 5:09 PM ELECTRONEURODIAGNOSTIC TECHNOLOGIST STMA Creatinine 0.94 0.59 - 1.04 mg/dL 08/13/2023 5:09 PM ELECTRONEURODIAGNOSTIC TECHNOLOGIST STMA Estimated GFR (eGFR) 62 >=60 mL/min/BSA 08/13/2023 5:09 PM ELECTRONEURODIAGNOSTIC TECHNOLOGIST STMA Comment: Estimated GFR calculated using the 2020 CKD_EPI creatinine equation. Calcium, Total, P 9.4 8.8 - 10.2 mg/dL 08/13/2023 5:09 PM ELECTRONEURODIAGNOSTIC TECHNOLOGIST STMA Glucose, P 99 70 - 140 mg/dL 08/13/2023 5:09 PM ELECTRONEURODIAGNOSTIC TECHNOLOGIST STMA Blood (Blood, Venous) 08/13/2023 4:46 PM ELECTRONEURODIAGNOSTIC TECHNOLOGIST 08/13/2023 4:52 PM ELECTRONEURODIAGNOSTIC TECHNOLOGIST Elizabeth Hutton P.A.-C. LAB BLOOD ADD-ON [facility] [address] [place] [address], [facility] [address] [place] [address] * (ABNORMAL) CBC with Differential, Blood (08/13/2023 4:46 PM ELECTRONEURODIAGNOSTIC TECHNOLOGIST) Hemoglobin 14.0 11.6 - 15.0 g/dL 08/13/2023 4:55 PM ELECTRONEURODIAGNOSTIC TECHNOLOGIST STMA Hematocrit 43.4 35.5 - 44.9 % 08/13/2023 4:55 PM ELECTRONEURODIAGNOSTIC TECHNOLOGIST STMA Erythrocytes 4.80 3.92 - 5.13 x10(12)/L 08/13/2023 4:55 PM ELECTRONEURODIAGNOSTIC TECHNOLOGIST STMA MCV 90.4 78.2 - 97.9 fL 08/13/2023 4:55 PM ELECTRONEURODIAGNOSTIC TECHNOLOGIST STMA RBC Distrib Width 13.4 12.2 - 16.1 % 08/13/2023 4:55 PM ELECTRONEURODIAGNOSTIC TECHNOLOGIST STMA Platelet Count 229 157 - 371 x10(9)/L 08/13/2023 4:55 PM ELECTRONEURODIAGNOSTIC TECHNOLOGIST STMA Leukocytes 12.5(H) 3.4 - 9.6 x10(9)/L 08/13/2023 4:55 PM ELECTRONEURODIAGNOSTIC TECHNOLOGIST STMA Neutrophils 10.57(H) 1.56 - 6.45 x10(9)/L 08/13/2023 4:55 PM ELECTRONEURODIAGNOSTIC TECHNOLOGIST DHPM Lymphocytes 1.14 0.95 - 3.07 x10(9)/L 08/13/2023 4:55 PM ELECTRONEURODIAGNOSTIC TECHNOLOGIST STMA Monocytes 0.68 0.26 - 0.81 x10(9)/L 08/13/2023 4:55 PM ELECTRONEURODIAGNOSTIC TECHNOLOGIST STMA Eosinophils 0.10 0.03 - 0.48 x10(9)/L 08/13/2023 4:55 PM ELECTRONEURODIAGNOSTIC TECHNOLOGIST STMA Basophils <0.03 0.01 - 0.08 x10(9)/L 08/13/2023 4:55 PM ELECTRONEURODIAGNOSTIC TECHNOLOGIST STMA Blood (Blood, Venous) 08/13/2023 4:46 PM ELECTRONEURODIAGNOSTIC TECHNOLOGIST 08/13/2023 4:52 PM ELECTRONEURODIAGNOSTIC TECHNOLOGIST Elizabeth Hutton P.A.-C. LAB BLOOD ADD-ON [facility] [address] [place] [address], [facility] STMA [facility] [address] [place] [address] DHPM [facility] [address] [place] [address] documented in this encounter Visit Diagnoses Diagnosis [...] Radiant Medication Guidelines Given 08/13/2023 5:44 PM ELECTRONEURODIAGNOSTIC TECHNOLOGIST 140 mL NaCl 0.9 % bolus 1,000 mL 1,000 mL, intravenous, at 1,000 mL/hr, Administer over 1 Hours, Once, On Sun08/13/23 at 1701, For 1 dose New Bag 08/13/2023 5:30 PM ELECTRONEURODIAGNOSTIC TECHNOLOGIST 1,000 mL 100 0 mL/hr sodium chloride (PF) 0.9 % injection 1-100 mL 1-100 mL, intravenous, Once, On Sun08/13/23 at 1734, For 1 dose, Imaging Protocol Orders Given 08/13/2023 5:44 PM ELECTRONEURODIAGNOSTIC TECHNOLOGIST 50 mL documented in this encounter Active and Recently Administered Medications Times are shown in ELECTRONEURODIAGNOSTIC TECHNOLOGIST. Scheduled Medication Order 08/11/2023 08/12/2023 08/13/2023 NaCl 0.9 % bolus 1,000 mL (COMPLETED) 1,000 mL, intravenous, at 1,000 mL/hr, Administer over 1 Hours, Once, On Sun08/13/23 at 1701, For 1 dose 1730 (New Bag - Prov ider: Jennifer Oliver R.N.)2030 (Stopped - Provider: Jennifer Oliver R.N.) sodium chloride (PF) 0.9 % injection 1-100 mL (COMPLETED) 1-100 mL, intravenous, Once, On Sun08/13/23 at [...] R.N.) documented in this encounter Care Teams State Highway Police Officer Relationship Specialty Start Date End Date Elsewhere, Pcp PCP - General Internal Medicine 06/12/23 documented as of this encounter
--- OUTSIDE RECORDS SUMMARY | 2023-11-14 18:01 | XMS_ITS | Clinical Summary ---
Author Name Unknown Organization [facility] Address [place], [place] [address] Care Team Providers Care Clothing Sales Assistant Name Role Phone Angie Cali MD Primary [...] NEEDED FOR ANXIETY OR ITCHING 30 Tablet 03/12/2022 Active simvastatin (ZOCOR) 10 mg tabletIndications:Hype [...] Hyperlipidemia 01/31/2011 HTN (hypertension) 12/30/2009 Thyroid nodule Immunizations Name Administration Dates Next Due COVID-19 Vaccine Spikevax (M oderna 50mcg/0.5mL) 12YO+ [id number] Formula PF 05/16/2023 COVID-19 vaccine (Xelerated-Bio NTech 30mcg/0.3mL) 12YO+ BIVALENT PF, MDV 05/15/2022 COVID-19 vaccine (Pfizer-Bio NTech 30mcg/0.3mL) 12YO+ RADHA-SUCROSE PF, MDV 12/09/2021 COVID-19 vaccine (Pfizer-Bio NTech 30mcg/0.3mL) PF, MDV 05/12/2021,10/12/2020,09/21/2020 Influenza, High-dose Inactivated 04/07/2016,02/2015 Influenza, IIV3 (Age >=3 years) 08/21/2012 Influenza, Inactivated AIIV4 (Age 65+ Years) Preserv Free 05/16/2023,05/15/2022,05/12/2021,2019 Influenza, Inactivated IIV3 (Age 65+ Years) Preserv Free 04/15/2019,04/11/2018,04/09/2017 Pneumococcal Poly,23-Valent (Pneumovax) 03/17/2013 Pneumococcal conj 13-Valent (Prevnar 13) 04/06/2015 Tdap 07/11/2021,01/31/2011 Zoster (Shingrix-RZV, recombinant) 05/05/2019,08 /08/2018 Zoster (Zostavax-ZVL, live) 01/31/2011 Family History Medical [...] Comments Blood Pressure 127/80 08/06/2023 3:14 PM HOP PICKER Pulse 98 08/06/2023 3:14 PM HOP PICKER Temperature 36.7 ??C (98.1 ??F) 06/20/2023 7:27 AM CS T Respiratory Rate 14 12/14/2021 1:24 PM CDT Oxygen Saturation 100% 08/06/2023 3:14 PM HOP PICKER Inhaled Oxygen Concentration - - Weight 63.7 kg (140 lb 6.4 oz) 08/06/2023 3:14 P M HOP PICKER Height 164 cm (5' 4.57) 05/16/2023 10:29 AM CDT Body Mass Index 23.68 05/16/2023 10:29 AM CDT Plan of Treatment Health Maintenance Due Date Last Done Comments Medicare Wellness for age 65+ 04/20/2021, 04/15/2019, 04/11/2018, Additional history exists Depression screening for age 12+ 03/12/2024 03/12/2023, 03/09/2023, 05/12/2021, Additional history exists Influenza for age 65+ 03/30/2024 05/16/2023 , 05/15/2022, 05/12/2021, Additional history exists BMI (ht and wt on same day) for age 18+ 05/16/2024 05/16/2023, 03/09/2023, 12/09/2021, Additional history exists Tetanus booster 07/11/2031 07/11/2021, 07/0 11/2010, 01/31/2011 Pneumococcal series for age 65+ Completed , 03/17/2013 Hepatitis C screening for ag e 18-79 Completed 04/09/2017 Zoster (shingles) series for age 50+ Completed 05/05/2019, 02/28/2019, 01/31/2011 DEXA/DXA scan for age 65+ Completed 2020, 07/25/2019, 04/11/2018, Additional history exists Tdap Completed 07/11/2021, 01/31/2011 COVID-19 vaccine series Completed 05/16/20, 05/15/2022, 12/09/2021, Additional history exists Procedures Procedure Name Priority Date/Time Associated Diagnosis Comments XR DXA BONE DENSITY 2 SITES AXIAL AND 1 SITE PERIPHERAL Routine 05/16/2021 1:26 PM CDT Hyperparathyroidism (HC) ANTI HCV Routine 04/09/2017 9:43 AM CDT Need for hepatitis C screening test from Last 3 Months or Most Recently Relevant to Health Maintenance Results * (ABNORMAL) XR DXA BONE DENSITY 2 SITES AXIAL AND 1 SITE PERIPHERAL (05/16/2021 1:26 PM CDT) Anatomical Region Laterality Modality LUMBAR SPINE Other Impressions 05/20/2021 2:38 PM CDT Osteopenia. RECOMMENDATIONS: The National Osteoporosis Foundation recommends pharmacologic treatment for patients with T-scores of -2.5 or less, patients with prior history of fragility fractures, or patients with 10-year probability of greater than 3% at hips or greater than 20% of suffering major osteoporotic fractures. Recommend continued optimization of calcium and vitamin D intake through dietary means and/or supplementation and regular exercise. Repeat scan recommended in 3-5 years. Maria A Ramachandran 05/20/2021 2:38 PM CDT For Patients: Results are automatically released to your [facility] [employer] [facility] ([employer]) account once available, in compliance with federal regulations. This means that you may see your results before your provider has had a chance to review them. Please allow 2-3 business days for your provider to comment on the results. XR DXA Bone Mineral Density (BMD) EXAM LOCATION: [address] [address] PATIENT NAME: Katharine Shell DATE OF : 1945 EXAM DATE: 05/16/2021 REQUESTING PROVIDER: Angie Cali MD GENDER AT : female HEIGHT: 5' 4.5 (05/12/2021) WEIGHT: ??154 lb 6.4 oz (05/12/2021) MENOPAUSAL STATUS: Postmenopausal RACE/ETHNICITY: White RISK FACTORS: Hyperparathyroidism and Smoking (prior) CURRENT MEDICATION FOR BONE LOSS: NONE INDICATION: Risk for secondary case of bone loss COMPARISON DATE(S): 2018 DXA scans are compared to prior studies for a patient only when the two (or more) studies were performed on the same scanner. It is not possible to compare data generated on one scanner to data from another because there are not standards in DXA equipment. This applies even if the two scanners are made by the same instructional material director. PROCEDURE: Dual-energy x-ray absorptiometry performed with routine technique. Reporting is completed in the form of a T-score. The T-score represents the standard deviation from peak bone mass based on young healthy adult. A Z-score is used for diagnosis in premenopausal women, and for men under the age of 50. FINDINGS: RESULT LUMBAR SPINE L2 - L4 ??BMD: 1.365 g/cm2 T-Score: + 1.4 Z-Score: + 3.0 Change from prior in 2018: ??Increase 4.9%. RESULTS FEMUR Left femoral neck BMD: 0.900 g/cm2 T-Score: - 1.0 Z-Score: + 0.8 Change from prior in 2018: ??Decrease 5.0%. Right femoral neck BMD: 0.974 g/cm2 T-Score: - 0.5 Z-Score: + 1.3 Change from prior in 2018: ??Decrease 7.7%. Left hip BMD: 0.953 g/cm2 T-Score: - 0.4 Z-Score: + 1.2 Change from prior in 2018: ??Decrease 0.9%. Right hip BMD: 1.011 g/cm2 T-Score: + 0.0 Z-Score: + 1.6 Change from prior in 2018: ??Decrease 0.9%. RESULT FOREARM Left Forearm distal radius BMD: 1.019 g/cm2 T-Score: + 1.6 Z-Score: + 3.9 Change from prior: ??None WHO criteria: Normal: T-score at or above -1 SD Osteopenia: T-score between -1.1 and -2.4 SD Osteoporosis: T-score at or below -2.5 SD FRAX RISK CALCULATION (USED FOR OSTEOPENIA ONLY): 10-year probability of major osteoporotic fracture: 9.7%. 10-year probability of hip fracture: 1.5%. Angie Cali MD DEXA * ANTI HCV [73342.2] (04/09/2017 9:43 AM CDT) HEPATITIS C ANTIBODY Non-Reacti ve Non-Reacti ve 04/09/2017 5:52 PM CDT [facility] Blood BLOOD SPECIMEN / Unknown Venipuncture / Unknown 04/09/2017 9:43 AM CDT 04/09/2017 9:43 AM CDT Narrative [facility] - 04/09/2017 5:52 PM CDT Antibodies to HCV not detected; does not exclude the possibility of exposure to HCV. Angie Cali MD SEND OUTS [facility] [employer] LABORATORY-[facility]AL LABORAT[facility] 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
--- OUTSIDE RECORDS SUMMARY | 2023-11-14 18:01 | XMS_ITS | Encounter Summary ---
Author Name Unknown Organization [facility] Address [address] [place] [address] Care Team Providers Care Selector Packer Name Role Phone Elsewhere, Pcp Primary Care [...] without IV Contrast Cande Ruiz M.D. [address] [place] [address] [facility] Referral ID Status Reason Start Date Expiration Date Visits Re quested Visits Authorized [id number] Closed 08/07/2023 08/06/2024 1 1 IC FUEL ASSEMBLER * Outpatient (Routine) - Closed Specialty Diagnoses / Procedures Referred By Contac t Referred To Contact Colon and Rectal Surgery Diagnoses Hernia Perineal Hernia Dysfunction Pelvic Floor Female Constipation Cande Ruiz M.D. [address] [place] [address] [facility] Referral ID Status Reason Start Date Expiration Date Visits Re quested Visits Authorized [id number] Closed 08/07/2023 08/06/2024 1 1 Scheduling Instructions Dynamic MRI first, then Dr. Rodriguez consult IC FUEL ASSEMBLER * Outpatient (Routine) - Closed Specialty Diagnoses / Procedures Referred By Hi steiner Referred To Contact General Surgery Diagnoses Hernia Femoral Cande Ruiz M.D. [address] [place] [address] [facility] Referral ID Status Reason Start Date Expiration Date Visits Re quested Visits Authorized [id number] Closed 08/07/2023 08/06/2024 1 1 IC FUEL ASSEMBLER Reason for Visit * Reason Onset Date Comments Recent ER Visit 07/12/2023 Encounter Details Date Type Department Care Team (Latest Contact Info) Description 07/12/2023 Clinical Communication Department of Obstetrics and Gynecology, Division of Urogynecology in [place], [place] [address] [place] [address] Cande Ruiz M.D. [address] [place] [address] Recent ER Visit Social History Tobacco Use [...] your living situation today? I have a [facility] place to live 06/10/2023 Sex and Gender Information Value Date Recorded Sex Assigned at Female 06/08/2023 11:11 AM ATOMIC FUEL ASSEMBLER Gender Identity Female 06/08/2023 11:11 AM ATOMIC FUEL ASSEMBLER Sexual Orientation Straight 06/08/2023 11 :11 AM ATOMIC FUEL ASSEMBLER documented as of this encounter Plan of Treatment Scheduled Referrals Name Type Priority Associated Diagnoses Orde r Schedule General Surgery - Hernia consult (clinic) Outpatient Referral Routine Hernia Femoral Expected: 10/22/2023 (Approximate), Expires: 11/05/2024 Colon and Rectal Surgery - General consult (clinic) Outpatient Referral Routine Hernia Perineal Hernia Dysfunction Pelvic Floor Female Constipation Expected: 08/07/2023 (Approximate), Expires: 11/05/2024 documented as of this encounter Results * MR Proctogram Dynamic [...] line. 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 The vaginal Draper is located 3.2 cm above the pubococcygeal [...] pubococcygealline. 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 The vaginal Draper is located 3.2 cm above the pubococcygeal [...] hypermobility. Cande Ruiz M.D. IMG MRI PROCEDURES documented in this encounter Visit Diagnoses Diagnosis Hernia Femoral- Primary Hernia Perineal Hernia Dysfunction Pelvic Floor Female Constipation Other Female Genital Prolapse Hernia Perineal Hernia Dysfunction Pelvic Floor Female Constipation Other Female Genital Prolapse documented in this encounter Care Teams Selector Packer Relationship Specialty Start Date End Date Elsewhere, Pcp PCP - General Internal Medicine 06/12/23 documented as of this encounter
[2023-11-14] MEDS: ONDANSETRON ODT 4 MG TAB PO (18:38)
--- NOTE | 2023-11-14 19:14 | CT_ITS ---
Patient: LIZETH HUTCHINS Facility:?[facility] R[facility] Patient ID:?[id number] Site Patient ID:?[id number] Site :?1945 Study:?CT-Abdomen/Pelvis W/ 79CC ISOVUE 370-11/14/2023 8:29:33 PM Ordering Physician:LINUS Final Report: INDICATION: Severe left hip and inguinal pain. TECHNIQUE: CT of the abdomen and pelvis acquired with 79 cc Isovue 370 IV contrast. Coronal and sagittal reconstructions. COMPARISON: CT of the abdomen and pelvis 08/13/2023. FINDINGS: The liver, gallbladder, pancreas, and adrenal glands are negative. Calcified splenic granulomas. No biliary dilation. Hepatic and portal veins are patent. Symmetric enhancement of the kidneys. No hydronephrosis or ureteral dilation. Excreted contrast within the renal collecting systems and ureters limits evaluation for calculi. No bladder wall thickening. Stable diverticulum arising from the left lateral bladder wall. Hysterectomy. Partially visualized large hiatal hernia containing the entire stomach and a segment of transverse colon. No signs of inflammation within the visualized hernia sac. Multiple small bowel loops descend into the lower pelvis along either side of the rectum without current evidence of obstruction. Moderate amount of stool throughout the colon. Colonic diverticulosis without evidence of diverticulitis. Negative appendix. No intraperitoneal free air or fluid. No lymphadenopathy. Persistent fluid within a small right inguinal hernia. Right basilar atelectasis or scarring adjacent to the hiatal hernia. Calcified granuloma right lower lobe. Right convex lumbar curve. Degenerative changes of the spine and hips. No acute fracture identified. IMPRESSION: 1. No acute findings in the abdomen or pelvis. No findings to explain left hip/inguinal pain. 2. Partially visualized large hiatal hernia containing the entire stomach and a segment of transverse colon. 3. Small bowel loops descend into the lower pelvis along either side of the rectum without current evidence of obstruction. Please note that all CT scans at this facility use dose modulation, iterative reconstruction, and/or weight-based dosing when appropriate to reduce radiation dose to as low as reasonably achievable. Dictated by Rita Reynolds MD @ 11/14/2023 8:56:20 PM Signed by:?Rita Reynolds MD @11/14/2023 8:56:20 PM (Electronic Signature)
[2023-11-14 19:30] LABS: Basophils Absolute Auto 0.01 K/uL (0.00-0.30); Basophils Percent Auto 0.1 % (0.0-3.0); Eosinophils Absolute Auto 0.03 K/uL (0.00-0.50); Eosinophils Percent Auto 0.3 % (0.0-7.0); Hematocrit 40.5 % (33.0-51.0); Hemoglobin* 13.2 gm/dL (12.0-16.0); Immature Granulocytes Abs Auto 0.01 K/uL (0.00-0.30); Immature Granulocytes Pct Auto 0.1 %; Lymphocytes Percent Auto 7.7 % (20-44); Mean Corpuscular HGB Conc 33 gm/dL (32-36); Mean Corpuscular Hemoglobin 30 pg (26-34); Mean Corpuscular Volume 91 fL (80-100); Monocytes Percent Auto 2.4 % (0.0-11.0); Neutrophils Percent Auto 89.4 % (42.0-72.0); Platelet Count* 183 K/uL (140-440); RDW Coefficient of Variation % 12.7 % (11.5-15.5); Red Blood Count 4.45 m/uL (4.00-5.20); White Blood Count* 10.04 K/uL (4.50-11.00)
[2023-11-14] MEDS: ONDANSETRON 2 MG/ML inj 4 MG IVP (19:32)
[2023-11-14] MEDS: 0.9 % SODIUM CHLORIDE 1000 ml 1,000 ML IV (19:32)
[2023-11-14] MEDS: KETOROLAC 15 MG/ML inj IVP (19:32)
[2023-11-14 19:35] LABS: Slide Review Reflex No
[2023-11-14 19:45] LABS: Chloride* 107 mmol/L (96-114); Sodium* 137 mmol/L (135-149)
[2023-11-14 19:46] LABS: Potassium* 4.1 mmol/L (3.6-5.1)
[2023-11-14 19:48] LABS: Anion Gap 8 mEq/L (7-15); Carbon Dioxide* 22 mmol/L (20-32); Creatinine* 0.8 mg/dL (0.5-1.5); Est. Creatinine Clearance* 42.39; Estimated Glomerular Filt Rate 76 ml/min
[2023-11-14 19:49] LABS: Blood Urea Nitrogen* 23 mg/dL (7-30); Calcium* 9.3 mg/dL (8.4-10.6); Glucose* 138 mg/dL (60-115)
[2023-11-14 19:52] LABS: C Reactive Protein* < 0.5 mg/dL (0.5-1.0)
[2023-11-14] MEDS: PROMETHAZINE 25 MG/ML INJ 12.5 MG IVP (20:29)
[2023-11-14 21:11] LABS: Appearance Urine Clear (Clear); Bilirubin Urine Negative (Negative); Blood Urine Negative (Negative); Color Urine Yellow (Yellow); Glucose Urine Negative (Negative); Ketones Urine 1+ (Negative); Leukocyte Esterase Urine Negative (Negative); Nitrite Urine Negative (Negative); Protein Urine Negative (Negative); Urobilinogen Urine 0.2 (0.2-1.0); pH Urine 7.5 (5.0-8.5)
[2023-11-14 21:19] LABS: RBC Urine 0-2 (0-2); WBC Urine 0-2 (0-5)
--- NOTE | 2023-11-14 21:30 | CT_ITS ---
Patient: LIZETH HUTCHINS Facility:?[facility] RIS Patient ID:?[id number] Site Patient ID:?[id number] Site :?1945 Study:?CT-Head W/O-11/14/2023 10:01:00 PM Ordering Physician:LINUS Final Report: INDICATION: Confusion TECHNIQUE: Non-contrast CT of the head is submitted. Compared to prior study from December 23, 2021 FINDINGS: The ventricles, sulci and gyri are of normal size, shape and contour. Midline structures are centrally located. No convincing evidence of intra- or extra- axial fluid collections. Evidence of residual intravenous contrast from prior radiographic procedure. Again seen are multiple partially calcified sebaceous cyst overlying the bony calvarium. IMPRESSION: 1. No radiographic evidence of acute intracranial abnormalities. Please note that all CT scans at this facility use dose modulation, iterative reconstruction, and/or weight-based dosing when appropriate to reduce radiation dose to as low as reasonably achievable. Dictated by Yefri Holm MD @ 11/14/2023 10:18:32 PM Signed by:?Yefri Holm MD @11/14/2023 10:18:32 PM (Electronic Signature)
[2023-11-15] VITALS (16 sets, daily range): BP systolic 127–165; BP diastolic 68–86; PULSE 62–98; RESP 16–18; TEMP 36.2–36.7; O2SAT 93–98; BMI 23.7
--- NOTE | 2023-11-15 00:13 | CT_ITS ---
Patient: LIZETH HUTCHINS Facility:?[facility] R[facility] Patient ID:?[id number] Site Patient ID:?[id number]. Site :?1945 Study:?CT-Neck Angio CTA NECK W/ISOVUE 370 95CC-11/15/2023 12:51:03 AM Ordering Physician:LINUS Final Report: CLINICAL HISTORY: Global amnesia; left-sided field cut. TECHNIQUE: Standard helical CT image acquisition through the neck was performed after intravenous contrast bolus enhancement. 3D and MIP reconstructions were performed at a separate workstation and permanently archived. COMPARISON: None available. FINDINGS: The origins of the great vessels from the aortic arch are patent. The common carotid arteries are patent. No significant luminal stenoses of the proximal ICAs by NASCET criteria. The more distal cervical segments of the ICAs are patent. The origins and cervical segments of the vertebral arteries are patent. IMPRESSION: Patent cervical arterial vasculature without hemodynamically significant luminal stenosis. Please note that all CT scans at this facility use dose modulation, iterative reconstruction, and/or weight-based dosing when appropriate to reduce radiation dose to as low as reasonably achievable. Dictated by Andrea Simpson MD @ 11/15/2023 11:51:40 AM Signed by:?Andrea Simpson MD @11/15/2023 11:51:40 AM (Electronic Signature)
--- NOTE | 2023-11-15 00:13 | CT_ITS ---
Patient: LIZETH HUTCHINS Facility:?[facility] R[facility] Patient ID:?[id number] Site Patient ID:?[id number]. Site :?1945 Study:?CT-Head Angio CTA HEAD W/ISOVUE 370 95CC-11/15/2023 12:50:14 AM Ordering Physician:LINUS Final Report: CLINICAL HISTORY: Global amnesia; left-sided field cut. TECHNIQUE: Standard helical CT image acquisition through the head following the administration of intravenous contrast was performed. 3D and MIP reconstructions were performed at a separate workstation and permanently archived. COMPARISON: None available. FINDINGS: No intracranial proximal large vessel occlusion or flow-limiting luminal stenosis. No evidence of cerebral aneurysm. No findings to suggest an arterial-venous shunting lesion. The major dural venous sinuses and deep venous system are patent. IMPRESSION: No intracranial proximal large vessel occlusion, flow-limiting luminal stenosis, or cerebral aneurysm. Please note that all CT scans at this facility use dose modulation, iterative reconstruction, and/or weight-based dosing when appropriate to reduce radiation dose to as low as reasonably achievable. Dictated by Andrea Simpson MD @ 11/15/2023 11:52:23 AM Signed by:?Andrea Simpson MD @11/15/2023 11:52:23 AM (Electronic Signature)
[2023-11-15 00:31] LABS: INR 0.89 (0.91-1.10); Prothrombin Time 12.6 Seconds
[2023-11-15 00:32] LABS: Partial Thromboplastin Time* 28 Seconds (23-33)
[2023-11-15] MEDS: 0.9 % SODIUM CHLORIDE 500 ML 500 ML IV (00:40)
[2023-11-15] MEDS: ASPIRIN EC 325 MG TABLET PO (02:03)
--- NOTE | 2023-11-15 03:13 | MR_ITS ---
Patient: LIZETH HUTCHINS Facility:?[facility] R[facility] Patient ID:?[id number] Site Patient ID:?[id number]. Site :?1945 Study:?MRI-Head W/O-11/15/2023 11:56:32 AM Ordering Physician:JOSEPHINE RODRIGUEZ Final Report: Indication: ACUTE CONFUSION, VISUAL FIELD DEFECT. Technique: Noncontrast sagittal T1, axial FLAIR, T2, diffusion weighted sequences are provided. Comparison: CT head November 14, 2023. Findings: The ventricles, sulci and gyri are normal size, shape and contour for age. Mild periventricular/subcortical white matter T2/FLAIR hyperintensities which are nonspecific but commonly seen in the setting of chronic microvascular ischemic changes. The midline structures are centrally located with no evidence of shift. There are no suspicious intra or extra-axial fluid collections. No region of restricted diffusion. Expected flow voids in the cavernous carotids and basilar artery. Again noted are multiple sebaceous cyst overlying the bony calvarium. Impression: 1. No evidence of acute intracranial abnormality on this unenhanced MRI brain. 2. Mild periventricular/subcortical white matter T2/FLAIR hyperintensities which are nonspecific but commonly seen in the setting of chronic microvascular ischemic changes. Dictated by Jonathan Calvert MD @ 11/15/2023 12:14:13 PM Signed by:?Jonathan Calvert MD @11/15/2023 12:14:13 PM (Electronic Signature)
--- NOTE | 2023-11-15 03:22 | W.PM.TELEH&P ---
Telehealth- H&P: HPI History of Present Illness Time Seen by Provider: 03:00 Date Seen: 11/15/23 Chief complaint: L hip fall Narrative: Katharine Shell is seen as an Interactive Telehealth visit. Katharine Shell is a 78 year old male who is Female who presents to the hospital with complaints of initial hip pain. When the patient presented she developed sudden onset hip pain. This is described as hip and back pain. When she was seen in the hospital, her hip pain gradually improved. She underwent hip imaging which did not show any acute abnormality. After the x-ray, a CT scan of the abdomen pelvis was ordered. This patient has extensive history of bowel issues that was recently seen at [facility]. The CT scan showed small bowel and free fluid containing right peroneal hernia associated with mechanical small bowel obstruction. This patient was not complaining of any significant abdominal pain but did eventually have some nausea. There is also some incidental findings associated with inguinal direct hernia. Surgical consultation was recommended. The ER physician spoke to the on-call physician surgeon who recommended observation. This patient did not have any other abdominal symptoms other than some mild nausea. Initially the ER physician was planning to discharge the patient home but when they were ambulating her, she was noted to be confused and had some visual issues. The patient stated that this was most likely related to anxiety however she continued to have memory issues. Patient underwent a CT head that was negative for. Patient underwent CTA head and neck, results are pending. This case was reviewed with stroke neurology who recommended admission to the hospital and observation as well as MRI of the brain. Patient was administered aspirin 325 in the ER. Internal medicine is requested to admit this patient for observation, follow-up with MRI of the brain and assess for potential stroke. Regarding the patient's CT findings of possible small bowel obstruction, surgery is recommending observation and follow-up outpatient given her asymptomatic nature. Review of Systems Status of ROS: Reports: 10 or more systems reviewed and unremarkable except as noted in History and below Const: Reports: fatigue Eyes: Reports: change in vision GI: Reports: abdominal pain and nausea Musculo: Reports: back pain and joint pain Endo: Reports: fatigue PFSH PFS Medical History History of recurrent cystitis ?Z87.440 - Personal history of urinary (tract) infections (ICD-10) Surgical History History of hysterectomy ?Z90.710 - Acquired absence of both cervix and uterus (ICD-10) Social History What is your current living situation?: I presently have a place to live Problems where you live: no known problems Problems where you live details: n/a In the past 12 months, utilities in danger of being shut off: no In past 12 months, lack of transportation kept you from medical appts, meetings, work, or getting things needed for daily living: no In the past 12 mos, have been you worried that your food would run out before you had money to buy more?: never true In the past 12 mos, the food you bought just didn't last and you didn't have money to buy more?: never true Smoking Status: Former smoker Second hand tobacco smoke exposure: No How often do you have a drink containing alcohol: monthly or less AUDIT-C Alcohol total score: 1 Non-prescribed substance use: denies use Caffeine: Yes (coffee) How often does anyone, including family, friends and others, physically hurt you: never How often does anyone, including family, friends and others, insult or talk down to you: never How often does anyone, including family, friends and others, threaten you with harm: never How often does anyone, including family, friends and others, scream or curse at you: never service: No Meds Home Medications and Allergies Home Medications Medication Instructions Recorded Confirmed Type levothyroxine 100 mcg capsule 100 mcg PO QDAY 05/10/23 08/13/23 History lisinopril 10 mg tablet 10 mg PO DAILY 05/10/23 08/13/23 History simvastatin 10 mg tablet 10 mg PO QPM 05/10/23 08/13/23 History coQ10 (ubiquinol) 100 mg capsule 100 mg PO DAILY 08/13/23 08/13/23 History Allergies Allergy/AdvReac Type Severity Reaction Status Date / Time Sulfa (Sulfonamide Allergy Unknown Unknown Verified 11/14/23 19:56 Antibiotics) Exam Narrative Exam Narrative: Physical Exam GENERAL: ?vital signs reviewed, well developed and nourished, in no distress HEENT: pupils are equal round and reactive to light, extraocular movements are grossly within normal limits and oral mucosa is moist. NECK: Supple without lymphadenopathy or thyromegaly according to nursing staff examination observation HEART: Regular rate and rhythm without any rubs, murmurs, or gallops. LUNGS: Clear to auscultation bilaterally with good air movement throughout ABDOMEN: Observation from nurse assisted exam, abdomen appears soft, nontender, and nondistended with Positive bowel sounds noted. there were hyperactive bowel sounds, but the examination did not show distension and was soft EXTREMITIES: Strength and sensation is observed to be grossly within normal limits in the upper and lower extremities.? No focal strength deficit is observed. Patient did complain of some mild right sided back/hip pain that was reproducible on exam SKIN:? Observed warm and dry with color normal Const Vital Signs, click to edit/add: Vital Signs - 24 hr 11/14/23 17:02 11/14/23 17:40 11/14/23 18:22 Temperature 97.2 F L Pulse Rate 88 Pulse Rate [Pulse Oximeter] Pulse Rate [Right Pulse Oximeter] 89 Respiratory Rate 18 Blood Pressure Blood Pressure [Left Arm] Blood Pressure [Right Upper Arm] 187/99 H Pulse Oximetry 100 99 97 Oxygen Delivery Method Room Air 11/14/23 18:30 11/14/23 18:45 11/14/23 19:00 Temperature Pulse Rate 79 79 72 Pulse Rate [Pulse Oximeter] Pulse Rate [Right Pulse Oximeter] Respiratory Rate Blood Pressure Blood Pressure [Left Arm] Blood Pressure [Right Upper Arm] Pulse Oximetry 97 97 90 Oxygen Delivery Method 11/14/23 19:15 11/14/23 19:30 11/14/23 19:36 Temperature Pulse Rate 88 83 78 Pulse Rate [Pulse Oximeter] Pulse Rate [Right Pulse Oximeter] Respiratory Rate Blood Pressure 154/76 H Blood Pressure [Left Arm] Blood Pressure [Right Upper Arm] Pulse Oximetry 98 93 99 Oxygen Delivery Method 11/14/23 19:37 11/14/23 20:32 11/14/23 21:05 Temperature Pulse Rate 85 98 99 Pulse Rate [Pulse Oximeter] Pulse Rate [Right Pulse Oximeter] Respiratory Rate Blood Pressure Blood Pressure [Left Arm] Blood Pressure [Right Upper Arm] Pulse Oximetry 98 98 96 Oxygen Delivery Method 11/14/23 21:30 11/14/23 21:31 11/14/23 21:32 Temperature Pulse Rate 84 83 85 Pulse Rate [Pulse Oximeter] Pulse Rate [Right Pulse Oximeter] Respiratory Rate Blood Pressure 142/77 H Blood Pressure [Left Arm] Blood Pressure [Right Upper Arm] Pulse Oximetry 97 98 96 Oxygen Delivery Method 11/14/23 22:51 11/14/23 23:00 11/14/23 23:30 Temperature Pulse Rate 74 69 70 Pulse Rate [Pulse Oximeter] Pulse Rate [Right Pulse Oximeter] Respiratory Rate Blood Pressure Blood Pressure [Left Arm] Blood Pressure [Right Upper Arm] Pulse Oximetry 96 96 98 Oxygen Delivery Method 11/15/23 00:01 11/15/23 00:45 11/15/23 00:47 Temperature Pulse Rate 62 79 76 Pulse Rate [Pulse Oximeter] Pulse Rate [Right Pulse Oximeter] Respiratory Rate Blood Pressure 139/68 Blood Pressure [Left Arm] Blood Pressure [Right Upper Arm] Pulse Oximetry 96 97 96 Oxygen Delivery Method 11/15/23 01:01 11/15/23 01:03 11/15/23 01:30 Temperature Pulse Rate 68 66 69 Pulse Rate [Pulse Oximeter] Pulse Rate [Right Pulse Oximeter] Respiratory Rate Blood Pressure 131/68 Blood Pressure [Left Arm] Blood Pressure [Right Upper Arm] Pulse Oximetry 97 98 96 Oxygen Delivery Method 11/15/23 01:32 11/15/23 02:15 11/15/23 02:26 Temperature 98.0 F 97.2 F L Pulse Rate 71 Pulse Rate [Pulse Oximeter] 73 Pulse Rate [Right Pulse Oximeter] 78 Respiratory Rate 16 18 Blood Pressure 127/86 Blood Pressure [Left Arm] 141/69 H Blood Pressure [Right Upper Arm] 135/74 Pulse Oximetry 97 98 97 Oxygen Delivery Method Room Air Room Air 11/15/23 02:28 Temperature 97.2 F L Pulse Rate Pulse Rate [Pulse Oximeter] Pulse Rate [Right Pulse Oximeter] 78 Respiratory Rate 18 Blood Pressure Blood Pressure [Left Arm] Blood Pressure [Right Upper Arm] 135/74 Pulse Oximetry Oxygen Delivery Method Common normals: no apparent distress Exam limitations: altered mental status (continued to forget the reason for hospital visit) General appearance: cooperative, comfortable and well kempt Orientation/consciousness: Yes awake and Yes confused Neuro Sensorium/orientation: awake Psych Appearance: well kempt Hospitalist - H&P: Result Labs Labs: Short CBC 11/14/23 Range/Units 19:21 WBC 10.04 (4.50-11.00) K/uL Hgb 13.2 (12.0-16.0) gm/dL Hct 40.5 (33.0-51.0) % Plt Count 183 (140-440) K/uL BMP 11/14/23 19:21 Sodium 137 Potassium 4.1 Chloride 107 Carbon Dioxide 22 BUN 23 Creatinine 0.8 Glucose 138 H Calcium 9.3 Urine 11/14/23 Range/Units 21:00 Urine Color Yellow (Yellow) Urine Appearance Clear (Clear) Urine pH 7.5 (5.0-8.5) Ur Specific [place] 1.020 (1.000-1.030) Urine Protein Negative (Negative) Urine Glucose (UA) Negative (Negative) Assessment and Plan Assessment and plan (1) Altered mental status: Status: Acute (2) Hypertension: Status: Acute (3) Hypothyroid: Status: Acute (4) Small bowel obstruction: Status: Inactive (5) Abdominal hernia: Status: Inactive Plan Regarding this patient's altered mental status: The predominant thought is that this patient could have been transient global amnesia. TGA is very common after stressful situations. She was having very similar amnesia like related symptoms where she forgot the reason why she was hospitalized. However she was stating that this is more related to anxiety and that she often gets symptomatic like this. The ER physician felt that this patient also had some visual deficit although the patient denied this when I was interviewing her. Patient underwent CT of the head that was negative. CTA head and neck which are pending at the time of evaluation. After consultation with stroke neurology, they are recommending MRI of the brain. I have ordered this. Patient was administered aspirin [address] finding of small bowel obstruction: This was discussed with the surgeon on-call. This patient clinically does not have a small bowel obstruction. She is passing gas, she has not had any more nausea and vomiting. CT does show some concerns for possible obstruction. However the patient has an abdomen that is soft and nontender and nondistended. I would recommend observing her. If she develops nausea and vomiting, I would recommend n.p.o. status and consultation of surgery Total Time Spent Total Time Spent: 75 minutes Telehealth: Statement Statement Telehealth Visit: Today's History and Physical is provided via interactive telehealth by Emeka Long MD.? Patient is located at [facility].? Provider is located at [facility].? Nursing staff assisted with the patient's exam. The visit being done today meets criteria for a telehealth visit and the patient or patient?s parent/guardian is aware the visit is a telehealth visit. Camera Start Time: 03:30 Camera End Time: 03:45
[2023-11-15] MEDS: 0.9 % SODIUM CHLORIDE 1000 ml 1,000 ML 125 ML IV (03:38)
[2023-11-15] MEDS: SODIUM CHLORIDE 0.9 % (FLUSH) 10 ML SYRINGE 5 ML IVF ×2 (03:38→08:18)
--- NOTE | 2023-11-15 06:23 | PC.NURSE ---
Patient arrived from ED at 0206 via wheelchair. Pleasant and cooperative. Oriented to self. Could not recall current president or where she was. Knew it was Sunday but was unsure of?year. Difficulty finding words at times. Reported she thinks she?s being forgetful because she is an anxious person. Upon admission rated pain in abdomen?10/06. Denied hip pain or nausea at that time. ?Has been sleeping well.?
[2023-11-15] MEDS: ACETAMINOPHEN 325 MG TABLET 650 MG PO (12:49)
[2023-11-15] MEDS: LEVOTHYROXINE 50 MCG TABLET PO (12:51)
--- NOTE | 2023-11-15 14:24 | PM.DS1 ---
DS: Providers Provider Date Seen: 11/15/23 Date of admission: 11/15/23 01:58 Primary care physician: Angie Cali MD Admitting Clinician: Renu Olivia MD Consults: 11/15/23 03:13 Consult to Physical Therapy [CONS] Routine Comment: Reason(s) for PT Consult:: Evaluate and Treat Any Restrictions?:: No Restrictions 11/15/23 08:54 Consult to Occupational Therapy [CONS] Routine Comment: Reason(s) for OT Consult:: Evaluate and Treat Any Restrictions?:: No Restrictions Attending Physician on discharge: Renu Olivia MD Date of Discharge: 11/15/23 DS: Diagnosis Discharge Diagnosis (1) Altered mental status: Status: Acute Problem details: Question transient global amnesia, anxiety, TIA/CVA. Admitted for overnight observation per tele stroke recommendations. Patient denied any visual deficit despite being reported by ED. CT head without evidence of acute intracranial abnormalities, CTA head without intracranial proximal large vessel occlusion, flow limiting luminal stenosis, or cerebral aneurysm. CTA neck shows patent cervical arterial vasculature without hemodynamically significant luminal stenosis. MRI head shows no evidence of acute intracranial abnormality, mild periventricular/subcortical white matter T2/FLAIR hyperintensities which are nonspecific but commonly seen in the setting of chronic microvascular ischemic changes. Follow-up tele neuro evaluation without further acute recommendations, concern for CVA. In reviewing ED record, patient did also receive Dilaudid, lorazepam, and promethazine - all of which could have contributed to acute confusion, visual change OT consulted, completed [place] with score 19/30. Recommending outpatient follow-up for further cognitive testing. Recommend no driving until this evaluation. (2) Hypertension: Status: Acute Problem details: Stable, continue home medications (3) Hypothyroid: Status: Acute Problem details: TSH pending at time of discharge. Continue levothyroxine (4) Left hip pain: Status: Acute Problem details: CT without evidence to explain left hip/inguinal pain. No complaints of pain prior to discharge. Outpatient follow-up with PCP. DS: Summary Hospital Course Hospital Course: [age] year old female past medical history significant for hypertension, hypothyroidism, CKD, constipation, bladder prolapse was admitted to the medical floor for overnight observation altered mental status. Course of care and details as noted above. Altered mental status clearing following admission, still query side effects of dilaudid, lorazepam, and phenergan given in ED. However cognitive deficits remained. While patient and spouse admit to occasional confusion, both are guarded in details. Query underlying cognitive decline. OT evaluated, [place] . Recommending further outpatient neurocognitive testing. Recommending no driving until further evaluation. Repeat tele stroke evaluation completed, no further recommendations. While ED reported concern for possible small bowel obstruction, CT abdomen/pelvis did not support this. Patient tolerated diet without nausea vomiting. Passing gas. Had a bowel movement. History of chronic constipation on daily bowel regimen. Also history of left femoral hernia and pelvic floor dysfunction being followed by [facility], most recent visit 11/08/2023. Remainder of chronic medical comorbidities were monitored and managed with home medications. Status at Discharge Overall status at discharge: patient is progressing back to baseline Time Spent with Patient Time attestation: Total time spent providing and/or coordinating discharge services: Time spent: Greater than 30 minutes Exam Narrative: Exam Narrative: PHYSICAL EXAM General: Pleasant, conversant, NAD Cardiovascular: RRR Pulmonary: No dyspnea Neurological: Alert, answering questions frequently looking at for clarification. Mild cognitive impairment noted. Oriented. Skin: Warm, dry. Const: Vital Signs, click to edit/add: Vital Signs - 24 hr 11/14/23 17:02 11/14/23 17:40 11/14/23 18:22 Temperature 97.2 F L Pulse Rate 88 Pulse Rate [Pulse Oximeter] Pulse Rate [Right Pulse Oximeter] 89 Respiratory Rate 18 Blood Pressure Blood Pressure [Le ft Arm] Blood Pressure [Ri ght Upper Arm] 187/99 H Pulse Oximetry 100 99 97 Oxygen Delivery Me thod Room Air 11/14/23 18:30 11/14/23 18:45 11/14/23 19:00 Temperature Pulse Rate 79 79 72 Pulse Rate [Pulse Oximeter] Pulse Rate [Right Pulse Oximeter] Respiratory Rate Blood Pressure Blood Pressure [Le ft Arm] Blood Pressure [Ri ght Upper Arm] Pulse Oximetry 97 97 90 Oxygen Delivery Me thod 11/14/23 19:15 11/14/23 19:30 11/14/23 19:36 Temperature Pulse Rate 88 83 78 Pulse Rate [Pulse Oximeter] Pulse Rate [Right Pulse Oximeter] Respiratory Rate Blood Pressure 154/76 H Blood Pressure [Le ft Arm] Blood Pressure [Ri ght Upper Arm] Pulse Oximetry 98 93 99 [facility] 11/14/23 19:37 11/14/23 20:32 11/14/23 21:05 Temperature Pulse Rate 85 98 99 Pulse Rate [Pulse Oximeter] Pulse Rate [Right Pulse Oximeter] Respiratory Rate Blood Pressure Blood Pressure [Le ft Arm] Blood Pressure [Ri ght Upper Arm] Pulse Oximetry 98 98 96 Oxygen Delivery Me thod 11/14/23 21:30 11/14/23 21:31 11/14/23 21:32 Temperature Pulse Rate 84 83 85 Pulse Rate [Pulse Oximeter] Pulse Rate [Right Pulse Oximeter] Respiratory Rate Blood Pressure 142/77 H Blood Pressure [Le ft Arm] Blood Pressure [Ri ght Upper Arm] Pulse Oximetry 97 98 96 Oxygen Delivery Me thod 11/14/23 22:51 11/14/23 23:00 11/14/23 23:30 Temperature Pulse Rate 74 69 70 Pulse Rate [Pulse Oximeter] Pulse Rate [Right Pulse Oximeter] Respiratory Rate Blood Pressure Blood Pressure [Le ft Arm] Blood Pressure [Ri ght Upper Arm] Pulse Oximetry 96 96 98 Oxygen Delivery Me thod 11/15/23 00:01 11/15/23 00:45 11/15/23 00:47 Temperature Pulse Rate 62 79 76 Pulse Rate [Pulse Oximeter] Pulse Rate [Right Pulse Oximeter] Respiratory Rate Blood Pressure 139/68 Blood Pressure [Le ft Arm] Blood Pressure [Ri ght Upper Arm] Pulse Oximetry 96 97 96 Oxygen Delivery Me thod 11/15/23 01:01 11/15/23 01:03 11/15/23 01:30 Temperature Pulse Rate 68 66 69 Pulse Rate [Pulse Oximeter] Pulse Rate [Right Pulse Oximeter] Respiratory Rate Blood Pressure 131/68 Blood Pressure [Le ft Arm] Blood Pressure [Ri ght Upper Arm] Pulse Oximetry 97 98 96 Oxygen Delivery Me thod 11/15/23 01:32 11/15/23 02:15 11/15/23 02:26 Temperature 98.0 F 97.2 F L Pulse Rate 71 Pulse Rate [Pulse Oximeter] 73 Pulse Rate [Right Pulse Oximeter] 78 Respiratory Rate 16 18 Blood Pressure 127/86 Blood Pressure [Le ft Arm] 141/69 H Blood Pressure [Ri ght Upper Arm] 135/74 Pulse Oximetry 97 98 97 Oxygen Delivery Vt thod Room Air Room Air 11/15/23 02:28 11/15/23 03:11 11/15/23 03:51 Temperature 97.2 F L Pulse Rate 65 Pulse Rate [Pulse Oximeter] Pulse Rate [Right Pulse Oximeter] 78 Respiratory Rate 18 Blood Pressure Blood Pressure [Le ft Arm] Blood Pressure [Ri ght Upper Arm] 135/74 Pulse Oximetry 93 Oxygen Delivery Me thod 11/15/23 07:00 11/15/23 07:00 11/15/23 07:10 Temperature 97.4 F L Pulse Rate 67 Pulse Rate [Pulse Oximeter] 79 Pulse Rate [Right Pulse Oximeter] Respiratory Rate 18 Blood Pressure Blood Pressure [Le ft Arm] 142/74 H Blood Pressure [Ri ght Upper Arm] Pulse Oximetry 98 98 Oxygen Delivery Me thod Room Air 11/15/23 11:00 Temperature 98.0 F Pulse Rate Pulse Rate [Pulse Oximeter] 98 Pulse Rate [Right Pulse Oximeter] Respiratory Rate 18 Blood Pressure Blood Pressure [Le ft Arm] 138/68 Blood Pressure [Ri ght Upper Arm] Pulse Oximetry 98 Oxygen Delivery Me thod Room Air DS: Data Data Completed and Pending Labs on day of discharge: Labs from last 24 hours 11/15/23 11/15/23 11/14/23 19:21 00:13 21:00 WBC RBC Hgb Hct MCV MCH MCHC RDW Coeff of [place] Plt Count Neut % (Auto) Lymph % (Auto) [place] % (Auto) Eos % (Auto) Baso % (Auto) Neut # (Auto) Lymph # (Auto) [place] # (Auto) Eos # (Auto) Baso # (Auto) Abs Immat Gran (auto) Imm/Tot Granulo (auto) INR 0.89 L APTT 28 Sodium Potassium Chloride Carbon Dioxide Anion Gap BUN Creatinine Estimated Creat Clear Estimated GFR Glucose Calcium C-Reactive Protein Urine Color Yellow Urine Appearance Clear Urine pH 7.5 Ur Specific [place] 1.020 Urine Protein Negative Urine Glucose (UA) Negative Urine Ketones 1+ A Urine Blood Negative Urine Nitrite Negative Urine Bilirubin Negative Urine Urobilinogen 0.2 Ur Leukocyte Esterase Negative Urine RBC 0-2 Urine WBC 0-2 Ur Squamous Epith Cells None Urine Bacteria None Lab Acknowledgement Test Added 11/14/23 19:21 WBC 10.04 RBC 4.45 Hgb 13.2 Hct 40.5 MCV 91 MCH 30 MCHC 33 RDW Coeff of [place] 12.7 Plt Count 183 Neut % (Auto) 89.4 H Lymph % (Auto) 7.7 L Logan % (Auto) 2.4 Eos % (Auto) 0.3 Baso % (Auto) 0.1 Neut # (Auto) 9.00 H Lymph # (Auto) 0.80 L Logan # (Auto) 0.20 Eos # (Auto) 0.03 Baso # (Auto) 0.01 Abs Immat Gran (auto) 0.01 Imm/Tot Granulo (auto) 0.1 INR APTT Sodium 137 Potassium 4.1 Chloride 107 Carbon Dioxide 22 Anion Gap 8 BUN 23 Creatinine 0.8 Estimated Creat Clear 42.39 Estimated GFR 76 Glucose 138 H Calcium 9.3 C-Reactive Protein < 0.5 L Urine Color Urine Appearance Urine pH Ur Specific [place] Urine Protein Urine Glucose (UA) Urine Ketones Urine Blood Urine Nitrite Urine Bilirubin Urine Urobilinogen Ur Leukocyte Esterase Urine RBC Urine WBC Ur Squamous Epith Cells Urine Bacteria Lab Acknowledgement Discharge Plan Discharge Disposition: Home, Self-Care Date of Admission: 11/15/23 01:58 Attending Provider on Discharge: Nellie Garduno Primary Care Provider: Angie Cali Condition: Improved Anticipated Discharge Date/Time: 11/15/23 15:00 Discharge Medications: Continued lisinopril 10 mg tablet 10 mg PO DAILY simvastatin 10 mg tablet 10 mg PO QPM coQ10 (ubiquinol) 100 mg capsule 100 mg PO DAILY levothyroxine 50 mcg tablet 50 mcg PO QAM Discharge Orders: Discharge Order (Routine); Ordered 11/15/23 Ordered By: Nellie Garduno Patient Education: Altered Mental Status (GEN) Additional Instructions: It is recommended you follow up with Occupational Therapy for further cognitive evaluation. We recommend NO DRIVING until that time. Continue your usual home medications. Activity Level: Activity as Tolerated Activity Detail: No driving recommended until further cognitive evaluation Discharge Diet: Regular Follow Up Appointments: Angie Cali MD [Primary Care Provider] - 11/23/23 11:45 am (Salima Chin for follow up. Altered mental status, further cognitive evaluation. OT would like to see her for repeat/further testing) Forms: [employer] Info Instructions
--- NOTE | 2023-11-15 17:31 | PC.NURSE ---
Pt ambulates independently within room. Denies N/V. C/O mild aches and pain, Tylenol with relief. Pt speak of feeling of anxiousness and thoughts of the worst case always being what is going to happen. Educated and encouraged speaking with PCP at follow up about these thoughts and feeling. IV DC'd, cath tip entact. DC instructions given verbally and in writing to pt and , Laina. All questions answered. DC'd to home with understanding of follow up appointments @1600.
--- NOTE | 2023-11-23 15:44 | ED.NURSE ---
Pt called inquiring about Dr. Olivia and asking whether Dr. Olivia could perform the cognitive test on her again. Referencing the patient's DC instructions, travel writer advised pt she needed to be evaluated by OT for this cognitive evaluation. [employer] Supervisor offered to txfr call to OT appt line, pt then hung up on travel writer.
== END 2023-11-15 16:00 | disposition home or self-care (01) ==
LOC: ED 11-15 01:28 → MEDSURG 11-15 01:59
PROVIDERS: Admitting Provider Family Medicine; Emergency Provider Family Medicine; PCP Family Medicine; Visit Provider Family Medicine
DX: M25.552 Pain in left hip (principal); R41.82 Altered mental status, unspecified; K46.9 Unspecified abdominal hernia without obstruction or gangrene; K41.90 Unilateral femoral hernia, without obstruction or gangrene, not specified as recurrent; K57.30 Diverticulosis of large intestine without perforation or abscess without bleeding; K40.90 Unilateral inguinal hernia, without obstruction or gangrene, not specified as recurrent; I10 Essential (primary) hypertension; K56.609 Unspecified intestinal obstruction, unspecified as to partial versus complete obstruction; E03.9 Hypothyroidism, unspecified; K59.00 Constipation, unspecified; M62.89 Other specified disorders of muscle; R41.3 Other amnesia; R11.0 Nausea; M54.9 Dorsalgia, unspecified; M25.50 Pain in unspecified joint; R10.9 Unspecified abdominal pain; R53.83 Other fatigue; H53.9 Unspecified visual disturbance; Z87.440 Personal history of urinary (tract) infections; Z87.891 Personal history of nicotine dependence; Z90.710 Acquired absence of both cervix and uterus
CPT/HCPCS: 36415; 70450; 70496; 70498; 70551; 73502; 74177; 80048; 81001; 85025; 85610; 85730; 86140; 93005; 94761; 96361; 96372; 96374; 96375; 97116; 97161; 97165; 99284; 99285; G0378; A9270; J1170; J1885; J2405; J2550; J7030; Q9967

== ENCOUNTER 2023-11-27 12:42 | Outpatient (RCR) | payer MEDICARE, BC, SELFPAY | END 2024-03-26 23:59 | disposition home or self-care (01) | PROVIDERS: PCP Family Medicine; Visit Provider Family Medicine | DX: R41.89 Other symptoms and signs involving cognitive functions and awareness (principal); Z91.89 Other specified personal risk factors, not elsewhere classified; Z51.89 Encounter for other specified aftercare | CPT/HCPCS: 97165; 97535 ==

== ENCOUNTER 2023-12-21 10:22 | Emergency (ER) | payer MEDICARE, BC, SELFPAY ==
[2023-12-21] VITALS (8 sets, daily range): BP systolic 110–194; BP diastolic 69–103; PULSE 74–81; RESP 16–22; TEMP 36.9–37.1; O2SAT 95–100; BMI 24.0
--- NOTE | 2023-12-21 11:07 | ED_ITS ---
HPI - General Adult General Date Seen: 12/21/23 Chief complaint: Hip Injury/Pain Stated complaint: Hip pain Time Seen by Provider: 12/21/23 10:55 History of Present Illness HPI narrative: 78-year-old female with a history of hypertension, hypothyroidism, bladder p rolapse, chronic kidney disease, history of pelvic floor dysfunction with bladder prolapse and 2 previous pelvic floor surgeries at [facility] (as ongoing prolapse, currently doing physical therapy before her surgeons at [facility] would do more surgery), femoral hernia (apparently diagnosed here in [place], surgery has been put off due to her other pelvic floor problems) presenting to the ER this morning for left hip pain in her buttock to her hip and groin. She does have occasional hip pain in both of her hips. This morning she was getting ready and was hurrying around the house to get ready when she had abrupt onset of severe pain in her left hip. She does not think she had moved funny or twisted or fell. The pain starts in her left buttock and wraps around to the left hip and even into the left groin and left proximal thigh. It is exquisitely painful to move her hip. The pain does not radiate down her leg or up to her flank. No low back pain. No fever chills. No new bowel or bladder dysfunction. No rashes. No bruising. The pain is so should here she is nauseous. She has had a couple of episodes of dry heaving but not much vomiting. Bowel movements have been normal lately. No gas or BMs since onset of her pain. Related Data Home Medications ?Medication ?Instructions ?Recorded ?Confirmed lisinopril 10 mg tablet 10 mg PO DAILY 05/10/23 11/15/23 simvastatin 10 mg tablet 10 mg PO QPM 05/10/23 11/15/23 coQ10 (ubiquinol) 100 mg capsule 100 mg PO DAILY 08/13/23 08/13/23 levothyroxine 50 mcg tablet 50 mcg PO QAM 11/15/23 11/15/23 Allergies Allergy/AdvReac Type Severity Reaction Status Date / Time Sulfa (Sulfonamide Allergy Unknown Unknown Verified 12/21/23 14:25 Antibiotics) [facility] Medical History History of recurrent cystitis ?Z87.440 - Personal history of urinary (tract) infections (ICD-10) Surgical History History of hysterectomy ?Z90.710 - Acquired absence of both cervix and uterus (ICD-10) Social History What is your current living situation?: I presently have a place to live Problems where you live: no known problems Problems where you live details: n/a In the past 12 months, utilities in danger of being shut off: no In past 12 months, lack of transportation kept you from medical appts, meetings, work, or getting things needed for daily living: no In the past 12 mos, have been you worried that your food would run out before you had money to buy more?: never true In the past 12 mos, the food you bought just didn't last and you didn't have money to buy more?: never true Smoking Status: Former smoker Second hand tobacco smoke exposure: No How often do you have a drink containing alcohol: monthly or less AUDIT-C Alcohol total score: 1 Non-prescribed substance use: denies use Caffeine: Yes (coffee) How often does anyone, including family, friends and others, physically hurt you : never How often does anyone, including family, friends and others, insult or talk down to you: never How often does anyone, including family, friends and others, threaten you with harm: never How often does anyone, including family, friends and others, scream or curse at you: never service: No Exam Narrative: Exam Narrative: Constitutional: Appears well-developed and well-nourished. Alert. Very uncomfortable and somewhat anxious, but after fentanyl is much more Conversant. HENT: Head: Atraumatic. Nose: Nose normal. Mouth/Throat: Oral mucosa is clear and moist. no trismus. Pharynx normal. Eyes: Conjunctivae normal. EOM normal. Pupils equal, round, and reactive to light. No scleral icterus. Neck: Normal range of motion. Neck supple. No tracheal deviation present. Cardiovascular: Normal rate, regular rhythm. No gallop. No friction rub. No murmur heard. Symmetric radial artery pulses Pulmonary/Chest: Effort normal. No stridor. No respiratory distress. No wheezes. No rales. No rhonchi . No tenderness. Abdominal: Soft. Bowel sounds normal. No distension. No mass. No tenderness. No rebound. No guarding. No CVA tenderness. She is tender along the left lower inguinal ligament but that did not appreciate any masses or hernias there. Musculoskeletal: No tenderness of the T or L-spine. No step-off. Pelvis is stable. She is exquisitely tender in the left posterior pelvis, left buttock, and left lateral hip. There is no point tenderness over the ASIS or greater trochanter. Hip range of motion is limited by pain. Proximal thigh is normal inspection and nontender. Quadriceps nontender. Femoral shaft nontender and normal. Hamstring normal and nontender. Knees are symmetric. No leg-length discrepancy. Range of motion testing left knee is limited by her left hip pain but there is no knee tenderness. Lower leg, ankle, foot are normal and nontender. RUE: Normal range of motion. No tenderness. No deformity LUE: Normal range of motion. No tenderness. No deformity RLE: Normal range of motion. No edema. No tenderness. No deformity LLE: Normal range of motion. No edema. No tenderness. No deformity Lymph: No cervical adenopathy. Neurological: Alert and oriented to person, place, and time. Normal strength. CN II-VII intact. No sensory deficit. GCS eye subscore is 4. GCS verbal subscore is 5. GCS motor subscore is 6. Normal coordination Sensory: Normal light touch sensation bilaterally on the anteromedial thigh (L3), medial malleolus (L4), dorsal first web space (L5), lateral malleolus (S1). Strength: 5/5 strength hip flexors (L3) on the rig ht and left 5/5 strength in the quadriceps (L4) on t he right and left 5/5 strength in the tibialis anterior 5/5 strength in the EHL (L5) on the righ t and left 5/5 strength in the gastrocnemius (S1) o n the right and left 5/5 strength in the hamstring on the rig ht and left Unable to perform straight leg raise on the left leg because her hip is too painful Skin: Skin is warm and dry. No rash noted. No pallor. Normal capillary refill. Psychiatric: Normal mood. Normal affect. Const: Vital Signs, click to edit/add: Vital Signs - 24 hr 12/21/23 10:31 12/21/23 11:30 12/21/23 12:00 Temperature 98.4 F Pulse Rate [Pulse Oximeter] 81 81 Respiratory Rate 22 16 16 Blood Pressure [Ri ght Upper Arm] 194/103 H 163/97 H Pulse Oximetry 100 97 95 Oxygen Delivery Me thod Room Air 12/21/23 12:04 12/21/23 12:10 12/21/23 12:20 Temperature Pulse Rate [Pulse Oximeter] Respiratory Rate Blood Pressure [Ri ght Upper Arm] Pulse Oximetry 99 98 99 Oxygen Delivery Me thod 12/21/23 16:09 Temperature Pulse Rate [Pulse Oximeter] 74 Respiratory Rate 16 Blood Pressure [Ri ght Upper Arm] 144/69 H Pulse Oximetry 96 Oxygen Delivery Me thod Room Air Course Course ED Course: Given fentanyl for pain which did cause some relief. Zofran for vomiting. oxycodone after fentanyl to help give her more sustained pain relief. Reevaluation(s) Reevaluation #1: He recheck-then the wearing off and having increasing pain. Dilaudid ordered. Repeat dose of Zofran Reevaluation #2: Recheck-additional clotted. Recheck more comfortable now. No longer the dry heaving.. Reevaluation #3: Accepted by [facility]. Vital Signs Vital signs: Initial Vital Signs Temperature 98.4 F 12/21/23 10:31 Temperature Source Temporal Artery Scan 12/21/23 10:31 Pulse Rate 81 12/21/23 10:31 Pulse Rhythm Regular 12/21/23 10:31 Respiratory Rate 22 12/21/23 10:31 Blood Pressure 194/103 H 12/21/23 10:31 Blood Pressure Mean 133 H 12/21/23 10:31 Blood Pressure Position Supine 12/21/23 10:31 Pulse Oximetry 100 12/21/23 10:31 Oxygen Delivery Method Room Air 12/21/23 10:31 Vital Signs Temperature 98.4 F 12/21/23 10:31 Pulse Rate 81 12/21/23 10:31 Respiratory Rate 22 12/21/23 10:31 Blood Pressure 194/103 H 12/21/23 10:31 Pulse Oximetry 100 12/21/23 10:31 Oxygen Delivery Method Room Air 12/21/23 10:31 Temperature 98.4 F 12/21/23 10:31 Pulse Rate 74 12/21/23 16:09 Respiratory Rate 16 12/21/23 16:09 Blood Pressure 144/69 H 12/21/23 16:09 Pulse Oximetry 96 12/21/23 16:09 Oxygen Delivery Method Room Air 12/21/23 16:09 Medications Administered Medications: Generic Name Dose Route Start Last Admin Trade Name Freq PRN Reason Stop Dose Admin Hydromorphone HCl 0.5 mg 12/21/23 12:58 12/21/23 16:40 Hydromorphone 0.5 Mg/0.5 Ml Inj IVP 0.5 mg Q1H PRN Administration Pain Discontinued Medications Generic Name Dose Route Start Last Admin Trade Name Freq PRN Reason Stop Dose Admin Fentanyl 75 mcg 12/21/23 11:06 12/21/23 11:13 Fentanyl 100 Mcg/2 Ml Inj IVP 12/21/23 11:07 75 mcg ONCE ONE Administration Ondansetron HCl 4 mg 12/21/23 11:06 12/21/23 11:12 Ondansetron 2 Mg/Ml Inj IVP 12/21/23 11:07 4 mg ONCE ONE Administration Ondansetron HCl 4 mg 12/21/23 12:58 12/21/23 13:04 Ondansetron 2 Mg/Ml Inj IVP 12/21/23 12:59 4 mg ONCE ONE Administration Oxycodone/Acetaminophen 1 tab 12/21/23 11:32 12/21/23 11:36 Oxycodone/Apap 5-325 Tablet PO 12/21/23 11:33 1 tab ONCE ONE Administration Medical Decision Making [facility] Narrative Medical decision making narrative: Pleasant 78-year-old female presenting to the ER today with acute onset of severe atraumatic left hip pain radiating to her low left buttock and a little bit to her left groin. Also associated with significant nausea and dry heaving. She has a history of ongoing problems with bladder prolapse, distant history of previous pelvic sling surgery done at [facility]. Also previous complex pelvic hernias requiring transfer to [facility] (but not operative management, last month). Differential is broad including occult hip fracture, pathologic fracture or osteoporotic injury, less likely would be trochanteric bursitis. No fever would argue against septic arthritis of the hip. Also consider soft tissue injury of the hip such as labrum tear. We did obtain MRI of the patient's left hip to look for those pathology. From a musculoskeletal standpoint her hip is normal. However a obturator hernia with associated bowel obstruction is noted on the left hip MRI CT scan abdomen pelvis confirms sign of the hernia and bowel obstruction. No evidence for perforation, free air. Laboratory workup shows reassuring white blood cell count and lactic acid. At this point no evidence for any clear sepsis or ischemia. Discussed the hernia with obstruction with our surgeon, Dr. Downey who strongly recommends transfer to [facility] given the complexity of the surgical repair for this lesion. We did contact [facility] transfer line. It took a couple of hours but we did receive acceptance from the surgeons at [facility]. They request that we center direct to the ER at [facility] they will evaluate her there with a plan to or taking her to the OR this afternoon. Discussed with the patient and her . They are in full agreement and please do have a plan of care and eager to get to [facility]. Lab Data Labs: Lab Results 12/21/23 12/21/23 Range/Units 10:45 13:51 WBC 7.29 (4.50-11.00) K/uL RBC 4.81 (4.00-5.20) m/uL Hgb 14.3 (12.0-16.0) gm/dL Hct 44.0 (33.0-51.0) % MCV 92 (80-100) fL MCH 30 (26-34) pg MCHC 33 (32-36) gm/dL RDW Coeff of Zenon 12.6 (11.5-15.5) % Plt Count 213 (140-440) K/uL Neut % (Auto) 74.5 H (42.0-72.0) % Lymph % (Auto) 18.2 L (20-44) % Piatt % (Auto) 4.4 (0.0-11.0) % Eos % (Auto) 2.7 (0.0-7.0) % Baso % (Auto) 0.1 (0.0-3.0) % Neut # (Auto) 5.40 (1.7-7.0) K/uL Lymph # (Auto) 1.30 (0.90-2.90) K/uL Piatt # (Auto) 0.30 (0.00-0.90) K/UL Eos # (Auto) 0.20 (0.00-0.50) K/uL Baso # (Auto) 0.01 (0.00-0.30) K/uL Abs Immat Gran (auto) 0.01 (0.00-0.30) K/uL Imm/Tot Granulo (auto) 0.1 % Sodium 139 (135-149) mmol/L Potassium 5.4 H (3.6-5.1) mmol/L Chloride 104 (96-114) mmol/L Carbon Dioxide 25 (20-32) mmol/L Anion Gap 10 (7-15) mEq/L BUN 17 (7-30) mg/dL Creatinine 1.1 (0.5-1.5) mg/dL Estimated Creat Clear 36.98 Estimated GFR 52 ml/min Glucose 99 (60-115) mg/dL Lactate 1.1 (0.5-1.9) mmol/L Calcium 10.1 (8.4-10.6) mg/dL Imaging Data CT scan - abdomen: Attestation: I have reviewed the pertinent imaging results. Radiologist's impression: IMPRESSION: 1. Left lower anterior pelvis hernia containing a loop of small bowel, likely related to reported obturator hernia. Associated moderate upstream short segment loop of small bowel moderate dilatation concerning for developing small bowel obstruction. 2. Large hiatal hernia with intrathoracic stomach again noted. MRI left hip: Attestation: I have reviewed the pertinent imaging results. Radiologist's impression: IMPRESSION: 1. On the left, there is an obturator hernia which contains a small bowel loop. There is dilatation of small-bowel loops which likely reflects a small bowel obstruction related to the left obturator hernia. Consider obtaining full CT abdomen and pelvis for further evaluation of bowel. 2. 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 Degenerative labral tearing. No hip joint effusion. 3. No fracture. 4. On the right, there is fluid within an unchanged small inguinal hernia Discharge Plan Discharge Clinical Impression: Bowel obstruction, Hernia, obturator Patient Disposition: Xfer [facility] Condition: Guarded Prescriptions: No Action lisinopril 10 mg tablet 10 mg PO DAILY simvastatin 10 mg tablet 10 mg PO QPM coQ10 (ubiquinol) 100 mg capsule 100 mg PO DAILY levothyroxine 50 mcg tablet 50 mcg PO QAM Stand Alone Forms: [facility] Info Instructions
[2023-12-21] MEDS: ONDANSETRON 2 MG/ML inj 4 MG IVP ×2 (11:12→13:04)
[2023-12-21] MEDS: fentaNYL 100 MCG/2 ML inj 75 MCG IVP (11:13)
--- NOTE | 2023-12-21 11:32 | CRLHL7_ITS ---
For Patients: As a result of the Century Cures Act, medical imaging exams and procedure reports are released immediately into your electronic medical record. You may view this report before your referring provider. If you have questions, please contact your health care provider. CLINICAL INDICATION: Left hip pain. COMPARISON IMAGING STUDIES: CT from 11/14/2023. TECHNICAL: Axial, sagittal and coronal PDFS small field of view images of the left hip. Coronal and axial T1 and PDFS large field of view images of the entire pelvis. 1.5 Sade MR scanner. FINDINGS: LEFT HIP: Cam morphology of the left proximal femur. No focal superior acetabular retroversion. No significant left hip joint effusion. There is subchondral cystic change present within the anterior superior and posterior acetabulum which likely indicates that there is full-thickness grade 4 acetabular chondromalacia. Moderate femoral head cartilage wear (grade 2/3). Degenerative acetabular labral tearing is present. No significant left hip joint effusion. RIGHT HIP: High-grade acetabular chondromalacia is present superior laterally and likely anterosuperiorly (grade 3). Moderate grade femoral head cartilage wear. Degenerative labral tearing. No hip joint effusion. OSSEOUS STRUCTURES: There is no acute fracture. No avascular necrosis. MUSCULOTENDINOUS STRUCTURES AND BURSAE: Spurring of the greater trochanters. Low-grade chronic strain changes involving the left gluteus minimus. No acute gluteal tendon tear. Common hamstring tendons intact. Distal iliopsoas tendons are intact. OTHER FINDINGS: Degenerative changes of the spine and sacroiliac joints. INTRAPELVIC CONTENTS: On the left, there is an obturator hernia which contains a small bowel loop. On coronal PD fat-sat image number 10 of series 3 there is dilatation of small bowel loop. Consequently, there is likely a small bowel obstruction related to the left-sided obturator hernia. On the right, there is fluid within an inguinal hernia which appears unchanged. Left-sided urinary bladder diverticulum. IMPRESSION: 1. On the left, there is an obturator hernia which contains a small bowel loop. There is dilatation of small-bowel loops which likely reflects a small bowel obstruction related to the left obturator hernia. Consider obtaining full CT abdomen and pelvis for further evaluation of bowel. 2. 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 Degenerative labral tearing. No hip joint effusion. 3. No fracture. 4. On the right, there is fluid within an unchanged small inguinal hernia Dictated by Erasto Montgomery MD @ 12/21/2023 1:18:31 PM Dictated by: Erasto Montgomery MD @ 12/21/2023 13:21:59 (Electronically Signed)
[2023-12-21] MEDS: OxyCODONE/APAP 5-325 TABLET 1 TAB PO (11:36)
--- OUTSIDE RECORDS SUMMARY | 2023-12-21 11:48 | XMS_ITS | Clinical Summary ---
Author Organization [facility] Address [address] [place] [address] Care Team Providers Care Cigarette Package Examiner Name Role Phone Elsewhere, Pcp Primary Care Provider Unavailabl e Source Comments Patient records contain information from all sites at [facility]. For routine questions regarding patient records, call [phone] during business hours, M-F 8:00 AM - 5:00 PM Central Time. Record requests for emergency care only can be directed to [phone] at any time.[facility] Allergies Active Allergy Reactions Criticality Noted Date [...] and Abdominal Wall Reconstructive Surgery in [address] [phone] Karine Klein M.D. Hernia Femoral 11/06/2023 10:00 AM CDT Clinical Communication Virtual Review in [address] [phone] Pre-visit Intake 10/22/2023 10:00 AM CDT Ancillary Procedure Department of Radiology in [address] [phone] Sean Rodriguez M.B., Ch.B., M.P.H. Dysfunction Pelvic Floor Female; Constipation; Hernia Perineal 10/22/2023 9:00 AM CDT Comprehensive Visit Division of Colon and Rectal Surgery in [address] [phone] Sean Rodriguez M.B., Ch.B., M.P.H. Dysfunction Pelvic Floor Female (Primary Dx); Constipation; Hernia Perineal; Obstruction Intestinal (HCC) 10/19/2023 3:15 PM CDT Clinical Communication Virtual Review in [place], [place] [address] [place] [address] 10/19/2023 Clinical Communication Division of Colon and Rectal Surgery in [place], [place] [address] [place] [phone] Sean Rodriguez M.B., Ch.B., M.P.H. OSM - Outside Materials 10/08/2023 6:18 AM CDT - 10/08/2023 11:59 PM CDT Hospital Encounter Department of Radiology, [facility], in [place], [place] [address] [place] [phone] Cande Ruiz M.D. Hernia Perineal; Hernia; Dysfunction Pelvic Floor Female; Constipation; Other Female Genital Prolapse Discharge Disposition: Home or Self Care 10/01/2023 Clinical Communication Department of Obstetrics and Gynecology, Division of Urogynecology in [place], [place] [address] [place] [phone] Cande Ruiz M.D. Communication 09/26/2023 2:30 PM REFINISHER Comprehensive Visit Department of Rehabilitation Services in [address] [phone] Drea Pepe M.D. Buchholtz, Marie F, P.TFransisco Urgency Urinary (Primary Dx) from Last 3 Months Family History Medical [...] your living situation today? I have a [facility] place to live 06/10/2023 Sex and Gender Information Value Date Recorded Sex Assigned at Female 06/08/2023 11:11 AM REFINISHER Gender Identity Female 06/08/2023 11:11 AM REFINISHER Sexual Orientation Straight 06/08/2023 11 :11 AM REFINISHER Last Filed Vital Signs Vital Sign Reading Time Taken Comments Blood Pressure 147/73 08/13/2023 7:00 PM REFINISHER Pulse 79 08/13/2023 7:49 PM REFINISHER Temperature 37 ??C (98.6 ??F) 08/13/2023 4:09 PM REFINISHER Respiratory Rate 18 08/13/2023 4:09 PM REFINISHER Oxygen Saturation 96% 08/13/2023 7:49 PM REFINISHER Inhaled Oxygen Concentration - - Weight 67.6 kg (149 lb 0.5 oz) 06/14/2023 3:44 P M REFINISHER shoes on Height 166.4 cm (5' 5.51) 06/14/2023 3:44 PM CS T shoes on Body Mass Index 24.41 06/14/2023 3:44 PM REFINISHER Plan of Treatment Health Maintenance Due Date Last Done Comments Hepatitis C Screening 1945 Depression Screening (Annual PHQ-2) 07/30/2023 Fall Risk Screen (Annual) 07/30/2023 COVID-19 Vaccine (2022-08 4 season) 2023 05/16/2023, 05/15/2022, 12/09/2021, Additional history exists Thyroid Stimulating Hormone (TSH) test for thyroid [...] 04/06/20 15, 03/17/2013 Zoster Vaccines Completed 05/05/2019, 0808/2018, 01/31/2011 Influenza Vaccine Completed 05/16/2023, , 05/12/2021, Additional history exists Procedures Procedure Name Priority Date/Time Associated Diagnosis Comments OUTSIDE MR NEURO Routine 11/15/2023 11:[address] NEURO Routine 11/15/2023 12:25 AM CDT OUTSIDE OTHER Routine 11/15/2023 12:15 AM CDT INTERPRETATION OF OUTSIDE CT ABDOMEN AND OR [...] METABOLIC PANEL, S/P STAT 08/13/2023 4:46 PM REFINISHER EXTI THYROID-STIMULATING HORMONE-SENSITIVE (S-TSH), S Routine 01/29/2023 1:04 PM CDT from Last 3 Months or Most Recently Relevant to Health Maintenance Results * MR head/brain wo con-Outside MR Neuro (11/15/2023 11:25 AM CDT) Narrative [facility] - 11/16/2023 9:48 PM CDT This order has been created and auto-finalized to support the import of outside images. If available, original interpretation can be found on the Media Tab in Chart Review, in Document Viewer, or as an image in QREADS. If a re-interpretation or overread is required please follow defined workflow. ?? Provider Not In System IMG MRI PROCEDURE S Performing Organization Address City/[facility] Co de Phone Number IIMS NA * CT ANGIO NECK-Outside CT Neuro (11/15/2023 12:25 AM CDT) Narrative [facility] - 11/16/2023 9:57 PM CDT This order has been created and auto-finalized to support the import of outside images. If available, original interpretation can be found on the Media Tab in Chart Review, in Document Viewer, or as an image in QREADS. If a re-interpretation or overread is required please follow defined workflow. ?? Provider Not In System IMG CT PROCEDURES Performing Organization Address [facility] Co de Phone Number II NA * Ct Angio Head-Outside Other (11/15/2023 12:15 AM CDT) Narrative II - 11/16/2023 9:47 PM CDT This order has been created and auto-finalized to support the import of outside images. If available, original interpretation can be found on the Media Tab in Chart Review, in Document Viewer, or as an image in QREADS. If a re-interpretation or overread is required please follow defined workflow. ?? Provider Not In System IMG DIAGNOSTIC IM AGING PROCEDURES Performing Organization Address City/[facility] Co de Phone Number II NA * Interpretation of Outside CT Abdomen and [...] is not significantly changed involume. Sean Chatterjee, Shahab., M.P.H. IMG CT PROCEDURES * MR Proctogram [...] line. 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 The vaginal [place] is located 3.2 cm above the pubococcygeal [...] pubococcygealline. 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 The vaginal [place] is located 3.2 cm above the pubococcygeal [...] * Basic Metabolic Panel (08/13/2023 4:46 PM REFINISHER) Potassium, P 4.5 3.6 - 5.2 mmol/L 08/13/2023 5:09 PM REFINISHER STMA Sodium, P 139 135 - 145 mmol/L 08/13/2023 5:09 PM REFINISHER STMA Chloride, P 102 98 - 107 mmol/L 08/13/2023 5:09 PM REFINISHER STMA Bicarbonate, P 23 22 - 29 mmol/L 08/13/2023 5:09 PM REFINISHER STMA Anion Gap, P 14 7 - 15 08/13/2023 5:09 PM REFINISHER STMA BUN (Blood Urea Nitrogen), P 14 6 - 21 mg/dL 08/13/2023 5:09 PM REFINISHER STMA Creatinine 0.94 0.59 - 1.04 mg/dL 08/13/2023 5:09 PM REFINISHER STMA Estimated GFR (eGFR) 62 >=60 mL/min/BSA 08/13/2023 5:09 PM REFINISHER STMA Comment: Estimated GFR calculated using the 2020 CKD_EPI creatinine equation. Calcium, Total, P 9.4 8.8 - 10.2 mg/dL 08/13/2023 5:09 PM REFINISHER STMA Glucose, P 99 70 - 140 mg/dL 08/13/2023 5:09 PM REFINISHER STMA Blood (Blood, Venous) 08/13/2023 4:46 PM REFINISHER 08/13/2023 4:52 PM REFINISHER Elizabeth Hutton P.A.-C. LAB BLOOD ADD-ON [facility] [address] [place] [address], [place] [facility] [address] [place] [address] from Last 3 Months or Most Recently Relevant to Health Maintenance Care Teams Cigarette Package Examiner Relationship Specialty Start Date End Date Elsewhere, Pcp PCP - General Internal Medicine 06/12/23
--- OUTSIDE RECORDS SUMMARY | 2023-12-21 11:49 | XMS_ITS | Encounter Summary ---
Author Organization [facility] Address [address] [place] [address] Care Team Providers Care Manager Gas Name Role Phone Elsewhere, Pcp Primary Care Provider Unavailabl e Reason for Visit * Reason Onset Date Comments Communication 10/01/2023 Encounter Details Date Type Department Care Team (Latest Contact Info) Description 10/01/2023 Clinical Communication Department of Obstetrics and Gynecology, Division of Urogynecology in [place], [place] [address] [place] [address] Cande Ruiz M.D. [address] [place] [phone] Communication Social History Tobacco Use Types Packs/Day [...] your living situation today? I have a [facility] place to live 06/10/2023 Sex and Gender Information Value Date Recorded Sex Assigned at Female 06/08/2023 11:11 AM TRANSIT MANAGER Gender Identity Female 06/08/2023 11:11 AM TRANSIT MANAGER Sexual Orientation Straight 06/08/2023 11 :11 AM TRANSIT MANAGER documented as of this encounter Plan of Treatment Not on file documented as of this encounter Visit Diagnoses Not on filedocumented in this encounter Care Teams Manager Gas Relationship Specialty Start Date End Date Elsewhere, Pcp PCP - General Internal Medicine 06/12/23 documented as of this encounter
--- OUTSIDE RECORDS SUMMARY | 2023-12-21 11:49 | XMS_ITS | Encounter Summary ---
Author Organization [facility] Address [address] [place] [address] Care Team Providers Care Job Change Crew Member Name Role Phone Elsewhere, Pcp Primary Care Provider Unavailabl e Reason for Visit * Reason Onset Date Comments Communication 08/16/2023 AMM Encounter Details Date Type Department Care Team (Latest Contact Info) Description 08/16/2023 Clinical Communication Department of Obstetrics and Gynecology, Division of Urogynecology in [place], [place] [address] [place] [address] Cande Ruiz M.D. [address] [place] [phone] Communication (AMM) Social History Tobacco Use Types [...] Sex Assigned at Female 06/08/2023 11:11 AM ANIMATION ARTIST Gender Identity Female 06/08/2023 11:11 AM ANIMATION ARTIST Sexual Orientation Straight 06/08/2023 11 :11 AM ANIMATION ARTIST documented as of this encounter Plan of Treatment Not on file documented as of this encounter Visit Diagnoses Not on filedocumented in this encounter Care Teams Job Change Crew Member Relationship Specialty Start Date End Date Elsewhere, Pcp PCP - General Internal Medicine 06/12/23 documented as of this encounter
--- OUTSIDE RECORDS SUMMARY | 2023-12-21 11:49 | XMS_ITS ---
Author Organization [facility] Address [address] [place] [address] Care Team Providers Care Stock Preparation Operator Name Role Phone Unavailable Unavailable Unavailable Surgery Details Not on file Complications Check Surgery Details section. Procedure Estimated Blood Loss Check Surgery Details section. Procedure Findings Check Surgery Details section. Procedure Specimens Taken Check Surgery Details section.
--- OUTSIDE RECORDS SUMMARY | 2023-12-21 11:49 | XMS_ITS | Encounter Summary ---
Author Organization [facility] Address [address] [place] [address] Care Team Providers Care Rigging Slinger Name Role Phone Elsewhere, Pcp Primary Care Provider Unavailabl e Reason for Visit * Reason Onset Date Comments Pre-visit Intake 11/06/2023 Encounter Details Date Type Department Care Team (Latest Contact Info) Description 11/06/2023 10:00 AM CDT Clinical Communication Virtual Review in [place], [place] [address] [place] [address] Pre-visit Intake Social History Tobacco Use Types [...] Assigned at Female 06/08/2023 11:11 AM EQUIPMENT MECHANIC SPECIALIST Gender Identity Female 06/08/2023 11:11 AM EQUIPMENT MECHANIC SPECIALIST Sexual Orientation Straight 06/08/2023 11 :11 AM EQUIPMENT MECHANIC SPECIALIST documented as of this encounter Plan of Treatment Not on file documented as of this encounter Visit Diagnoses Not on filedocumented in this encounter Care Teams Rigging Slinger Relationship Specialty Start Date End Date Elsewhere, Pcp PCP - General Internal Medicine 06/12/23 documented as of this encounter
--- OUTSIDE RECORDS SUMMARY | 2023-12-21 11:49 | XMS_ITS | Encounter Summary ---
Author Organization [facility] Address [address] [place] [address] Care Team Providers Care Rodent Exterminator Name Role Phone Elsewhere, Pcp Primary Care Provider Unavailabl e Encounter Details Date Type Department Care Team (Latest Contact Info) Description 10/19/2023 3:15 PM CDT Clinical Communication Virtual Review in [place], [place] [address] [place] [phone] Social History Tobacco Use Types Packs/Day Years [...] your living situation today? I have a [facility] place to live 06/10/2023 Sex and Gender Information Value Date Recorded Sex Assigned at Female 06/08/2023 11:11 AM DYED YARN OPERATOR Gender Identity Female 06/08/2023 11:11 AM DYED YARN OPERATOR Sexual Orientation Straight 06/08/2023 11 :11 AM DYED YARN OPERATOR documented as of this encounter Miscellaneous Notes * Addendum Note - Zabrina Martinez - 10/19/2023 3:45 PM CDTAddended by: ZABRINA MARTINEZ on: 10/19/2023 03:45 PM Modules accepted: Orders documented in this encounter Plan of Treatment Not on file documented as of this encounter Visit Diagnoses Not on filedocumented in this encounter Care Teams Rodent Exterminator Relationship Specialty Start Date End Date Elsewhere, Pcp PCP - General Internal Medicine 06/12/23 documented as of this encounter
--- OUTSIDE RECORDS SUMMARY | 2023-12-21 11:49 | XMS_ITS | Encounter Summary ---
Author Organization 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 [address] [place] [phone] [facility] Referral ID Status Reason Start Date Expiration Date Visits Re quested Visits Authorized [id number] Closed 08/07/2023 08/06/2024 1 1 Encounter Details Date Type Department Care Team (Latest Contact Info) Description 10/22/2023 9:00 AM CDT Comprehensive Visit Division of Colon and Rectal Surgery in [place], [place] [address] [place] [phone] Sean Rodriguez M.B., Ch.B., M.P.H. [address] [place] [phone] Dysfunction Pelvic Floor Female (Primary Dx); Constipation; [...] living situation today? I have a [facility] place to live 06/10/2023 Sex and Gender Information Value Date Recorded Sex Assigned at Female 06/08/2023 11:11 AM COOK ROAST Gender Identity Female 06/08/2023 11:11 AM COOK ROAST Sexual Orientation Straight 06/08/2023 11 :11 AM COOK ROAST documented as of this encounter Consult Notes [...] line. 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 The vaginal [place] is located 3.2 cm above the pubococcygeal [...] Perineal documented in this encounter Care Teams Outboard Motor Assembler Relationship Specialty Start Date End Date Elsewhere, Pcp PCP - General Internal Medicine 06/12/23 documented as of this encounter
--- OUTSIDE RECORDS SUMMARY | 2023-12-21 11:49 | XMS_ITS | Encounter Summary ---
Author Organization [facility] Address [address] [place] [address] Care Team Providers Care Supervisor Aircraft Cleaning Name Role Phone Elsewhere, Pcp Primary Care Provider Unavailabl e Reason for Visit * Outpatient (Routine) - Closed Specialty Diagnoses / Procedures Referred By Hi t Referred To Contact General Surgery Diagnoses Hernia Femoral Cande Ruiz M.D. [address] [place] [address] [facility] Referral ID Status Reason Start Date Expiration Date Visits Re quested Visits Authorized [id number] Closed 08/07/2023 08/06/2024 1 1 Encounter Details Date Type Department Care Team (Latest Contact Info) Description 11/08/2023 2:30 PM CDT Comprehensive Visit Division of Metabolic and Abdominal Wall Reconstructive Surgery in [place], [place] [address] [place] [address] Karine Klein M.D. [address] [place] [phone] Hernia Femoral Social History Tobacco Use Types [...] your living situation today? I have a [facility] place to live 06/10/2023 Sex and Gender Information Value Date Recorded Sex Assigned at Female 06/08/2023 11:11 AM PECAN SHELLER Gender Identity Female 06/08/2023 11:11 AM PECAN SHELLER Sexual Orientation Straight 06/08/2023 11 :11 AM PECAN SHELLER documented as of this encounter Progress Notes * Esme Xavier M.D. - 11/08/2023 2:30 PM CDT Images from the original note were not included. @DATE@ 6811 CHIEF COMPLAINT/REASON FOR VISIT Katharine Shell is [...] line. 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 The vaginal [place] is located 3.2 cm above the pubococcygeal [...] Femoral documented in this encounter Care Teams Supervisor Aircraft Cleaning Relationship Specialty Start Date End Date Elsewhere, Pcp PCP - General Internal Medicine 06/12/23 documented as of this encounter
--- OUTSIDE RECORDS SUMMARY | 2023-12-21 11:49 | XMS_ITS | Encounter Summary ---
Author Organization [facility] Address [address] [place] [address] Care Team Providers Care Vending Enterprises Supervisor Name Role Phone Elsewhere, Pcp Primary Care [...] without IV Contrast Cande Ruiz M.D. [address] [place] [address] [facility] Referral ID Status Reason Start Date Expiration Date Visits Re quested Visits Authorized [id number] Closed 08/07/2023 08/06/2024 1 1 Reason for Visit * MRI/CAT/PET Scan (Routine) - Closed Specialty Diagnoses / Procedures Referred By Contac t Referred To Contact Radiology Diagnoses Hernia Perineal Hernia Dysfunction Pelvic Floor Female Constipation Other Female Genital Prolapse Procedures MR Proctogram Dynamic and Sphincter Eval without IV Contrast MR Proctogram Dynamic and Sphincter Eval without IV Contrast Cande Ruiz M.D. [address] [place] [address] [facility] Referral ID Status Reason Start Date Expiration Date Visits Re quested Visits Authorized [id number] Closed 08/07/2023 08/06/2024 1 1 Encounter Details Date Type Department Care Team (Latest Contact Info) Description 10/08/2023 6:18 AM CDT - 10/08/2023 11:59 PM CDT Hospital Encounter Department of Radiology, [facility], in [place], [place] [address] [place] [address] Cande Ruiz M.D. [address] [place] [address] Hernia Perineal; Hernia; Dysfunction Pelvic Floor Female; [...] your living situation today? I have a [facility] place to live 06/10/2023 Sex and Gender Information Value Date Recorded Sex Assigned at Female 06/08/2023 11:11 AM FUEL QUALITY TECH Gender Identity Female 06/08/2023 11:11 AM FUEL QUALITY TECH Sexual Orientation Straight 06/08/2023 11 :11 AM FUEL QUALITY TECH documented as of this encounter Medications at [...] line. 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 The vaginal [place] is located 3.2 cm above the pubococcygeal [...] pubococcygealline. 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 The vaginal [place] is located 3.2 cm above the pubococcygeal [...] at rest, exacerbated withstraining. Urethral hypermobility. Cande DE JESUS MRI PROCEDURES documented in this encounter Visit [...] mL documented in this encounter Care Teams Vending Enterprises Supervisor Relationship Specialty Start Date End Date Elsewhere, Pcp PCP - General Internal Medicine 06/12/23 documented as of this encounter
--- OUTSIDE RECORDS SUMMARY | 2023-12-21 11:49 | XMS_ITS | Encounter Summary ---
Author Organization [facility] Address [address] [place] [address] Care Team Providers Care Shoemaking Finisher Name Role Phone Elsewhere, Pcp Primary Care Provider Unavailabl e Encounter Details Date Type Department Care Team (Latest Contact Info) Description 10/22/2023 10:00 AM CDT Ancillary Procedure Department of Radiology in [place], [place] [address] [place] [address] Sean Rodriguez M.B., Ch.B., M.P.H. [address] [place] [address] Dysfunction Pelvic Floor Female; Constipation; Hernia Perineal [...] your living situation today? I have a [facility] place to live 06/10/2023 Sex and Gender Information Value Date Recorded Sex Assigned at Female 06/08/2023 11:11 AM MATHEMATICS ACADEMIC CHAIR Gender Identity Female 06/08/2023 11:11 AM MATHEMATICS ACADEMIC CHAIR Sexual Orientation Straight 06/08/2023 11 :11 AM MATHEMATICS ACADEMIC CHAIR documented as of this encounter Plan of [...] Sean Chatterjee, Shahab., M.P.H. IMG CT PROCEDURES documented in this encounter Visit Diagnoses Diagnosis Dysfunction Pelvic Floor Female Constipation Hernia Perineal documented in this encounter Care Teams Shoemaking Finisher Relationship Specialty Start Date End Date Elsewhere, Pcp PCP - General Internal Medicine 06/12/23 documented as of this encounter
--- OUTSIDE RECORDS SUMMARY | 2023-12-21 11:49 | XMS_ITS | Encounter Summary ---
Author Organization [facility] Address [address] [place] [address] Care Team Providers Care Belt Sander Stone Name Role Phone Elsewhere, Pcp Primary Care [...] your living situation today? I have a [facility] place to live 06/10/2023 Sex and Gender Information Value Date Recorded Sex Assigned at Female 06/08/2023 11:11 AM COAL HAULER OPERATOR Gender Identity Female 06/08/2023 11:11 AM COAL HAULER OPERATOR Sexual Orientation Straight 06/08/2023 11 :11 AM COAL HAULER OPERATOR documented as of this encounter Plan of Treatment Not on file documented as of this encounter Visit Diagnoses Not on filedocumented in this encounter Care Teams Belt Sander Stone Relationship Specialty Start Date End Date Elsewhere, Pcp PCP - General Internal Medicine 06/12/23 documented as of this encounter
--- OUTSIDE RECORDS SUMMARY | 2023-12-21 11:49 | XMS_ITS | Clinical Summary ---
Author Organization [facility] Address [place], [place] [address] Care Team Providers Care Handy Man Name Role Phone KarelyAngie chung MD Primary Care Provider Allergies Active Allergy Reactions Criticality Noted Date Comments Sulfamethoxazole-Trimethoprim Rash 2009 Medications Medication Sig Dispensed Refills Start Date End Date Status coenzyme q10 100 mg capIndications:Hype rlipidemia, unspecified hyperlipidemia type Take 1 capsule by mouth once daily. 0 04/11/2018 Active hydrOXYzine HCL (ATARAX) 25 mg tabletIndications:A nxiety TAKE 1 TABLET BY MOUTH EVERY 6 HOURS IF NEEDED FOR ANXIETY OR ITCHING 30 Tablet 03/12/2022 Active levothyroxine (SYNTHROID) 50 mcg tabletIndications:P ostsurgical hypothyroidism TAKE 1 TABLET (50 MCG) BY MOUTH BEFORE BREAKFAST 90 Tablet 3 05/13/2023 Active lisinopriL (PRINIVIL; ZESTRIL) 10 mg tabletIndications:H ypertension, unspecified type Take 1 Tablet (10 mg) by mouth once daily. 90 Tablet 3 05/16/2023 Active cholecalciferol (VITAMIN D3) 2,000 unit capsule Take 50 mcg by mouth. Active estradioL (ESTRACE) 0.01% (0.1 mg/g) vaginal cream Insert 1 g into the vagina. 06/15/2023 Active fish oil-omega-3 fatty acids 300-1,000 mg Take 1-2 g by mouth. Active ascorbic acid/collagen hydr (COLLAGEN SKIN RENEWAL ORAL) Take by mouth. Active simvastatin (ZOCOR) 10 mg tabletIndications:H yperlipidemia, unspecified hyperlipidemia type Take 1 Tablet (10 mg) by mouth at bedtime. 90 Tablet 3 11/23/2023 Active triamcinolone 0.1 % ointmentIndications :Vaginal burning Apply topically to affected area(s) two times daily. 15 g 12/06/2023 Active sertraline (ZOLOFT) 50 mg tabletIndications:A nxiety Take 1 Tablet (50 mg) by mouth once daily in the morning. 60 Tablet 12/14/2023 Active omeprazole (PRILOSEC) 40 mg Delayed-Release capsuleIndications: Hiatal hernia Take 1 Capsule (40 mg) by mouth once daily before a meal. 90 Capsule 12/14/2023 Active simvastatin (ZOCOR) 10 mg tabletIndications:H yperlipidemia, unspecified hyperlipidemia type TAKE 1 TABLET BY MOUTH EVERYDAY AT BEDTIME 90 Tablet 2 04/26/2023 4 Discontinued (Reorder (E-cancel not sent)) sertraline (ZOLOFT) 25 mg tabletIndications:A nxiety Take 1 Tablet (25 mg) by mouth every morning. 30 Tablet 1 11/23/2023 4 Discontinued (*Medication adjustment) cephalexin (KEFLEX) 500 mg capsuleIndications: Complicated UTI (urinary tract infection) Take 1 Capsule (500 mg) by mouth three times daily for 7 days. 21 Capsule 11/26/2023 4 nitrofurantoin macrocrystals/monoh ydrate (MACROBID) 100 mg capsuleIndications: Complicated UTI (urinary tract infection) Take 1 Capsule (100 mg) by mouth two times daily for 5 days. 10 Capsule 11/27/2023 4 Active Problems Problem Noted Date Diagnosed Date [...] 12/10/2018 Lumbar radicular pain 04/21/2016 Overview: MRI Mar 2020: physical therapy ordered. Spondylolisthesis of lumbar region 04/21/2016 Hyperlipidemia 01/31/2011 HTN (hypertension) 12/30/2009 Thyroid nodule Encounters Date Type Department Care Team Description 12/14/2023 10:05 AM CDT Office Visit [facility] [[email or web address] [address] [place] [address] Angie Cali MD Medication Management (Sertraline); General Illness/Other (Still having burning and nausea) 12/14/2023 Travel 12/06/2023 8:35 AM CDT Office Visit [facility] [[email or web address]] [address] [place] [address] Franca Park PA Urinary Problem 12/06/2023 Travel 12/03/2023 Telephone [facility] [[email or web address]] [address] [place] [address] Angie Cali MD Vaginal Problem (External burning) 11/26/2023 Telephone [facility] [[email or web address]] [address] [place] [address] Angie Cali MD Questions 11/23/2023 11:45 AM CDT Office Visit [facility] [[email or web address]] [address] [place] [address] Angie Cali MD Hospital F/U; UTI (Pain with urination); Anxiety 11/23/2023 Telephone [facility] [[email or web address]] [address] [place] [address] Angei Cali MD 11/23/2023 Travel 11/15/2023 Orders Only [facility] Scanner 1 scan: (1-Ord) [place], CT-HEAD ANGIO CTA HEAD W/ISOVUE 370 95CC, 11/15/2023 11/15/2023 Orders Only [facility] Scanner 1 scan: (1-Ord) [facility], MR HEAD/BRAIN WO CON, 11/15/2023 11/15/2023 Orders Only [facility] Scanner 1 scan: (1-Ord) [facility], NECK ANGIO, 11/15/2023 11/15/2023 Office Visit [facility] [address] [place] [address] Wilma, Jake Sharma MD 11/14/2023 Orders Only [facility] Scanner 1 scan: (1-Ord) [facility], CT ABDOMEN PELVIS W CON, 11/14/2023 11/14/2023 Orders Only [facility] Scanner 1 scan: (1-Ord) [facility], CT-HEAD W/O, 11/14/2023 11/14/2023 Orders Only [facility] Scanner 1 scan: (1-Ord) [facility], HIP LT MIN 2V, 11/14/2023 from Last 3 Months Immunizations Name Administration Dates Next Due COVID-19 Vaccine Spikevax (M oderna 50mcg/0.5mL) 12YO+ [id number] Formula PF 05/16/2023 COVID-19 vaccine (Pfizer-Bio NTech 30mcg/0.3mL) 12YO+ BIVALENT PF, MDV 05/15/2022 COVID-19 vaccine (Pfizer-Bio NTech 30mcg/0.3mL) 12YO+ RADHA-SUCROSE PF, MDV 12/09/2021 COVID-19 vaccine (Pfizer-Bio NTech 30mcg/0.3mL) PF, MDV 05/12/2021,10/12/2020,09/21/2020 Influenza, High-dose Inactivated 04/07/2016,090 02/2015 Influenza, IIV3 (Age >=3 years) 08/21/2012 Influenza, [...] PHQ-2 Answer Date Recorded PHQ-2 TOTAL SCORE 2 12/14/2023 Social Connections Answer Date Recorded Frequency of [...] Sign Reading Time Taken Comments Blood Pressure 147/79 12/14/2023 10:13 AM CDT Pulse 70 12/14/2023 10:13 AM CDT Temperature 36.6 ??C (97.8 ??F) 12/06/2023 8:30 AM CD T Respiratory Rate 14 12/14/2021 1:24 PM CDT Oxygen Saturation 100% 12/14/2023 10:13 AM CDT Inhaled Oxygen Concentration - - Weight 61 kg (134 lb 6.4 oz) 12/14/2023 10:13 AM CDT Height 164.5 cm (5' 4.76) 11/23/2023 11:34 AM C DT Body Mass Index 22.53 11/23/2023 11:34 AM CDT Plan of Treatment Upcoming Encounters Date Type Department Care Team (Late st Contact Info) Description 01/11/2024 8:25 AM CDT Office Visit [facility] [[email or web address]] [address] [place] [address] Angie Cali MD [address] [place] [address] Health Maintenance Due Date Last Done Comments Medicare Wellness for age 65+ 04/20/2021, 04/15/2019, 04/11/2018, Additional history exists Influenza for age 65+ 03/30/2024 05/16/2023 , 05/15/2022, 05/12/2021, Additional history exists BMI (ht and wt on same day) for age 18+ 11/22/2024 11/23/2023, 05/16/2023, 03/09/2023, Additional history exists Depression screening for age 12+ 12/13/2024 12/14/2023, 11/26/2023, 11/23/2023, Additional history exists Tetanus booster 07/11/2031 07/11/2021, [...] 05/16/20 23, 05/15/2022, 12/09/2021, Additional history exists Procedures Procedure Name Priority Date/Time Associated Diagnosis Comments UA W/ SEDIMENT EXAM REFLEXED PER CRITERIA Routine 12/06/2023 8:57 AM CDT Vaginal burning TRICHOMONAS, SINGH, AND BACTERIAL VAGINOSIS BY KASSIE Routine 12/06/2023 8:43 AM CDT Vaginal burning URINALYSIS MICROSCOPIC Routine 4 11:38 AM CDT Pain with urination URINE CULTURE Routine 11/23/2023 11:38 AM CDT Pain with urination UA W/ SEDIMENT EXAM REFLEXED PER CRITERIA Routine 11/23/2023 11:38 AM CDT Pain with urination SCAN-CT INTERPRETATION 4 12:00 AM CDT SCAN-MRI INTERPRETATION 11/15/19 24 12:00 AM CDT SCAN-CT INTERPRETATION 4 12:00 AM CDT SCAN-CT INTERPRETATION 4 12:00 AM CDT SCAN-CT INTERPRETATION 4 12:00 AM CDT SCAN-RADIOLOGY REPORT 11/14/2023 12:00 AM CDT XR DXA BONE DENSITY 2 SITES AXIAL AND 1 SITE PERIPHERAL Routine 05/16/2021 1:26 PM CDT Hyperparathyroidis m (HC) ANTI HCV Routine 04/09/2017 9:43 AM CDT Need for hepatitis C screening test from Last 3 Months or Most Recently Relevant to Health Maintenance Results * UA W/ SEDIMENT EXAM REFLEXED PER CRITERIA (12/06/2023 8:57 AM CDT) Only the most recent of2 resultswithin the time period is included. COLOR Yellow Yellow Color 12/06/2023 9:00 AM CDT [facility] [email or web address]] CLARITY Clear Clear Clarity 12/06/2023 9:00 AM CDT [facility] [[email or web address]] SPECIFIC GRAVITY,URINE 1.025 1.010, 1.015, 1.020, 1.025 12/06/2023 9:00 AM CDT [facility] [[email or web address]] PH,URINE 7.0 6.0, 7.0, 8.0, 5.5, 6.5, 7.5, 8.5 12/06/2023 9:00 AM CDT [facility] [[email or web address]] UROBILINOGEN, QUALITATIVE Normal Normal EU/dl 12/06/2023 9:00 AM T [facility] [email or web address]] PROTEIN, URINE Negative Negative mg/dL 12/06/2023 9:00 AM CDT [facility] [[email or web address]] GLUCOSE, URINE Negative Negative mg/dL 12/06/2023 9:00 AM T [facility] [[email or web address]] KETONES,URINE Negative Negative mg/dL 12/06/2023 9:00 AM T [facility] [[email or web address]] BILIRUBIN,URI NE Negative Negative 12/06/2023 9:00 AM CDT [facility] [[email or web address]] OCCULT BLOOD,URINE Negative Negative 12/06/2023 9:00 AM T [facility] [[email or web address]] NITRITE Negative Negative 12/06/2023 9:00 AM CDT [facility] [[email or web address]] LEUKOCYTE ESTERASE Negative Negative 12/06/2023 9:00 AM T [facility] [email or web address]] Urine URINE SPECIMEN / Unknown Non-Blood / Unknown 12/06/2023 8:57 AM CDT 12/06/2023 8:57 AM CDT Franca BROOKS URINE [facility] [[email or web address]] [address] [place] [address], * TRICHOMONAS, SINGH, AND BACTERIAL VAGINOSIS BY KASSIE (12/06/2023 8:43 AM CDT) SINGH SPECIES Negative Negative 7:11 PM CDT [facility] SINGH GLABRATA Negative Negative 12/06/2023 7:11 PM CDT [facility] TRICHOMONAS VVA Negative Negative 7:11 PM CDT [facility] BACTERIAL VAGINOSIS Negative Negative 12/06/2023 7:11 PM CDT [facility] Other VAGINAL SWAB / Unknown Non-Blood / Unknown 12/06/2023 8:43 AM CDT 12/06/2023 9:16 AM CDT Franca BROOKS MICROBIOLOGY [facility] [address] [place] [id number], * (ABNORMAL) URINALYSIS MICROSCOPIC (11/23/2023 11:38 AM CDT) RBC 0-2 0-2, None Seen /HPF 11/23/2023 11:50 AM CDT [facility] [[email or web address]] WBC 26-50(A) 0-2, 3-5, None Seen /HPF 11/23/2023 11:50 AM CDT [facility] [email or web address]] BACTERIA Few None Seen, Rare, Few Bacteria/H PF 11/23/2023 11:50 AM CDT [facility] [email or web address]] EPITHELIAL CELLS Few None Seen, Few Epi/HPF 11/23/2023 11:50 AM CDT [facility] [email or web address]] Urine URINE SPECIMEN / Unknown Non-Blood / Unknown 11/23/2023 11:38 AM CDT 11/23/2023 11:45 AM CDT Angie Cali MD URINE [facility] [[email or web address]] [address] [place] [address], [place] [phone] * (ABNORMAL) URINE CULTURE (11/23/2023 11:38 AM CDT) CULTURE RESULT(A) 11/27/2023 6:46 AM CDT [facility] CULTURE 50,000-100,000 CFU/mL Enterococcus faecalis 11/27/2023 6:46 AM CDT [facility] CULTURE 10,000-50,000 CFU/mL Multiple organisms probable contaminants 11/27/2023 6:46 AM CDT [facility] Urine URINE SPECIMEN / Unknown Non-Blood / Unknown 11/23/2023 11:38 AM CDT 11/23/2023 11:45 AM CDT Narrative Organism Antibiotic Method Susceptibility Enterococcus faecalis AMPICILLIN <=2: S Enterococcus faecalis NITROFURANTOIN <=16: S Angie Cali MD [facility] [address] [place] [address], * SCAN-MRI INTERPRETATION (11/15/2023 12:00 AM CDT) Anatomical Region Laterality Modality Other Scanner OTHER * SCAN-CT INTERPRETATION (11/15/2023 12:00 AM CDT) Only the most recent of4 resultswithin the time period is included. Anatomical Region Laterality Modality Other Scanner OTHER * SCAN-RADIOLOGY REPORT (11/14/2023 12:00 AM CDT) Anatomical Region Laterality Modality Other Scanner OTHER * (ABNORMAL) XR DXA BONE DENSITY 2 [...] scan recommended in 3-5 years. Maria A Sanchez PA-C Narrative 05/20/2021 2:38 PM CDT For Patients: Results are automatically released to your [employer] [email or web address]) account once available, in compliance with federal regulations. This means that you may see your results before your provider has had a chance to review them. Please allow 2-3 business days for your provider to comment on the results. XR DXA Bone Mineral Density (BMD) EXAM LOCATION: [address] [address] PATIENT NAME: Katharine Shell DATE OF : [...] two scanners are made by the same insurance defense attorney. PROCEDURE: Dual-energy x-ray absorptiometry performed with routine [...] Angie Cali MD DEXA * ANTI HCV [52621.2] (04/09/2017 9:43 AM CDT) Pathologist [facility] [place] HEPATITIS C ANTIBODY Non-Reacti ve Non-Reacti ve 04/09/2017 5:52 PM CDT [facility] Blood BLOOD SPECIMEN / Unknown Venipuncture / Unknown 04/09/2017 9:43 AM CDT 04/09/2017 9:43 AM CDT Narrative [facility] [employer] [facility] [facility] - 04/09/2017 5:52 PM CDT Antibodies to HCV not detected; does not exclude the possibility of exposure to HCV. Angie Cali MD SEND OUTS [facility] [employer] [facility] [facility] [address] [place] [address], from Last 3 Months or Most Recently Relevant to Health Maintenance Advance Directives Documents on File Type Date Recorded Patient Ampoule Filler And Sealer Expl anation Healthcare Directive 05/02/2016 11:56 AM H EALTH CARE AGENTS/DIRECTIVE, JESSICA ACOSTA, 11/21/2010 * Full Code (Latest Code Status on File) Date Activated Date Inactivated Comments 12/14/2021 7:39 AM 12/14/2021 3:26 PM Question Answer Comments Code Status Discussion: Discussed Care Teams Handy Man Relationship Specialty Start Date End Date Angie Cal[place] [address] [address] PCP - General 01/24/10
--- OUTSIDE RECORDS SUMMARY | 2023-12-21 11:49 | XMS_ITS | Encounter Summary ---
Author Organization [facility] Address [address] [place] [address] Care Team Providers Care Hat Steamer Name Role Phone Elsewhere, Pcp Primary Care Provider Unavailabl e Reason for Referral * Physical Therapy (Routine) - Authorized Specialty Diagnoses / Procedures Referred By Hi t Referred To Contact Diagnoses Urgency Urinary Procedures PT Ongoing treatment [address] [address] [facility] Referral ID Status Reason Start Date Expiration Date V isits Requested Visits Authorized [id number] Authorized 09/26/2023 09/25/2024 99 99 R GRADER OPERATOR Reason for Visit * Physical Therapy (Routine) - Authorized Specialty Diagnoses / Procedures Referred By Hi steiner Referred To Contact Diagnoses Urgency Urinary Procedures PT Evaluate and treat Drea Pepe M.D. [address] [place] [address] [facility] Referral ID Status Reason Start Date Expiration Date V isits Requested Visits Authorized [id number] Authorized 06/14/2023 06/13/2024 99 99 Encounter Details Date Type Department Care Team (Latest Contact Info) Description 09/26/2023 2:30 PM POWER GRADER OPERATOR Comprehensive Visit Department of Rehabilitation Services in [address] [phone] Drea Pepe M.D. [address] [place] [phone] Anupama Lockhart P.T. Urgency Urinary (Primary Dx) [...] Sex Assigned at Female 06/08/2023 11:11 AM POWER GRADER OPERATOR Gender Identity Female 06/08/2023 11:11 AM POWER GRADER OPERATOR Sexual Orientation Straight 06/08/2023 11 :11 AM POWER GRADER OPERATOR documented as of this encounter Consult Notes * Anupama Lockhart P.T. - 09/26/2023 2:30 PM CST Physical Therapy Outpatient Evaluation/Treatment By co-signing this note, the provider certifies the therapy being provided to this patient is reasonable and necessary for the diagnosis or treatment of this patient. SUBJECTIVE Patient's Name: Katharine Shell Referring Provider: Drea Pepe, * Visit Diagnosis: 1. Urgency Urinary Reason for Referral: urinary urgency and prolapse Onset Date: 08/14/23 Payor: MEDICARE / Plan: MEDICARE A AND B / Product Type: Medicare / Hub[employer] Visit Count: 1 PERTINENT MEDICAL / SURGICAL [...] muscles. Time Spent with Patient 60 min Evdoris, PHILIPP and TE - 1 unit of each R GRADER OPERATOR documented in this encounter Plan of Treatment Not on file documented as of this encounter Visit Diagnoses Diagnosis Urgency Urinary- Primary documented in this encounter Care Teams Hat Steamer Relationship Specialty Start Date End Date Elsewhere, Pcp PCP - General Internal Medicine 06/12/23 documented as of this encounter
--- OUTSIDE RECORDS SUMMARY | 2023-12-21 11:49 | XMS_ITS | Encounter Summary ---
Author Organization [facility] Address [address] [place] [address] Care Team Providers Care Voice Pathologist Name Role Phone Elsewhere, Pcp Primary Care Provider Unavailabl e Reason for Visit * Reason Onset Date Comments [facility] - Outside Materials 10/19/2023 Encounter Details Date Type Department Care Team (Latest Contact Info) Description 10/19/2023 Clinical Communication Division of Colon and Rectal Surgery in [place], [place] [address] [place] [address] Sean Rodriguez M.B., Ch.B., M.P.H. [address] [place] [address] [facility] - [employer] Social History Tobacco [...] situation today? I have a [facility] place to live 06/10/2023 Sex and Gender Information Value Date Recorded Sex Assigned at Female 06/08/2023 11:11 AM UNIVERSITY LIBRARIAN Gender Identity Female 06/08/2023 11:11 AM UNIVERSITY LIBRARIAN Sexual Orientation Straight 06/08/2023 11 :11 AM UNIVERSITY LIBRARIAN documented as of this encounter Plan of Treatment Not on file documented as of this encounter Visit Diagnoses Not on filedocumented in this encounter Care Teams Voice Pathologist Relationship Specialty Start Date End Date Elsewhere, Pcp PCP - General Internal Medicine 06/12/23 documented as of this encounter
--- OUTSIDE RECORDS SUMMARY | 2023-12-21 11:49 | XMS_ITS | Referral Summary ---
Author Organization [facility] Address [address] [place] [address] Care Team Providers Care Salvager Name Role Phone Elsewhere, Pcp Primary Care Provider Unavailabl e Source Comments Patient records contain information from all sites at [facility]. For routine questions regarding patient records, call [phone] during business hours, M-F 8:00 AM - 5:00 PM Central Time. Record requests for emergency care only can be directed to [phone] at any time.[facility] Encounters Date Type Department Care Team Description 11/08/2023 2:30 PM CDT Comprehensive Visit Division of Metabolic and Abdominal Wall Reconstructive Surgery in [address] [address] Karine Klein M.D. Hernia Femoral 11/06/2023 10:00 AM CDT Clinical Communication Virtual Review in [place], [place] [address] [place] [address] Pre-visit Intake 10/22/2023 10:00 AM CDT Ancillary Procedure Department of Radiology in [place], [place] [address] [place] [address] Sean Rodriguez M.B., Ch.B., M.P.H. Dysfunction Pelvic Floor Female; Constipation; Hernia Perineal 10/22/2023 9:00 AM CDT Comprehensive Visit Division of Colon and Rectal Surgery in [place], [place] [address] [place] [phone] Sean Rodriguez M.B., Shahab., M.P.H. Dysfunction Pelvic Floor Female (Primary Dx); Constipation; Hernia Perineal; Obstruction Intestinal (HCC) 10/19/2023 Clinical Communication Division of Colon and Rectal Surgery in [place], [place] [address] [place] [address] Sean Rodriguez M.B., Shahab., M.P.H. OSM - Outside Materials 10/19/2023 3:15 PM CDT Clinical Communication Virtual Review in [place], [place] [address] [place] [address] 10/08/2023 6:18 AM CDT - 10/08/2023 11:59 PM CDT Hospital Encounter Department of Radiology, [facility], in [place], [place] [address] [place] [address] Cande Ruiz M.D. Hernia Perineal; Hernia; Dysfunction Pelvic Floor Female; Constipation; Other Female Genital Prolapse Discharge Disposition: Home or Self Care 10/01/2023 Clinical Communication Department of Obstetrics and Gynecology, Division of Urogynecology in [place], [place] [address] [place] [phone] Cande Ruiz M.D. Communication 09/26/2023 2:30 PM PATENT CLERK Comprehensive Visit Department of Rehabilitation Services in [address] [address] Drea Pepe M.D. Buchholtz, Marie F, P.TFransisco Urgency Urinary (Primary Dx) from Last 3 Months Allergies Active Allergy [...] your living situation today? I have a [facility] place to live 06/10/2023 Sex and Gender Information Value Date Recorded Sex Assigned at Female 06/08/2023 11:11 AM PATENT CLERK Gender Identity Female 06/08/2023 11:11 AM PATENT CLERK Sexual Orientation Straight 06/08/2023 11 :11 AM PATENT CLERK Last Filed Vital Signs Vital Sign Reading Time Taken Comments Blood Pressure 147/73 08/13/2023 7:00 PM PATENT CLERK Pulse 79 08/13/2023 7:49 PM PATENT CLERK Temperature 37 ??C (98.6 ??F) 08/13/2023 4:09 PM PATENT CLERK Respiratory Rate 18 08/13/2023 4:09 PM PATENT CLERK Oxygen Saturation 96% 08/13/2023 7:49 PM PATENT CLERK Inhaled Oxygen Concentration - - Weight 67.6 kg (149 lb 0.5 oz) 06/14/2023 3:44 P M PATENT CLERK shoes on Height 166.4 cm (5' 5.51) 06/14/2023 3:44 PM CS T shoes on Body Mass Index 24.41 06/14/2023 3:44 PM PATENT CLERK Plan of Treatment Not on file Procedures [...] METABOLIC PANEL, S/P STAT 08/13/2023 4:46 PM PATENT CLERK EXTI THYROID-STIMULATING HORMONE-SENSITIVE (S-TSH), S Routine 01/29/2023 1:04 PM CDT from Last 3 Months or Most Recently Relevant to Health Maintenance Results * MR head/brain wo con-Outside MR Neuro (11/15/2023 11:25 AM CDT) Narrative [facility] - 11/16/2023 9:48 PM CDT This order has been created and auto-finalized to support the import of outside images. If available, original interpretation can be found on the Media Tab in Chart Review, in Document Viewer, or as an image in QREADS. If a re-interpretation or overread is required please follow defined workflow. ?? Provider Not In System IMG MRI PROCEDURE S [facility] NA * CT ANGIO NECK-Outside CT Neuro (11/15/2023 12:25 AM CDT) Narrative [facility] - 11/16/2023 9:57 PM CDT This order [...] System IMG CT PROCEDURES Performing Organization Address [facility] Co de Phone Number [facility] NA * Ct Angio Head-Outside Other (11/15/2023 12:15 AM CDT) Narrative [facility] - 11/16/2023 9:47 PM CDT This order [...] DIAGNOSTIC IM AGING PROCEDURES Performing Organization Address [facility] de Phone Number [facility] NA * Interpretation of Outside CT Abdomen [...] line. 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 The vaginal [place] is located 3.2 cm above the pubococcygeal [...] pubococcygealline. 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 The vaginal [place] is located 3.2 cm above the pubococcygeal [...] * Basic Metabolic Panel (08/13/2023 4:46 PM PATENT CLERK) Potassium, P 4.5 3.6 - 5.2 mmol/L 08/13/2023 5:09 PM PATENT CLERK [facility] Sodium, P 139 135 - 145 mmol/L 08/13/2023 5:09 PM PATENT CLERK [facility] Chloride, P 102 98 - 107 mmol/L 08/13/2023 5:09 PM PATENT CLERK [facility] Bicarbonate, P 23 22 - 29 mmol/L 08/13/2023 5:09 PM PATENT CLERK [facility] Anion Gap, P 14 7 - 15 08/13/2023 5:09 PM PATENT CLERK [facility] BUN (Blood Urea Nitrogen), P 14 6 - 21 mg/dL 08/13/2023 5:09 PM PATENT CLERK [facility] Creatinine 0.94 0.59 - 1.04 mg/dL 08/13/2023 5:09 PM PATENT CLERK [facility] Estimated GFR (eGFR) 62 >=60 mL/min/BSA 08/13/2023 5:09 PM PATENT CLERK [facility] Comment: Estimated GFR calculated using the 2020 CKD_EPI creatinine equation. Calcium, Total, P 9.4 8.8 - 10.2 mg/dL 08/13/2023 5:09 PM PATENT CLERK [facility] Glucose, P 99 70 - 140 mg/dL 08/13/2023 5:09 PM PATENT CLERK [facility] Blood (Blood, Venous) 08/13/2023 4:46 PM PATENT CLERK 08/13/2023 4:52 PM PATENT CLERK Elizabeth Hutton P.A.-C. LAB BLOOD ADD-ON [facility] [address] [place] [address], [place] [facility] [address] [place] [address] from Last 3 Months or Most Recently Relevant to Health Maintenance Care Teams Salvager Relationship Specialty Start Date End Date Elsewhere, Pcp PCP - General Internal Medicine 06/12/23
[2023-12-21] MEDS: HYDROmorphone 0.5 mg/0.5 ml inj IVP ×5 (13:04→20:35)
--- NOTE | 2023-12-21 13:24 | CRLHL7_ITS ---
For Patients: As a result of the Century Cures Act, medical imaging exams and procedure reports are released immediately into your electronic medical record. You may view this report before your referring provider. If you have questions, please contact your health care provider. INDICATION: LT HIP PAIN, VOMITING, OBTURATOR HERNIA W/ SBO TECHNIQUE: CT abdomen and pelvis with 69CC ISOVUE 370 IV contrast. COMPARISON: CT abdomen pelvis November 14, 2023. FINDINGS: The liver is normal in size, shape and attenuation. Gallbladder and biliary tree are normal. Sequela of calcified granulomas within the spleen. Adrenal glands and pancreas are within normal limits. The kidneys are unremarkable. No hydronephrosis. No bladder wall thickening with probable bilateral posterior diverticulum. Large hiatal hernia with intrathoracic stomach again noted. Left lower anterior pelvis hernia containing a loop of small bowel, likely related to reported obturator hernia. There is moderate upstream short segment loop of small bowel moderate dilatation concerning for developing small bowel obstruction. No evidence of pneumatosis or portal venous gas. Persistent fluid within a small right inguinal hernia. Mild stool burden throughout the colon. No significant free fluid and no free air. Pelvic organs are unremarkable. The lower chest is unremarkable. Mild-moderate degenerate spondylosis of the visualized spine. IMPRESSION: 1. Left lower anterior pelvis hernia containing a loop of small bowel, likely related to reported obturator hernia. Associated moderate upstream short segment loop of small bowel moderate dilatation concerning for developing small bowel obstruction. 2. Large hiatal hernia with intrathoracic stomach again noted. Please note that all CT scans at this facility use dose modulation, iterative reconstruction, and/or weight-based dosing when appropriate to reduce radiation dose to as low as reasonably achievable. Dictated by Jonathan Calvert MD @ 12/21/2023 3:25:36 PM (Electronically Signed)
[2023-12-21 13:55] LABS: Basophils Absolute Auto 0.01 K/uL (0.00-0.30); Basophils Percent Auto 0.1 % (0.0-3.0); Eosinophils Percent Auto 2.7 % (0.0-7.0); Hemoglobin* 14.3 gm/dL (12.0-16.0); Immature Granulocytes Abs Auto 0.01 K/uL (0.00-0.30); Immature Granulocytes Pct Auto 0.1 %; Lymphocytes Percent Auto 18.2 % (20-44); Mean Corpuscular HGB Conc 33 gm/dL (32-36); Mean Corpuscular Hemoglobin 30 pg (26-34); Mean Corpuscular Volume 92 fL (80-100); Monocytes Percent Auto 4.4 % (0.0-11.0); Neutrophils Percent Auto 74.5 % (42.0-72.0); Platelet Count* 213 K/uL (140-440); RDW Coefficient of Variation % 12.6 % (11.5-15.5); Red Blood Count 4.81 m/uL (4.00-5.20); White Blood Count* 7.29 K/uL (4.50-11.00)
[2023-12-21 14:00] LABS: Slide Review Reflex No
[2023-12-21 14:04] LABS: Chloride* 104 mmol/L (96-114)
[2023-12-21 14:05] LABS: Potassium* 5.4 mmol/L (3.6-5.1); Sodium* 139 mmol/L (135-149)
[2023-12-21 14:07] LABS: Creatinine* 1.1 mg/dL (0.5-1.5); Est. Creatinine Clearance* 36.98; Estimated Glomerular Filt Rate 52 ml/min
[2023-12-21 14:08] LABS: Anion Gap 10 mEq/L (7-15); Blood Urea Nitrogen* 17 mg/dL (7-30); Calcium* 10.1 mg/dL (8.4-10.6); Carbon Dioxide* 25 mmol/L (20-32); Glucose* 99 mg/dL (60-115)
[2023-12-21 14:16] LABS: Lactate* 1.1 mmol/L (0.5-1.9)
== END 2023-12-21 20:36 | disposition short-term general hospital (02) ==
PROVIDERS: Emergency Provider Emergency Medicine; PCP Family Medicine
DX: K45.0 Other specified abdominal hernia with obstruction, without gangrene (principal); K56.609 Unspecified intestinal obstruction, unspecified as to partial versus complete obstruction
CPT/HCPCS: 36415; 73721; 74177; 80048; 83605; 85025; 96374; 96375; 99285; A9270; J1170; J2405; J3010; Q9967

== ENCOUNTER 2023-12-21 20:29 | Outpatient (CLI) | payer MEDICARE, BC, SELFPAY ==
--- OUTSIDE RECORDS SUMMARY | 2023-12-25 16:05 | XMS_ITS | Data Portability ---
Author Organization [place] - [facility] Address [address] [place] [address] Care Team Providers Care Middleware Developer Name Role Phone ALISSA IVERSON Primary Care Provider Assessment No assessment recorded. Plan of Treatment Reminders Order Date Submit Date Provider Last Modified By Organization Details Last Modified Time Details Appointments None recorded. Lab urinalysis, dipstick 2021 022 [email or web address] [facility], [address], [address], [place], [address], 11:37:24 urinalysis, dipstick 2021 022 [email or web address] [facility], [address], [address], [place], [address], 11:36:45 Referral None recorded. Procedures None recorded. Surgeries None recorded. Imaging None recorded. Medication Orders nitrofurant oin macrocrysta l 50 mg capsule 2021 [facility] [id number] [facility] [employer], [address] [facility] [place], [address], 11:50:51 Patient TargetsNo targets recorded. Patient Instructions Encounter Date Encounter Id Patient Instructions Last Modified By Organization Details Last Modified Time 03/14/2022 [id number] will have her finish out another month of the macrobid and then stop, see if any further UTI. If so, consider cystoscopy and fulguration of bladder diverticulum. [email or web address] Not available 03/14/2022 11:51:24 02/23/2022 [id number] will set up for renal and bladder U/S in [place]. call with report, cysto after that. Not available 02/23/2022 11:48:17 Reason for Referral None Reported. Results Created Date Observation Date Name Description Value Unit Range Abnormal Flag LastModifiedBy Organization Detail LastModifiedTime 02/24/20 22 02/23/2022 urina lysis , dipst ick pH-Status 6.5 Not Available [facility] [address], [place], [address], 02/23/2022 11:32:56 03/14/20 22 03/14/2022 urina lysis , dipst ick Ketones-Stat us 15 Not Available [facility] [address], [place], [address], 03/14/2022 11:37:00 02/24/20 22 02/23/2022 bladd er scan (PROC ) No observ ation record ed. BARCODE Not Available 02/23/2022 15:02:31 03/07/20 22 02/27/2022 US, renal No observ ation record ed. [email or web address] [facility] [address] [place], [address], 03/08/2022 12:47:38 Result Notes None recorded. Procedures Surgical History Date Name Laterality Status Provider Name and Address Organization Details Recorded Time 03/14/20 22 Cystoscopy- female completed Milan Abreu MD [address] [place] [address],[address], [place], [address], [place] [facility] 03/14/2022 11:50:23 02/24/20 Bladder Scan completed Milan Abreu MD [address] [place] [address],[address], [place], [address], [place] [facility] 02/23/2022 11:32:51 Total Hysterectomy completed Milan Abreu MD [address] [place] [address],[address], [address], [facility] 02/23/2022 11:31:20 Imaging Results Imaging Date Name Status LastModified by Organiz ation Details LastModified Time 02/23/2022 bladder scan (PROC) completed BARCODE Information not available 02/23/2022 15:02:31 02/27/2022 US, renal completed [email or web address] [facility] [address] [place], [address], 03/08/2022 12:47:38 Procedure Notes None recorded. Medical Equipment None Reported. Allergies Allergen ID Allergen Name Allergen Category Reaction Reaction Severity Criticality Documentation Date Start Date Code Code System Note Provider Name and Address Organization Details Recorded Time 193165 Substance with sulfonami de structure and antibacte rial mechanism of action (substanc e) medicatio n Not available Not available Not available 02/23/2022 57029 8003 SNOMED Milan Abreu MD [address] [place] [address],[address], [place], [address], [facility] 11:29:08 Medications Name Sig Start [...] Address Organization Details Last Updated DateTime 02/23/2022 35486.86 g 25.7 kg/m2 162.56 cm Milan Abreu MD [address] [place] [address],[address] [address], [facility] 02/23/2022 11:28:52 Date Recorded Body height Body mass index (BMI) Body weight Provider Name and Address Organization Details Last Updated DateTime 03/14/2022 162.56 cm 25.7 kg/m2 94363.86 g Johana Eli [facility] 03/14/2022 11:27:05 Social History Question Answer Notes LastModified by Organizat ion Details LastModified Time Tobacco Smoking Status Former Smoker Milan Abreu MD [address] [place] [address],[address], [address], [facility] 02/23/2022 11:30:53 What Is Your Level Of Alcohol Consumption? Occasional [email or web address] Information not available 02/23/2022 What Is Your Level Of Caffeine Consumption? Occasional [email or web address] Information not available 02/23/2022 When Did You Quit Smoking? 17+yearsgem mathis [email or web address] Information not available 02/23/2022 What Was The Date Of Your Most Recent Tobacco Screening? 03/14/2022 [email or web address] Information not available 03/14/2022 Sex: Female Functional Status None recorded. Mental Status None recorded. Family History Nothing Reported. Medical History Condition Response Other N High Blood Pressure Y Kidney Stones N Lung Disease N Depression N GERD/Acid Reflux N Sexually Transmitted Infection N Cancer N High Cholesterol Y Diabetes N Bleeding Disorder N Heart Disease N Gynecological History Statement/Question Response Sexually Active? N Obstetrics History GPAL:G 2 P 0 0 0 0 Immunizations Vaccine Type Date Status Provider Name and Address Organization Details Recorded Time Influenza vaccine, quadrivalent, adjuvanted 05/12/2021 completed Odessa Cross null, [facility] 03/14/2022 11:36:18 zoster recombinant 02/28/2019 completed Oedssa Corss null, [facility] 03/14/2022 11:36:18 zoster recombinant 05/05/2019 completed Odessa Cross null, [facility] 03/14/2022 11:36:18 Influenza, high dose seasonal 04/06/2015 completed Odessa Cross null, [facility] 03/14/2022 11:36:18 COVID-19, mRNA, LNP-S, PF, 30 mcg/0.3 mL dose 09/21/2020 completed Odessa Cross null, [facility] 03/14/2022 11:36:18 COVID-19, mRNA, LNP-S, PF, 30 mcg/0.3 mL dose 05/12/2021 completed Odessa Cross null, [facility] 03/14/2022 11:36:18 Tdap 07/11/2021 completed Odessa Cross null, [facility] 03/14/2022 11:36:18 influenza, trivalent, adjuvanted 04/11/2018 completed Odessa Cross null, [facility] 03/14/2022 11:36:18 Tdap 01/31/2011 completed Odessa Cross null, [facility] 03/14/2022 11:36:18 influenza, trivalent, adjuvanted 04/09/2017 completed Odessa Cross null, [facility] 03/14/2022 11:36:18 Influenza vaccine, quadrivalent, adjuvanted 04/19/2020 completed Odessa Cross null, [facility] 03/14/2022 11:36:18 pneumococcal polysaccharide PPV23 03/17/2013 completed Odessa Cross null, [facility] 03/14/2022 11:36:18 influenza, trivalent, adjuvanted 04/15/2019 completed Odessa Cross null, [facility] 03/14/2022 11:36:18 Influenza, seasonal, injectable 08/21/2012 completed ALBERTINA [facility] 03/14/2022 11:36:18 Influenza, high dose seasonal 04/07/2016 completed Odessa cerda [facility] 03/14/2022 11:36:18 COVID-19, mRNA, LNP-S, PF, 30 mcg/0.3 mL dose, guerda-sucrose 12/09/2021 completed ALBERTINA Wilcox [facility] 03/14/2022 11:36:18 COVID-19, mRNA, LNP-S, PF, 30 mcg/0.3 mL dose 10/12/2020 completed Odessa cerda [facility] 03/14/2022 11:36:18 zoster live 01/31/2011 completed Odessa cerda [facility] 03/14/2022 11:36:18 Pneumococcal conjugate PCV 13 04/06/2015 completed Odessa cerda [facility] 03/14/2022 11:36:18 Past Encounters Encounter ID Performer Location Encounter Start Date Encounter Closed Date Diagnosis/Indication Diagnosis SNOMED-CT Code [id number] Milan Abreu MD _[facility] [address] [place] [address],[facility] [address] [place] [address] 02/23/2022 11:02:40 02/24/2022 13:17:51 Retention of urine [id number] Recurrent urinary tract infection [id number] Milan Abreu MD _[facility] [address] [place] [address],[address] [address] 03/14/2022 11:23:50 03/17/2022 16:58:28 Recurrent urinary tract infection [id number] Health Concerns Section Related Observation LastModified by Organization Detai ls LastModified Time None Recorded Concern Status LastModified by Organization Details LastModified Time None Recorded Advance Directives Directive None Recorded Payers Encounter Date Sequence Insurance Name Policy Number Policy James Covered Member ID James Member ID Guarantor Name 03/14/2022 1 [place] [employer] Katharine Shell [id number] Katharine Shell 03/14/2022 2 [place] [id number] Katharine Shell [id number] Katharine Shell 02/23/2022 [address] [facility] [id number] Katharine Bowman [id number] Katharine Shell Notes Date Note Type Note [...] drooping of things again. Milan Abreu MD [address] [place] [address],[address] [facility], [place], [address], [facility] 02/23/2022 11:52:08 03/14/2022 text/html HPI Notes: here for cysto for recurrent UTI. Imaging negative. UA clear today. taking daily 50mg macrobid for last 2 months and no UTI on that. Milan Abreu MD [address] [place] [address],[address], [place], [address], [facility] 03/14/2022 11:51:36 OBGyn Episode No OBEpisode recorded.
--- OUTSIDE RECORDS SUMMARY | 2023-12-25 16:06 | XMS_ITS | Clinical Summary ---
Author Organization [facility] Address [address] [place] [address] Care Team Providers Care First Cook Name Role Phone Elsewhere, Pcp Primary Care Provider Unavailabl e Source Comments Patient records contain information from all sites at [facility]. For routine questions regarding patient records, call [phone] during business hours, M-F 8:00 AM - 5:00 PM Central Time. Record requests for emergency care only can be directed to [phone] at any time.[facility] Allergies Active Allergy Reactions Criticality Noted Date Comments Sulfa (Sulfonamide Antibiotics) Rash 02/2023 Sulfamethoxazole-Trimethoprim Rash 2009 Medications Medication Sig Dispensed Refills Start Date End Date Status lisinopriL (PRINIVIL,ZESTRI L) 10 mg tablet Take 10 mg by mouth daily. Active simvastatin (ZOCOR) 10 mg tablet Take 10 mg by mouth at bedtime. Active levothyroxine (SYNTHROID, LEVOTHROID) 50 mcg tablet Take 50 mcg by mouth every morning before breakfast. 05/13/2023 Active hydrOXYzine (ATARAX) 25 mg tablet Take 25 mg by mouth every 6 (six) hours as needed. 03/12/2022 Active cholecalciferol (VITAMIN D3) 50 mcg (2,000 Unit) capsule Take 50 mcg by mouth daily. Active ZINC ORAL Take 50 mg by mouth daily. Active co-enzyme Q-10 (CO Q-10) 100 mg capsule Take 100 mg by mouth daily. Active estradioL (ESTRACE) 0.1 mg/g (0.01%) vaginal creamIndications :Urgency Urinary,Atrophy Vagina Due To Estrogen Deficiency Insert 1 g into the vagina 3 (three) times a week. Place small amount directly on urethra and 1 g inside vagina every night for 2 weeks. Then use 2 nights a week thereafter. 42.5 g 11 06/15/2023 Active UNABLE TO FIND 2 (two) times [...] as needed for indigestion or heartburn. Active acetaminophen (TYLENOL) 500 mg tablet Take 2 tablets (1,000 mg total) by mouth 4 (four) times a day. 12/22/2023 Active polyethylene glycol (MIRALAX) 17 gram powder packet Take 1 packet (17 g total) by mouth daily. Dissolve each 17 g dose in 240 mLs (8 ounces) of beverage.; take daily while using pain medications and until noted with return of normal bowel function; After return of normal bowel function, you may transition to use as needed for constipation; hold for loose stools/diarrhea 12/23/2023 Active oxyCODONE (ROXICODONE) 5 mg immediate release tabletIndication s:Acute Pain Exception Take 0.5 tablets (2.5 mg total) by mouth every 6 (six) hours as needed for severe pain or score 7-10 of 10 Indication: Acute Pain Exception. 5 tablet 12/23/2023 Active acetaminophen (TYLENOL) 500 mg tablet Take 500 mg by mouth every 6 (six) hours as needed for pain. 12/22/2023 Discontinue d (Stop Taking at Discharge) polyethylene glycol (Miralax) 17 gram/dose oral powder as needed. 12/22/2023 Discontinued (Stop Taking at Discharge) oxyCODONE (ROXICODONE) 5 mg immediate release tabletIndication s:Acute Pain Exception Take 0.5 tablets (2.5 mg total) by mouth every 6 (six) hours as needed for severe pain or score 7-10 of 10 Indication: Acute Pain Exception. 5 tablet 12/23/2023 12/23/2023 Discontinued (Reorder) Active Problems Problem Noted Date Diagnosed Date Hernia Inguinal Right 12/22/2023 Hernia Femoral 12/21/2023 Dysfunction Pelvic Floor Female 10/25/2023 Constipation 10/25/2023 Hernia Perineal 10/25/2023 Obstruction Intestinal 10/25/2023 Hyperlipidemia Hypertension NOS Hyperthyroidism Encounters Date Type Department Care Team Description 12/23/2023 Documentation Division of Trauma Critical Care and General Surgery in [address] [phone] Elsewhere, Pcp 12/23/2023 Orders Only Division of Trauma Critical Care and General Surgery in [address] [phone] Miryam Negrete P.A.-C. 12/22/2023 2:05 AM CDT Ancillary Procedure Department of General Surgery Arrived 12/22/2023 1:20 AM CDT Anesthesia Event [facility] [address] [place] [phone] Juan Strong M.D. Heidy Darden, TONY TORRES, D.N.P. 12/21/2023 10:40 PM CDT Ancillary Procedure Department of Radiology in [place], [place] [address] [place] [phone] Vish Yip M.D. 12/21/2023 10:30 PM CDT Ancillary Procedure Department of Radiology in [place], [place] [address] [place] [phone] Vish Yip M.D. 12/21/2023 10:20 PM CDT - 12/22/2023 5:09 PM CDT Hospital Encounter [facility], [facility], Fourth Floor [address] [place] [phone] Ian Menard M.D., Ph.D. Ana Woods M.D. Hernia Inguinal Right (Primary Dx); Obstruction Intestinal (HCC) Discharge Disposition: Home or Self Care 12/21/2023 8:00 PM CDT - 12/21/2023 10:50 PM CDT Surgery [facility] OR [address] [place] [address], [place] [phone] Ana Woods M.D. DIAGNOSTIC LAPAROSCOPY 12/21/2023 Intake [facility] 11/08/2023 2:30 PM CDT Comprehensive Visit Division of Metabolic and Abdominal Wall Reconstructive Surgery in [address] [phone] Karine Klein M.D. Hernia Femoral 11/06/2023 10:00 AM CDT Clinical Communication Virtual Review in [address] [phone] Pre-visit Intake 10/22/2023 10:00 AM CDT Ancillary Procedure Department of Radiology in [address] [phone] Sean Rodriguez M.B., ChFransisocB., M.P.H. Dysfunction Pelvic Floor Female; Constipation; Hernia Perineal 10/22/2023 9:00 AM CDT Comprehensive Visit Division of Colon and Rectal Surgery in [address] [phone] Sean Rodriguez M.B., ChFransiscoB., M.P.H. Dysfunction Pelvic Floor Female (Primary Dx); Constipation; Hernia Perineal; Obstruction Intestinal (HCC) 10/19/2023 3:15 PM CDT Clinical Communication Virtual Review in [address] [phone] 10/19/2023 Clinical Communication Division of Colon and Rectal Surgery in [address] [phone] Sean Rodriguez M.B., Ch.B., M.P.H. [facility] - Outside Materials 10/08/2023 6:18 AM CDT - 10/08/2023 11:59 PM CDT Hospital Encounter Department of Radiology, [facility], in [address] [phone] Cande Ruiz M.D. Hernia Perineal; Hernia; Dysfunction Pelvic Floor Female; Constipation; Other Female Genital Prolapse Discharge Disposition: Home or Self Care 10/01/2023 Clinical Communication Department of Obstetrics and Gynecology, Division of Urogynecology in [place], [place] [address] [place] [phone] Cande Ruiz M.D. Communication 09/26/2023 2:30 PM [facility] Comprehensive Visit Department of Rehabilitation Services in [address] [phone] Drea Pepe M.D. Buchholtz, Marie F, P.T. Urgency Urinary (Primary Dx) from Last 3 Months Family History Medical History Relation Name Comments Dementia Father Colby Tee Stroke Father Colby Tee Stroke Mother Felecia Tee ongestive hear t Skin cancer Mother's Brother Garfield Tinsley Skin cancer Sister Patiingrid Sanchez Relation Name Status Comments Father Colby Tee Mother Felecia Tee Mother's Brother Garfield Tinsley Sister Pati Finnishi Social History Tobacco Use Types Packs/Day Years Used Date Smoking Tobacco: Former Passive Smoke Exposure: Past Smokeless Tobacco: Never Tobacco Cessation:Counseling Given: Not Answered Alcohol Use Standard Drinks/Week Comments Not Currently 0 (1 standard drink = 0.6 oz pure alcohol) Only at celebrations might have 1 drink [facility] Google[employer] Answer Date Recorded In the past 12 months has [facility] [employer], gas, oil, or water [employer] threatened to shut off services in your home? No 12/22/2023 Humiliation, Afraid, Rape, and Kick questionnair e Answer Date Recorded Within the last year, have y ou been afraid of your partner or ex-partner? No 12/22/2023 Within the last year, have y ou been humiliated or emotionally abused in other ways by your partner or ex-partner? No Within the last year, have y ou been kicked, hit, slapped, or otherwise physically hurt by your partner or ex-partner? No 12/22/2023 Within the last year, have y ou been raped or forced to have any kind of sexual activity by your partner or ex-partner? No 12/22/2023 Overall Financial Resource Strain (CARDIA) Answe r [...] the money to buy more. Never true 12/22/19 24 Within the past 12 months, t he food you bought just didn't last and you didn't have money to get more. Never true 12/22/2023 PRAPARE - Transportation Answer Date Re corded In the past 12 months, has l ack of transportation kept you from medical appointments or from getting medications? Yes 11/28 In the past 12 months, has l ack of transportation kept you from meetings, work, or from getting things needed for daily living? Yes 12/22/2023 Nutrition Answer Date Recorded On average, how many serving s of [...] today? I have a [facility] place to live 12/22/2023 Sex and Gender Information Value Date Recorded Sex Assigned at Female 06/08/2023 11:11 AM [facility] Gender Identity Female 06/08/2023 11:11 AM [facility] Sexual Orientation Straight 06/08/2023 11 :11 AM [facility] Last Filed Vital Signs Vital Sign Reading Time Taken Comments Blood Pressure 140/54 12/22/2023 2:20 PM CDT Pulse 72 12/22/2023 2:25 PM CDT Temperature 36.8 ??C (98.2 ??F) 12/22/2023 2:20 PM CD T Respiratory Rate 16 12/22/2023 2:20 PM CDT Oxygen Saturation 99% 12/22/2023 2:25 PM CDT Inhaled Oxygen Concentration - - Weight 67.6 kg (149 lb 0.5 oz) 06/14/2023 3:44 P M [facility] shoes on Height 165.1 cm (5' 5) 12/22/2023 10:22 AM CDT Body Mass Index 24.41 06/14/2023 3:44 PM [facility] Plan of Treatment Health Maintenance Due Date Last Done Comments Hepatitis C Screening 1945 Office Visit for Blood Press ure Check / Re-check 1945 Depression Screening (Annual PHQ-2) 07/30/2023 Fall Risk Screen (Annual) 07/30/2023 COVID-19 Vaccine (2022- 4 season) 2023 05/16/2023, 05/15/2022, 12/09/2021, Additional history exists Thyroid Stimulating Hormone (TSH) test for thyroid function 01/30/2024 01/29/2023, 05/15/2022, 02/27/2022, Additional history exists Creatinine Level (Kidney Fun ction Test) 12/20/2024 12/21/2023, 08/13/2023, 05/24/2023, Additional history exists Potassium Level 12/20/2024 12/21/2023, 07/30, 05/24/2023, Additional history exists Sodium Level 12/20/2024 12/21/2023, 07/30, 05/24/2023, Additional history exists DTaP,Tdap,and Td Vaccines (3 - Td or Tdap) 07/11/2031 07/11/2021, 01/31/2011 Pneumococcal vaccine (65+ years) Completed 04/06/20 15, 03/17/2013 Zoster Vaccines Completed 05/05/2019, 0808/2018, 01/31/2011 Influenza Vaccine Completed 05/16/2023, , 05/12/2021, Additional history exists Procedures Procedure Name Priority Date/Time Associated Diagnosis Comments ADULT OXYGEN THERAPY Routine 12/22/2023 5:24 AM CDT SURGERY IMAGE EXAM Routine 12/22/2023 2: 05 AM CDT LDA ANE ENDOTRACHEAL AIRWAY Routine 12/22/2023 1:33 AM CDT DX ABDOMEN PORTABLE ANTERIOR POSTERIOR 1 VIEW RAD - Semiurgent (Fast; most ED patients; some inpatients) 12/22/2023 1:17 AM CDT REPAIR HERNIA FEMORAL WITHOUT MESH 12/22/2023 12:50 AM CDT Hernia Femoral DIAGNOSTIC LAPAROSCOPY 12/22/2023 12:50 AM CDT Hernia Femoral DIPSTICK, U STAT 12/22/2023 12:13 AM CDT HC OSMOLALITY ASSAY URINE STAT 12/22/2023 12:13 AM CDT PH, RANDOM, U STAT 12/22/2023 12:13 AM CDT MICROSCOPIC MANUAL STAT 12/22/2023 12:13 AM CDT URINALYSIS WITH MICROSCOPIC STAT 12/22/2023 12:13 AM CDT INTERPRETATION OF OUTSIDE MR EXTREMITY RAD - Routine (most inpatients and all outpatients) 12/21/2023 11:43 PM CDT INTERPRETATION OF OUTSIDE CT ABDOMEN AND OR PELVIS RAD - Routine (most inpatients and all outpatients) 12/21/2023 11:43 PM CDT LIPASE, S/P STAT 12/21/2023 11:04 PM CDT LACTATE, B/P STAT 12/21/2023 11:04 PM CDT HEPATIC FUNCTION PANEL, S STAT 12/21/2023 11:04 PM CDT BASIC METABOLIC PANEL, S/P STAT 12/21/2023 11:04 PM CDT CBC WITH DIFFERENTIAL, B STAT 12/21/2023 11:[address] BODY Routine 12/21/2023 2:20 PM CDT OUTSIDE MR MSK Routine 12/21/2023 12:35 PM CDT OUTSIDE MR NEURO Routine 11/15/2023 11:25 AM [...] Floor Female Constipation Other Female Genital Prolapse EXTI THYROID-STIMULATING HORMONE-SENSITIVE (S-TSH), S Routine 01/29/2023 1:04 PM CDT from Last 3 Months or Most Recently Relevant to Health Maintenance Results * abdominal exploration-Surgery Image Exam (12/22/2023 2:05 AM CDT) 12/22/2023 2:03 AM CDT Narrative IIMS - 12/22/2023 4:31 AM CDT This order has been created and auto-finalized to support the import of images acquired without order. The clinical documentation to support these images can be found on the encounter that produced images. Provider Not In System IMG NON RAD IMAGI NG PROCEDURES IIMS NA * LDA ANE ENDOTRACHEAL AIRWAY (12/22/2023 1:33 AM CDT) Narrative Heidy Darden APRN, CRNA, D.N.P. - 12/22/2023 1:33 AM CDT Heidy Darden APRN, CRNA, D.N.P. ? 12/22/2023 ??1:38 AM Airway Date/Time: 12/22/2023 1:33 AM Performed by: Heidy Darden APRN, TONY D.N.P. Authorized by: Juan Strong M.D. ?? Patient location during procedure: OR / Procedure Area PROCEDURE DETAILS: Mask difficulty assessment: not attempted Final airway type: direct laryngoscopy, intubation Laryngeal Manipulation: no ?? Final airway difficulty of direct laryngoscopy (DL): 0-easy Final best view of glottic structures - Cormack/Lehane Score: grade 1 ETT location: oral Blade type: MAC 3 Tube size: 7 ETT distance at teeth/gum: 21 Oral tube type: standard ETT Cuffed: yes Number of attempt to successful placement: 1 Airway confirmation: bilateral breath sounds, positive ETCO2 and bilateral chest rise Other previous techniques attempted: none PRE PROCEDURE DETAILS: Pre evaluation for airway management: procedure Urgency: elective Preoxygenation: bag valve mask SEDATION / ANESTHESIA Anesthesia method: anesthesia POST PROCEDURE DETAILS: ? Procedure outcome: successful ?? Notable Events: no complications Juan Strong M.D. ANESTHESIA ORDER REGULO * DX Abdomen Portable Anterior Posterior 1 View (12/22/2023 1:17 AM CDT) Anatomical Region Laterality Modality Abdomen, Abdominal RST LOS, Abdominal ARZ LOS, Abdominal FLA LOS N/A Digital Radiography Impressions 12/22/2023 7:55 AM CDT Enteric tube with tip and sidehole within the intrathoracic hiatal hernia as seen on prior CT images. Narrative 12/22/2023 7:55 AM CDT EXAM: ??DX ABDOMEN PORTABLE ANTERIOR POSTERIOR 1 VIEW Procedure Note Darron Harris M.D. - 12/22/2023 EXAM: DX ABDOMEN PORTABLE ANTERIOR POSTERIOR 1 VIEW IMPRESSION: Enteric tube with tip and sidehole within the intrathoracic hiatal herniaas seen on prior CT images. Vish Yip M.D. IMG DIAGNOSTIC IMAGING PROCEDURES * Osmolality, Urine (12/22/2023 12:13 AM CDT) Osmolality, U 474 150 - 1150 mOsm/kg 12/22/2023 12:52 AM CDT DTL Urine 12/22/2023 12:1 3 AM CDT 12/22/2023 12:35 AM CDT Vish Yip M.D. LAB URINE ORDER REGULO Performing Organization Address [facility] Co de Phone Number [facility] [address] [place] [address], [facility] [address] [place] [address] * Dipstick, Urine (12/22/2023 12:13 AM CDT) Hemoglobin, QL, U Negative Negative 12/22/2023 12:43 AM CDT DTL Leukocyte Esterase, U Negative Negative 12/22/2023 12:43 AM CDT DTL Nitrite, U Negative Negative 12/22/2023 12:43 AM CDT DTL Ketone, U Negative Negative mg/dL 12/22/2023 12:43 AM CDT DTL Glucose, U Negative Negative mg/dL 12/22/2023 12:43 AM CDT DTL Urine 12/22/2023 12:1 3 AM CDT 12/22/2023 12:35 AM CDT Vish Yip M.D. LAB URINE ORDER REGULO Performing Organization Address [facility] Co de Phone Number [facility] [address] [place] [address], [facility] [address] [place] [address] * pH, Random, Urine (12/22/2023 12:13 AM CDT) pH, Random, U 7.8 4.5 - 8.0 12/22/2023 12:52 AM CDT DTL Urine 12/22/2023 12:1 3 AM CDT 12/22/2023 12:35 AM CDT Vish Yip M.D. LAB URINE ORDER REGULO [facility] [address] [place] [address], [facility] [address] [place] [address] * (ABNORMAL) Microscopic Manual (12/22/2023 12:13 AM CDT) Microscopy Abnormal 12/22/2023 1:11 AM CDT DTL RBC None Seen <3 /hpf 12/22/2023 1:11 AM CDT DTL WBC None Seen /hpf 12/22/2023 1:11 AM CDT DTL Comment: ----REFERENCE VALUE---- <4 ??(Males) <11 (Females) Bacteria Present(A) 12/22/2023 1:11 AM CDT DTL Urine 12/22/2023 12:1 3 AM CDT 12/22/2023 12:35 AM CDT Vish Yip M.D. LAB URINE ORDER REGULO Performing Organization Address [facility] Co de Phone Number [facility] [address] [place] [address], [address] [address] * (ABNORMAL) Urinalysis, with Microscopic: Urine, Catheter (12/22/2023 12:13 AM CDT) Source Urine, Urine, Catheter 12/22/2023 12:35 AM CDT DTL Color, U Yellow 12/22/2023 12:35 AM CDT DTL Clarity, U Cloudy(A) 12/22/2023 12:35 AM CDT DTL Protein, U 13 <26 mg/dL 12/22/2023 1:23 AM CDT DTL Protein/Osmola lity 0.27 <0.42 ratio 12/22/2023 1:23 AM CDT DTL Predicted 24 HR Protein, U 207 <229 mg/24 h 12/22/2023 1:23 AM CDT DTL Predicted Range 51-837 mg/24 h 12/22/2023 1:23 AM CDT DTL Urine (Urine, Catheter) 12/22/2023 12:13 AM CDT 12/22/2023 12:35 AM CDT Vish Yip M.D. LAB URINE ORDER REGULO [facility] [address] [place] [address], [place] DTL [facility] [address] [place] [address] * Interpretation of Outside MR Extremity (12/21/2023 11:43 PM CDT) Anatomical Region Laterality Modality Musculoskeletal RST LOS, Mus culoskeletal ARZ LOS, Muskuloskeletal FLA LOS, Musculoskeletal, Other N/A Magnet ic Resonance Impressions 12/25/2023 1:19 PM CDT 1. Left obturator hernia containing small portion of bowel concerning for incarceration and upstream mechanical obstruction. 2. 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 Narrative 12/25/2023 1:19 PM CDT EXAM: ??INTERPRETATION OF OUTSIDE MR EXTREMITY COMPARISON: ??CT abdomen pelvis dated 12/21/2023 hand 08/13/2023. FINDINGS: ??Outside MRI left hip without contrast obtained on 12/21/2023. Femoral heads well seated. 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 Small bilateral hip joint effusions. Anterior to superior tearing of the hip lianne, bilaterally. No suggestion of fracture or stress fracture. Moderate bilateral sacroiliac joint degeneration. There is dilated loop of bowel in the pelvis on series 3, image 13 with transition point extending beneath the left inferior pubic ramus and the obturator internus muscle where a small loop of bowel appears entrapped. Small neighboring fluid about this bowel loop seen best on series 3, image 12. Small fluid in the right inguinal canal without suggestion of bowel herniation on series 3, image 9. This appears to represent a small indirect hernia without bowel. This was present on 08/13/2023. Left obturator bowel herniation was not present at that time. Of note, small amount of fat extends into the left femoral canal on series 2, image 128, less on the right. Scattered sigmoid diverticula noted. Tiny sacral Tarlov cysts noted. Procedure Note Vish Borges M.D. - 12/25/2023 EXAM: INTERPRETATION OF OUTSIDE MR EXTREMITY COMPARISON: CT abdomen pelvis dated 12/21/2023 hand 08/13/2023. FINDINGS: Outside MRI left hip without contrast obtained on 12/21/2023. Femoral heads well seated. Scattered deep partial to full- thicknesschondromalacia scattered throughout both hips, right greater than left.Small bilateral hip joint effusions. Anterior to superior tearing of thehip lianne, bilaterally. No suggestion of fracture or stress fracture. Moderate bilateralsacroiliac joint degeneration. There is dilated loop of bowel in the pelvis on series 3, image 13 withtransition point extending beneath the left inferior pubic ramus and theobturator internus muscle where a small loop of bowel appears entrapped.Small neighboring fluid about this bowel loop seen best on series 3, image 12. Small fluid in the rightinguinal canal without suggestion of bowel herniation on series 3, image9. This appears to represent a small indirect hernia without bowel. Thiswas present on 08/13/2023. Left obturator bowel herniation was not present at that time. Of note, smallamount of fat extends into the left femoral canal on series 2, image 128,less on the right. Scattered sigmoid diverticula noted. Tiny sacral Tarlov cysts noted. IMPRESSION: 1. Left obturator hernia containing small portion of bowel concerning forincarceration and upstream mechanical obstruction. 2. 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 Vish Yip M.D. [facility] MRI PROCEDU RES * Interpretation of Outside CT Abdomen and or Pelvis (12/21/2023 11:43 PM CDT) Only the most recent of2 resultswithin the time period is included. Anatomical Region Laterality Modality Abdomen, Pelvis, Abdominal R ST LOS, Abdominal ARZ LOS, Abdominal FLA LOS, Other N/A Computed Tomography Impressions 12/22/2023 8:34 AM CDT 1. ??Small bowel obstruction secondary to a short segment of small bowel within a left obturator hernia. No finding to suggest bowel ischemia. 2. ??Small cystic lesions about the pancreatic head could be further evaluated with MRCP/abdomen MRI if clinically indicated. 3. ??Nonobstructed large esophageal hiatal hernia with intrathoracic stomach. Narrative 12/22/2023 8:34 AM CDT EXAM: ??INTERPRETATION OF OUTSIDE CT ABDOMEN AND PELVIS with IV contrast performed 12/21/2023 COMPARISON: ??CT abdomen/pelvis 08/13/2023 FINDINGS: ??Left obturator hernia containing a short segment of mildly dilated small bowel. The upstream small bowel segments are also dilated up to approximately 3.1 cm. Trace interloop free fluid and small amount of free fluid in the hernia sac. No finding to suggest bowel ischemia. Distal small bowel segments and colon are decompressed. Colonic diverticula without acute inflammation. Normal appendix. Multiple bladder diverticula. Right inguinal hernia containing a small amount of fluid. Large esophageal hiatal hernia with intrathoracic stomach. Normal appearance of the liver and adrenal glands. No significant change in the small cystic lesions about the pancreatic head. No pancreatic duct dilation. Calcified splenic granulomas. Probable renal cysts. No abdominopelvic adenopathy. Right basilar atelectasis. Procedure Note Amalia Haider M.D. - 12/22/2023 EXAM: INTERPRETATION OF OUTSIDE CT ABDOMEN AND PELVIS with IV contrastperformed 12/21/2023 COMPARISON: CT abdomen/pelvis 08/13/2023 FINDINGS: Left obturator hernia containing a short segment of mildlydilated small bowel. The upstream small bowel segments are also dilated upto approximately 3.1 cm. Trace interloop free fluid and small amount offree fluid in the hernia sac. No finding to suggest bowel ischemia. Distal small bowel segments and colonare decompressed. Colonic diverticula without acute inflammation. Normalappendix. Multiple bladder diverticula. Right inguinal hernia containing a smallamount of fluid. Large esophageal hiatal hernia with intrathoracicstomach. Normal appearance of the liver and adrenal glands. No significant changein the small cystic lesions about the pancreatic head. No pancreatic ductdilation. Calcified splenic granulomas. Probable renal cysts. No abdominopelvic adenopathy. Right basilar atelectasis. IMPRESSION: 1. Small bowel obstruction secondary to a short segment of small bowelwithin a left obturator hernia. No finding to suggest bowel ischemia. 2. Small cystic lesions about the pancreatic head could be furtherevaluated with MRCP/abdomen MRI if clinically indicated. 3. Nonobstructed large esophageal hiatal hernia with intrathoracicstomach. Vish Yip M.D. IMG CT PROCEDUR ES * Hepatic Function Panel (12/21/2023 11:04 PM CDT) Bilirubin, Total, S 0.5 0.0 - 1.2 mg/dL 12/21/2023 11:58 PM CDT DTL Bilirubin, Direct, S <0.2 0.0 - 0.3 mg/dL 12/21/2023 11:58 PM CDT DTL Aspartate Aminotransferase (AST), S 19 8 - 43 U/L 12/21/2023 11:58 PM CDT DTL Alanine Aminotransferase (ALT), S 16 7 - 45 U/L 12/21/2023 11:58 PM CDT DTL Alkaline Phosphatase, S 48 35 - 104 U/L 12/21/2023 11:58 PM CDT DTL Albumin, S 4.5 3.5 - 5.0 g/dL 12/21/2023 11:58 PM CDT DTL Protein, Total, S 6.5 6.3 - 7.9 g/dL 12/21/2023 11:58 PM CDT DTL Blood (Blood, Venous) 12/21/2023 11:04 PM CDT 12/21/2023 11:36 PM CDT Vish Yip M.D. LAB BLOOD ADD-O N [facility] [address] [place] [address], [facility] DTL [facility] [address] [place] [address] * (ABNORMAL) CBC with Differential, Blood (12/21/2023 11:04 PM CDT) Hemoglobin 13.3 11.6 - 15.0 g/dL 12/21/2023 11:27 PM CDT STMA Hematocrit 40.6 35.5 - 44.9 % 12/21/2023 11:27 PM CDT STMA Erythrocytes 4.48 3.92 - 5.13 x10(12)/L 12/21/2023 11:27 PM CDT STMA MCV 90.6 78.2 - 97.9 fL 12/21/2023 11:27 PM CDT STMA RBC Distrib Width 12.8 12.2 - 16.1 % 12/21/2023 11:27 PM CDT STMA Platelet Count 206 157 - 371 x10(9)/L 12/21/2023 11:27 PM CDT STMA Leukocytes 13.3(H) 3.4 - 9.6 x10(9)/L 12/21/2023 11:27 PM CDT STMA Neutrophils 11.93(H) 1.56 - 6.45 x10(9)/L 12/21/2023 11:27 PM CDT DHPM Lymphocytes 0.60(L) 0.95 - 3.07 x10(9)/L 12/21/2023 11:27 PM CDT STMA Monocytes 0.65 0.26 - 0.81 x10(9)/L 12/21/2023 11:27 PM CDT STMA Eosinophils 0.06 0.03 - 0.48 x10(9)/L 12/21/2023 11:27 PM CDT STMA Basophils 0.03 0.01 - 0.08 x10(9)/L 12/21/2023 11:27 PM CDT STMA Blood (Blood, Venous) 12/21/2023 11:04 PM CDT 12/21/2023 11:15 PM CDT Vish Yip M.D. LAB BLOOD ADD-O N [facility] [address] [place] [address], [facility] STMA [facility] [address] [place] [address] [facility] [address] [place] [address] * Lipase (12/21/2023 11:04 PM CDT) Pathologist [facility] Lipase, S 25 13 - 60 U/L 12/21/2023 11:58 PM CDT DTL Blood (Blood, Venous) 12/21/2023 11:04 PM CDT 12/21/2023 11:36 PM CDT Vish Yip M.D. LAB BLOOD ADD-O N [facility] [address] [place] [address], [facility] DTL [facility] [address] [place] [address] * Lactate (12/21/2023 11:04 PM CDT) [facility] Lactate, P 0.9 0.5 - 2.2 mmol/L 12/21/2023 11:35 PM CDT STMA Blood (Blood, Venous) 12/21/2023 11:04 PM CDT 12/21/2023 11:15 PM CDT Vish Yip M.D. LAB BLOOD NON A DD-ON Performing Organization Address [facility] Co de Phone Number [facility] [address] [place] [address], [facility] STMA [facility] [address] [place] [address] * (ABNORMAL) Basic Metabolic Panel (12/21/2023 11:04 PM CDT) Pathologist [facility] Potassium, P 4.9 3.6 - 5.2 mmol/L 12/21/2023 11:37 PM CDT STMA Sodium, P 135 135 - 145 mmol/L 12/21/2023 11:37 PM CDT STMA Chloride, P 101 98 - 107 mmol/L 12/21/2023 11:37 PM CDT STMA Bicarbonate, P 27 22 - 29 mmol/L 12/21/2023 11:37 PM CDT STMA Anion Gap, P 7 7 - 15 12/21/2023 11:37 PM CDT STMA BUN (Blood Urea Nitrogen), P 14 6 - 21 mg/dL 12/21/2023 11:37 PM CDT STMA Creatinine 1.16(H) 0.59 - 1.04 mg/dL 12/21/2023 11:37 PM CDT STMA Estimated GFR (eGFR) 49(L) >=60 mL/min/BSA 12/21/2023 11:37 PM CDT STMA Comment: Estimated GFR calculated using the 2020 CKD_EPI creatinine equation. Calcium, Total, P 9.8 8.8 - 10.2 mg/dL 12/21/2023 11:37 PM CDT STMA Glucose, P 128 70 - 140 mg/dL 12/21/2023 11:37 PM CDT STMA Blood (Blood, Venous) 12/21/2023 11:04 PM CDT 12/21/2023 11:15 PM CDT Vish Yip M.D. LAB BLOOD ADD-O N Performing Organization Address City/[facility]/[place] [address], [place] [address] * CT ABDOMEN PELVIS W CON-Outside CT Body (12/21/2023 2:20 PM CDT) 12/21/2023 2:17 PM CDT Narrative [facility] - 12/21/2023 3:24 PM CDT This order has been created and auto-finalized to support the import of outside images. If available, original interpretation can be found on the Media Tab in Chart Review, in Document Viewer, or as an image in QREADS. If a re-interpretation or overread is required please follow defined workflow. ?? Provider Not In System IMG CT PROCEDURES Performing Organization Address City/[facility]/ZIP Co de Phone Number IIFL NA * MR hip LT wo con-Outside MR MSK (12/21/2023 12:35 PM CDT) 12/21/2023 12:3 1 PM CDT Narrative [facility] - 12/21/2023 2:20 PM CDT This order has been created and auto-finalized to support the import of outside images. If available, original interpretation can be found on the Media Tab in Chart Review, in Document Viewer, or as an image in QREADS. If a re-interpretation or overread is required please follow defined workflow. ?? Provider Not In System IMG MRI PROCEDURE S Performing Organization Address [facility] de Phone Number IIMS NA * MR head/brain wo con-Outside MR Neuro (11/15/2023 11:25 AM CDT) Narrative [facility] - 11/16/2023 9:48 PM CDT This order [...] IMG MRI PROCEDURE S Performing Organization Address [facility] de Phone Number IIMS NA * CT ANGIO NECK-Outside CT Neuro (11/15/2023 12:25 AM CDT) Narrative [facility] - 11/16/2023 9:57 PM CDT This order [...] System IMG CT PROCEDURES Performing Organization Address [facility] de Phone Number IIMS NA * Ct Angio Head-Outside Other (11/15/2023 12:15 AM CDT) Narrative [facility] - 11/16/2023 9:47 PM CDT This order has been created and auto-finalized to support the import of outside images. If available, original interpretation can be found on the Media Tab in Chart Review, in Document Viewer, or as an image in QREADS. If a re-interpretation or overread is required please follow defined workflow. ?? Provider Not In System IMG DIAGNOSTIC IM AGING PROCEDURES IIMS NA * MR Proctogram Dynamic and Sphincter Eval [...] line. 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 Cande Ruiz M.D. IMG MRI PROCEDURES from Last 3 Months or Most Recently Relevant to Health Maintenance Advance Directives For more information, please contact: [phone] * Full Code (Latest Code Status on File) Date Activated Date Inactivated Comments 12/22/2023 5:24 AM 12/22/2023 7:10 PM Question Answer Comments Full Code: Discussed Care Teams First Cook Relationship Specialty Start Date End Date Elsewhere, Pcp PCP - General Internal Medicine 06/12/23
--- OUTSIDE RECORDS SUMMARY | 2023-12-25 16:06 | XMS_ITS | Encounter Summary ---
Author Organization [facility] Address [address] [place] [address] Care Team Providers Care Chemical Production Engineer Name Role Phone Elsewhere, Pcp Primary Care Provider Unavailabl e Encounter Details Date Type Department Care Team (Late st Contact Info) Description 12/22/2023 2:05 AM CDT Ancillary Procedure Department of General Surgery Arrived Social History Tobacco Use Types Packs/Day Years Used Date Smoking Tobacco: Former Passive Smoke Exposure: Past Smokeless Tobacco: Never Alcohol Use Standard Drinks/Week Comments Not Currently 0 (1 standard drink = 0.6 oz pure alcohol) Only at celebrations might have 1 drink [facility] Utilities Answer Date Recorded In the past 12 months has [facility] [employer], gas, oil, or water [employer] threatened to shut off services in your [...] your living situation today? I have a [facility] place to live 12/22/2023 Sex and Gender Information Value Date Recorded Sex Assigned at Female 06/08/2023 11:11 AM VISE HAND Gender Identity Female 06/08/2023 11:11 AM VISE HAND Sexual Orientation Straight 06/08/2023 11 :11 AM VISE HAND documented as of this encounter Plan of Treatment Not on file documented as of this encounter Procedures Procedure Name Priority Date/Time Associated Diagnosis Comments SURGERY IMAGE EXAM Routine 12/22/2023 2: 05 AM CDT documented in this encounter Results * abdominal exploration-Surgery Image Exam (12/22/2023 [...] NON RAD IMAGI NG PROCEDURES IIMS NA documented in this encounter Visit Diagnoses Not on filedocumented in this encounter Care Teams Chemical Production Engineer Relationship Specialty Start Date End Date Elsewhere, Pcp PCP - General Internal Medicine 06/12/23 documented as of this encounter
--- OUTSIDE RECORDS SUMMARY | 2023-12-25 16:06 | XMS_ITS | Encounter Summary ---
Author Organization [facility] Address [address] [place] [address] Care Team Providers Care Occupational Health Nurse Manager Name Role Phone Elsewhere, Pcp Primary Care Provider Unavailabl e Reason for Visit * Reason Comments Abnormal Test Result Abdominal Pain Encounter Details Date Type Department Care Team (Late st Contact Info) Description 12/21/2023 8:00 PM CDT - 12/21/2023 10:50 PM CDT Surgery [facility]ST ROMB MAIN OR [address] [place] [phone] Ana Woods M.D. [address] [place] [phone] DIAGNOSTIC LAPAROSCOPY Social History Tobacco Use Types Packs/Day Years Used Date Smoking Tobacco: Former Passive Smoke Exposure: Past Smokeless Tobacco: Never Alcohol Use Standard Drinks/Week Comments Not Currently 0 (1 standard drink = 0.6 oz pure alcohol) Only at celebrations might have 1 drink [facility] Utilities Answer Date Recorded In the past 12 months has [employer] electric, gas, oil, or water company threatened to shut off services in your [...] your living situation today? I have a [facility] place to live 12/22/2023 Sex and Gender Information Value Date Recorded Sex Assigned at Female 06/08/2023 11:11 AM MOTOR VEHICLE EMISSIONS INSPECTOR Gender Identity Female 06/08/2023 11:11 AM MOTOR VEHICLE EMISSIONS INSPECTOR Sexual Orientation Straight 06/08/2023 11 :11 AM MOTOR VEHICLE EMISSIONS INSPECTOR documented as of this encounter Last Filed Vital Signs Vital Sign Reading Time Taken Comments Blood Pressure 128/64 12/21/2023 10:24 PM CDT Pulse 96 12/21/2023 10:24 PM CDT Temperature 36.9 ??C (98.4 ??F) 12/21/2023 10:10 PM C DT Respiratory Rate 17 12/21/2023 10:24 PM CDT Oxygen Saturation 95% 12/21/2023 10:24 PM CDT Inhaled Oxygen Concentration - - Weight - - Height - - Body Mass Index - - documented in this encounter Discharge Summaries * Caden, Miryam Bynum P.A.-C. - 12/22/2023 2:48 PM CDT DISCHARGE SUMMARY BRIEF OVERVIEW Hospital: [facility] Discharge Provider: Ana Woods M.D. Primary Team: [facility] Primary Care Providers: Elsewhere, Pcp (General) No address on file Primary Care Provider Phone Number: None Primary Care Provider Fax Number: None Admission Date: 12/21/2023 Discharge Date: 12/22/2023 PRINCIPAL DIAGNOSIS Hernia Femoral SECONDARY DIAGNOSES Principal Problem: Hernia Femoral Active Problems: Hyperlipidemia Hypertension NOS Hyperthyroidism Hernia Inguinal Right Resolved Problems: * No resolved hospital problems. * Surgery Information This Encounter Past Procedures (12/22/2022 to Today) Date Procedures Providers Loc / Dept 12/21/2023 DIAGNOSTIC LAPAROSCOPY, REPAIR HERNIA OBTURATOR FEMORAL WITHOUT MESH Ana Woods M.D.Steadman, Jessica A, M.B.BFransiscoSJudie Lara M.D. [facility] ROMB OR DISCHARGE DISPOSITION Home or Self Care [1] ACTIVE ISSUES REQUIRING FOLLOW UP TRAUMA CRITICAL-CARE GENERAL SURGERY: You will receive a telephone follow up appointment in about two weeks. If you do not hear from someone or need to request an appointment please call [phone]. If you need to speak with them during office hours you may call the GENERAL SURGERY confidential secretary at [phone]. If you need to reach a provider on the [facility] service after hours, you may call the [facility] optical lathe operator at [phone] and ask to speak the provider network control operator. If you have forms that need addressed by the surgery team or outside records that need to be uploaded, please email them to [email or web address] or fax them at [phone]. TRAUMA CRITICAL CARE AND GENERAL SURGERY: You will also receive an appointment in approximately 2-3 months with a Hernia Specialist. A CT will be obtained prior to this appointment. Appointment information will be mailed to you. If you do not receive an appointment please call [phone]. If you need to speak with the team during office hours you may call at [phone]. If you need to reach a provider on the [facility] service after hours, you may call the [facility] optical lathe operator at [phone] and ask to speak the provider network control operator. PRIMARY CARE PROVIDER: You should follow up with your primary care provider within one to two weeks of being discharged. This appointment will be for further assessment following your hospitalization evaluation of your pre-existing medical conditions, and review and management of your medications. Changes to your previous medications may have been made during this hospitalization and you will need to discuss those changes with your healthcare provider. OUTPATIENT FOLLOW UP For appointment details refer to your Patient Appointment Guide. TEST RESULTS PENDING AT DISCHARGE Pending Labs None DETAILS OF HOSPITAL STAY REASON FOR ADMISSION Hernia Femoral HOSPITAL COURSE Ms. Shell initially presented to an outside hospital with complaints of abdominal pain and nausea.CT imaging was obtained which revealed findings consistent with an incarcerated left femoral hernia. Following evaluation review of her studies[facility] the [facility] Surgical Service-B was consulted. After evaluation, she proceeded to the operating room at which time she underwent a diagnostic laparoscopy. Intraoperatively, she was noted with a left- sided obturator hernia containing a loop of small bowel with no evidence of bowel ischemia. A small left-sided femoral hernia was also noted. A right-sided inguinal hernia was also noted. This did not contain bowel. An open left-sided primary obturator and femoral hernia repair was performed. The skin was closed with Monocryl and Dermabond was applied. Postoperatively, she was admitted to the general care floor for continued monitoring and pain control. She was noted to progress appropriately. Her diet was slowly advanced and she was transitioned to oral pain control. Her home medications were also resumed appropriately. When she was tolerating diet, having adequate pain control, having satisfactory bowel and bladder function, and ambulating safely, she was discharged home. CONSULTS ORDERED DURING THIS ADMISSION IP CONSULT TO GENERAL SURGERY CONDITION AT DISCHARGE stable Discharge instructions were provided to the patient and caregiver(s). documented in this encounter Medications at Time of Discharge Medication Sig Dispensed Refills Start Date End Date acetaminophen (TYLENOL) 500 mg tablet Take 2 tablets (1,000 mg total) by mouth 4 (four) times a day. 12/22/2023 polyethylene glycol (MIRALAX) 17 gram powder packet Take 1 packet (17 g total) by mouth daily. Dissolve each 17 g dose in 240 mLs (8 ounces) of beverage.; take daily while using pain medications and until noted with return of normal bowel function; After return of normal bowel function, you may transition to use as needed for constipation; hold for loose stools/diarrhea 12/23/2023 calcium carbonate (calcium carbonate EX) 750 mg (300 mg calcium) chewable tablet Chew 1 tablet as needed for indigestion or heartburn. cholecalciferol (VITAMIN D3) 50 mcg (2,000 Unit) capsule Take 50 mcg by mouth daily. co-enzyme Q-10 (CO Q-10) 100 mg capsule Take 100 mg by mouth daily. estradioL (ESTRACE) 0.1 mg/g (0.01%) vaginal creamIndications:Urgenc [...] tablet Take 10 mg by mouth daily. omega-3 fatty acids-fish oil 300-1,000 mg per capsule Take 1-2 g by mouth daily. psyllium seed (METAMUCIL SUGAR FREE ORAL) Take 2 Scoops by mouth daily. simvastatin (ZOCOR) 10 mg tablet Take 10 mg by mouth at bedtime. UNABLE TO FIND 2 (two) times a day. Med Name: CHICKEN STERNUM CARTILAGE ZINC ORAL Take 50 mg by mouth daily. documented as of this encounter Progress Notes * Miryam Negrete P.A.-C. - 12/22/2023 9:37 AM CDT SUBJECTIVE Ms. Shell reports that she is having some pain into her left abdomen/groin. She currently rates the pain at 4/10. She notes that the pain has been lessened with use of pain regimen. She notes that she also had some intermittent nausea but notes no vomiting. She notes that she has had a small amount of oral, liquid intake. She notes that she has not yet passed flatus or bowel movement. She notes that she has not yet ambulated. She denies any other issues or concerns. OBJECTIVE VITAL SIGNS Blood Pressure: 146/58, Heart Rate: 76, Pulse Rate: 78, Resp Rate: 12, Temperature: 36.8 ??C, SpO2:97 % I/O last 3 completed shifts: In: 1220.6 Out: 320 [Urine:310; Blood:10] Physical Exam GEN:Alert and Oriented ABD:Soft, Nontender, Nondistended, Left groin incision with intact Dermabond, no surrounding erythema or drainage DIAGNOSTICS I have reviewed labs. ASSESSMENT / PLAN #1 Hernia Femoral #2 Hernia Inguinal Right #3 Hyperlipidemia #4 Hypertension NOS #5 Hyperthyroidism S/p Diagnostic Laparoscopy, Open Primary repair of Left Obturator and Femoral Hernia (12/21/23) Doing well this AM and progressing. She will continue pain control with use of Tylenol and Oxycodone. Diet is advancing and we will monitor for tolerance. She will continue on bowel regimen. Ambulation will be encouraged. Her incision is closed with Dermabond. She will have a 2 week phone call follow up. Right sided inguinal hernia was identified intraoperatively. This was not repaired. She will be scheduled for a consultation appointment with a Robotic Hernia Surgeon in 2-3 months to discuss elective repair. CT will be obtained for that appointment. PLAN Diet: Adult Diet Regular Activity: as tolerated VTE Prophylaxis: Heparin SQ 5,000 units TID GI Prophylaxis: not indicated Bowel Regimen: Miralax Pain: Tylenol, Oxycodone Antibiotics: None Disposition: Possible home later today if pain remains controlled, tolerating diet and ambulating documented in this encounter Consult Notes * Ana Woods M.D. - 12/22/2023 12:08 AM CDT PATIENT Id: Katharine Shell is a 78 y.o. female MR #: [id number] Menard CHIEF COMPLAINT Chief Complaint Patient presents with Abnormal Test Result Abdominal Pain SUPERVISORY NOTE This is a supervisory note for the Hospital Surgical Service. I have rounded with and discussed thecare of Katharine Shell with Dr. Diop. Please refer to her note for full details. I agree with the history, physical exam, assessment, and plan. HISTORY OF PRESENT ILLNESS 78-year-old female. She presents with abdominal discomfort, nausea and multiple episodes of emesis.CT of the abdomen and pelvis reveals a hiatal hernia with the majority of the stomach in the chest.There is a loop of small bowel with modest dilation in the left lower quadrant which seems to communicate with a small structure in the left groin consistent with a femoral hernia incarceration. Small fluid collection in right groin which is not apparently product support sales representative of bowel. PAST MEDICAL/SURGICAL HISTORY Past Medical History: Diagnosis [...] all removed THYROID SURGERY 2021 PHYSICAL EXAM .Temperature: 36.9 ??C Resp Rate: 17 Blood Pressure: 134/66 SpO2: 97 % Alert and oriented. No NG tube. Abdomen is soft. Minimal tenderness left groin to palpation. No other incisions in that area. LABS Recent Results (from the past 24 hour(s)) CBC with Differential, Blood Collection Time: 12/21/23 11:04 PM Result Value Hemoglobin 13.3 Hematocrit 40.6 Erythrocytes 4.48 MCV 90.6 RBC Distrib Width 12.8 Platelet Count 206 Leukocytes 13.3 (H) Neutrophils 11.93 (H) Lymphocytes 0.60 (L) Monocytes 0.65 Eosinophils 0.06 Basophils 0.03 Basic Metabolic Panel Collection Time: 12/21/23 11:04 PM Result Value Potassium, P 4.9 Sodium, P 135 Chloride, P 101 Bicarbonate, P 27 Anion Gap, P 7 BUN (Blood Urea Nitrogen), P 14 Creatinine 1.16 (H) Estimated GFR (eGFR) 49 (L) Calcium, Total, P 9.8 Glucose, P 128 Hepatic Function Panel Collection Time: 12/21/23 11:04 PM Result Value Bilirubin, Total, S 0.5 Bilirubin, Direct, S <0.2 Aspartate Aminotransferase (AST), S 19 Alanine Aminotransferase (ALT), S 16 Alkaline Phosphatase, S 48 Albumin, S 4.5 Protein, Total, S 6.5 Lactate Collection Time: 12/21/23 11:04 PM Result Value Lactate, P 0.9 Lipase Collection Time: 12/21/23 11:04 PM Result Value Lipase, S [address] ABDOMEN PELVIS W CON-Outside CT Body Result Date: 12/21/2023 Narrative: This order has been created and auto-finalized to support the import of outside images. If available, original interpretation can be found on the Media Tab in Chart Review, in Document Viewer, or as an image in QREADS. If a re-interpretation or overread is required please follow defined workflow. MR hip LT wo con-Outside MR MSK Result Date: 12/21/2023 Narrative: This order has been created and auto-finalized to support the import of outside images. If available, original interpretation can be found on the Media Tab in Chart Review, in Document Viewer, or as an image in QREADS. If a re-interpretation or overread is required please follow defined workflow. ASSESSMENT AND PLAN Patient Active Problem List Diagnosis Dysfunction Pelvic Floor Female Constipation Hernia Perineal Obstruction Intestinal (HCC) Hernia Femoral 1. Incarcerated left inguinal hernia, likely femoral in type. Small bowel obstruction secondary to 1. Plan Repair of the left femoral hernia has been recommended to the patient. This will be proceeded by laparoscopic inspection of the peritoneal cavity to rule out small bowel compromise. If so, that may change the placement of incisions and route of repair. Possibility of bowel resection would thereforealso exist. This will be a primary repair given the incarcerated component. Unless there is evidence of compromise or difficulty at the right groin, that hernia will be left for future intervention. Risks, benefits and indications for the procedure have been discussed with the patient, her spouse and her adult daughter. They appear to understand these issues and agreed to proceed. We will proceedthe operating room this evening as resources allow. PATIENT EDUCATION Ready to learn, no apparent learning barriers were identified; learning preferences include listening. Explained diagnosis and treatment plan; patient expressed understanding of the content. INFORMED CONSENT Discussed the risks, benefits, alternatives, and the necessity of other members of the healthcare team participating in the procedure. All questions answered and consent given. * Benedicto Cartagena M.D., Ph.D. - 12/21/2023 4:56 PM CDTAssociated Order(s): General Surgery consult ([facility]) General Surgery consult ([facility]) Referring Provider: Vish Yip M.D. Today's date: 12/21/2023 Reason for Consult: incarcerated left femoral hernia History of Presenting Illness: Ms. Shell is a 78 y.o. female with a history of pelvic floor dysfunction and prior pelvic organ prolapse with mesh in the and who presents with an incarcerated femoral hernia. Patient developed left groin pain and nausea this morning. Denies any vomiting. Unsure if passing flatus but had a small BM this morning. She was evaluated in [facility]: CT demonstrates an incarcerated left femoral hernia with upstream bowel dilation. No evidence of ischemia. She has a known fluid-filled right inguinal hernia which is stable from prior exams, along with a large type IV hiatal hernia, several small ventral hernias, and pelvic organ prolapse. She in undergoing evaluation of her pelvic prolapse with Dr. Rodriguez and Dr. Ruiz and has been seen by Dr. Klein for elective hernia repair. In the ED, the patient is afebrile, vital signs within normal limits. She has a non-reducible left femoral hernia. WBC 13.3, hemoglobin 13.3, creatinine 1.16 Pertinent History Review: MEDICAL HISTORY - GERD with type IV hiatal hernia - hyperlipidemia, hypertension -hyperthyroidism - pelvic floor dysfunction - recurrent SBO - chronic constipation SURGICAL HISTORY - pelvic organ prolapse repair in 1982 and 1995, anterior and posterior approaches -supracervical partial hysterectomy - parathyroidectomy CURRENT MEDICATIONS Denies use of blood thinners or immunomodulators including steroids. ALLERGIES/CONTRAINDICATIONS Sulfa allergy FAMILY HISTORY Non-contributory SOCIAL HISTORY Former smoker. ROS: as mentioned in HPI, otherwise negative Past Medical History: Diagnosis Date Anxiety Generalized Disorder 1999 Cataract 2001 Gastroesophageal Reflux Disease NOS Hyperlipidemia Hypertension NOS Hyperthyroidism 2021 Renal Disease ? Past Surgical History: Procedure Laterality Date BLADDER SURGERY 1982 and 1995 COLON SURGERY 1982 & 1995 OTHER SURGICAL HISTORY Knee arthroscopy 2019 SUPRACERVICAL HYSTERECTOMY 1982 had hysterotony - nkt sure what all removed THYROID SURGERY 2021 OBJECTIVE Vitals Temperature: [36.9 ??C] 36.9 ??C Resp Rate: [16-17] 17 Blood Pressure: (128-135)/(64-66) 134/66 SpO2: [95 %-97 %] 97 % Pulse Rate: [72-96] 72 Physical exam: General: not in acute distress. HEENT: normocephalic, atraumatic Cardiopulmonary: Unlabored breathing, on room air Abdomen: soft, non tender, non distended. Non-reducible left femoral hernia. Palpable right inguinal hernia with cough impulse. Skin: Dry Extremities: No significant edema noted Diagnostics: I have reviewed diagnostic labs, imaging, or other testing as appropriate Imaging: No results found. ASSESSMENT / PLAN #1 Incarcerated left femoral hernia #2 Pelvic floor dysfunction #3 Prior anterior and posterior pelvic prolapse surgery #4 Type IV hiatal hernia In summary, Katharine Shell is a 78 y.o. female who presents with a 12 hour history of incarcerated left femoral hernia containing small bowel. Patient is vitally stable, but does have a leukocytosis of 13.3 and mildly elevated creatinine. Discussed with the patient proceeding to the OR for a laparoscopic abdominal exploration to evaluate the bowel followed by an open tissue based left femoral hernia repair. We discussed the possibility of small bowel resection in the event of ischemia or necrosis. Discussed the risks benefits, and alternatives to surgery. Risks include but are not limited to bleeding, infection, damage to surrounding structures, anastomotic leak in the event of bowel resection, and anesthesia related complications. Moreover, we discussed with the higher risk of hernia recurrence in the absence of mesh. We will not plan on fixing the right side because it is not currently symptomatic and does not contain intestine. The patient has been evaluated for elective repair Rahul encouraged her to pursue this once recovered from today's surgery. Plan: OR for diagnostic laparoscopy and open left femoral hernia repair. IV fluid resuscitation Patient will transport directly from ED to the OR Please have NGT placed in the ED U/A followed and wyatt catheter placement Admit to HSS-B post-operatively Plan were discussed with Dr. Woods, who was in agreement. Please page [phone] ([id number]) with any questions or concerns. Michelle Aaron. I am anticipating the patient's arrival to the emergency department. However she was seen and discussed with Dr. Woods. Please see her notes for details of that encounter. documented in this encounter Nursing Notes * Alivia Lopez, R.N. - 12/22/2023 4:52 PM CDT VSS. PIV's removed. Surgical sites are clean, dry and intact. AVS and all discharge education gone over with the patient and family members. All pt belongings packed and sent with. Pt left via general escort and discharged home for self care. documented in this encounter OR Notes * Op Note - Renu Diop M.B.B.S. - 12/22/2023 2:06 AM CDT Pre-op Diagnosis Hernia Femoral Post-op Diagnosis Hernia Femoral Chemical Packager A cement tester assistant actively participated and was necessary for one or more of the following: opening, exposure and visualization, maintaining hemostasis, wound closure resulting in its safe and expeditious completion. Findings Left sided obturator containing incarcerated loop of small bowel. No evidence of bowel ischemia.. Small left sided femoral defect. Small right sided obturator and inguinal defects visualized on laparoscopy but not containing any bowel. Open tissue based repair of the left sided obturator and femoral hernias. Complications None Operative Note Narrative The patient was brought to the operating room and placed supine on the operating table. General anesthesia was induced without any complication. Patient was positioned supine, arms out with optimal padding of all pressure points. Patient was prepped and draped in the usual sterile fashion and a procedural pause was completed identifying the correct patient, correct procedure, mary-operative antibiotics, allergies, and any safety concerns. We began with a 5 mm incision at Palmar's point in the left upper quadrant. An Optiview trocar was inserted and pneumoperitoneum established to 15 mmHg. A 30 degree laparoscope was then inserted. No injuries occurred on entry. On inspection of the abdomen, the proximal small bowel was mildly distended. A left sided obturator hernia was identified containing a loop of small bowel. The bowel was dilated but without evidence of ischemic changes. The femoral hernia orifice was obscured on the left.On the right side, a small inguinal hernia was visible along with a small obturator hernia, neitherof which contained bowel. We decided to proceed with an open left obturator hernia repair. Pneumoperitoneum was released and an incision made in the left groin crease just cephalad to the inguinal ligament. We came through the subcutaneous tissue with cautery. The superficial epigastric vein was ligated with 3-0 silk. We dissected down to the level of the external oblique. We incised external oblique along its fibers through the external ring. We encircled the round ligament with a [place]bridge drain. The posterior inguinal floor was attenuated but there was no obvious inguinal hernia present. Next, the inguinal floor was incised sharply. The femoral vessels were identified laterally and a smallfemoral hernia was palpated. This contained a small nuckle of preperitoneal fat which was reduced. At this point, we decided to reinsert the laparoscope to better delineate the anatomy. Under direct visualization, the peritoneum in the floor of the inguinal canal was opened sharply. We were then able to manually reduce the small bowel from the obturator hernia defect. The bowel was inspected and there was no evidence of injury or ischemia. It was reduced back into the abdominal cavity. The obturator defect was small, measuring approximately 1 cm in size. The obturator defect was closed with two interrupted stitches of 2-0 Prolene. Next, the peritonectomy was closed with running 2-0 Vicryl. The femoral hernia defect was next closed by approximating javon's ligament to the iliopubic tract.Care was taken to not narrow the femoral vein. The round ligament was ligated proximally and distally with 2-0 silk and resected. The canal floor was reconstructed by approximating the conjoint tendon to the shelving edge of the inguinal ligament using 0- Prolene sutures. The deep inguinal ring was closed in this manner. Tisseel was applied. Bupivacaine 0.25%, total of 30 mL was injected below thelevel of the fascia. The external oblique aponeurosis was closed with running 2-0 Vicryl. Moris's fascia was closed with 3-0 Vicryl and the skin closed with 4-0 Monocryl. Dermabond was applied. Instrument and sponge counts were counted and correct at the end of the procedure. The patient tolerated the procedure well, was extubated, and was transferred to the postanesthesia care unit in stable condition. Wound class II. Michelle Aaron. Associated attestation - Ana Woods M.D. - 12/22/2023 8:15 AM CDT I was present for the entirety of the procedure(s). documented in this encounter ED Notes * Ian Menard M.D., Ph.D. - 12/22/2023 12:20 AM CDT I have personally seen and examined this patient. I have fully participated in the care of this patient. I have reviewed all clinical information including history, physical exam, orders, and plan. Iagree with the note of the resident. Assessment and Plan Patient is a 78-year-old woman with a history of complicated abdominal and pelvic surgeries who hasacute on chronic abdominal pain. She presented to an outside facility where CT scanning revealed small bowel obstruction. Given her surgical history the local surgeon requested that she be transferred to [place] where she has undergoing a complex outpatient evaluation for her abdominal pain. Surgery was consulted and will take her to the operating room. She will be admitted thereafter.. Final Diagnoses: as of 12/22/23 2158 Obstruction Intestinal (HCC) Ian Menard M.D., Ph.D. 12/22/232156 * Vish Yip M.D. - 12/21/2023 11:01 PM CDT SUBJECTIVE CHIEF COMPLAINT/REASON FOR VISIT Abnormal Test Result and Abdominal Pain HISTORY OF PRESENT ILLNESS Patient is a 78-year-old female with past medical history significant for left femoral hernia, pelvic floor dysfunction, with multiple has surgical procedures including vaginal cystocele, rectocele, hysterectomy, repeat vaginal cystocele and rectocele repair who presents today via transfer from OSHwith concerns for small-bowel obstruction due to hernia. She reports this morning, she had a sudden onset of left hip and left lower abdomen abdominal pain.This was associated with nausea. She was able to tolerate oral intake today without issue. She dry heaves, but never vomited. 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 Negative for activity change, diaphoresis, fatigue and fever. Gastrointestinal: Positive for abdominal pain and nausea. Negative for abdominal distention, diarrhea and vomiting. Genitourinary: Negative for dysuria. Skin: Negative for color change and wound. OBJECTIVE Initial Vitals Temperature 12/21/23 2210 36.9 ??C Pulse Rate 12/21/23 2210 76 Heart Rate -- Resp Rate 12/21/23 2210 16 Blood Pressure 12/21/23 2210 135/65 SpO2 12/21/23 2210 97 % Pain Score 12/21/23 2223 4 PHYSICAL EXAMINATION Constitutional: Nursing note and vitals reviewed. She appears not lethargic. No distress. HENT: Head: Normocephalic and atraumatic. No signs of injury. Mouth/Throat: Mucous membranes are moist. Eyes: Right eye exhibits no discharge. Left eye exhibits no discharge. Neck: Neck supple. Cardiovascular: Normal rate, regular rhythm, S1 normal, S2 normal and normal heart sounds. Exam reveals no gallop and no friction rub. No murmur heard. Pulmonary/Chest: Effort normal and breath sounds normal. No stridor. No respiratory distress. She has no wheezes. She has no rhonchi. She has no rales. Abdominal: Soft. Bowel sounds are normal. exhibits no distension. There is no guarding. Mild left lower quadrant pain to palpation Musculoskeletal: Cervical back: Normal range of motion and neck supple. Neurological: Alert and oriented to person, place, and time. She is not disoriented. She exhibits normal muscle tone. Skin: Skin is warm, skin not cool and skin not moist. No petechiae noted. She is not diaphoretic. Psychiatric: She has a normal mood and affect. Behavior is normal. Judgment and thought content normal. ASSESSMENT/PLAN Assessment and Plan Patient is a 78-year-old female with past medical history significant for multiple intra abdominal abdominal surgeries who presents today via transfer with concern for intra-abdominal hernia. Her lactate was checked and within normal limits. Lab work was significant only for mild leukocytosis. CT images were reviewed in-house and agreed with obturator hernia. General surgery was consulted, recommended NG-tube placement, Wyatt catheter placement, and will take her to OR for hernia reduction. NG-tube was placed, Wyatt catheter was placed, these were in adequate position. Patient was signed out to the general surgery team.. Vish Yip M.D. Resident 12/22/23 0129 * Chandni Beach R.N. - 12/21/2023 9:57 PM CDT Pt. Comes in via ems with c/o small bowel obstruction and herniation. Pt. Had abdominal pain, nausea, and has been dry heaving. Pt. Received 8mg of zofran and 25mg of benadryl en rout last doses being at 2114. Pt. Is alert. Chandni Beach R.N. 12/21/23 0892 documented in this encounter Miscellaneous Notes * Hospital Course - Negrete, Miryam Bynum P.A.-C. - 12/22/2023 11:41 AM CDT Ms. Shell initially presented to an outside hospital with complaints of abdominal pain and nausea.CT imaging was obtained which revealed findings consistent with an incarcerated left femoral hernia. Following evaluation review of her studies[facility] was consulted. After evaluation, she proceeded to the operating room at which time she underwent a diagnostic laparoscopy. Intraoperatively, she was noted with a left- sided obturator hernia containing a loop of small bowel with no evidence of bowel ischemia. A small left-sided femoral hernia was also noted. A right-sided inguinal hernia was also noted. This did not contain bowel. An open left-sided primary obturator and femoral hernia repair was performed. The skin was closed with Monocryl and Dermabond was applied. Postoperatively, she was admitted to the general care floor for continued monitoring and pain control. She was noted to progress appropriately. Her diet was slowly advanced and she was transitioned to oral pain control. Her home medications were also resumed appropriately. When she was tolerating diet, having adequate pain control, having satisfactory bowel and bladder function, and ambulating safely, she was discharged home. documented in this encounter Plan of Treatment Scheduled Orders Name Type Priority Associated Diagnoses Orde r Schedule CT Abdomen Pelvis with IV Contrast Imaging RAD - Routine (most inpatients and all outpatients) Hernia Inguinal Right Expected: 03/23/2024, Expires: 03/23/2025 Scheduled Referrals Name Type Priority Associated Diagnoses Orde r Schedule Trauma Critical Care and General Surgery - Nurse phone visit (clinic) Outpatient Referral Routine Expected: 01/05/2024, Expires: 03/23/2025 General Surgery - Hernia consult (clinic) Outpatient Referral Routine Hernia Inguinal Right Expected: 03/23/2024, Expires: 03/23/2025 documented as of this encounter Procedures Procedure Name Priority Date/Time Associated Diagnosis Comments ADULT OXYGEN THERAPY Routine 12/22/2023 5:24 AM CDT DX ABDOMEN PORTABLE ANTERIOR POSTERIOR 1 VIEW RAD - Semiurgent (Fast; most ED patients; some inpatients) 12/22/2023 1:17 AM CDT REPAIR HERNIA FEMORAL WITHOUT MESH 12/22/2023 12:50 AM CDT Hernia Femoral DIAGNOSTIC LAPAROSCOPY 12/22/2023 12:50 AM CDT Hernia Femoral HC OSMOLALITY ASSAY URINE STAT 12/22/2023 12:13 AM CDT DIPSTICK, U STAT 12/22/2023 12:13 AM CDT PH, RANDOM, [...] and all outpatients) 12/21/2023 11:43 PM CDT HEPATIC FUNCTION PANEL, S STAT 12/21/2023 11:04 PM CDT CBC WITH DIFFERENTIAL, B STAT 12/21/2023 11:04 PM CDT LIPASE, S/P STAT 12/21/2023 11:04 PM CDT LACTATE, B/P STAT 12/21/2023 11:04 PM CDT BASIC METABOLIC PANEL, S/P STAT 12/21/2023 11:04 PM CDT documented in this encounter Results * DX Abdomen Portable Anterior Posterior 1 [...] on prior CT images. Vish Yip M.D. IM DIAGNOSTIC IMAGING PROCEDURES * Dipstick, Urine (12/22/2023 12:13 AM CDT) [...] LAB URINE ORDER REGULO Performing Organization Address City/[facility]/ZIP Co de Phone Number [facility] [address] [place] [address], [facility] [place] [address] [place] [address] * Osmolality, Urine (12/22/2023 12:13 AM CDT) Osmolality, U 474 150 - 1150 mOsm/kg 12/22/2023 12:52 AM CDT DTL Urine 12/22/2023 12:1 3 AM CDT 12/22/2023 12:35 AM CDT Vish Yip M.D. LAB URINE ORDER REGULO [facility] [address] [place], [place] [id number] [place] [address] [address] [place] [address] * pH, Random, Urine (12/22/2023 12:13 AM CDT) pH, Random, U 7.8 4.5 - 8.0 12/22/2023 12:52 AM CDT DTL Urine 12/22/2023 12:1 3 AM CDT 12/22/2023 12:35 AM CDT Vish Yip M.D. LAB URINE ORDER REGULO [facility] [address] [place], [place] [id number] [place] [address] * (ABNORMAL) Microscopic Manual (12/22/2023 12:13 AM CDT) Pathologist [facility] Microscopy Abnormal 12/22/2023 1:11 AM CDT DTL RBC None Seen <3 /hpf 12/22/2023 1:11 AM CDT DTL WBC None Seen /hpf 12/22/2023 1:11 AM CDT DTL Comment: ----REFERENCE VALUE---- <4 ??(Males) <11 (Females) Bacteria Present(A) 12/22/2023 1:11 AM CDT DTL Urine 12/22/2023 12:1 3 AM CDT 12/22/2023 12:35 AM CDT Vish Yip M.D. LAB URINE ORDER REGULO [facility] [address] [place] [address] * (ABNORMAL) Urinalysis, with Microscopic: Urine, Catheter [...] Vish Yip M.D. LAB URINE ORDER REGULO [facility] [address] [place] [address], [facility] [place] [address] [place] [address] * Interpretation of Outside MR Extremity (12/21/2023 [...] and sacroiliac joint degeneration. Vish Yip M.D. [facility] MRI PROCEDU RES * Interpretation of Outside CT Abdomen and or Pelvis (12/21/2023 11:43 PM CDT) Anatomical Region Laterality Modality Abdomen, Pelvis, [...] Yip M.D. IMG CT PROCEDUR ES * Lipase (12/21/2023 11:04 PM CDT) Pathologist [facility] Lipase, S 25 13 - 60 U/L 12/21/2023 11:58 PM CDT DT Blood (Blood, Venous) 12/21/2023 11:04 PM CDT 12/21/2023 11:36 PM CDT Vish Yip M.D. LAB BLOOD ADD-O N [facility] [address] [place] [address], [facility] [address] [place] [address] * Lactate (12/21/2023 11:04 PM CDT) Pathologist [facility] Lactate, P 0.9 0.5 - 2.2 mmol/L 12/21/2023 11:35 PM CDT STMA Blood (Blood, Venous) 12/21/2023 11:04 PM CDT 12/21/2023 11:15 PM CDT Vish Yip M.D. LAB BLOOD NON A DD-ON Performing Organization Address City/[facility] Co de Phone Number [facility] [address] [place] [address], [facility] STMA [facility] [address] [place] [address] * Hepatic Function Panel (12/21/2023 11:04 PM [...] LAB BLOOD ADD-O N Performing Organization Address City/[facility]/ZIP Co de Phone Number [facility] [address] [place] [address], [facility] DTL [facility] [address] [place] [address] * (ABNORMAL) Basic Metabolic Panel (12/21/2023 11:04 PM CDT) Potassium, P 4.9 3.6 - 5.2 mmol/L [...] Vish Yip M.D. LAB BLOOD ADD-O N [facility] [address] [place] [address], [facility] [address] [place] [address] * (ABNORMAL) CBC with Differential, Blood (12/21/2023 [...] Vish Yip M.D. LAB BLOOD ADD-O N [facility] [address] [place] [address], [facility] STMA [facility] [address] [place], [place] [id number] [place] [address] [address] [place] [address] documented in this encounter Visit Diagnoses Diagnosis Hernia Inguinal Right Obstruction Intestinal (HCC) Hernia Femoral documented in this encounter Admitting Diagnoses Diagnosis Hernia Femoral documented in this encounter Administered Medications Inactive Administered Medications - up to 3 most recent administrations Medication Order MAR Action Action Date Dose Rate Site acetaminophen tablet 1,000 mg (TYLENOL) 1,000 mg, oral, 4 times daily, First dose on 12/22/23 at 0800 Given 12/22/2023 4:06 PM CDT 1,000 mg Given 12/22/2023 11:34 AM CDT 1,000 mg Given 12/22/2023 6:58 AM CDT 1,000 mg BUPivacaine 0.25 % (2.5 mg/mL) injection (MARCAINE) As needed, Starting on 12/22/23 at 0350, Intra-Op Given 12/22/2023 3:50 AM CDT 30 mL Abdominal Tissue calcium carbonate tablet 500 mg of calcium 500 mg of calcium, oral, Daily with breakfast, First dose on [facility] 12/22/23 at 0800, calcium carbonate 1250 mg (500 mg elemental) was interchanged for calcium carbonate 1500 mg (600 mg elemental) Given 12/22/2023 8:31 AM CDT 500 mg of calcium cholecalciferol (vitamin D3) tablet 25 mcg 25 mcg, oral, Daily, First dose on [facility] 12/22/23 at 0900, cholecalciferol (vitamin D3) orderable was interchanged for cholecalciferol (vitamin D3) tablet/capsule Given 12/22/2023 8:31 AM CDT 25 mcg heparin (porcine) injection 5,000 Units 5,000 Units, subcutaneous, Every 8 hours scheduled, First dose on [facility] 12/22/23 at 0800 Given 12/22/2023 1:28 PM CDT 5,000 Units Left Upper Arm (Back) Given 12/22/2023 8:31 AM CDT 5,000 Units L eft Upper Arm (Back) levothyroxine tablet 50 mcg (SYNTHROID, LEVOTHROID) 50 mcg, oral, Daily before breakfast, First dose on 12/22/23 at 0700 Given 12/22/2023 6:56 AM CDT 50 mcg lisinopriL tablet 10 mg (PRINIVIL,ZESTRIL) 10 mg, oral, Daily, First dose on [facility] 12/22/23 at 0900 Given 12/22/2023 8:31 AM CDT 10 mg oxyCODONE IR tablet 10 mg (ROXICODONE) 10 mg, oral, Every 4 hours PRN, severe pain or score 7-10 of 10, for breakthrough pain, Starting on [facility] 12/22/23 at 0524, Pain unrelieved by other oral analgesics. oxyCODONE IR tablet 5 mg (ROXICODONE) 5 mg, oral, Every 4 hours PRN, moderate pain or score 4-6 of 10, for breakthrough pain, Starting on 12/22/23 at 0524, Pain unrelieved by other oral analgesics. polyethylene glycol powder packet 17 g (MIRALAX) 17 g, oral, Daily, First dose on 12/22/23 at 0900, 17 g = 1 heaping Tablespoon. Dissolve in 240 mLs (8 ounces) of water prior to giving. Avoid mixing with starch-based thickened liquids. Given 12/22/2023 8:31 AM CDT 17 g promethazine injection 6.25 mg (PHENERGAN) 6.25 mg, intravenous, Every 4 hours PRN, nausea, vomiting, Starting on 12/22/23 at 0524, Use Ondansetron before Prochlorperazine or Promethazine. Do not order Promethazine if Tramadol was ordered. Given 12/22/2023 6:58 AM CDT 6.25 mg thrombin (human plasma)-eqthrsirhd-ebrpfflil-Lf topical solution ([facility]) As needed, Starting on 12/22/23 at 0354, Intra-Op Given 12/22/2023 3:54 AM CDT 4 mL Abdominal Tissue documented in this encounter Active and Recently Administered Medications Times are shown in CDT. Scheduled Medication Order 12/20/2023 12/21/2023 12/22/2023 acetaminophen tablet 1,000 mg (TYLENOL) 1,000 mg, oral, 4 times daily, First dose on 12/22/23 at 0800 0658 (Given - Provid er: Kira Reyes RFransiscoN.)1134 (Given - Provider: Sy Rico RFransiscoN.)1606 (Given - Provider: Alivia Lopez R.N.) calcium carbonate tablet 500 mg of calcium 500 mg of calcium, oral, Daily with breakfast, First dose on 12/22/23 at 0800, calcium carbonate 1250 mg (500 mg elemental) was interchanged for calcium carbonate 1500 mg (600 mg elemental) 0831 (Given - Provid er: Alivia Lopez R.N.) cholecalciferol (vitamin D3) tablet 25 mcg 25 mcg, oral, Daily, First dose on 12/22/23 at 0900, cholecalciferol (vitamin D3) orderable was interchanged for cholecalciferol (vitamin D3) tablet/capsule 08 (Given - Provid er: Alivia Lopez RFransiscoN.) heparin (porcine) injection 5,000 Units 5,000 Units, subcutaneous, Every 8 hours scheduled, First dose on 12/22/23 at 0800 0831 (Given - Provid er: Alivia Lopez R.N.)1328 (Given - Provider: Sy Rico R.N.) levothyroxine tablet 50 mcg (SYNTHROID, LEVOTHROID) 50 mcg, oral, Daily before breakfast, First dose on 12/22/23 at 0700 0656 (Given - Provid er: Kira Reyes RFransiscoN.) lisinopriL tablet 10 mg (PRINIVIL,ZESTRIL) 10 mg, oral, Daily, First dose on 12/22/23 at 0900 0831 (Given - Provid er: Edilberto VillanuevaN.) polyethylene glycol powder packet 17 g (MIRALAX) 17 g, oral, Daily, First dose on 12/22/23 at 0900, 17 g = 1 heaping Tablespoon. Dissolve in 240 mLs (8 ounces) of water prior to giving. Avoid mixing with starch-based thickened liquids. 0831 (Given - Provid er: Edilberto VillanuevaN.) simvastatin tablet 10 mg (ZOCOR) 10 mg, oral, Daily at bedtime, First dose on 12/22/23 at 2100 Continuous Medication Order 12/20/2023 12/21/2023 12/22/2023 Lactated Ringer's (CANCELED) 75 mL/hr, intravenous, Continuous, Starting on 12/22/23 at 0545 0528 (Continued from OR - Provider: Kira Reyes RFransiscoNFransisco)1132 (Stopped - Provider: Sy Rico R.N.) PRN Medication Order 12/20/2023 12/21/2023 12/22/2023 bisacodyL suppository 10 mg (DULCOLAX) 10 mg, rectal, Daily PRN, constipation, if no bowel movement in 48 hours, Starting on 12/22/23 at 0535 BUPivacaine 0.25 % (2.5 mg/mL) injection (MARCAINE) (CANCELED) As needed, Starting on 12/22/23 at 0350, Intra-Op 0350 (Given - Provid er: Renu Diop, M.B.B.S.) hydrOXYzine tablet 25 mg (ATARAX) 25 mg, oral, Every 6 hours PRN, anxiety, Starting on 12/22/23 at 0524 ondansetron (PF) injection 4 mg (ZOFRAN) 4 mg, intravenous, Every 6 hours PRN, nausea, vomiting, Starting on 12/22/23 at 0524, Use Ondansetron before Prochlorperazine or Promethazine oxyCODONE IR tablet 10 mg (ROXICODONE)(Linked Group 1) 10 mg, oral, Every 4 hours PRN, severe pain or score 7-10 of 10, for breakthrough pain, Starting on 12/22/23 at 0524, Pain unrelieved by other oral analgesics. oxyCODONE IR tablet 5 mg (ROXICODONE)(Linked Group 1) 5 mg, oral, Every 4 hours PRN, moderate pain or score 4-6 of 10, for breakthrough pain, Starting on 12/22/23 at 0524, Pain unrelieved by other oral analgesics. promethazine injection 6.25 mg (PHENERGAN) 6.25 mg, intravenous, Every 4 hours PRN, nausea, vomiting, Starting on 12/22/23 at 0524, Use Ondansetron before Prochlorperazine or Promethazine. Do not order Promethazine if Tramadol was ordered. 0658 (Given - Provid er: Edilberto ArguetaN.) thrombin (human plasma)-dwkfxrnncu-klwohdbop-Fn topical solution ([facility]) (CANCELED) As needed, Starting on 12/22/23 at 0354, Intra-Op 0354 (Given - Provid er: Renu Diop, M.B.B.S.) Linked Groups Order Group 1: oxyCODONE IR tablet 5 mg (ROXICODONE)Jump to med 5 mg, oral, Every 4 hours PRN, moderate pain or score 4-6 of 10, for breakthrough pain, Starting on 12/22/23 at 0524, Pain unrelieved by other oral analgesics. Or oxyCODONE IR tablet 10 mg (ROXICODONE)Jump to med 10 mg, oral, Every 4 hours PRN, severe pain or score 7-10 of 10, for breakthrough pain, Starting on 12/22/23 at 0524, Pain unrelieved by other oral analgesics. documented in this encounter Care Teams Occupational Health Nurse Manager Relationship Specialty Start Date End Date Elsewhere, Pcp PCP - General Internal Medicine 06/12/23 documented as of this encounter
--- OUTSIDE RECORDS SUMMARY | 2023-12-25 16:06 | XMS_ITS ---
Author Organization [facility] Address [address] [place] [address] Care Team Providers Care Clergy Member Name Role Phone Unavailable Unavailable Unavailable Surgery Details Not on file Complications Check Surgery Details section. Procedure Estimated Blood Loss Check Surgery Details section. Procedure Findings Check Surgery Details section. Procedure Specimens Taken Check Surgery Details section.
--- OUTSIDE RECORDS SUMMARY | 2023-12-25 16:06 | XMS_ITS | Encounter Summary ---
Author Organization [facility] Address [address] [place] [address] Care Team Providers Care Cardiology Tech Name Role Phone Elsewhere, Pcp Primary Care Provider Unavailabl e Encounter Details Date Type Department Care Team (Late st Contact Info) Description 12/22/2023 1:20 AM CDT Anesthesia Event RST ROMB MAIN OR [address] [place] [address] Juan Strong M.D. [address] [place] [phone] Heidy Darden APRN, CRNA, D.N.P. [address] [place] [phone] Anesthesia Record Procedure Summary Procedure Name Responsible Anesthesiologist Anesthesia Start Time Anesthesia Stop Time DIAGNOSTIC LAPAROSCOPY Juan Strong M.D. 12/22/23 0120 12/22/23 0457 Events Date Time Event Comment 12/22/2023 0120 An Start Machine/Equipme nt Checked Infection Precautions Followed Procedure/Site Verified NPO Status Verified Supine Standard ASA Monitors Applied 0127 An Induction 0133 An Intubation 0142 Turnover to Proceduralist 0205 Gas Insufflation 0206 Proc Start 0415 Proc Fin 0416 Turnover to ANE Staff 0426 Airway Removal Criteria Met 0426 Extubation/Airway Removed 0445 an stop data 0445 Transfer to Room 0457 An End I completed my handoff to the receiving staff during which we 1. Identified the patient 2. Identified the responsible provider 3. Reviewed the pertinent medical history 4. Discussed the surgical course 5. Reviewed intra-op anesthesia management and issues during anesthesia 6. Set expectations for post-procedure period 7. Allowed opportunity for questions and acknowledgement of understanding. Meds Name Total fentanyl injection 50 mcg/mL 100 mcg lidocaine 2% (mg) injection 80 mg rocuronium 10 mg/mL injection 100 mg phenylephrine 100 mcg/mL injection 100 m cg ondansetron 4 mg/2 mL injection 4 mg sugammadex 100 mg/mL injection 200 mg propofol 10 mg/mL infusion 905.85 mg propofol 10 mg/mL injection 150 mg dexAMETHasone (DECADRON) injection 4 mg/ mL 8 mg heparin 5,000 Units/mL injection 5,000 U nits ceFAZolin 2 g metroNIDAZOLE 500 mg IVPB 500 mg haloperidol 5 mg/mL injection 1 mg ketorolac (TORADOL) 15 mg/mL injection 1 5 mg Lactated Ringers Free Drip 900 mL * Agents No agents on file. * Blood No blood administrations on file. Lines, Drains, and Airways Type Details Placement Removal Wound 12/22/23; N; Incisio n; Groin; Anterior, Left; dermabond 12/22/23 0000 by Sulema Lopez, R.NFransisco Scope Sites 12/22/23; Abdomen; Left, Upper; dermabond 12/22/23 0000 by Sulema Lopez, R.N. Peripheral IV Placement Date: 12/21/23; Placement Time: 2220; Existing LDA Placed by: Other hospital; Catheter Size: 20 G; Orientation: Right; Location: Hand; Removal Date: 12/22/23; Removal Time: 14212/21/232220 by Desirae Mcneil, R.NFransisco 12/22/231424 by Edgar Herrera Indwelling Urinary Catheter Placement Date: 12/22/23; Placement Time: 22; Type: Latex, Double-lumen; Size: 16 Fr.; Balloon Size: 10 mL; Urine Returned: Yes; Removal Date: 12/22/23; Removal Time: 837; Removal Reason: Per order 12/22/23 0023 by Bruce Beckham 12/22/23 0838 by Alivia Lopez, R.N. NG/OG Tube 12/22/23; 0107; Nasogastric; 18 Fr; 60 cm; Nare, Left; 12/22/23; 0506 12/22/23 0107 by Desirae Mcneil RFranssicoNFransisco 12/22/23 0506 by Kira Reyes R.N. ETT Placement Date: 12/22/23; Placement Time: 132 (created via procedure documentation); Mask Ventilation: Not attempted; Technique: Direct laryngoscopy, intubation; Type: Standard ETT; Single Lumen Tube Size: 7 mm; Cuffed: Yes; Blade Size: MAC 3; Location: Oral; Grade View: Grade 1; Insertion Attempts: 1; Placement Verification: Bilateral breath sounds, Positive ETCO2, Symmetrical chest wall movement; Removal Date: 12/22/23; Removal Time: 42512/22/23 013 by Heidy Darden APRN, CRNA, D.N.PFransisco 12/22/23 042 by Heidy Darden APRN, CRNA D.N.P. Peripheral IV Placement Date: 12/22/23; Placement Time: 135; Catheter Size: 18 G; Orientation: Left; Location: Hand; Removal Date: 12/22/23; Removal Time: 1423; Removal Reason: Patient discharged 12/22/23 013 by Heidy Darden APRN, CRNA, D.N.P. 12/22/231423 by Edgar Herrera documented in this encounter Social History Tobacco Use Types Packs/Day Years Used Date Smoking Tobacco: Former Passive Smoke Exposure: Past Smokeless Tobacco: Never Alcohol Use Standard Drinks/Week Comments Not Currently 0 (1 standard drink = 0.6 oz pure alcohol) Only at celebrations might have 1 drink [facility] [employer] Answer Date Recorded In the past 12 months has [employer], gas, oil, or water [employer] threatened to shut off services in your [...] your living situation today? I have a [facility] place to live 12/22/2023 Sex and Gender Information Value Date Recorded Sex Assigned at Female 06/08/2023 11:11 AM MARKETING STRATEGY ANALYST Gender Identity Female 06/08/2023 11:11 AM MARKETING STRATEGY ANALYST Sexual Orientation Straight 06/08/2023 11 :11 AM MARKETING STRATEGY ANALYST documented as of this encounter OR Notes * Anesthesia Postprocedure Evaluation - Heidy Darden APRN, CRNA, D.N.P. - 12/22/2023 4:59 AM CDT Patient: Katharine Shell Procedure Summary Date: 12/22/23 Room / Location: [place] [address] / [facility] in [place], [place] Anesthesia Start: 0120 Anesthesia Stop: 045 Procedures: DIAGNOSTIC LAPAROSCOPY REPAIR HERNIA OBTURATOR FEMORAL WITHOUT MESH (Left) Diagnosis: Hernia Femoral Providers: Ana Woods M.D. Responsible Provider: Juan Strong M.D. Anesthesia Type: general ASA Status: 3 - Emergent Anesthesia Type: general Last vitals Vitals Value Taken Time BP 148/65 12/22/23 0455 Temp 36.8 ??C 12/22/23453 Pulse 77 12/22/235 Resp SpO2 98 % 12/22/23454 Vitals shown include unfiled device data. Please reference Vitals flowsheet for most recent vital signs. Anesthesia Post Evaluation Patient Disposition: general care unit Cardiovascular status: hemodynamics (HR & BP) acceptable Respiratory status: patent airway with spontaneous effort Temperature: normothermic Oxygen requirements: nasal cannula Level of consciousness: sedated but awakens easily Pain score: pain adequately controlled and/or at baseline Post Op nausea/vomiting: none Hydration status: euvolemic * Anesthesia Procedure Notes - Heidy Darden APRN, CRNA, D.N.P. - 12/22/2023 1:38 AM CDTAssociated Order(s): Airway Airway Date/Time: 12/22/2023 1:33 AM Performed by: Heidy Darden APRN, CRNA, D.N.P. Authorized by: Juan Strong M.D. Patient location during procedure: OR / Procedure Area PROCEDURE DETAILS: Mask difficulty assessment: not attempted Final airway type: direct laryngoscopy, intubation Laryngeal Manipulation: no Final airway difficulty of direct laryngoscopy (DL): [...] ANESTHESIA Anesthesia method: anesthesia POST PROCEDURE DETAILS: Procedure outcome: successful Notable Events: no complications * Anesthesia Preprocedure Evaluation - Lemuel Olmedo M.D. - 12/22/2023 1:25 AM CDT Preprocedure Anesthesia & H&P Assessment Procedure Summary Anesthesia Start Date/Time: 12/22/23 0120 Procedures: DIAGNOSTIC LAPAROSCOPY REPAIR HERNIA FEMORAL WITHOUT MESH (Left) Diagnosis: Hernia Femoral [K41.90] Location: [place] [address] / [facility] in [place], [place] Providers: Ana Woods M.D. Pertinent components of the patient's history including current problem list, medical history, surgical history, family history, social history, medications and allergies were reviewed. Present illness and pre-op diagnosis were confirmed. The planned surgery / procedure was verified with the patient / legal guardian. The patient's general health condition remains unchanged RELEVANT COMORBID CONDITIONS No relevant active problems OBJECTIVE PHYSICAL EXAMINATION Airway (HEENT) Mallampati: II TM Distance: >3 FB Neck ROM: Full Mouth Opening: >3 cm Cardiovascular Rhythm: Regular Rate: Normal Cardiovascular Assessment: cardiovascular normal Functional Capacity: >4 METS Pulmonary Pulmonary Assessment: Clear General / Constitutional Constitutional Assessment: Normal General State of Health:: calm and ill appearing Neurological Neurologic Assessment: alert and alert and oriented x 3 Dental Dental Assessment: dentition intact ASSESSMENT / PLAN ANESTHESIA PLAN ASA: 3 - Emergent Anesthesia Plan: general Patient seen and allergies reviewed, anesthesia plan and risks discussed directly with patient /legal guardian or through an vp scientific affairs. Risks/Benefits/Alternatives of Blood transfusion discussed with patient / legal guardian, includingan opportunity to ask questions and/or decline some or all transfusion therapies. The patient / legal guardian consented to the use of all blood products, as deemed medically necessary Approval to Proceed: approved for anesthesia documented in this encounter Plan of Treatment Not on file documented as of this encounter Procedures Procedure Name Priority Date/Time Associated Diagnosis Comments LDA ANE ENDOTRACHEAL AIRWAY Routine 12/22/2023 1:33 AM CDT documented in this encounter Results * LDA ANE ENDOTRACHEAL AIRWAY (12/22/2023 1:33 AM CDT) Narrative Heidy Darden APRN, CRNA, D.N.P. - 12/22/2023 1:33 AM CDT Heidy Darden APRN, CRNA D.N.P. ? 12/22/2023 ??1:38 AM Airway Date/Time: 12/22/2023 1:33 AM Performed by: Heidy Darden APRN, CRNA, D.N.P. Authorized by: Juan Strong M.D. ?? [...] complications Juan Strong M.D. ANESTHESIA ORDER REGULO documented in this encounter Visit Diagnoses Not on filedocumented in this encounter Administered Medications Inactive Administered Medications - up to 3 most recent administrations Medication Order MAR Action Action Date Dose Rate Site ceFAZolin injection (ANCEF) intravenous, As needed, Starting on 5/25/24 at 0156, Anesthesia Intra-op Given 12/22/2023 1:56 AM CDT 2 g dexAMETHasone injection (DECADRON) intravenous, As needed, Starting on 12/22/23 at 0135, Anesthesia Intra-op Given 12/22/2023 1:35 AM CDT 8 mg fentaNYL injection (SUBLIMAZE) intravenous, As needed, Starting on 12/22/23 at 0127, Anesthesia Intra-op Given 12/22/2023 2:04 AM CDT 50 mcg Given 12/22/2023 1:27 AM CDT 50 mcg haloperidol lactate injection (HALDOL) intravenous, As needed, Starting on 12/22/23 at 0336, Anesthesia Intra-op Given 12/22/2023 3:36 AM CDT 1 mg heparin (porcine) injection subcutaneous, As needed, Starting on 12/22/23 at 0135, Anesthesia Intra-op Given 12/22/2023 1:35 AM CDT 5,000 Units ketorolac injection (TORADOL) intravenous, As needed, Starting on 12/22/23 at 0408, Anesthesia Intra-op Given 12/22/2023 4:08 AM CDT 15 mg Lactated Ringer's intravenous, Continuous Infusion: Per Instructions PRN, Starting on 12/22/23 at 0126, Anesthesia Intra-op New Bag 12/22/2023 4:12 AM CDT New Bag 12/22/2023 1:26 AM CDT lidocaine (PF) (cardiac) injection intravenous, As needed, Starting on 12/22/23 at 0128, Anesthesia Intra-op Given 12/22/2023 1:27 AM CDT 80 mg metroNIDAZOLE in NaCl (iso osm) IVPB (FLAGYL) intravenous, Administer over 30 Minutes, As needed, Starting on 12/22/23 at 0140, Anesthesia Intra-op Given 12/22/2023 1:40 AM CDT 500 mg ondansetron (PF) injection (ZOFRAN) intravenous, As needed, Starting on 12/22/23 at 0318, Anesthesia Intra-op Given 12/22/2023 3:18 AM CDT 4 mg phenylephrine injection intravenous, As needed, Starting on 12/22/23 at 0128, Anesthesia Intra-op Given 12/22/2023 1:28 AM CDT 100 mcg propofol 10 mg/mL infusion (DIPRIVAN) intravenous, Continuous Infusion: Per Instructions PRN, Starting on 12/22/23 at 0127, Anesthesia Intra-op Rate/Dose Change 12/22/2023 3:19 AM CDT 100 mcg/kg/min 36.6 mL/hr Rate/Dose Change 12/22/2023 2:01 AM CDT 125 mcg/kg/min 45. 75 mL/hr New Bag 12/22/2023 1:27 AM CDT 100 mcg/kg/min 36.6 mL/h r propofoL injection (DIPRIVAN) intravenous, As needed, Starting on 12/22/23 at 0128, Anesthesia Intra-op Given 12/22/2023 2:09 AM CDT 50 mg Given 12/22/2023 1:28 AM CDT 100 mg rocuronium injection (ZEMURON) intravenous, As needed, Starting on 12/22/23 at 0128, Anesthesia Intra-op Given 12/22/2023 1:28 AM CDT 100 mg sugammadex injection (BRIDION) intravenous, As needed, Starting on 12/22/23 at 0402, Anesthesia Intra-op Given 12/22/2023 4:02 AM CDT 200 mg documented in this encounter Care Teams Cardiology Tech Relationship Specialty Start Date End Date Elsewhere, Pcp PCP - General Internal Medicine 06/12/23 documented as of this encounter
--- OUTSIDE RECORDS SUMMARY | 2023-12-25 16:06 | XMS_ITS | Encounter Summary ---
Author Organization [facility] Address [address] [place] [address] Care Team Providers Care Forge Shop Machine Repairer Name Role Phone Elsewhere, Pcp Primary Care Provider Unavailabl e Encounter Details Date Type Department Care Team (Late st Contact Info) Description 12/23/2023 Orders Only Division of Trauma Critical Care and General Surgery in [place], [place] [address] [place] [address] Miryam Negrete P.ADeo [address] [place] [address] Social History Tobacco Use Types Packs/Day Years Used Date Smoking Tobacco: Former Passive Smoke Exposure: Past Smokeless Tobacco: Never Alcohol Use Standard Drinks/Week Comments Not Currently 0 (1 standard drink = 0.6 oz pure alcohol) Only at celebrations might have [address] [facility] Utilities Answer Date Recorded In the past [address] [facility] [employer], gas, oil, or water [employer] threatened to shut off services in your [...] your living situation today? I have a [facility] place to live 12/22/2023 Sex and Gender Information Value Date Recorded Sex Assigned at Female 06/08/2023 11:11 AM BANDER AND CELLOPHANER MACHINE Gender Identity Female 06/08/2023 11:11 AM BANDER AND CELLOPHANER MACHINE Sexual Orientation Straight 06/08/2023 11 :11 AM BANDER AND CELLOPHANER MACHINE documented as of this encounter Plan of Treatment Not on file documented as of this encounter Visit Diagnoses Not on filedocumented in this encounter Care Teams Forge Shop Machine Repairer Relationship Specialty Start Date End Date Elsewhere, Pcp PCP - General Internal Medicine 06/12/23 documented as of this encounter
--- OUTSIDE RECORDS SUMMARY | 2023-12-25 16:06 | XMS_ITS | Encounter Summary ---
Author Organization [facility] Address [address] [place] [address] Care Team Providers Care Pet Food Deboner Name Role Phone Elsewhere, Pcp Primary Care Provider Unavailabl e Encounter Details Date Type Department Care Team (Late st Contact Info) Description 12/23/2023 Documentation Division of Trauma Critical Care and General Surgery in [place], [place] [address] [place] [id number] Elsewhere, Pcp Social History Tobacco Use Types Packs/Day Years Used Date Smoking Tobacco: Former Passive Smoke Exposure: Past Smokeless Tobacco: Never Alcohol Use Standard Drinks/Week Comments Not Currently 0 (1 standard drink = 0.6 oz pure alcohol) Only at celebrations might have [address] [facility] Utilities Answer Date Recorded In the past 12 months has [facility] [employer], gas, oil, or water [employer] threatened to shut off services in your [...] living situation today? I have a [facility] place to live 12/22/2023 Sex and Gender Information Value Date Recorded Sex Assigned at Female 06/08/2023 11:11 AM ASTRONAUT MISSION SPECIALIST Gender Identity Female 06/08/2023 11:11 AM ASTRONAUT MISSION SPECIALIST Sexual Orientation Straight 06/08/2023 11 :11 AM ASTRONAUT MISSION SPECIALIST documented as of this encounter Progress Notes * Miryam Negrete P.A.-C. - 12/23/2023 1:08 PM CDT I received a phone call from the patient and her daughter. The patient reports that she overall is progressing, however, today has started to move more in his experiencing pain that is no longer controlled with utilization of Tylenol alone. She notes that pain is worse with any movement and will decrease when she rests, however, again remains significant with just Tylenol. I have discussed with the patient and her daughter a pain regimen of Tylenol 1000 mg every 6 hours. She may also utilize ibuprofen 400 mg every 6 hours as needed. Given her age, I have recommended that she not utilize ibuprofen for longer than 5 days on a regular basis and I have explained this to the patient's daughter. They may also utilize warm compresses or ice as needed. I have also provided a prescription for 2.5 mg of oxycodone every 6-8 hours as needed for pain. I have provided instructions for the patient to be with a family member if utilizing this medication. The patient's daughter was provided these instructions and will continue to follow her mother and help with management of pain. documented in this encounter Plan of Treatment Not on file documented as of this encounter Visit Diagnoses Not on filedocumented in this encounter Care Teams Pet Food Deboner Relationship Specialty Start Date End Date Elsewhere, Pcp PCP - General Internal Medicine 06/12/23 documented as of this encounter
--- OUTSIDE RECORDS SUMMARY | 2023-12-25 16:06 | XMS_ITS | Referral Summary ---
Author Organization [facility] Address [address] [place] [address] Care Team Providers Care Chronic Disease Manager Name Role Phone Elsewhere, Pcp Primary Care Provider Unavailabl e Source Comments Patient records contain information from all sites at [facility]. For routine questions regarding patient records, call [phone] during business hours, M-F 8:00 AM - 5:00 PM Central Time. Record requests for emergency care only can be directed to [phone] at any time.[facility] Encounters Date Type Department Care Team Description 12/23/2023 Documentation Division of Trauma Critical Care and General Surgery in [address] [phone] Elsewhere, Pcp 12/23/2023 Orders Only Division of Trauma Critical Care and General Surgery in [address] [phone] Miryam Negrete, P.A.-Holly. 12/22/2023 2:05 AM CDT Ancillary Procedure Department of General Surgery Arrived 12/22/2023 1:20 AM CDT Anesthesia Event [facility] OR [address] [phone] Juan Strong M.D. Mortensen, Genna N, TIRE CORD WEAVER, TONY, D.N.P. 12/21/2023 10:20 PM CDT - 12/22/2023 5:09 PM CDT Hospital Encounter [facility] [place], [facility], Fourth Floor [address] [phone] Ian Menard M.D., Ph.D. Ana Woods M.D. Hernia Inguinal Right (Primary Dx); Obstruction Intestinal (HCC) Discharge Disposition: Home or Self Care 12/21/2023 8:00 PM CDT - 12/21/2023 10:50 PM CDT Surgery [facility] OR [address] [phone] Ana Woods M.D. DIAGNOSTIC LAPAROSCOPY 12/21/2023 10:40 PM CDT Ancillary Procedure Department of Radiology in [address] [phone] Vish Yip M.D. 12/21/2023 10:30 PM CDT Ancillary Procedure Department of Radiology in [address] [phone] Vish Yip M.D. 12/21/2023 Intake [facility] 11/08/2023 2:30 PM CDT Comprehensive Visit Division of Metabolic and Abdominal Wall Reconstructive Surgery in [address] [phone] Karine Klein M.D. Hernia Femoral 11/06/2023 10:00 AM CDT Clinical Communication Virtual Review in [address] [phone] Pre-visit Intake 10/22/2023 10:00 AM CDT Ancillary Procedure Department of Radiology in [address] [phone] Sean Rodriguez M.B., Ch.B., M.P.H. Dysfunction Pelvic Floor Female; Constipation; Hernia Perineal 10/22/2023 9:00 AM CDT Comprehensive Visit Division of Colon and Rectal Surgery in [address] [phone] Sean Rodriguez M.B., Ch.B., M.P.H. Dysfunction Pelvic Floor Female (Primary Dx); Constipation; Hernia Perineal; Obstruction Intestinal (HCC) 10/19/2023 Clinical Communication Division of Colon and Rectal Surgery in [place], [place] [address] [place] [address] Sean Rodriguez M.B., Ch.B., M.P.H. [facility] - Outside Materials 10/19/2023 3:15 PM CDT Clinical Communication Virtual Review in [place], [place] [address] [place] [address] 10/08/2023 6:18 AM CDT - 10/08/2023 11:59 PM CDT Hospital Encounter Department of Radiology, [facility], in [place], [place] [address] [place] [address] Cande Ruiz M.D. Hernia Perineal; Hernia; Dysfunction Pelvic Floor Female; Constipation; Other Female Genital Prolapse Discharge Disposition: Home or Self Care 10/01/2023 Clinical Communication Department of Obstetrics and Gynecology, Division of Urogynecology in [place], [place] [address] [place] [phone] Cande Ruiz M.D. Communication 09/26/2023 2:30 PM SHIRT MAKER Comprehensive Visit Department of Rehabilitation Services in [address] [phone] Drea Pepe M.D. Anupama Lockhart P.TFransisco Urgency Urinary (Primary Dx) from Last [...] Obstruction Intestinal 10/25/2023 Hyperlipidemia Hypertension NOS Hyperthyroidism Social History Tobacco Use Types Packs/Day Years Used Date Smoking Tobacco: Former Passive Smoke Exposure: Past Smokeless Tobacco: Never Tobacco Cessation:Counseling Given: Not Answered Alcohol Use Standard Drinks/Week Comments Not Currently 0 (1 standard drink = 0.6 oz pure alcohol) Only at celebrations might have 1 drink [facility] Jule Game Answer Date Recorded In the past 12 months has [facility] This Week In, [email or web address], oil, or water [employer] threatened to shut off services in your [...] your living situation today? I have a [facility] place to live 12/22/2023 Sex and Gender Information Value Date Recorded Sex Assigned at Female 06/08/2023 11:11 AM SHIRT MAKER Gender Identity Female 06/08/2023 11:11 AM SHIRT MAKER Sexual Orientation Straight 06/08/2023 11 :11 AM SHIRT MAKER Last Filed Vital Signs Vital Sign Reading Time Taken Comments Blood Pressure 140/54 12/22/2023 2:20 PM CDT Pulse 72 12/22/2023 2:25 PM CDT Temperature 36.8 ??C (98.2 ??F) 12/22/2023 2:20 PM CD T Respiratory Rate 16 12/22/2023 2:20 PM CDT Oxygen Saturation 99% 12/22/2023 2:25 PM CDT Inhaled Oxygen Concentration - - Weight 67.6 kg (149 lb 0.5 oz) 06/14/2023 3:44 P M SHIRT MAKER shoes on Height 165.1 cm (5' 5) 12/22/2023 10:22 AM CDT Body Mass Index 24.41 06/14/2023 3:44 PM SHIRT MAKER Plan of Treatment Not on file Procedures [...] 1:33 AM CDT) Narrative Heidy Darden APRN, CRNA D.N.P. - 12/22/2023 1:33 AM CDT Heidy Darden APRN, CRNA, D.N.P. ? 12/22/2023 ??1:38 AM Airway Date/Time: 12/22/2023 1:33 AM Performed by: Hiedy Darden APRN, CRNA D.N.P. Authorized by: Juan Strong M.D. ?? [...] Vish Yip M.D. LAB URINE ORDER REGULO [address] [address], [place] [address] * Dipstick, Urine (12/22/2023 12:13 AM CDT) [...] Vish Yip M.D. LAB URINE ORDER REGULO [facility] [address] [place] [address], [place] [address] * pH, Random, Urine (12/22/2023 12:13 AM CDT) pH, Random, U 7.8 4.5 - 8.0 12/22/2023 12:52 AM CDT DTL Urine 12/22/2023 12:1 3 AM CDT 12/22/2023 12:35 AM CDT Vish Yip M.D. LAB URINE ORDER REGULO Performing Organization Address [facility] Co de Phone Number [facility] [address] [place] [address], [facility] DTL [facility] [address] [place] [address] * (ABNORMAL) Microscopic Manual (12/22/2023 12:13 AM [...] LAB URINE ORDER REGULO Performing Organization Address [facility] Co de Phone Number [facility] [address] [place] [address], [facility] [address] [place] [address] * (ABNORMAL) Urinalysis, with Microscopic: Urine, Catheter [...] Vish Yip M.D. LAB URINE ORDER REGULO [facility] [address] [place] [address], [facility] DTL [facility] [address] [place] [address] * Interpretation of Outside MR Extremity (12/21/2023 [...] and sacroiliac joint degeneration. Vish Yip M.D. [facility] MRI PROCEDU RES * Interpretation [...] Vish Yip M.D. LAB BLOOD ADD-O N [facility] [address] [place] [address], [facility] DTL [facility] [address] [place] [address] * (ABNORMAL) CBC with Differential, Blood (12/21/2023 [...] Vish Yip M.D. LAB BLOOD ADD-O N [facility] [address] [place] [address], [facility] STMA [facility] [address] [place] [address] [facility] [address] [place] [address] * Lipase (12/21/2023 11:04 PM CDT) Lipase, S 25 13 - 60 U/L 12/21/2023 11:58 PM CDT DTL Blood (Blood, Venous) 12/21/2023 11:04 PM CDT 12/21/2023 11:36 PM CDT Vish Yip M.D. LAB BLOOD ADD-O N [facility] [address] [place], [place] [address] DTL [facility] [address] [place] [address] * Lactate (12/21/2023 11:04 PM CDT) Pathologist [facility] Lactate, P 0.9 0.5 - 2.2 mmol/L 12/21/2023 11:35 PM CDT [facility] Blood (Blood, Venous) 12/21/2023 11:04 PM CDT 12/21/2023 11:15 PM CDT Vish Yip M.D. LAB BLOOD NON A DD-ON [facility] [address] [place], [place] [address] STMA [facility] [address] [place] [address] * (ABNORMAL) Basic Metabolic Panel (12/21/2023 11:04 PM CDT) Pathologist [facility] Potassium, P 4.9 3.6 - 5.2 mmol/L [...] Vish Yip M.D. LAB BLOOD ADD-O N [facility] [address] [place] [address], [facility] STMA [facility] [address] [place] [address] * CT ABDOMEN PELVIS W CON-Outside CT Body (12/21/2023 2:20 PM CDT) 12/21/2023 2:17 PM CDT Narrative [facility] - 12/21/2023 3:24 PM CDT This order [...] System IMG CT PROCEDURES [facility] NA * MR hip LT wo con-Outside MR MSK (12/21/2023 12:35 PM CDT) 12/21/2023 12:3 1 PM CDT Narrative [facility] - 12/21/2023 2:20 PM CDT This order [...] IMG MRI PROCEDURE S Performing Organization Address [facility] Phone Number [facility] NA * MR head/brain wo con-Outside MR Neuro (11/15/2023 11:25 AM CDT) Narrative [facility] - 11/16/2023 9:48 PM CDT This order [...] IMG MRI PROCEDURE S Performing Organization Address [facility] de Phone Number [facility] NA * CT ANGIO NECK-Outside CT Neuro (11/15/2023 12:25 AM CDT) Narrative [facility] - 11/16/2023 9:57 PM CDT This order [...] System IMG CT PROCEDURES Performing Organization Address [facility] de Phone Number [facility] NA * Ct Angio Head-Outside Other (11/15/2023 12:15 AM CDT) Narrative [facility] - 11/16/2023 9:47 PM CDT This order has been created and auto-finalized to support the import of outside images. If available, original interpretation can be found on the Media Tab in Chart Review, in Document Viewer, or as an image in QREADS. If a re-interpretation or overread is required please follow defined workflow. ?? Provider Not In System IMG DIAGNOSTIC IM AGING PROCEDURES II NA * MR Proctogram Dynamic and Sphincter [...] line. 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 The vaginal [place] is located 3.2 cm above the pubococcygeal [...] pubococcygealline. 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 The vaginal [place] is located 3.2 cm above the pubococcygeal [...] neck at rest, exacerbated withstraining. Urethral hypermobility. aCnde Ruiz M.D. IMG MRI PROCEDURES from Last 3 Months or Most Recently Relevant to Health Maintenance Advance Directives For more information, please contact: [phone] * Full Code (Latest Code Status on File) Date Activated Date Inactivated Comments 12/22/2023 5:24 AM 12/22/2023 7:10 PM Question Answer Comments Full Code: Discussed Care Teams Chronic Disease Manager Relationship Specialty Start Date End Date Elsewhere, Pcp PCP - General Internal Medicine 06/12/23
--- OUTSIDE RECORDS SUMMARY | 2023-12-25 16:06 | XMS_ITS | Encounter Summary ---
Author Organization [facility] Address [address] [place] [address] Care Team Providers Care Furniture Fabricator Name Role Phone Elsewhere, Pcp Primary Care Provider Unavailabl e Reason for Referral * MRI/CAT/PET Scan (Routine) - Authorized Specialty Diagnoses / Procedures Referred By Contac t Referred To Contact Radiology Diagnoses Hernia Inguinal Right Procedures CT Abdomen Pelvis with IV Contrast Miryam Negrete P.A.-C. [address] [place] [address] [facility] Referral ID Status Reason Start Date Expiration Date V isits Requested Visits Authorized [id number] Authorized 12/22/2023 12/21/2024 1 1 * Outpatient (Routine) - Authorized Specialty Diagnoses / Procedures Referred By Contac t Referred To Contact General Surgery Diagnoses Hernia Inguinal Right Miryam Negrete P.A.-C. [address] [place] [address] [facility] Referral ID Status Reason Start Date Expiration Date V isits Requested Visits Authorized [id number] Authorized 12/22/2023 06/22/2025 1 1 Scheduling Instructions Schedule with Robotic Surgeon: Linette Bruner * Outpatient (Routine) - Authorized Specialty Diagnoses / Procedures Referred By Hi steiner Referred To Contact Miryam Negrete P.A.-C. [address] [place] [phone] [facility] Referral ID Status Reason Start Date Expiration Date V isits Requested Visits Authorized [id number] Authorized 12/22/2023 06/22/2025 1 1 Reason for Visit * Reason Comments Abnormal Test Result Abdominal Pain Encounter Details Date Type Department Care Team (Latest Contact Info) Description 12/21/2023 10:20 PM CDT - 12/22/2023 5:09 PM CDT Hospital Encounter [facility], Fourth Floor [address] [place] [phone] Ian Menard M.D., Ph.D. [address] [place] [phone] Ana Woods M.D. [address] [place] [phone] Hernia Inguinal Right (Primary Dx); Obstruction Intestinal (HCC) Discharge Disposition: Home or Self Care Social History Tobacco Use Types Packs/Day Years Used Date Smoking Tobacco: Former Passive Smoke Exposure: Past Smokeless Tobacco: Never Alcohol Use Standard Drinks/Week Comments Not Currently 0 (1 standard drink = 0.6 oz pure alcohol) Only at celebrations might have 1 drink [facility] Utilities Answer Date Recorded In the past 12 months has [employer], gas, oil, or water [employer] threatened to shut off services in your [...] your living situation today? I have a [facility] place to live 12/22/2023 Sex and Gender Information Value Date Recorded Sex Assigned at Female 06/08/2023 11:11 AM CONTRACT ASSISTANT Gender Identity Female 06/08/2023 11:11 AM CONTRACT ASSISTANT Sexual Orientation Straight 06/08/2023 11 :11 AM CONTRACT ASSISTANT documented as of this encounter Last Filed Vital Signs Vital Sign Reading Time Taken Comments Blood Pressure 140/54 12/22/2023 2:20 PM CDT Pulse 72 12/22/2023 2:25 PM CDT Temperature 36.8 ??C (98.2 ??F) 12/22/2023 2:20 PM CD T Respiratory Rate 16 12/22/2023 2:20 PM CDT Oxygen Saturation 99% 12/22/2023 2:25 PM CDT Inhaled Oxygen Concentration - - Weight - - Height 165.1 cm (5' 5) 12/22/2023 10:22 AM CDT Body Mass Index - - documented in this encounter Discharge Summaries * Miryam Negrete P.A.-C. - 12/22/2023 2:48 PM CDT DISCHARGE SUMMARY BRIEF OVERVIEW Hospital: [facility] Discharge Provider: Ana Woods M.D. Primary Team: [facility] Primary Care Providers: Elsewhere, Pcp (General) No [...] Woods M.D.Steadman, Jessica A, M.B.BFransiscoSJudie Lara M.D. [facility] ROMB OR DISCHARGE DISPOSITION Home or Self Care [1] ACTIVE ISSUES REQUIRING FOLLOW UP TRAUMA CRITICAL-CARE GENERAL SURGERY: You will receive a telephone follow up appointment in about two weeks. If you do not hear from someone or need to request an appointment please call [phone]. If you need to speak with them during office hours you may call the GENERAL SURGERY service writer advisor at [phone]. If you need to reach a provider on the [facility] service after hours, you may call the [facility] extractor machine operator at [phone] and ask to speak the provider nursing information systems coordinator. If you have forms that need addressed by the surgery team or outside records that need to be uploaded, please email them to [email or web address] or fax them at [phone]. TRAUMA CRITICAL CARE AND GENERAL SURGERY: You will also receive an appointment in approximately 2-3 months with a Hernia Specialist. A CT will be obtained prior to this appointment. Appointment information will be mailed to you. If you do not receive an appointment please call [phone]. If you need to speak with the team during office hours you may call at [phone]. If you need to reach a provider on the [facility] service after hours, you may call the [facility] extractor machine operator at [phone] and ask to speak the provider nursing information systems coordinator. PRIMARY CARE PROVIDER: You should follow up [...] of her [facility]. [facility], the [facility] Surgical Service-B was consulted. After [...] in right groin which is not apparently advertising account representative of bowel. PAST MEDICAL/SURGICAL HISTORY Past [...] 4:56 PM CDTAssociated Order(s): General Surgery consult ([facility]) General Surgery consult ([facility]) Referring Provider: Vish Yip M.D. Today's [...] Woods, who was in agreement. Please page [phone] (HSS-B) with any questions or concerns. Michelle Aaron. I am anticipating the patient's arrival to the emergency department. However she was seen and discussed with Dr. Woods. Please see her notes for details of that encounter. documented in this encounter Nursing Notes * Alivia Lopez RFransiscoN. - 12/22/2023 4:52 PM CDT VSS. PIV's removed. Surgical sites are clean, dry and intact. AVS and all discharge education gone over with the patient and family members. All pt belongings packed and sent with. Pt left via general escort and discharged home for self care. documented in this encounter OR Notes * Op Note - Renu Diop M.B.BFransiscoS. - 12/22/2023 2:06 AM CDT Pre-op Diagnosis Hernia Femoral Post-op Diagnosis Hernia Femoral Bulk Station Operator A criminal legal assistant actively participated and was necessary for [...] We encircled the round ligament with a Soddy Daisy drain. The posterior inguinal floor was attenuated [...] unit in stable condition. Wound class II. Mcihelle Aaron. Associated attestation - Ana Woods M.D. [...] surgeon requested that she be transferred to [facility] where she has undergoing a complex outpatient evaluation for her abdominal pain. Surgery was consulted and will take her to the operating room. She will be admitted thereafter.. Final Diagnoses: as of 12/22/232157 Obstruction Intestinal (HCC) Ian Menard M.D., Ph.D. [...] vomited. History provided by: Patient and relative inside meter tester needed/used: no REVIEW OF SYSTEMS Constitutional: Positive [...] Pt. Is alert. Chandni [place] R.N. 12/21/23 7318 documented in this encounter Miscellaneous Notes * Hospital Course - Negrete, Miryam Bynum P.A.-C. - 12/22/2023 11:41 AM CDT Ms. Shell initially presented to an outside hospital with complaints of abdominal pain and nausea.CT imaging was obtained which revealed findings consistent with an incarcerated left femoral hernia. Following evaluation review of her studies[facility], the [facility] Surgical Service-B was consulted. After [...] Yip M.D. IMG DIAGNOSTIC IMAGING PROCEDURES * Dipstick, Urine (12/22/2023 [...] Vish Yip M.D. LAB URINE ORDER REGULO [facility] [address] [place] [address], [facility] DTFormerly named [facility] 200 [place] [address] * Osmolality, Urine (12/22/2023 12:13 AM CDT) Osmolality, U 474 150 - 1150 mOsm/kg 12/22/2023 12:52 AM CDT DTL Urine 12/22/2023 12:1 3 AM CDT 12/22/2023 12:35 AM CDT Vish Yip M.D. LAB URINE ORDER REGULO Performing Organization Address City/[facility] Co de Phone Number [facility] [address] [place], [place] [phone] [place] [address] 200 [place] [address] * pH, Random, Urine (12/22/2023 12:13 AM CDT) pH, Random, U 7.8 4.5 - 8.0 12/22/2023 12:52 AM CDT DTL Urine 12/22/2023 12:1 3 AM CDT 12/22/2023 12:35 AM CDT Vish Yip M.D. LAB URINE ORDER REGULO Performing Organization Address [facility] Co de Phone Number [facility] 200 [place] [address] * (ABNORMAL) Microscopic Manual (12/22/2023 12:13 AM [...] LAB URINE ORDER REGULO Performing Organization Address City/[facility] Co de Phone Number [facility] [address] DTFormerly named [facility] 200 [place] [address] * (ABNORMAL) Urinalysis, with Microscopic: Urine, Catheter [...] Vish Yip M.D. [place] [address], [facility] DTFormerly named [facility] [address] [place] [address] * Interpretation of Outside MR Extremity (12/21/2023 [...] and sacroiliac joint degeneration. Vish Yip M.D. [facility]EDU RES * Interpretation of Outside [...] ES * Lipase (12/21/2023 11:04 PM CDT) Lipase, S 25 13 - 60 U/L 12/21/2023 11:58 PM CDT DTL Blood (Blood, Venous) 12/21/2023 11:04 PM CDT 12/21/2023 11:36 PM CDT Vish Yip M.D. LAB BLOOD ADD-O N [facility] [address] [place] [address], [facility] [address] [place] [address] * Lactate (12/21/2023 11:04 PM CDT) Lactate, P 0.9 0.5 - 2.2 mmol/L 12/21/2023 11:35 PM CDT STMA Blood (Blood, Venous) 12/21/2023 11:04 PM CDT 12/21/2023 11:15 PM CDT Vish Yip M.D. LAB BLOOD NON A DD-ON Performing Organization Address [facility] Co de Phone Number [facility] [address] [place] [address], [facility] STMA [facility] [address] [place] [address] * Hepatic Function Panel (12/21/2023 11:04 PM [...] LAB BLOOD ADD-O N Performing Organization Address City/[facility]/ZIP Co de Phone Number [facility] [address] [place] [address], [facility] DTL [facility] [address] [place] [address] * (ABNORMAL) Basic Metabolic Panel (12/21/2023 11:04 [...] M.D. LAB BLOOD ADD-O N [facility] [address] [place] [address], [facility] [address] [place] [address] * (ABNORMAL) CBC with Differential, Blood (12/21/2023 [...] Vish Yip M.D. LAB BLOOD ADD-O N [facility] [address] [place] [address], [facility] STMA [facility] [address] [place] [address] [facility] [address] [place] [address] documented in this encounter Visit Diagnoses Diagnosis Hernia Femoral- Primary Hernia Inguinal Right Obstruction Intestinal (HCC) Hyperlipidemia Hypertension NOS Hyperthyroidism Hernia Inguinal Right documented in this encounter Admitting Diagnoses Diagnosis [...] Given 12/22/2023 6:58 AM CDT 1,000 mg calcium carbonate tablet 500 mg of calcium 500 mg of calcium, oral, Daily with breakfast, First dose on [facility] 12/22/23 at 0800, calcium carbonate 1250 mg (500 mg elemental) was interchanged for calcium carbonate 1500 mg (600 mg elemental) Given 12/22/2023 8:31 AM CDT 500 mg of calcium cholecalciferol (vitamin D3) tablet 25 mcg 25 mcg, oral, Daily, First dose on [facility] 12/22/23 at 0900, cholecalciferol (vitamin D3) orderable was interchanged for cholecalciferol (vitamin D3) tablet/capsule Given 12/22/2023 8:31 AM CDT 25 mcg heparin (porcine) injection 5,000 Units 5,000 Units, subcutaneous, Every 8 hours scheduled, First dose on [facility] 12/22/23 at 0800 Given 12/22/2023 1:28 PM CDT 5,000 Units Left Upper Arm (Back) Given 12/22/2023 8:31 AM CDT 5,000 Units L eft Upper Arm (Back) Lactated Ringer's 75 mL/hr, intravenous, Continuous, Starting on [facility] 12/22/23 at 0545 Continued from OR 12/22/2023 5:28 AM CDT 75 mL/hr 75 mL/hr levothyroxine tablet 50 mcg (SYNTHROID, LEVOTHROID) 50 mcg, oral, Daily before breakfast, First dose on 12/22/23 at 0700 Given 12/22/2023 6:56 AM CDT 50 mcg lisinopriL tablet 10 mg (PRINIVIL,ZESTRIL) 10 mg, oral, Daily, First dose on [facility] 12/22/23 at 0900 Given 12/22/2023 8:31 AM [...] Given 12/22/2023 6:58 AM CDT 6.25 mg documented in this encounter Active and Recently Administered Medications Times are shown in CDT. Scheduled Medication Order 12/20/2023 12/21/2023 12/22/2023 acetaminophen tablet 1,000 mg (TYLENOL) 1,000 mg, oral, 4 times daily, First dose on 12/22/23 at 0800 0658 (Given - Provid er: Kira Reyes RFransiscoN.)1134 (Given - Provider: Sy Rico R.N.)1606 (Given - Provider: Alivia Lopez, R.N.) calcium carbonate tablet 500 mg of [...] was interchanged for cholecalciferol (vitamin D3) tablet/capsule 0831 (Given - Provid er: Alivia Lopez RFransiscoN.) heparin (porcine) injection 5,000 Units 5,000 Units, subcutaneous, Every 8 hours scheduled, First dose on 12/22/23 at 0800 0831 (Given - Provid er: Alivia Lopez R.N.)1328 (Given - Provider: Sy Rico R.N.) levothyroxine tablet 50 mcg (SYNTHROID, LEVOTHROID) 50 mcg, oral, Daily before breakfast, First dose on 12/22/23 at 0700 0656 (Given - Provid er: Edilberto ArguetaN.) lisinopriL tablet 10 mg (PRINIVIL,ZESTRIL) 10 mg, [...] (Continued from OR - Provider: Kira Reyes RChelsie.)1132 (Stopped - Provider: Sy Rico R.N.) PRN Medication Order 12/20/2023 12/21/2023 12/22/2023 bisacodyL suppository 10 mg (DULCOLAX) 10 mg, rectal, Daily PRN, constipation, if no bowel movement in 48 hours, Starting on 12/22/23 at 0535 BUPivacaine 0.25 % (2.5 mg/mL) injection (MARCAINE) (CANCELED) As needed, Starting on 12/22/23 at 0350, Intra-Op 0350 (Given - Provid er: Renu Diop M.B.B.S.) hydrOXYzine tablet 25 mg (ATARAX) 25 [...] was ordered. 0658 (Given - Provid er: Kira Reyes R.N.) thrombin (human plasma)-rlvvnywnqn-ngsjwwcix-Oe topical solution ([facility]) (CANCELED) As needed, Starting on 12/22/23 at 0354, Intra-Op 0354 (Given - Provid er: Renu Diop M.B.B.S.) Linked Groups Order Group 1: oxyCODONE [...] analgesics. documented in this encounter Care Teams Furniture Fabricator Relationship Specialty Start Date End Date Elsewhere, Pcp PCP - General Internal Medicine 06/12/23 documented as of this encounter
--- OUTSIDE RECORDS SUMMARY | 2023-12-25 16:07 | XMS_ITS | Encounter Summary ---
Author Organization [facility] Address [address] [place] [address] Care Team Providers Care Enterprise Cloud Architect Name Role Phone Elsewhere, Pcp Primary Care [...] living? No 06/10/2023 Nutrition Answer Date Recorded On average, how [...] your living situation today? I have a [facility] place to live 06/10/2023 Sex and Gender Information Value Date Recorded Sex Assigned at Female 06/08/2023 11:11 AM STENOGRAPHER SECRETARY Gender Identity Female 06/08/2023 11:11 AM STENOGRAPHER SECRETARY Sexual Orientation Straight 06/08/2023 11 :11 AM STENOGRAPHER SECRETARY documented as of this encounter Plan of Treatment Not on file documented as of this encounter Visit Diagnoses Not on filedocumented in this encounter Care Teams Enterprise Cloud Architect Relationship Specialty Start Date End Date Elsewhere, Pcp PCP - General Internal Medicine 06/12/23 documented as of this encounter
--- OUTSIDE RECORDS SUMMARY | 2023-12-25 16:07 | XMS_ITS | Encounter Summary ---
Author Organization [facility] Address [address] [place] [address] Care Team Providers Care Supervisor Speech Name Role Phone Elsewhere, Pcp Primary Care Provider Unavailabl e Encounter Details Date Type Department Care Team (Late st Contact Info) Description 12/21/2023 10:40 PM CDT Ancillary Procedure Department of Radiology in [place], [place] [address] [place] [address] Vish Yip M.D. [address] [place] [address] Social History Tobacco Use Types Packs/Day Years Used Date Smoking Tobacco: Former Passive Smoke Exposure: Past Smokeless Tobacco: Never Alcohol Use Standard Drinks/Week Comments Not Currently 0 (1 standard drink = 0.6 oz pure alcohol) Only at celebrations might have 1 drink [facility] Utilities Answer Date Recorded In the past 12 months has [facility] [employer] gas, oil, or water [employer] threatened to shut off services in your [...] Sex Assigned at Female 06/08/2023 11:11 AM RETIREMENT BENEFITS SPECIALIST Gender Identity Female 06/08/2023 11:11 AM RETIREMENT BENEFITS SPECIALIST Sexual Orientation Straight 06/08/2023 11 :11 AM RETIREMENT BENEFITS SPECIALIST documented as of this encounter Plan of Treatment Not on file documented as of this encounter Procedures Procedure Name Priority Date/Time Associated Diagnosis Comments INTERPRETATION OF OUTSIDE MR EXTREMITY RAD - Routine (most inpatients and all outpatients) 12/21/2023 11:43 PM CDT documented in this encounter Results * Interpretation of Outside MR Extremity (12/21/2023 [...] bilateral hip and sacroiliac joint degeneration. Vish DE JESUS MRI PROCEDU RES documented in this encounter Visit Diagnoses Not on filedocumented in this encounter Care Teams Supervisor Speech Relationship Specialty Start Date End Date Elsewhere, Pcp PCP - General Internal Medicine 06/12/23 documented as of this encounter
--- OUTSIDE RECORDS SUMMARY | 2023-12-25 16:07 | XMS_ITS | Encounter Summary ---
Author Organization [facility] Address [address] [place] [address] Care Team Providers Care Import Customs Clearing Agent Name Role Phone Elsewhere, Pcp Primary Care Provider Unavailabl e Reason for Visit * Reason Comments Hernia Perineal K45.8] Hernia K46.9] Dys function Pelvic * Outpatient (Routine) - Closed Specialty Diagnoses / Procedures Referred By Contruth t Referred To Contact Colon and Rectal Surgery Diagnoses Hernia Perineal Hernia Dysfunction Pelvic Floor Female Constipation Cande Ruiz M.D. [address] [place] [phone] [facility] Referral ID Status Reason Start Date Expiration Date Visits Re quested Visits Authorized [id number] Closed 08/07/2023 08/06/2024 1 1 Encounter Details Date Type Department Care Team (Latest Contact Info) Description 10/22/2023 9:00 AM CDT Comprehensive Visit Division of Colon and Rectal Surgery in [place], [place] [address] [place] [phone] Sean Rodriguez M.B., Ch.B., M.P.H. [address] [place] [phone] Dysfunction Pelvic Floor Female (Primary Dx); Constipation; [...] your living situation today? I have a [facility] place to live 06/10/2023 Sex and Gender Information Value Date Recorded Sex Assigned at Female 06/08/2023 11:11 AM CLOTH EDGE SINGER Gender Identity Female 06/08/2023 11:11 AM CLOTH EDGE SINGER Sexual Orientation Straight 06/08/2023 11 :11 AM CLOTH EDGE SINGER documented as of this encounter Consult Notes [...] line. 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 The vaginal [place] is located 3.2 cm above the pubococcygeal [...] Perineal documented in this encounter Care Teams Import Customs Clearing Agent Relationship Specialty Start Date End Date Elsewhere, Pcp PCP - General Internal Medicine 06/12/23 documented as of this encounter
--- OUTSIDE RECORDS SUMMARY | 2023-12-25 16:07 | XMS_ITS | Encounter Summary ---
Author Organization [facility] Address [address] [place] [address] Care Team Providers Care Conveyor Attendant Name Role Phone Elsewhere, Pcp Primary Care Provider Unavailabl e Encounter Details Date Type Department Care Team (Latest Contact Info) Description 10/19/2023 3:15 PM CDT Clinical Communication Virtual Review in [place], [place] [address] [place] [address] Social History Tobacco Use Types Packs/Day Years [...] your living situation today? I have a [facility] place to live 06/10/2023 Sex and Gender Information Value Date Recorded Sex Assigned at Female 06/08/2023 11:11 AM JUICE SCALEMAN Gender Identity Female 06/08/2023 11:11 AM JUICE SCALEMAN Sexual Orientation Straight 06/08/2023 11 :11 AM JUICE SCALEMAN documented as of this encounter Miscellaneous Notes * Addendum Note - Zabrina Martinez - 10/19/2023 3:45 PM CDTAddended by: ZABRINA MARTINEZ on: 10/19/2023 03:45 PM Modules accepted: Orders documented in this encounter Plan of Treatment Not on file documented as of this encounter Visit Diagnoses Not on filedocumented in this encounter Care Teams Conveyor Attendant Relationship Specialty Start Date End Date Elsewhere, Pcp PCP - General Internal Medicine 06/12/23 documented as of this encounter
--- OUTSIDE RECORDS SUMMARY | 2023-12-25 16:07 | XMS_ITS | Encounter Summary ---
Author Organization [facility] Address [address] [place] [address] Care Team Providers Care Optical Technician Name Role Phone Elsewhere, Pcp Primary Care Provider Unavailabl e Reason for Visit * Outpatient (Routine) - Closed Specialty Diagnoses / Procedures Referred By Hi t Referred To Contact General Surgery Diagnoses Hernia Femoral Cande Ruiz M.D. 200 [place] [address] [facility] Referral ID Status Reason Start Date Expiration Date Visits Re quested Visits Authorized [id number] Closed 08/07/2023 08/06/2024 1 1 Encounter Details Date Type Department Care Team (Latest Contact Info) Description 11/08/2023 2:30 PM CDT Comprehensive Visit Division of Metabolic and Abdominal Wall Reconstructive Surgery in [place], [place] 200 [place] [address] Karine Klein M.D. [address] [place] [phone] Hernia Femoral Social History Tobacco Use Types [...] living situation today? I have a [facility] place to live 06/10/2023 Sex and Gender Information Value Date Recorded Sex Assigned at Female 06/08/2023 11:11 AM ENGINEERING SECRETARY Gender Identity Female 06/08/2023 11:11 AM ENGINEERING SECRETARY Sexual Orientation Straight 06/08/2023 11 :11 AM ENGINEERING SECRETARY documented as of this encounter Progress Notes * Esme Xavier M.D. - 11/08/2023 2:30 PM CDT Images from the original note were not included. @DATE@ 333 CHIEF COMPLAINT/REASON FOR VISIT Katharine Shell is [...] line. 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 The vaginal [place] is located 3.2 cm above the pubococcygeal [...] agree with the resident/fellow???s findings and plan. Frida 78 y/o F with pelvic floor dysfunction [...] Femoral documented in this encounter Care Teams Optical Technician Relationship Specialty Start Date End Date Elsewhere, Pcp PCP - General Internal Medicine 06/12/23 documented as of this encounter
--- OUTSIDE RECORDS SUMMARY | 2023-12-25 16:07 | XMS_ITS | Encounter Summary ---
Author Organization [facility] Address [address] [place] [address] Care Team Providers Care Pest Control Applicator Name Role Phone Elsewhere, Pcp Primary Care Provider Unavailabl e Reason for Visit * Reason Onset Date Comments OSM - Outside Materials 10/19/2023 Encounter Details Date Type Department Care Team (Latest Contact Info) Description 10/19/2023 Clinical Communication Division of Colon and Rectal Surgery in [place], [place] [address] [place] [address] Sean Rodriguez M.B., Ch.B., M.P.H. [address] [place] [address] OSM - Outside Materials Social History Tobacco [...] your living situation today? I have a [facility] place to live 06/10/2023 Sex and Gender Information Value Date Recorded Sex Assigned at Female 06/08/2023 11:11 AM VOCATIONAL NURSE Gender Identity Female 06/08/2023 11:11 AM VOCATIONAL NURSE Sexual Orientation Straight 06/08/2023 11 :11 AM VOCATIONAL NURSE documented as of this encounter Plan of Treatment Not on file documented as of this encounter Visit Diagnoses Not on filedocumented in this encounter Care Teams Pest Control Applicator Relationship Specialty Start Date End Date Elsewhere, Pcp PCP - General Internal Medicine 06/12/23 documented as of this encounter
--- OUTSIDE RECORDS SUMMARY | 2023-12-25 16:07 | XMS_ITS | Encounter Summary ---
Author Organization [facility] Address [address] [place] [address] Care Team Providers Care Ship Rigger Apprentice Name Role Phone Elsewhere, Pcp Primary Care Provider Unavailabl e Reason for Visit * Reason Onset Date Comments Pre-visit Intake 11/06/2023 Encounter Details Date Type Department Care Team (Latest Contact Info) Description 11/06/2023 10:00 AM CDT Clinical Communication Virtual Review in [place], [place] [address] [place] [address] Pre-visit Intake Social History Tobacco Use Types [...] your living situation today? I have a [facility] place to live 06/10/2023 Sex and Gender Information Value Date Recorded Sex Assigned at Female 06/08/2023 11:11 AM TURF KEEPER Gender Identity Female 06/08/2023 11:11 AM TURF KEEPER Sexual Orientation Straight 06/08/2023 11 :11 AM TURF KEEPER documented as of this encounter Plan of Treatment Not on file documented as of this encounter Visit Diagnoses Not on filedocumented in this encounter Care Teams Ship Rigger Apprentice Relationship Specialty Start Date End Date Elsewhere, Pcp PCP - General Internal Medicine 06/12/23 documented as of this encounter
--- OUTSIDE RECORDS SUMMARY | 2023-12-25 16:07 | XMS_ITS | Encounter Summary ---
Author Organization [facility] Address [address] [place] [address] Care Team Providers Care Wine Consultant Name Role Phone Elsewhere, Pcp Primary Care Provider Unavailabl e Reason for Visit * Reason Onset Date Comments Communication 10/01/2023 Encounter Details Date Type Department Care Team (Latest Contact Info) Description 10/01/2023 Clinical Communication Department of Obstetrics and Gynecology, Division of Urogynecology in [place], [place] [address] [place] [address] Cande Ruiz M.D. [address] [place] [address] Communication Social History Tobacco Use Types Packs/Day [...] Sex Assigned at Female 06/08/2023 11:11 AM KENO CLERK Gender Identity Female 06/08/2023 11:11 AM KENO CLERK Sexual Orientation Straight 06/08/2023 11 :11 AM KENO CLERK documented as of this encounter Plan of Treatment Not on file documented as of this encounter Visit Diagnoses Not on filedocumented in this encounter Care Teams Wine Consultant Relationship Specialty Start Date End Date Elsewhere, Pcp PCP - General Internal Medicine 06/12/23 documented as of this encounter
--- OUTSIDE RECORDS SUMMARY | 2023-12-25 16:07 | XMS_ITS | Encounter Summary ---
Author Organization [facility] Address [address] [place] [address] Care Team Providers Care Regular Senior Care Provider Name Role Phone Elsewhere, Pcp Primary Care Provider Unavailabl e Reason for Referral * Physical Therapy (Routine) - Authorized Specialty Diagnoses / Procedures Referred By Hi t Referred To Contact Diagnoses Urgency Urinary Procedures PT Ongoing treatment [address] [address] [facility] Referral ID Status Reason Start Date Expiration Date V isits Requested Visits Authorized [id number] Authorized 09/26/2023 09/25/2024 99 99 KEEPER Reason for Visit * Physical Therapy (Routine) - Authorized Specialty Diagnoses / Procedures Referred By Hi steiner Referred To Contact Diagnoses Urgency Urinary Procedures PT Evaluate and treat Drea Pepe M.D. [address] [place] [address] [facility] Referral ID Status Reason Start Date Expiration Date V isits Requested Visits Authorized [id number] Authorized 06/14/2023 06/13/2024 99 99 Encounter Details Date Type Department Care Team (Latest Contact Info) Description 09/26/2023 2:30 PM ZOO KEEPER Comprehensive Visit Department of Rehabilitation Services in [address] [address] Drea Pepe M.D. [address] [place] [phone] Anupama Lockhart P.T. Urgency Urinary (Primary Dx) [...] Sex Assigned at Female 06/08/2023 11:11 AM ZOO KEEPER Gender Identity Female 06/08/2023 11:11 AM ZOO KEEPER Sexual Orientation Straight 06/08/2023 11 :11 AM ZOO KEEPER documented as of this encounter Consult Notes [...] AND B / Product Type: Medicare / [employer] Visit Count: 1 PERTINENT MEDICAL / SURGICAL [...] strengthening techniques and review of HEP for petroleum terminal plant operator strengthening of pelvic floor muscles. Time Spent with Patient 60 min [place], PHILIPP and TE - 1 unit of each KEEPER documented in this encounter Plan of Treatment Not on file documented as of this encounter Visit Diagnoses Diagnosis Urgency Urinary- Primary documented in this encounter Care Teams Regular Senior Care Provider Relationship Specialty Start Date End Date Elsewhere, Pcp PCP - General Internal Medicine 06/12/23 documented as of this encounter
--- OUTSIDE RECORDS SUMMARY | 2023-12-25 16:07 | XMS_ITS | Encounter Summary ---
Author Organization [facility] Address [address] [place] [address] Care Team Providers Care Fashion Buying Internship Name Role Phone Elsewhere, Pcp Primary Care Provider Unavailabl e Encounter Details Date Type Department Care Team (Late st Contact Info) Description 12/21/2023 10:30 PM CDT Ancillary Procedure Department of Radiology in [place], [place] [address] [place] [address] Vish Yip M.D. [address] [place] [address] Social History Tobacco Use Types Packs/Day Years Used Date Smoking Tobacco: Former Passive Smoke Exposure: Past Smokeless Tobacco: Never Alcohol Use Standard Drinks/Week Comments Not Currently 0 (1 standard drink = 0.6 oz pure alcohol) Only at celebrations might have 1 drink [facility] Utilities Answer Date Recorded In the past 12 months has [employer] gas, oil, or water [employer] threatened to shut off services in your [...] living situation today? I have a [facility] place to live 12/22/2023 Sex and Gender Information Value Date Recorded Sex Assigned at Female 06/08/2023 11:11 AM HEAD PACKAGER Gender Identity Female 06/08/2023 11:11 AM HEAD PACKAGER Sexual Orientation Straight 06/08/2023 11 :11 AM HEAD PACKAGER documented as of this encounter Plan of [...] abdominopelvic adenopathy. Right basilar atelectasis. Procedure Note Aamlia Haider M.D. - 12/22/2023 EXAM: INTERPRETATION OF [...] large esophageal hiatal hernia with intrathoracicstomach. Vish DE JESUS CT PROCEDUR ES documented in this encounter Visit Diagnoses Not on filedocumented in this encounter Care Teams Fashion Buying Internship Relationship Specialty Start Date End Date Elsewhere, Pcp PCP - General Internal Medicine 06/12/23 documented as of this encounter
--- OUTSIDE RECORDS SUMMARY | 2023-12-25 16:07 | XMS_ITS | Clinical Summary ---
Author Organization [facility] Address [place], [place] [address] Care Team Providers Care Rand Maker Name Role Phone KarelyAngie chung MD Primary [...] before a meal. 90 Capsule 12/14/2023 Active sertraline (ZOLOFT) 25 mg tabletIndications:A nxiety Take [...] Description 12/14/2023 10:05 AM CDT Office Visit [facility] [address] [place] [address] Angie Cali MD Medication Management (Sertraline); General Illness/Other (Still having burning and nausea) 12/14/2023 Travel 12/06/2023 8:35 AM CDT Office Visit [facility] [address] [place] [address] Franca Park PA Urinary Problem 12/06/2023 Travel 12/03/2023 Telephone [facility] [address] [place] [address] Angie Cali MD Vaginal Problem (External burning) 11/26/2023 Telephone [facility] [address] [place] [address] Angie Cali MD Questions 11/23/2023 11:45 AM CDT Office Visit [facility] [address] [place] [address] Angie Cali MD Hospital F/U; UTI (Pain with urination); Anxiety 11/23/2023 Telephone [facility] [address] [place] [address] Angie Cali MD 11/23/2023 Travel 11/15/2023 Orders Only [facility] Scanner 1 scan: (1-Ord) [place], CT-HEAD ANGIO CTA HEAD W/ISOVUE 370 95CC, 11/15/2023 11/15/2023 Orders Only [facility] Scanner 1 scan: (1-Ord) [facility], MR HEAD/BRAIN WO CON, 11/15/2023 11/15/2023 Orders Only [facility] Scanner 1 scan: (1-Ord) [facility], NECK ANGIO, 11/15/2023 11/15/2023 Office Visit [facility] [address] [place] [address] Jake Dillon MD 11/14/2023 Orders Only [facility] Scanner 1 scan: (1-Ord) [facility], CT ABDOMEN PELVIS W CON, 11/14/2023 11/14/2023 Orders Only [facility] Scanner 1 scan: (1-Ord) [place], CT-HEAD W/O, 11/14/2023 11/14/2023 Orders Only [facility] Scanner 1 scan: (1-Ord) [place], HIP LT MIN 2V, 11/14/2023 from Last 3 Months Immunizations Name Administration Dates Next Due COVID-19 Vaccine Spikevax (M oderna 50mcg/0.5mL) 12YO+ [id number] Formula PF 05/16/2023 COVID-19 vaccine ([facility]-Bio NTech 30mcg/0.3mL) 12YO+ BIVALENT PF, MDV 05/15/2022 COVID-19 vaccine (Pfizer-Bio NTech 30mcg/0.3mL) 12YO+ RADHA-SUCROSE PF, MDV 12/09/2021 COVID-19 vaccine ([facility]-Bio NTech 30mcg/0.3mL) PF, MDV 05/12/2021,10/12/2020,09/21/2020 Influenza, High-dose [...] Care Team (Late st Contact Info) Description 01/02/2024 11:45 AM CDT Office Visit [facility] [address] [place] [address] Angie Cali MD [address] [place] [address] Health Maintenance Due Date Last Done Comments [...] Yellow Yellow Color 12/06/2023 9:00 AM CDT [facility] CLARITY Clear Clear Clarity 12/06/2023 9:00 AM CDT [facility] SPECIFIC GRAVITY,URINE 1.025 1.010, 1.015, 1.020, 1.025 12/06/2023 9:00 AM CDT [facility] PH,URINE 7.0 6.0, 7.0, 8.0, 5.5, 6.5, 7.5, 8.5 12/06/2023 9:00 AM CDT [facility] UROBILINOGEN, QUALITATIVE Normal Normal EU/dl 12/06/2023 9:00 AM CDT [facility] PROTEIN, URINE Negative Negative mg/dL 12/06/2023 9:00 AM CDT [facility] GLUCOSE, URINE Negative Negative mg/dL 12/06/2023 9:00 AM CDT [facility] KETONES,URINE Negative Negative mg/dL 12/06/2023 9:00 AM CDT [facility] BILIRUBIN,URI NE Negative Negative 12/06/2023 9:00 AM CDT [facility] OCCULT BLOOD,URINE Negative Negative 12/06/2023 9:00 AM CDT [facility] NITRITE Negative Negative 12/06/2023 9:00 AM CDT [facility] LEUKOCYTE ESTERASE Negative Negative 12/06/2023 9:00 AM CDT [facility] Urine URINE SPECIMEN / Unknown Non-Blood / Unknown 12/06/2023 8:57 AM CDT 12/06/2023 8:57 AM CDT Franca BROOKS URINE Performing Organization Address City/State/[facility] Co de Phone Number [facility] [address] [place] [address], * TRICHOMONAS, SINGH, AND BACTERIAL VAGINOSIS BY KASSIE (12/06/2023 8:43 AM CDT) SINGH SPECIES Negative Negative 4 7:11 PM CDT [facility] SINGH GLABRATA Negative Negative 12/06/2023 7:11 PM CDT [facility] TRICHOMONAS VVA Negative Negative 4 7:11 PM CDT [facility] BACTERIAL VAGINOSIS Negative Negative 12/06/2023 7:11 PM CDT [facility] TR[facility] Other VAGINAL SWAB / Unknown Non-Blood / Unknown 12/06/2023 8:43 AM CDT 12/06/2023 9:16 AM CDT Franca BROOKS MICROBIOLOGY Performing Organization Address City/[facility]/ZIP Co de Phone Number [facility] [address] [place] [address], * (ABNORMAL) URINALYSIS MICROSCOPIC (11/23/2023 11:38 AM CDT) RBC 0-2 0-2, None Seen /HPF 11/23/2023 11:50 AM CDT [facility] WBC 26-50(A) 0-2, 3-5, None Seen /HPF 11/23/2023 11:50 AM CDT [facility] BACTERIA Few None Seen, Rare, Few Bacteria/H PF 11/23/2023 11:50 AM CDT [facility] EPITHELIAL CELLS Few None Seen, Few Epi/HPF 11/23/2023 11:50 AM CDT [facility] Urine URINE SPECIMEN / Unknown Non-Blood / Unknown 11/23/2023 11:38 AM CDT 11/23/2023 11:45 AM CDT Angie Cali MD URINE Performing Organization Address City/[facility]/ZIP Co de Phone Number [facility] [address] [place] [address], * (ABNORMAL) URINE CULTURE (11/23/2023 11:38 AM CDT) CULTURE RESULT(A) 11/27/2023 6:46 AM CDT [facility] CULTURE 50,000-100,000 CFU/mL Enterococcus faecalis 11/27/2023 6:46 AM CDT [facility] CULTURE 10,000-50,000 CFU/mL Multiple organisms probable contaminants 11/27/2023 6:46 AM CDT [facility] Urine URINE SPECIMEN / Unknown Non-Blood / Unknown 11/23/2023 11:38 AM CDT 11/23/2023 11:45 AM CDT Narrative Organism Antibiotic Method Susceptibility Enterococcus faecalis AMPICILLIN <=2: S Enterococcus faecalis NITROFURANTOIN <=16: S Angie Cali MD MICROBIOLOGY [facility] [address] [place] [address], * SCAN-MRI INTERPRETATION (11/15/2023 12:00 AM CDT) [...] Patients: Results are automatically released to your [employer] ([employer]) account once available, in compliance with federal regulations. This means that you may see your results before your provider has had a chance to review them. Please allow 2-3 business days for your provider to comment on the results. XR DXA Bone Mineral Density (BMD) EXAM LOCATION: [facility] [address] [facility] [address] PATIENT NAME: Katharine Shell DATE OF : [...] two scanners are made by the same academic program specialist. PROCEDURE: Dual-energy x-ray absorptiometry performed with routine [...] Angie Cali MD DEXA * ANTI HCV [[id number]] (04/09/2017 9:43 AM CDT) Pathologist [facility] HEPATITIS C ANTIBODY Non-Reacti ve Non-Reacti ve 04/09/2017 5:52 PM CDT [facility] TRAL LABORATORY Blood BLOOD SPECIMEN / Unknown Venipuncture / Unknown 04/09/2017 9:43 AM CDT 04/09/2017 9:43 AM CDT Narrative [facility] [place] LABORATORY-CENTRAL LABORATORY - 04/09/2017 5:52 PM CDT Antibodies to HCV not detected; does not exclude the possibility of exposure to HCV. Angie Cali MD SEND OUTS [facility] [address] [place] [address], [place] from Last 3 Months or Most Recently Relevant to Health Maintenance Advance Directives Documents on File Type Date Recorded Patient School Traffic Guard Expl anation Healthcare Directive 05/02/2016 11:56 AM H [facility]/DIRECTIVE, DAVE, 11/21/2010 * Full Code (Latest Code Status on File) Date Activated Date Inactivated Comments 12/14/2021 7:39 AM 12/14/2021 3:26 PM Question Answer Comments Code Status Discussion: Discussed Care Teams Rand Maker Relationship Specialty Start Date End Date Angie Cali [place] [address] [address] PCP - General 01/24/10
--- OUTSIDE RECORDS SUMMARY | 2023-12-25 16:07 | XMS_ITS | Encounter Summary ---
Author Organization [facility] Address [address] [place] [address] Care Team Providers Care Weight Control Lecturer Name Role Phone Elsewhere, Pcp Primary Care Provider Unavailabl e Encounter Details Date Type Department Care Team (Latest Contact Info) Description 10/22/2023 10:00 AM CDT Ancillary Procedure Department of Radiology in [place], [place] [address] [place] [address] Sean Rodriguez M.B., Ch.B., M.P.H. [address] [place] [address] Dysfunction Pelvic Floor Female; Constipation; Hernia Perineal [...] living situation today? I have a [facility] place to live 06/10/2023 Sex and Gender Information Value Date Recorded Sex Assigned at Female 06/08/2023 11:11 AM PORT CRANE OPERATOR Gender Identity Female 06/08/2023 11:11 AM PORT CRANE OPERATOR Sexual Orientation Straight 06/08/2023 11 :11 AM PORT CRANE OPERATOR documented as of this encounter Plan [...] Perineal documented in this encounter Care Teams Weight Control Lecturer Relationship Specialty Start Date End Date Elsewhere, Pcp PCP - General Internal Medicine 06/12/23 documented as of this encounter
--- OUTSIDE RECORDS SUMMARY | 2023-12-25 16:07 | XMS_ITS | Encounter Summary ---
Author Organization [facility] Address [address] [place] [address] Care Team Providers Care Contemporary Or Modern Dancer Name Role Phone Elsewhere, Pcp Primary Care [...] without IV Contrast Cande Ruiz M.D. [address] [place] [address] [facility] Referral ID Status Reason Start Date Expiration Date Visits Re quested Visits Authorized [id number] Closed 08/07/2023 08/06/2024 1 1 Reason for Visit * MRI/CAT/PET Scan (Routine) - Closed Specialty Diagnoses / Procedures Referred By Contac t Referred To Contact Radiology Diagnoses Hernia Perineal Hernia Dysfunction Pelvic Floor Female Constipation Other Female Genital Prolapse Procedures MR Proctogram Dynamic and Sphincter Eval without IV Contrast MR Proctogram Dynamic and Sphincter Eval without IV Contrast Cande Ruiz M.D. [address] [place] [address] [facility] Referral ID Status Reason Start Date Expiration Date Visits Re quested Visits Authorized [id number] Closed 08/07/2023 08/06/2024 1 1 Encounter Details Date Type Department Care Team (Latest Contact Info) Description 10/08/2023 6:18 AM CDT - 10/08/2023 11:59 PM CDT Hospital Encounter Department of Radiology, [facility], in [place], [place] [address] [place] [address] Cande Ruiz M.D. [address] [place] [address] Hernia Perineal; Hernia; Dysfunction Pelvic Floor Female; [...] living situation today? I have a [facility] place to live 06/10/2023 Sex and Gender Information Value Date Recorded Sex Assigned at Female 06/08/2023 11:11 AM ASSOCIATE PROFESSOR OF ARCHAEOLOGY Gender Identity Female 06/08/2023 11:11 AM ASSOCIATE PROFESSOR OF ARCHAEOLOGY Sexual Orientation Straight 06/08/2023 11 :11 AM ASSOCIATE PROFESSOR OF ARCHAEOLOGY documented as of this encounter Medications at Time of Discharge Medication Sig Dispensed Refills Start Date End Date cholecalciferol (VITAMIN D3) 50 mcg (2,000 Unit) [...] ORAL Take 50 mg by mouth daily. acetaminophen (TYLENOL) 500 mg tablet Take 500 mg by mouth every 6 (six) hours as needed for pain. 12/22/2023 documented as of this encounter Nursing Notes [...] line. 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 The vaginal [place] is located 3.2 cm above the pubococcygeal [...] pubococcygealline. 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 The vaginal [place] is located 3.2 cm above the pubococcygeal [...] mL documented in this encounter Care Teams Contemporary Or Modern Dancer Relationship Specialty Start Date End Date Elsewhere, Pcp PCP - General Internal Medicine 06/12/23 documented as of this encounter
--- OUTSIDE RECORDS SUMMARY | 2023-12-25 16:07 | XMS_ITS | Encounter Summary ---
Author Organization [facility] Address [address] [place] [address] Care Team Providers Care Draughtsman Name Role Phone Elsewhere, Pcp Primary Care Provider Unavailabl e Reason for Visit * Reason Onset Date Comments Communication 08/16/2023 AMM Encounter Details Date Type Department Care Team (Latest Contact Info) Description 08/16/2023 Clinical Communication Department of Obstetrics and Gynecology, Division of Urogynecology in [place], [place] [address] [place] [address] Cande Ruiz M.D. [address] [place] [address] Communication (AMM) Social History Tobacco Use Types [...] your living situation today? I have a [facility] place to live 06/10/2023 Sex and Gender Information Value Date Recorded Sex Assigned at Female 06/08/2023 11:11 AM INTRANET SUPPORT Gender Identity Female 06/08/2023 11:11 AM INTRANET SUPPORT Sexual Orientation Straight 06/08/2023 11 :11 AM INTRANET SUPPORT documented as of this encounter Plan of Treatment Not on file documented as of this encounter Visit Diagnoses Not on filedocumented in this encounter Care Teams Draughtsman Relationship Specialty Start Date End Date Elsewhere, Pcp PCP - General Internal Medicine 06/12/23 documented as of this encounter
--- OUTSIDE RECORDS SUMMARY | 2023-12-25 16:07 | XMS_ITS | Encounter Summary ---
Author Organization [facility] Address [address] [place] [address] Care Team Providers Care Bilingual Hr Generalist Name Role Phone Elsewhere, Pcp Primary Care Provider Unavailabl e Encounter Details Date Type Department Care Team (Latest Contact Info) Description 12/21/2023 Intake [facility] Social History Tobacco Use Types Packs/Day Years Used Date Smoking Tobacco: Former Passive Smoke Exposure: Past Smokeless Tobacco: Never Alcohol Use Standard Drinks/Week Comments Not Currently 0 (1 standard drink = 0.6 oz pure alcohol) Only at celebrations might have 1 drink [facility] Utilities Answer Date Recorded In the past 12 months has e [employer], gas, oil, or water [employer] threatened to shut off services in your [...] money to buy more. Never true 12/22/19 Within the past 12 months, t he [...] living situation today? I have a [facility] place to live 12/22/2023 Sex and Gender Information Value Date Recorded Sex Assigned at Female 06/08/2023 11:11 AM EVENT OPERATIONS MANAGER Gender Identity Female 06/08/2023 11:11 AM EVENT OPERATIONS MANAGER Sexual Orientation Straight 06/08/2023 11 :11 AM EVENT OPERATIONS MANAGER documented as of this encounter Plan of Treatment Not on file documented as of this encounter Visit Diagnoses Not on filedocumented in this encounter Care Teams Bilingual Hr Generalist Relationship Specialty Start Date End Date Elsewhere, Pcp PCP - General Internal Medicine 06/12/23 documented as of this encounter
== END 2023-12-21 20:30 | disposition home or self-care (01) ==
LOC: AMB 12-25 16:03
PROVIDERS: PCP Family Medicine; Visit Provider Emergency Medicine
DX: K56.609 Unspecified intestinal obstruction, unspecified as to partial versus complete obstruction (principal); K45.8 Other specified abdominal hernia without obstruction or gangrene
CPT/HCPCS: A0425; A0433

== ENCOUNTER 2024-11-26 17:02 | Emergency (ER) | payer MEDICARE, BC, SELFPAY ==
--- OUTSIDE RECORDS SUMMARY | 2024-11-26 17:04 | XMS_ITS | Encounter Summary ---
Author Organization [facility] Address [address] [place] [address] Care Team Providers Care Software Sales Executive Name Role Phone Elsewhere, Pcp Primary Care Provider Unavailabl e Reason for Visit * Reason Comments Urinary Tract Infection Encounter Details Date Type Department Care Team (Late st Contact Info) Description 11/04/2024 12:03 PM CDT - 11/04/2024 1:08 PM CDT Emergency [place] [address] [place] [phone] Sveta Adam P.A.-Holly., P.A. [address] [place] [address] Dysuria (Primary Dx); Pruritus Vagina Discharge Disposition: Home or Self Care Social History Tobacco Use Types Packs/Day Years Used Date Smoking Tobacco: Former Cigarettes 0 08/04/1965 - 08/07/1977 Passive Smoke Exposure: Past Smokeless Tobacco: Never Comments:Quit when daughter Alcohol Use Standard Drinks/Week Comments Not Currently 0 (1 standard drink = 0.6 oz pure alcohol) Only at celebrations might have 1 drink [facility] Utilities Answer Date Recorded In the past 12 months has e [employer], gas, oil, or water company threatened to shut off services in your home? No 08/22/2024 Humiliation, Afraid, Rape, and Kick questionnair e Answer Date Recorded Within the last year, have y ou been afraid of your partner or ex-partner? No 08/22/2024 Within the last year, have y ou been humiliated or emotionally abused in other ways by your partner or ex-partner? No Within the last year, have y ou been kicked, hit, slapped, or otherwise physically hurt by your partner or ex-partner? No 08/22/2024 Within the last year, have y ou been raped or forced to have any kind of sexual activity by your partner or ex-partner? No 08/22/2024 Overall Financial Resource Strain (CARDIA) Answe r Date Recorded How hard is it for you to pa y for the very basics like food, housing, medical care, and heating? Not hard at all 06/10/2023 Exercise Vital Sign Answer Date Recorde d On average, how many days pe r week do you engage in moderate to strenuous exercise (like a brisk walk)? 0 days 07/29/2024 On average, how many minutes do you engage in exercise at this level? 0 min 07/29/2024 Hunger Vital Sign Answer Date Recorded Within the past 12 months, y ou worried that your food would run out before you got the money to buy more. Never true 08/22/19 25 Within the past 12 months, t he food you bought just didn't last and you didn't have money to get more. Never true 08/22/2024 PRAPARE - Transportation Answer Date Re corded In the past 12 months, has l ack of transportation kept you from medical appointments or from getting medications? No 07/31 In the past 12 months, has l ack of transportation kept you from meetings, work, or from getting things needed for daily living? No 08/22/2024 Nutrition Answer Date Recorded On average, how many serving s of fruits and vegetables do you eat per day (serving size is equal to 1 cup or approximately the size of a tennis ball)? 0-2 07/29/2024 Dental Answer Date Recorded Dental: Regular Dentist Yes 06/10/20 Employment Answer Date Recorded Employment status Retired 07/29/2024 Housing Stability Answer Date Recorded What is your living situatio n today? I do not have a steady place to live (I am temporarily staying with others, in a hotel, in a alf, living outside on the street, on a beach, in a car, abandoned building, bus or train station, or in a park) 08/22/2024 Comments No Sex and Gender Information Value Date Recorded Sex Assigned at Female 06/08/2023 11:11 AM UNIT MANAGER RN Legal Sex Female 1:47 PM CDT Gender Identity Female 06/08/2023 11:11 AM UNIT MANAGER RN Sexual Orientation Straight 06/08/2023 11 :11 AM UNIT MANAGER RN documented as of this encounter Last Filed Vital Signs Vital Sign Reading Time Taken Comments Blood Pressure 150/81 11/04/2024 12:40 PM CDT Pulse 81 11/04/2024 12:40 PM CDT Temperature 36.6 C (97.9 F) 11/04/2024 12:08 PM CDT Respiratory Rate 20 11/04/2024 12:08 PM CDT Oxygen Saturation 98% 11/04/2024 12:08 PM CDT Inhaled Oxygen Concentration - - Weight 64 kg (141 lb 1.5 oz) 11/04/2024 12:09 PM CDT Height - - Body Mass Index 22.77 08/31/2024 8:52 AM UNIT MANAGER RN documented in this encounter Medications at Time of Discharge acetaminophen (TylenoL) 500 mg tablet Take 2 tablets (1,000 mg total) by mouth every 6 (six) hours as needed for pain. 08/26/2024 ascorbic acid, vitamin C, (Vitamin C) 1,000 mg tablet Take 1,000 mg by mouth daily. calcium carbonate (Tums) 500 mg (200 mg calcium) chewable tablet Chew 1 tablet 2 (two) times a day as needed for indigestion or heartburn. cholecalciferol (Vitamin D3) 25 mcg (1,000 Unit) capsule Take 1 capsule by mouth daily. clotrimazole (Lotrimin) 1 % creamIndications :Pruritus Vagina Apply 1 Application topically 2 (two) times a day. Apply topically. 30 g 11/04/2024 co-enzyme Q-10 (CO Q-10) 100 mg capsule Take 100 mg by mouth at bedtime. estradioL (ESTRACE) 0.1 mg/g (0.01%) vaginal creamIndications :Urgency Urinary,Atrophy Vagina Due To Estrogen Deficiency Insert 1 g into the vagina 3 (three) times a week. Place small amount directly on urethra and 1 g inside vagina every night for 2 weeks. Then use 2 nights a week thereafter. 42.5 g 11 06/15/2023 ibuprofen 200 mg tablet Take 2 tablets (400 mg total) by mouth every 6 (six) hours as needed for pain. 08/26/2024 levothyroxine 75 mcg tablet Take 75 mcg by mouth daily before morning meal. 02/26/2024 lisinopriL (PRINIVIL,ZESTRI L) 10 mg tablet Take 10 mg by mouth daily. omeprazole (PriLOSEC) [address] capsule Take 1 capsule (40 mg total) by mouth daily as needed (stomach). 08/26/2024 polyethylene glycol (Miralax) 17 gram powder packet Take 17 g by mouth daily as needed for constipation. Dissolve each 17 g dose in 240 mLs (8 ounces) of beverage. psyllium seed (METAMUCIL SUGAR FREE ORAL) Take 2 Scoops by mouth daily as needed (constipation). sertraline (Zoloft) 100 mg tablet Take 100 mg by mouth daily. simvastatin (ZOCOR) 10 mg tablet Take 10 mg by mouth at bedtime. UNABLE TO FIND Take 2 each by mouth daily. SKIN AND BIOCELL COLLAGEN UNABLE TO FIND daily. Emergen C ZINC ORAL Take 50 mg by mouth daily. documented as of this encounter Progress Notes * Sveta Adam P.A.-C., P.A. - 11/04/2024 12:39 PM CDT SUBJECTIVE CHIEF COMPLAINT/REASON FOR VISIT Urinary Tract Infection HISTORY OF PRESENT ILLNESS Patient presenting to urgent care today for evaluation of dysuria. Patient suspected she may have UTI. She has had previous history of UTI in the past and states that she had similar symptoms of dysuria at that time. Symptoms present x 3 days. Prior history of surgery approx 8 weeks ago status post robotic sacrocolpopexy, paravaginal repair in combination with a rectopexy and perineal hernia repair with mesh by Dr. Rodriguez and a bilateral inguinal hernia repair by Dr. Klein. Pt denies noted vaginal discharge. She has had increased loose stools and some increased frequency with urination. She notes burning and itching to vaginal area. Has not seen any discharge. No new orworsening back pain. REVIEW OF SYSTEMS OBJECTIVE Initial Vitals Temperature 11/04/24 1208 36.6 ??C Pulse Rate 11/04/24 1208 88 Heart Rate -- Resp Rate 11/04/24 1208 20 Blood Pressure 11/04/24 1208 (S) (!) 178/90 SpO2 11/04/24 1208 98 % Pain Score 11/04/24 1201 2 PHYSICAL EXAMINATION Constitutional: Nursing note and vitals reviewed. She appears not lethargic. No distress. Eyes: Conjunctivae are normal. Pulmonary/Chest: Effort normal. Neurological: Alert. Skin: She is not diaphoretic. ASSESSMENT/PLAN #1 Pruritus Vagina - clotrimazole (Lotrimin) 1 % cream; Apply 1 Application topically 2 (two) times a day. Apply topically., Starting 11/04/2024, Normal - Vaginitis Panel, Amplified RNA; Standing - Vaginitis Panel, Amplified RNA #2 Dysuria - Urinalysis with Microscopic if Indicated: Urine, Midstream; Standing - Bacterial Culture, Aerobic + Susceptibility, Urine; Standing - Urinalysis with Microscopic if Indicated: Urine, Midstream - Bacterial Culture, Aerobic + Susceptibility, Urine Urinalysis obtained today during visit was negative for acute findings. Urine culture pending advised pt we will notify of results when they return. Vaginitis self swab obtained today by patient results pending. Advised patient urgent care staff will notify with results when that returns. Suspected that and urine culture will return tomorrow. Symptomatic care recommendations reviewed. Advised to schedule follow up with PCP if symptoms fail to improve within the next week. Return to UC or ED if new or worsening symptoms develop. Electronically signed by: Sveta Adam P.A.-C., P.AFransisco 11/04/24 12:45 PM CDT Sveta Adam P.A.-C., P.A. 11/04/24 1245 documented in this encounter Plan of Treatment Not on file documented as of this encounter Procedures Procedure Name Priority Date/Time Associated Diagnosis Comments VAGINITIS PANEL, AMPLIFIED RNA STAT 11/04/2024 12:44 PM CDT Pruritus Vagina URINALYSIS WITH MICROSCOPIC IF INDICATED, U STAT 11/04/2024 12:06 PM CDT Dysuria BACTERIAL CULTURE, AEROBIC + SUSC, URINE STAT 11/04/2024 12:06 PM CDT Dysuria documented in this encounter Results * Vaginitis Panel, Amplified RNA (11/04/2024 12:44 PM CDT) Bacterial Vaginosis, Amplified RNA Negative Negative 11/04/2024 10:31 PM CDT MKTO Comment: A negative result does not exclude infection. Assay result is based on relative amounts of Lactobacillus (L. gasseri, L. crispatus, L. jensenii), Gardnerella vaginalis and Atopobium vaginae. Martina species, Amplified RNA Negative Negative 11/04/2024 10:46 PM CDT MKTO Comment: No RNA detected from Martina albicans, C. tropicalis, C. parapsilosis or C. dubliniensis. A negative result does not exclude infection. Martina glabrata, Amplified RNA Negative Negative 11/04/2024 10:46 PM CDT MKTO Comment: No RNA detected from Martina glabrata. A negative result does not exclude infection. Trichomonas vaginalis Amplified RNA Negative Negative 11/04/2024 10:46 PM CDT MKTO Swab (Vagina) 11/04/2024 12: 44 PM CDT 11/04/2024 4:28 PM CDT us Sveta Adam P.A.-C., P.A. LAB MICROBIOLOGY - G ENERAL ORDERABLES Final Result [facility] [address] [place] [address], [address] [address] * (ABNORMAL) Bacterial Culture, Aerobic + Susceptibility, Urine (11/04/2024 12:06 PM CDT) Pathologist [facility] Urine Culture ENTEROCOCCUS FAECALIS 10,000-100,000 cfu/mL (A) 11/06/2024 5:31 AM CDT [facility] Urine (Urine, Midstream) 11/04/2024 12:06 PM CDT 11/04/2024 2:04 PM CDT Comment:Specimen Source Site : Urine Narrative Organism Antibiotic Method Susceptibility Enterococcus faecalis Ampicillin SUSCEPTIBI LITY, VIGNESH (MCG/ML) <=2 mcg/mL: Susceptible Enterococcus faecalis Ciprofloxacin SUSCEPTIBI LITY, VIGNESH (MCG/ML) 1 mcg/mL: Susceptible Enterococcus faecalis Linezolid SUSCEPTIBI LITY, VIGNESH (MCG/ML) 2 mcg/mL: Susceptible Enterococcus faecalis Vancomycin SUSCEPTIBI LITY, VIGNESH (MCG/ML) 1 mcg/mL: Susceptible Enterococcus faecalis Tetracycline SUSCEPTIBI LITY, VIGNESH (MCG/ML) >=16 mcg/mL: Resistant Enterococcus faecalis Nitrofurantoin SUSCEPTIBI LITY, VIGNESH (MCG/ML) <=16 mcg/mL: Susceptible Sveta Peacock.Rocio, P.A. LAB MICROBIOLOGY - G ENERAL [place] [address], [facility] [place] [address] * Urinalysis with Microscopic if Indicated: Urine, Midstream (11/04/2024 12:06 PM CDT) Source Urine, Urine, Midstream 11/04/2024 12:14 PM CDT NPRG Clarity Clear Clear 11/04/2024 12:17 PM CDT NPRG Color Yellow 11/04/2024 12:17 PM CDT NPRG Comment: ----REFERENCE VALUE---- Colorless Yellow Cristiane Blood Negative Negative 11/04/2024 12:17 PM CDT NPRG Nitrite Negative Negative 11/04/2024 12:17 PM CDT NPRG Leukocyte Esterase Negative Negative 11/04/2024 12:17 PM CDT NPRG Protein Negative mg/dL 11/04/2024 12:17 PM CDT NPRG Comment: ----REFERENCE VALUE---- Negative Trace Glucose Negative Negative mg/dL 11/04/2024 12:17 PM CDT NPRG Ketones, QI(U) Negative Negative mg/dL 11/04/2024 12:17 PM CDT NPRG Bilirubin Negative Negative 11/04/2024 12:17 PM CDT NPRG pH 7.0 5.0 - 8.0 11/04/2024 12:17 PM CDT NPRG Specific [place] 1.015 1.001 - 1.035 11/04/2024 12:17 PM CDT NPRG Urobilinogen 0.2 0.2 - 1.0 mg/dL 11/04/2024 12:17 PM CDT NPRG Urine (Urine, Midstream) 11/04/2024 12:06 PM CDT 11/04/2024 12:14 PM CDT us Sveta Adam P.A.-C., P.A. LAB URINE ORDERABLES Final Result [facility] [address] [place] [address], [facility] NPRG [facility] [address] [place] [address] documented in this encounter Visit Diagnoses Diagnosis Dysuria- Primary Pruritus Vagina documented in this encounter Care Teams Software Sales Executive Relationship Specialty Start Date End Date Elsewhere, Pcp PCP - General Internal Medicine 06/12/23 documented as of this encounter
--- OUTSIDE RECORDS SUMMARY | 2024-11-26 17:04 | XMS_ITS | Encounter Summary ---
Author Organization [facility] Address [address] [place] [address] Care Team Providers Care Electrical & Instrumentation Supervisor Name Role Phone Elsewhere, Pcp Primary Care Provider Unavailabl e Reason for Referral * Physical Therapy (Routine) - Authorized Specialty Diagnoses / Procedures Referred By Contac t Referred To Contact Physical Therapy Diagnoses Weakness Muscle Incontinence Urinary Stress Female Cande Ruiz M.D. [address] [place] [address] Phone: tel: fax: Referral ID Status Reason Start Date Expiration Date Visits Requested Visits Authorized [id number] Authorized Continuity of Care 10/20/2024 04/21/2026 99 99 Reason for Visit * Outpatient (Routine) - Closed Specialty Diagnoses / Procedures Referred By Contac t Referred To Contact Obstetrics and Gynecology Diagnoses Prolapse Vaginal Vault Post Hysterectomy Cande Ruiz M.D. [address] [place] [address] Phone: tel: fax: [place] Referral ID Status Reason Start Date Expiration Date Visits Re quested Visits Authorized [id number] Closed 09/03/2024 03/05/2026 1 1 Encounter Details Date Type Department Care Team (Latest Contact Info) Description 10/20/2024 3:00 PM CDT Office Visit Department of Obstetrics and Gynecology, Division of Urogynecology in [place], [place] [address] [place] [address] Cande Ruiz M.D. [address] [place] [address] Weakness Muscle (Primary Dx); Prolapse Vaginal Vault Post Hysterectomy; Incontinence Urinary Stress Female Social History Tobacco Use Types Packs/Day Years Used Date Smoking Tobacco: Former Cigarettes 0 08/04/1965 - 08/07/1977 Passive Smoke Exposure: Past Smokeless Tobacco: Never Comments:Quit when daughter Alcohol Use Standard Drinks/Week Comments Not Currently 0 (1 standard drink = 0.6 oz pure alcohol) Only at celebrations might have 1 drink [facility] CDC Software Answer Date Recorded In the past 12 months has [facility] [employer], oil, or water [employer] threatened to shut off services in your [...] with others, in a hotel, in a senior care, living outside on the street, on a beach, in a car, abandoned building, bus or train station, or in a park) 08/22/2024 Comments No Sex and Gender Information Value Date Recorded Sex Assigned at Female 06/08/2023 11:11 AM DECK SPECIALIST Legal Sex Female 1:47 PM CDT Gender Identity Female 06/08/2023 11:11 AM DECK SPECIALIST Sexual Orientation Straight 06/08/2023 11 :11 AM DECK SPECIALIST documented as of this encounter Progress Notes * Lisa Akins R.N. - 10/20/2024 3:00 PM CDT NURSING DOCUMENTATION: Katharine Julia Sulmean was seen in clinic with Dr. Ruiz today for postoperative exam. Pelvic Floor Physical Therapy Provider Contact Numbers INDICATION: Pelvic Floor Muscle Weakness, Stress Incontinence Renu Hill DPT [facility] [email or web address] [facility] [place], [place] [address] Odessa Arnold PT [facility] [phone] [email or web address] [place], [place] [address] * Cande Ruiz M.D. - 10/20/2024 3:00 PM CDT SUBJECTIVE CHIEF COMPLAINT/REASON FOR VISIT Postoperative visit. HISTORY OF PRESENT ILLNESS Katharine presents for post-operative follow up after sacrocolpopexy, paravaginal repair in combinationwith a rectopexy and perineal hernia repair with mesh by Dr. Rodriguez and a bilateral inguinal hernia repair by Dr. Klein. Her postoperative course has been uncomplicated. She is overall doing well and is happy with her surgical results. Just a small amount of leakage of urine with stress, but no other symptoms. She states it is manageable at this time but is interested in PT. OBJECTIVE PHYSICAL EXAMINATION Mixing Picker Tender: Lisa Akins RN Examiner: Cande Ruiz MD General: Appears healthy, not acutely ill Abdomen: Soft, nontender, abdominal incisions are well-healed Pelvis: Vagina: Excellent support in all 3 compartments. Well healed. No visible or palpable mesh or suture. Pelvic Floor: Tenderness along pelvic floor is likely related to the mesh. The mesh covers the muscles and so this would not be clearly muscle related pain. ASSESSMENT / PLAN #1 6 weeks status post robotic sacrocolpopexy, paravaginal repair in combination with a rectopexy and perineal hernia repair with mesh by Dr. Rodriguez and a bilateral inguinal hernia repair by Dr. Klein #2 Satisfactory post-operative exam #3 Stress urinary incontinence #4 Pelvic floor pain I think she could benefit from physical therapy to help with pain and scar tissue as well as STEPAN. However, we discussed that the PT needs to be aware that she has mesh along the pelvic floor muscles because of the hernia. Therefore, the pelvic floor muscles cannot be worked on, but rather it would be about improving pain and helping with incontinence. Since Katharine is not sexually active and does not have pain at baseline, it is ok for her to forego this therapy as well. Discussed that since she has a lot of mesh in her pelvis from the multiple areas of herniation that she may have a higher risk of mesh complications. She can always return to see me if she has concerns. Symptoms would be irritation in the vagina, bleeding/spotting, or discharge. Cande Ruiz M.D. 10/20/2024 documented in this encounter Plan of Treatment Not on file documented as of this encounter Visit Diagnoses Diagnosis Weakness Muscle- Primary Prolapse Vaginal Vault Post Hysterectomy Incontinence Urinary Stress Female documented in this encounter Care Teams Electrical & Instrumentation Supervisor Relationship Specialty Start Date End Date Elsewhere, Pcp PCP - General Internal Medicine 06/12/23 documented as of this encounter
--- OUTSIDE RECORDS SUMMARY | 2024-11-26 17:05 | XMS_ITS | Encounter Summary ---
Author Organization [facility] Address [address] [place] [address] Care Team Providers Care Skin Specialist Name Role Phone Elsewhere, Pcp Primary Care Provider Unavailabl e Reason for Visit * Reason Onset Date Comments Previsit Preparation 10/15/2024 CECILLE DONE 10/15 * Appointment Request (Routine) - Authorized Specialty Diagnoses / Procedures Referred By Contruth t Referred To Contact Colon and Rectal Surgery Referral ID Status Reason Start Date Expiration Date V isits Requested Visits Authorized [id number] Authorized 09/03/2024 12/04/2025 1 1 Encounter Details Date Type Department Care Team (Latest Contact Info) Description 10/15/2024 10:30 AM CDT Clinical Communication Virtual Review in [place], [place] [address] [place] [address] Previsit Preparation (CECILLE DONE 10/15/) Social History Tobacco Use Types Packs/Day Years Used Date Smoking Tobacco: Former Cigarettes 0 08/04/1965 - 08/07/1977 Passive Smoke Exposure: Past Smokeless Tobacco: Never Tobacco Cessation:Counseling Given: Not Answered Comments:Quit when daughter Alcohol Use Standard Drinks/Week Comments Not Currently 0 (1 standard drink = 0.6 oz pure alcohol) Only at celebrations might have 1 drink [facility] Utilities Answer Date Recorded In the past 12 months has [facility] [employer], gas, oil, or water [employer] threatened to shut off services in your [...] Date Recorded Dental: Regular Dentist Yes 06/10/20 23 Employment Answer Date Recorded Employment status Retired 07/29/2024 Housing Stability Answer Date Recorded What is your living situatio n today? I do not have a steady place to live (I am temporarily staying with others, in a hotel, in a jail, living outside on the street, on a beach, in a car, abandoned building, bus or train station, or in a park) 08/22/2024 Comments No Sex and Gender Information Value Date Recorded Sex Assigned at Female 06/08/2023 11:11 AM TEST MAN Legal Sex Female 1:47 PM CDT Gender Identity Female 06/08/2023 11:11 AM TEST MAN Sexual Orientation Straight 06/08/2023 11 :11 AM TEST MAN documented as of this encounter Plan of Treatment Not on file documented as of this encounter Visit Diagnoses Not on filedocumented in this encounter Care Teams Skin Specialist Relationship Specialty Start Date End Date Elsewhere, Pcp PCP - General Internal Medicine 06/12/23 documented as of this encounter
--- OUTSIDE RECORDS SUMMARY | 2024-11-26 17:05 | XMS_ITS | Clinical Summary ---
Author Organization [facility] Address [address] [place] [address] Care Team Providers Care [employer] Worker Name Role Phone Elsewhere, Pcp Primary Care Provider Unavailabl e Source Comments Patient records contain information from all sites at [facility]. For routine questions regarding patient records, call [phone] during business hours, M-F 8:00 AM - 5:00 PM Central Time. Record requests for emergency care only can be directed to [phone] at any time.[facility] Allergies Active Allergy Reactions Criticality Noted Date Comments Sulfa (Sulfonamide Antibiotics) Rash 02/2023 Sulfamethoxazole-Trimethoprim Rash 2009 Medications lisinopriL (PRINIVIL,ZEST RIL) 10 mg tablet Take 10 mg by mouth daily. Active simvastatin (ZOCOR) 10 mg tablet Take 10 mg by mouth at bedtime. Active cholecalcifero l (Vitamin D3) 25 mcg (1,000 Unit) capsule Take 1 capsule by mouth daily. Active co-enzyme Q-10 (CO Q-10) 100 mg capsule Take 100 mg by mouth at bedtime. Active estradioL (ESTRACE) 0.1 mg/g (0.01%) vaginal creamIndicatio ns:Urgency Urinary,Atroph y Vagina Due To Estrogen Deficiency Insert 1 g into the vagina 3 (three) times a week. Place small amount directly on urethra and 1 g inside vagina every night for 2 weeks. Then use 2 nights a week thereafter. 42.5 g 11 3 Active psyllium seed (METAMUCIL SUGAR FREE ORAL) Take 2 Scoops by mouth daily as needed (constipation). Active levothyroxine 75 mcg tablet Take 75 mcg by mouth daily before morning meal. 4 Active UNABLE TO FIND Take 2 each by mouth daily. SKIN AND BIOCELL COLLAGEN Active ascorbic acid, vitamin C, (Vitamin C) 1,000 mg tablet Take 1,000 mg by mouth daily. Active ZINC ORAL Take 50 mg by mouth daily. Active UNABLE TO FIND daily. Emergen C Active sertraline (Zoloft) 100 mg tablet Take 100 mg by mouth daily. Active polyethylene glycol (Miralax) 17 gram powder packet Take 17 g by mouth daily as needed for constipation. Dissolve each 17 g dose in 240 mLs (8 ounces) of beverage. Active calcium carbonate (Tums) 500 mg (200 mg calcium) chewable tablet Chew 1 tablet 2 (two) times a day as needed for indigestion or heartburn. Active acetaminophen (TylenoL) 500 mg tablet Take 2 tablets (1,000 mg total) by mouth every 6 (six) hours as needed for pain. 5 Active ibuprofen 200 mg tablet Take 2 tablets (400 mg total) by mouth every 6 (six) hours as needed for pain. 5 Active omeprazole (PriLOSEC) [address] capsule Take 1 capsule (40 mg total) by mouth daily as needed (stomach). 5 Active enoxaparin (Lovenox) 40 mg/0.4 mL injection Inject 0.4 mL (40 mg total) under the skin daily for 7 days. 2.8 mL 08/26/2024 2:11 PM SHORT ORDER COOK 5 Active clotrimazole (Lotrimin) 1 % creamIndicatio ns:Pruritus Vagina Apply 1 Application topically 2 (two) times a day. Apply topically. 30 g 5 Active oxyCODONE (Roxicodone) 5 mg immediate release tabletIndicati ons:Acute Pain Take 1-2 tablets (5-10 mg total) by mouth every 4 (four) hours as needed (for pain not relieved by tylenol or ibuprofen, 1 tablet for pain 4-6/10 and 2 tablets for pain 7-10/10). 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 Bacterial Culture, Aerobic + Susceptibility, Urine 11/04/2024 12:03 PM CDT - 11/04/2024 1:08 PM CDT Emergency [facility] [address] [place] [phone] Sveta Adam P.A.-Holly., P.A. Dysuria (Primary Dx); Pruritus Vagina Discharge Disposition: Home or Self Care 10/20/2024 3:00 PM CDT Office Visit Department of Obstetrics and Gynecology, Division of Urogynecology in [address] [phone] Cande Ruiz M.D. Weakness Muscle (Primary Dx); Prolapse Vaginal Vault Post Hysterectomy; Incontinence Urinary Stress Female 10/20/2024 2:30 PM CDT Office Visit Division of Colon and Rectal Surgery in [address] [phone] Sean Rodriguez M.B., Ch.B., M.P.H. Follow Up Examination Status Post Surgery (Primary Dx) 10/15/2024 10:30 AM CDT Clinical Communication Virtual Review in [place], [place] [address] [place] [phone] Previsit Preparation (CECILLE DONE JM ) 10/09/2024 Clinical Communication Division of Colon and Rectal Surgery in [address] [phone] Sean Rodriguez M.B., Ch.B., M.P.H. 09/25/2024 11:00 AM SHORT ORDER COOK Telemedicine Division of Colon and Rectal Surgery in [place], [place] [address] [place] [phone] Adelaida Solares APRN, C.N.P., M.S.N. Follow Up Examination Postoperative Visit (Primary Dx); Hernia Perineal; Obstruction Intestinal (HCC); Constipation; Dysfunction Pelvic Floor Female 09/22/2024 1:30 PM SHORT ORDER COOK Clinical Communication Virtual Review in [place], [place] [address] [place] [phone] Previsit Preparation 09/03/2024 Orders Only Division of Colon and Rectal Surgery in [address] [phone] Rita Sesay M.A.N., R.N. 09/03/2024 Clinical Communication Division of Colon and Rectal Surgery in [address] [phone] Sean Rodriguez M.B., Ch.B., M.P.H. 6-8 week f/up with Dr. Rodriguez & Dr. Ruiz 08/31/2024 8:58 AM SHORT ORDER COOK - 08/31/2024 9:58 AM SHORT ORDER COOK Emergency [facility] [address] [place] [phone] Barney Austin P.A.-C., P.A. Gastroenteritis (Primary Dx) Discharge Disposition: Home or Self Care 08/31/2024 Nurse Triage Department of Family Medicine, [facility], in [address] [phone] Odalys Elizalde, RAngelo Diarrhea from Last 3 Months Family History Medical [...] might have 1 drink [facility] Rabbitities Answer Date Recorded In the past 12 months has [facility] [employer] gas, oil, or water [employer] threatened to shut off services in your [...] ex-partner? No 08/22/2024 Overall Financial Resource Strain ([facility]) Answe r Date Recorded How hard is [...] Sex Assigned at Female 06/08/2023 11:11 AM SHORT ORDER COOK Legal Sex Female 1:47 PM CDT Gender Identity Female 06/08/2023 11:11 AM SHORT ORDER COOK Sexual Orientation Straight 06/08/2023 11 :11 AM SHORT ORDER COOK Last Filed Vital Signs Vital Sign Reading Time Taken Comments Blood Pressure 150/81 11/04/2024 12:40 PM CDT Pulse 81 11/04/2024 12:40 PM CDT Temperature 36.6 C (97.9 F) 11/04/2024 12:08 PM CDT Respiratory Rate 20 11/04/2024 12:08 PM CDT Oxygen Saturation 98% 11/04/2024 12:08 PM CDT Inhaled Oxygen Concentration - - Weight 64 kg (141 lb 1.5 oz) 11/04/2024 12:09 PM CDT Height 167.6 cm (5' 6) 08/31/2024 8:52 AM SHORT ORDER COOK Body Mass Index 22.77 08/31/2024 8:52 AM SHORT ORDER COOK Plan of Treatment Health Maintenance Due Date Last Done Comments Hepatitis C Screening 1945 Office Visit for Blood Pressure Check / Re-check 1945 Depression Screening (Annual PHQ-2) 07/30/2024 Fall Risk Screen (Annual) 07/30/2024 COVID-19 Vaccine ( season) 2024 05/19/2024, 05/16/2023, 05/15/2022, Additional history exists Thyroid Stimulating Hormone (TSH) test for thyroid function 03/29/2025 03/29/2024, 02/22/2024, 01/29/2023, Additional history exists Potassium Level 08/01/2025 08/01/2024, 11/28, 08/13/2023, Additional history exists Sodium Level 08/01/2025 08/01/2024, 11/28, 08/13/2023, Additional history exists Creatinine Level (Kidney Function Test) 08/23/2025 08/23/2024, 08/01/2024, 03/24/2024, Additional history exists DTaP,Tdap,and Td Vaccines (3 - Td or Tdap) 07/11/2031 07/11/2021, 01/31/2011 Pneumococcal vaccine (50+ years) Completed 04/06/2015, 03/17/2013 Zoster Vaccines Completed 05/05/2019, 08/2018, 01/31/2011 Influenza Vaccine Completed 05/19/2024, , 05/15/2022, Additional history exists RSV vaccine - (32-36 weeks) or 60+ years Completed 07/08/2024 IPV Vaccines Aged Out No longer eligi ble based on patient's age to complete this topic Goals Goal Patient Goal Type Associated Problems Recent Progress Patient-Stated? Author Autogenera yamile Goal Care Plan Autogenerated Problem No Odessa Wade R.N. Medical Devices Implanted Type Area Java Programmer Analyst Device Identifier Shelf Expiration Date Model / Serial / Lot Clp Apr End Intnl Endo 5x11 - [id number] Implanted:Q ty: 1 on 08/22/2024 by Sean Rodriguez M.B., Ch.B., M.P.H. at [facility] Hardware e.g. pins/screws/rods N/A: Abdomen Medtronic [id number] 03/29/2027 [id number] / / [id number] [facility] Sft Sophia Polyprp 30x30 - [id number] Implanted:Q ty: 1 on 08/22/2024 by Sean Rodriguez M.B., Ch.B., M.P.H. at [facility] Mesh or Patch N/A: Abdomen C.R.Bard 11/24/2028 [id number] / / [id number] [facility] 3dm Mid Synth Ptch Lt 5x7 - [id number] Implanted:Q ty: 1 on 08/22/2024 by Sean Rodriguez M.B., Ch.B., M.P.H. at [facility] Mesh or Patch N/A: Abdomen [employer].Bard 03/26/2029 [id number] / / [id number] [facility] 3dm Mid Synth Ptch Rt 5x7 - [id number] Implanted:Q ty: 1 on 08/22/2024 by Sean Rodriguez M.B., Ch.B., M.P.H. at [facility] Mesh or Patch N/A: Abdomen [employer].Bard 09/26/2028 [id number] / / [id number] [facility] Prt Sophia Polyprp 30x30 - [id number] Implanted:Q ty: 1 on 08/22/2024 by Sean Rodriguez M.B., Ch.B., M.P.H. at [facility] Mesh or Patch N/A: Abdomen Medtronic 10/28/2027 [id number] / / [id number] [facility] Pelv Flr Synth Pe 8x24 - [id number] Implanted:Q ty: 1 on 08/22/2024 by Sean Rodriguez M.B., Ch.B., M.P.H. at [facility] Pelvic Reconstruction and Inco N/A: Abdomen Coloplast 11/04/2026 [id number] / / [id number] Procedures Procedure Name Priority Date/Time Associated Diagnosis Comments VAGINITIS PANEL, AMPLIFIED RNA STAT 11/04/2024 12:44 PM CDT Pruritus Vagina URINALYSIS WITH MICROSCOPIC IF INDICATED, U STAT 11/04/2024 12:06 PM CDT Dysuria BACTERIAL CULTURE, AEROBIC + SUSC, URINE STAT 11/04/2024 12:06 PM CDT Dysuria GI PATHOGEN PANEL, PCR, F STAT 08/31/2024 9:56 AM SHORT ORDER COOK Gastroenteritis CREATININE WITH EGFR, S/P Routine 08/23/2024 12:09 AM SHORT ORDER COOK BASIC METABOLIC PANEL, S/P Routine 08/01/2024 1:58 PM SHORT ORDER COOK Preoperative Exam from Last 3 Months or Most Recently Relevant to Health Maintenance Results * Vaginitis Panel, Amplified RNA (11/04/2024 [...] 44 PM CDT 11/04/2024 4:28 PM CDT Sveta Adam P.A.-C., P.A. LAB MICROBIOLOGY - G ENERAL ORDERABLES Final Result Performing Organization Address City/[facility]/ZIP Co de Phone Number [facility] [address] [place] [address], [facility] MKTO [address] [facility] [address] [place] [phone] * Urinalysis with Microscopic if Indicated: Urine, [...] 8.0 11/04/2024 12:17 PM CDT NPRG Specific Marion 1.015 1.001 - 1.035 11/04/2024 12:17 PM CDT NPRG Urobilinogen 0.2 0.2 - 1.0 mg/dL 11/04/2024 12:17 PM CDT NPRG Urine (Urine, Midstream) 11/04/2024 12:06 PM CDT 11/04/2024 12:14 PM CDT us Sveta Adam P.A.-C., P.A. LAB URINE ORDERABLES Final Result [facility] [address] [place] [address], [facility] NPRG [facility] [address] [place] [address] * (ABNORMAL) Bacterial Culture, Aerobic + Susceptibility, Urine (11/04/2024 12:06 PM CDT) Urine Culture ENTEROCOCCUS FAECALIS 10,000-100,000 cfu/mL (A) 11/06/2024 5:31 AM CDT MKTO Urine (Urine, Midstream) 11/04/2024 12:06 PM CDT [...] LITY, VIGNESH (MCG/ML) <=16 mcg/mL: Susceptible Sveta Herman.A.Humberto., P.A. LAB MICROBIOLOGY - G ENERAL ORDERABLES Final Result [facility] [address] [place] [address], [facility] MKTO [facility] in [place] [address] [place] [address] * GI Pathogen Panel, PCR, Feces (08/31/2024 9:56 AM SHORT ORDER COOK) Specimen Source STOOL 6:54 PM SHORT ORDER COOK MKTO Campylobacter species Negative Negative 08/31/2024 6:54 PM SHORT ORDER COOK MKTO C. difficile toxin Negative Negative 2024 6:54 PM SHORT ORDER COOK MKTO Plesiomonas shigelloides Negative Negative 08/31/2024 6:54 PM SHORT ORDER COOK MKTO Salmonella species Negative Negative 2024 6:54 PM SHORT ORDER COOK MKTO Vibrio species Negative Negative 08/31/2024 6:54 PM SHORT ORDER COOK MKTO Vibrio cholerae Negative Negative 5 6:54 PM SHORT ORDER COOK MKTO Yersinia species Negative Negative 08/31/19 25 6:54 PM SHORT ORDER COOK MKTO Enteroaggregative E. coli (EAEC) Negative Negative 08/31/2024 6:54 PM SHORT ORDER COOK MKTO Enteropathogenic E. coli (EPEC) Negative Negative 08/31/2024 6:54 PM SHORT ORDER COOK MKTO Enterotoxigenic E. coli (ETEC) Negative Negative 08/31/2024 6:54 PM SHORT ORDER COOK MKTO Shiga toxin producing E. coli Negative Negative 08/31/2024 6:54 PM SHORT ORDER COOK MKTO Shigella/Enteroinvas scottie E. coli Negative Negative 08/31/2024 6:54 PM SHORT ORDER COOK MKTO Cryptosporidium species Negative Negative 08/31/2024 6:54 PM SHORT ORDER COOK MKTO Cyclospora cayetanensis Negative Negative 08/31/2024 6:54 PM SHORT ORDER COOK MKTO Entamoeba histolytica Negative Negative 08/31/2024 6:54 PM SHORT ORDER COOK MKTO Giardia Negative Negative 08/31/2024 6:54 PM SHORT ORDER COOK MKTO Adenovirus F40/41 Negative Negative 025 6:54 PM SHORT ORDER COOK MKTO Astrovirus Negative Negative 08/31/2024 6:54 PM SHORT ORDER COOK MKTO Norovirus GI/GII Negative Negative 08/31/19 25 6:54 PM SHORT ORDER COOK MKTO Rotavirus Ag, F Negative Negative 5 6:54 PM SHORT ORDER COOK MKTO Sapovirus Negative Negative 08/31/2024 6:54 PM SHORT ORDER COOK MKTO Comment: ----ADDITIONAL INFORMATION---- This assay is performed using the FDA-cleared FilmArray GI Panel ([employer] Stool (Stool) 08/31/2024 9:5 6 AM SHORT ORDER COOK 08/31/2024 4:47 PM SHORT ORDER COOK Barney Austin P.A.-C., PFransiscoA. LAB ICROBIOLOGY - GENERAL ORDERABLES Final Result Performing Organization Address City/State/[facility] Co de Phone Number [facility] [address] [place] [address], [facility] MKTO [address] [facility] [address] [place] [address] * (ABNORMAL) Creatinine with Estimated GFR (08/23/2024 12:09 AM SHORT ORDER COOK) Creatinine 1.03 0.59 - 1.04 mg/dL 08/23/2024 1:55 AM SHORT ORDER COOK DTL Estimated GFR (eGFR) 56(L) >=60 mL/min/BSA 08/23/2024 1:55 AM SHORT ORDER COOK DTL Comment: Estimated GFR calculated using the 2020 CKD_EPI creatinine equation. Blood (Blood, Venous) 08/23/2024 12:09 AM SHORT ORDER COOK 08/23/2024 1:39 AM SHORT ORDER COOK Sean Chatterjee, ChFransiscoBFransisco, M.P.H. LAB BLOOD AD D-ON Final Result Performing Organization Address City/[facility] Co de Phone Number [facility] [address] [place] [address], [facility] [address] [place] [address] * (ABNORMAL) Basic Metabolic Panel (08/01/2024 1:58 PM SHORT ORDER COOK) Potassium, P 4.4 3.6 - 5.2 mmol/L 08/01/2024 2:24 PM SHORT ORDER COOK NPRG Sodium, P 141 135 - 145 mmol/L 08/01/2024 2:24 PM SHORT ORDER COOK NPRG Chloride, P 104 98 - 107 mmol/L 08/01/2024 2:24 PM SHORT ORDER COOK NPRG Bicarbonate, P 27 22 - 29 mmol/L 08/01/2024 2:24 PM SHORT ORDER COOK NPRG Anion Gap, P 10 7 - 15 08/01/2024 2:24 PM SHORT ORDER COOK NPRG BUN (Blood Urea Nitrogen), P 19 6 - 21 mg/dL 08/01/2024 2:24 PM SHORT ORDER COOK NPRG Creatinine 1.05(H) 0.59 - 1.04 mg/dL 08/01/2024 2:24 PM SHORT ORDER COOK NPRG Estimated GFR (eGFR) 54(L) >=60 mL/min/BSA 08/01/2024 2:24 PM SHORT ORDER COOK NPRG Comment: Estimated GFR calculated using the 2020 CKD_EPI creatinine equation. Calcium, Total, P 9.5 8.8 - 10.2 mg/dL 08/01/2024 2:24 PM SHORT ORDER COOK NPRG Glucose, P 77 70 - 140 mg/dL 08/01/2024 2:24 PM SHORT ORDER COOK NPRG Blood (Blood, Venous) 08/01/2024 1:58 PM SHORT ORDER COOK 08/01/2024 2:03 PM SHORT ORDER COOK Cande Ruiz M.D. LAB BLOOD ADD-ON Final Res ult [facility] [address] [place] [address], [facility] NPRG [facility] [address] [place] [address] from Last 3 Months or Most Recently Relevant to Health Maintenance Additional Health Concerns Active Problems Noted Date Diagnosed Date Autogenerated Problem 11/20/2024 Insurance MEDICARE [facility] Advance Directives For more information, please contact: [phone] Documents on File Type Date Recorded Patient Gift Shop Assistant Expl anation Advance Directives 08/26/2024 2:26 PM Advance Directives 08/22/2024 7:07 AM Zak Hemphill Danny Negrete HCPOA/ADVOCATE/AGENT/R EPRESENTATIVE/SURROGAT E * Full Code (Latest Code Status on File) Date Activated Date Inactivated Comments 08/22/2024 8:50 PM 08/26/2024 7:39 PM Question Answer Comments Full Code: Not Discussed Due to: Patient not available * Full Code Date Activated Date Inactivated Comments 08/22/2024 6:43 AM 08/22/2024 8:50 PM Question Answer Comments Full Code: Discussed * Full Code Date Activated Date Inactivated Comments 12/22/2023 5:24 AM 12/22/2023 7:10 PM Question Answer Comments Full Code: Discussed Healthcare Agents on File Name Relationship Healthcare Agent Relationship Communication Zak Shell Spouse Health Care Agent [phone] (Mobile) Odessa Negrete Daughter First Alternate Health Care Agent [email or web address] Jeremy Negrete Son In-Law Second Alternate Health Care Agent Care Teams [employer] Worker Relationship Specialty Start Date End Date Elsewhere, Pcp PCP - General Internal Medicine 06/12/23
--- OUTSIDE RECORDS SUMMARY | 2024-11-26 17:05 | XMS_ITS | Clinical Summary ---
Author Organization [facility] Address [address] [place] [id number] Care Team Providers Care Laborer Hide House Name Role Phone Angie Cali MD Primary Care Provider Allergies Active Allergy Reactions Criticality Noted Date Comments Sulfamethoxazole-Trimethoprim Rash 2009 Medications coenzyme q10 100 mg capIndications:Hyp erlipidemia, unspecified hyperlipidemia type Take 1 capsule by mouth once daily. 0 04/11/20 18 Active omeprazole (PRILOSEC) 40 mg Delayed-Release capsuleIndications :Hiatal hernia Take 1 Capsule (40 mg) by mouth once daily before a meal. 90 Capsule 2 04/03/20 24 Active levothyroxine (SYNTHROID) 75 mcg tabletIndications: Hypothyroidism (acquired) Take 1 Tablet (75 mcg) by mouth before breakfast. 90 Tablet 3 05/19/20 24 Active simvastatin (ZOCOR) 10 mg tabletIndications: Hyperlipidemia, unspecified hyperlipidemia type Take 1 Tablet (10 mg) by mouth at bedtime. 90 Tablet 3 05/19/20 24 Active lisinopriL (PRINIVIL; ZESTRIL) 10 mg tabletIndications: Hypertension, unspecified type Take 1 Tablet (10 mg) by mouth once daily. 90 Tablet 3 05/19/20 24 Active clobetasol 0.05 % creamIndications:V ulvar dermatitis Apply topically to affected area(s) two times daily. 30 g 11/14/19 25 Active cholecalciferol (VITAMIN D3) 2,000 unit capsule Take 50 mcg by mouth. 025 Discontin ued(*Klaudia ent states no longer taking) estradioL (ESTRACE) 0.01% (0.1 mg/g) vaginal cream Insert 1 g into the vagina. 06/15/20 23 025 Discontin ued(*Klaudia ent states no longer taking) ascorbic acid/collagen hydr (COLLAGEN SKIN RENEWAL ORAL) Take by mouth. 025 Discontin ued(*Klaudia ent states no longer taking) sertraline (ZOLOFT) 100 mg tabletIndications: Anxiety Take 1 Tablet (100 mg) by mouth once daily in the morning. 90 Tablet 3 05/19/20 24 025 Discontin ued(*Medi cation adjustmen t) nitrofurantoin macrocrystals/mono hydrate 100 mg capsuleIndications :UTI (urinary tract infection), uncomplicated Take 1 Capsule (100 mg) by mouth two times daily for 7 days. 14 Capsule 11/07/19 25 025 Discontin ued(*Klaudia ent states no longer taking) Active Problems Problem Noted Date Diagnosed Date Depression, recurrent 01/02/2024 Colon polyp 05/25/2022 Overview (05/25/2022): Colonoscopy 04/2022 TA, SSA, repeat in 5 years DDD (degenerative disc disease), cervical 2019 Hyperparathyroidism 07/28/2019 Overview (07/28/2019): evaluated by Endocrinology 07/17; they recommend repeat evaluation 07/19 unless patient has calcium > 11.5 or has an osteoporotic fracture CKD (chronic kidney disease) stage 3, GFR 30-59 ml/min 12/10/2018 Lumbar radicular pain 04/21/2016 Overview (04/28/2020): MRI Mar 2020: physical therapy ordered. Spondylolisthesis of lumbar region 04/21/2016 Hyperlipidemia 01/31/2011 HTN (hypertension) 12/30/2009 Thyroid nodule Encounters Date Type Department Care Team Description 11/26/2024 Nurse Triage [facility] [address] [place] [address] Angie Cali MD Abdominal Pain 11/13/2024 3:15 PM CDT Office Visit [facility] [address] [place] [address] Angie Cali MD UTI (Last day of macro bid 11/12 /Burning by the rectum, frequency, urgency, pain with urination.) 11/13/2024 Travel 11/06/2024 12:50 PM CDT Office Visit [facility] [address] [place] [address] Franca Park PA Back Pain 11/06/2024 Travel 11/06/2024 Nurse Triage [facility] [address] [place] [address] Angie Cali MD Vaginal Pain from Last 3 Months Immunizations Immunization Administration Dates Next Due COVID-19 VACCINE SPIKEVAX (M ODERNA 50MCG/0.5ML) 12YO+ PFS 05/19/2024,05/16/2023 COVID-19 vaccine (Pfizer-Bio NTech 30mcg/0.3mL) 12YO+ BIVALENT PF, MDV 05/15/2022 COVID-19 vaccine (Pfizer-Bio NTech 30mcg/0.3mL) 12YO+ RADHA-SUCROSE PF, MDV 12/09/2021 COVID-19 vaccine (Warranty Life-Bio NTech 30mcg/0.3mL) PF, MDV 05/12/2021,10/12/2020,09/21/2020 Influenza, High-dose Inactivated 04/07/2016,090 02/2015 Influenza, IIV3 (Age >=3 years) 08/21/2012 Influenza, Inactivated AIIV4 (Age 65+ Years) Preserv Free 05/16/2023,05/15/2022,05/12/2021,04/19 Influenza, Inactivated IIV3 (Age 65+ Years) Preserv Free 05/19/2024,04/15/2019,04/11/2018,04/09 Pneumococcal Poly,23-Valent (Pneumovax) 03/17/2013 Pneumococcal conj 13-Valent (Prevnar 13) 04/06/2015 RSV, Bivalent Vaccine Recons tituted (Abrysvo 120MCG/0.5mL) 07/08/2024 Tdap 07/11/2021,01/31/2011 Zoster (Shingrix-RZV, recombinant) 05/05/2019, Zoster [...] 07/30/1982 Smokeless Tobacco: Never Tobacco Cessation:Counseling Given: No Comments:1982 Alcohol Use Standard Drinks/Week Comments Yes 0 (1 standard drink = 0.6 oz pur e alcohol) occ PHQ-2 Answer Date Recorded PHQ-2 TOTAL SCORE 1 06/16/2024 Social Connections Answer Date Recorded Do you often feel lonely or isolated from those around you? 0 05/19/2024 Alcohol Use Answer Date Recorded How often do you have a drink containing alcohol ? 1 08/31/2021 How many drinks containing a lcohol do you have on a typical day when you are drinking? 0 08/31/2021 How often do you have five or more drinks on one occasion? 0 08/31/2021 Financial Resource Strain Answer Date R ecorded Difficulty of Paying Living Expenses 3 05/19/2024 Difficulty of Paying Living Expenses Not on file 05/19/2024 Food Insecurity Answer Date Recorded Do you worry your food will run out before you are able to buy more? 1 05/19/2024 Transportation Needs Answer Date Record ed Does lack of transportation keep you from medica l appointments? 2 05/19/2024 Does lack of transportation keep you from work, meetings or getting things that you need? 1 05/19/2024 Housing Stability Answer Date Recorded What is your housing situation today? 1 05/19/2024 Utilities Answer Date Recorded Do you have trouble paying f or utilities (for example, heat, electricity, water, phone)? 1 05/19/2024 Comments No Sex and Gender Information Value Date Recorded Sex Assigned at Not on file Legal Sex Female 6:20 AM CESSATION SYSTEMS OUTREACH SPECIALIST Gender Identity Not on file Sexual Orientation Not on file Obstetrics History Para Term AB IAB SAB Ectopic Multiple Livin g Live Births 2 2 2 2 2 Date Outcome GA Total Labor Labor/2nd/3rd Weight Sex Type Anes PTL Rox A1 A5 Name Clin Term Living Term Living Last Filed Vital Signs Vital Sign Reading Time Taken Comments Blood Pressure 130/79 11/13/2024 3:15 PM CDT Pulse 96 11/13/2024 3:15 PM CDT Temperature 36.7 C (98 F) 11/13/2024 3:15 PM CDT Respiratory Rate 14 12/14/2021 1:24 PM CDT Oxygen Saturation 94% 11/13/2024 3:15 PM CDT Inhaled Oxygen Concentration - - Weight 63.1 kg (139 lb 3.2 oz) 11/13/2024 3:15 P M CDT Height 164.5 cm (5' 4.76) 11/23/2023 11:34 AM C DT Body Mass Index 23.33 11/23/2023 11:34 AM CDT Plan of Treatment Health Maintenance Due Date Last Done Comments Medicare Wellness for age 65+ 04/20/2021, 04/15/2019, 04/11/2018, Additional history exists COVID-19 vaccine series ( season) 2024 05/19/2024, 05/16/2023, 05/15/2022, Additional history exists BMI (ht and wt on same day) for age 18+ 11/22/2024 11/23/2023, 05/16/2023, 03/09/2023, Additional history exists Depression screening for age 12+ 06/16/2025 06/16/2024, 12/14/2023, 11/26/2023, Additional history exists Tetanus booster 07/11/2031 07/11/2021, 07/0 11/2010, 01/31/2011 Pneumococcal series for age 50+ Completed 5, 03/17/2013 Hepatitis C screening for ag e 18-79 Completed 04/09/2017 Zoster (shingles) series for age 50+ Completed 05/05/2019, 02/28/2019, 01/31/2011 Tdap Completed 07/11/2021, 01/31/2011 Influenza Vaccine Completed 05/19/2024, , 05/15/2022, Additional history exists DEXA/DXA scan for age 65+ Completed 2023, 05/16/2021, 07/25/2019, Additional history exists RSV vaccine for adults or Completed 07/08/2024 Procedures Procedure Name Priority Date/Time Associated Diagnosis Comments URINALYSIS MACROSCOPIC - [facility] ONLY POC DIP (QUEST) Routine 11/14/2024 10:34 AM CDT Pain with urination URINALYSIS MICROSCOPIC Routine 11/14/2024 10:33 AM CDT Pain with urination URINE CULTURE Routine 11/14/2024 10:33 AM CDT Pain with urination XR DXA BONE DENSITY 2 SITES AXIAL AND 1 SITE PERIPHERAL Routine 06/16/2024 1:51 PM CESSATION SYSTEMS OUTREACH SPECIALIST Menopause ANTI HCV Routine 04/09/2017 9:43 AM CDT Need for hepatitis C screening test from Last 3 Months or Most Recently Relevant to Health Maintenance Results * POCT Urinalysis Dipstick Only [[id number]] (11/14/2024 10:34 AM CDT) PH 6.0 5.0 - 8.0 [facility] SPECIFIC GRAVITY 1.010 1.001 - 1.035 [facility] GLUCOSE NEGATIVE NEGATIVE [facility] BILIRUBIN NEGATIVE NEGATIVE [facility] KETONES NEGATIVE NEGATIVE [facility] OCCULT BLOOD NEGATIVE NEGATIVE [facility] PROTEIN NEGATIVE NEGATIVE [facility] NITRITE NEGATIVE NEGATIVE [facility] LEUKOCYTE ESTERASE NEGATIVE NEGATIVE [facility] Urine URINE SPECIMEN / Unknown 11/14/2024 10:34 AM CDT 11/14/2024 10:35 AM CDT Angie Cali MD URINE Final R esult [facility] [address] [place] [address], [place] [phone] [facility] [address] [place] [phone] * URINALYSIS MICROSCOPIC [71062.1] - routine (11/14/2024 10:33 AM CDT) RBC 0-2 0-2, None Seen /HPF 11/14/2024 3:56 PM CDT [facility] WBC 0-2 0-2, 3-5, None Seen /HPF 11/14/2024 3:56 PM CDT [facility] BACTERIA None Seen None Seen, Rare, Few Bacteria/ HPF 11/14/2024 3:56 PM CDT [facility] EPITHELIAL CELLS None Seen None Seen, Few Epi/HPF 11/14/2024 3:56 PM CDT [facility] HYALINE CASTS 0-2 0-2, 3-5 /LPF 11/14/2024 3:56 PM CDT [facility] Urine URINE SPECIMEN / Unknown Non-Blood / Unknown 11/14/2024 10:33 AM CDT 11/14/2024 10:33 AM CDT Angie Cali MD URINE Final R esult [facility] [address] [place] [address], * URINE CULTURE [07255.2] (11/14/2024 10:33 AM CDT) CULTURE <10,000 CFU/mL multiple organisms 11/15/2024 3:00 PM CDT [facility] Urine URINE SPECIMEN / Unknown Non-Blood / Unknown 11/14/2024 10:33 AM CDT 11/14/2024 10:33 AM CDT us Angie Cali MD MICROBIOLOGY Final R esult [facility] [address] [place] [address], * XR DXA BONE DENSITY 2 SITES AXIAL AND 1 SITE PERIPHERAL (06/16/2024 1:51 PM CESSATION SYSTEMS OUTREACH SPECIALIST) Anatomical Region Laterality Modality LUMBAR SPINE Other Impressions 06/16/2024 4:30 PM CESSATION SYSTEMS OUTREACH SPECIALIST Normal bone density. RECOMMENDATIONS: The National Osteoporosis Foundation recommends pharmacologic [...] exercise. Repeat scan recommended in 3-5 years. Miriam Calvo PA-C [facility] 06/16/2024 Narrative 06/16/2024 4:30 PM CESSATION SYSTEMS OUTREACH SPECIALIST For Patients: Results are automatically released to your [facility] ([employer]) account once available, in compliance with federal regulations. This means that you may see your results before your provider has had a chance to review them. Please allow 2-3 business days for your provider to comment on the results. XR DXA Bone Mineral Density (BMD) EXAM LOCATION: [address] [address] PATIENT NAME: Katharine Shell DATE OF : 1945 EXAM DATE: 06/16/2024 REQUESTING PROVIDER: Angie Cali MD GENDER AT : female HEIGHT: 5' 4.76 (11/23/2023) WEIGHT: 134 lb 6.4 oz (06/16/2024) MENOPAUSAL STATUS: Postmenopausal RACE/ETHNICITY: White RISK FACTORS: Family History of Hip Fracture (parental), Hyperparathyroidism, Smoking (prior), and White Race CURRENT MEDICATION FOR BONE LOSS: NONE INDICATION: Menopause COMPARISON DATE(S): 2017 DXA scans are compared to prior studies for a patient only when the two (or more) studies were performed on the same scanner. It is not possible to compare data generated on one scanner to data from another because there are not standards in DXA equipment. This applies even if the two scanners are made by the same gameplay programmer. PROCEDURE: Dual-energy x-ray absorptiometry performed with routine technique. Reporting is completed in the form of a T-score. The T-score represents the standard deviation from peak bone mass based on young healthy adult. A Z-score is used for diagnosis in premenopausal women, and for men under the age of 50. FINDINGS: RESULT LUMBAR SPINE L1 - L4 BMD: 1.234 g/cm2 T-Score: + 0.3 Z-Score: + 2.3 Change from prior in 2017: Decrease 1.7%. RESULTS FEMUR Left femoral neck BMD: 0.909 g/cm2 T-Score: - 0.9 Z-Score: + 1.2 Change from prior in 2020: Increase 1.0%. Right femoral neck BMD: 1.001 g/cm2 T-Score: - 0.3 Z-Score: + 1.9 Change from prior in 2020: Increase 2.8%. Left hip BMD: 0.921 g/cm2 T-Score: - 0.7 Z-Score: + 1.3 Change from prior in 2020: Decrease 3.4%. Right hip BMD: 0.975 g/cm2 T-Score: - 0.3 Z-Score: + 1.7 Change from prior in 2020: Decrease 3.6%. RESULT FOREARM Left Forearm distal radius BMD: 0.755 g/cm2 T-Score: + 1.3 Z-Score: + 3.9 Change from prior in 2020: Decrease 7.4%. WHO criteria: Normal: T-score at or above -1 SD Osteopenia: T-score between -1.1 and -2.4 SD Osteoporosis: T-score at or below -2.5 SD us Angie Cali MD DEXA Final R esult * ANTI HCV [[id number]] (04/09/2017 9:43 AM CDT) HEPATITIS C ANTIBODY Non-Reacti ve Non-Reacti ve 04/09/2017 5:52 PM CDT [facility] Blood BLOOD SPECIMEN / Unknown Venipuncture / Unknown 04/09/2017 9:43 AM CDT 04/09/2017 9:43 AM CDT Narrative [facility] - 04/09/2017 5:52 PM CDT Antibodies to HCV not detected; does not exclude the possibility of exposure to HCV. us Angie Cali MD SEND OUTS Final R esult [facility] 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
--- OUTSIDE RECORDS SUMMARY | 2024-11-26 17:05 | XMS_ITS | Encounter Summary ---
Author Organization [facility] Address [address] [place] [address] Care Team Providers Care Green Chain Worker Name Role Phone Elsewhere, Pcp Primary Care Provider Unavailabl e Encounter Details Date Type Department Care Team (Late st Contact Info) Description 11/05/2024 Results Follow-Up [facility] [address] [place] [phone] Miranda Hernandez, PHARMACY RESOURCE TECH, C.N.P. [address] [place] [phone] Bacterial Culture, Aerobic + Susceptibility, Urine Social History Tobacco Use Types Packs/Day Years Used Date Smoking Tobacco: Former Cigarettes 0 08/04/1965 - 08/07/1977 Passive Smoke Exposure: Past Smokeless Tobacco: Never Comments:Quit when daughter Alcohol Use Standard Drinks/Week Comments Not Currently 0 (1 standard drink = 0.6 oz pure alcohol) Only at celebrations might have 1 drink [facility] Utilities Answer Date Recorded In the past 12 months has th e electric, gas, oil, or water company threatened [...] with others, in a hotel, in a prison, living outside on the street, on a beach, in a car, abandoned building, bus or train station, or in a park) 08/22/2024 Comments No Sex and Gender Information Value Date Recorded Sex Assigned at Female 06/08/2023 11:11 AM STRAIGHT RULING MACHINE OPERATOR Legal Sex Female 1:47 PM CDT Gender Identity Female 06/08/2023 11:11 AM STRAIGHT RULING MACHINE OPERATOR Sexual Orientation Straight 06/08/2023 11 :11 AM STRAIGHT RULING MACHINE OPERATOR documented as of this encounter Plan of Treatment Not on file documented as of this encounter Visit Diagnoses Not on filedocumented in this encounter Care Teams Green Chain Worker Relationship Specialty Start Date End Date Elsewhere, Pcp PCP - General Internal Medicine 06/12/23 documented as of this encounter
--- OUTSIDE RECORDS SUMMARY | 2024-11-26 17:05 | XMS_ITS | Encounter Summary ---
Author Organization [facility] Address [address] [place] [address] Care Team Providers Care Data Security Administrator Name Role Phone Elsewhere, Pcp Primary Care Provider Unavailabl e Reason for Visit * Reason Comments Follow-up * Outpatient (Routine) - Closed Specialty Diagnoses / Procedures Referred By Hi steiner Referred To Contact [facility] Rect[facility] Surgery Sean Rodriguez M.B., B., M.P.H. [address] [place] [phone] Phone: tel: fax: [facility] Referral ID Status Reason Start Date Expiration Date Visits Re quested Visits Authorized [id number] Closed 09/03/2024 03/05/2026 1 1 Encounter Details Date Type Department Care Team (Late st Contact Info) Description 10/20/2024 2:30 PM CDT Office Visit Division of Colon and Rectal Surgery in [place], [place] [address] [place] [phone] Sean Rodriguez M.B., ChFransiscoB., M.P.H. [address] [place] [phone] Follow Up Examination Status Post Surgery (Primary Dx) Social History Tobacco Use Types Packs/Day Years Used Date Smoking Tobacco: Former Cigarettes 0 08/04/1965 - 08/07/1977 Passive Smoke Exposure: Past Smokeless Tobacco: Never Comments:Quit when daughter Alcohol Use Standard Drinks/Week Comments Not Currently 0 (1 standard drink = 0.6 oz pure alcohol) Only at celebrations might have 1 drink [facility] Utilities Answer Date Recorded In the past 12 months has th e [employer], gas, oil, or water [employer] threatened to shut off services in your [...] Sex Assigned at Female 06/08/2023 11:11 AM HAND HOSE CUTTER Legal Sex Female 1:47 PM CDT Gender Identity Female 06/08/2023 11:11 AM HAND HOSE CUTTER Sexual Orientation Straight 06/08/2023 11 :11 AM HAND HOSE CUTTER documented as of this encounter Consult Notes * Brandon Hernández M.D., Ph.D. - 10/20/2024 2:30 PM CDT SUBJECTIVE Chief Complaint Katharine Shell is an 79 y.o. female seen for postoperative follow-up after sacrocolpopexy, paravaginal repair in combination with a rectopexy and perineal hernia repair, and inguinal hernia repair History of Present Illness Mrs. Shell is coming back today for postoperative follow-up after sacrocolpopexy, paravaginal repair in combination with a rectopexy and perineal hernia repair, and inguinal hernia repair, with Dr. Ruiz and Dr. Klein. She is doing very, denies nausea, vomiting and abdominal pain, although she has experienced occasionally mild pelvic pain.. She is having regular bowel movement. She is taking fiber supplements, and denies constipation, straining and fecal incontinence. She presented recently to the emergency department for diarrhea but this has resolved. Past Medical History: Diagnosis Date Anxiety Generalized Disorder 1999 Cataract 2001 Gastroesophageal Reflux Disease NOS Hyperlipidemia Hypertension NOS Hyperthyroidism 2021 Renal Disease ? Past Surgical History: Procedure Laterality Date BLADDER SURGERY 1982 and 1995 COLON SURGERY 1982 & 1995 CYSTOSCOPY RIGID N/A 08/22/2024 Procedure: CYSTOSCOPY RIGID; Surgeon: Cande Ruiz M.D.; Location: [facility] OR DIAGNOSTIC LAPAROSCOPY N/A 12/21/2023 Procedure: DIAGNOSTIC LAPAROSCOPY; Surgeon: Ana Woods M.D.; Location: [facility] OR OTHER SURGICAL HISTORY Knee arthroscopy 2020 PERINEAL HERNIA REPAIR N/A 08/22/2024 Procedure: ROBOTIC-ASSISTED PERINEAL HERNIA REPAIR; Surgeon: Sean Rodriguez M.B., Ch.B., M.P.H.;Location: [facility] OR REPAIR HERNIA FEMORAL WITHOUT MESH Left 12/21/2023 Procedure: REPAIR HERNIA OBTURATOR FEMORAL WITHOUT MESH; Surgeon: Ana Woods M.D.; Location: [facility] OR ROBOTIC-ASSISTED INGUINAL HERNIA REPAIR Bilateral 08/22/2024 Procedure: ROBOTIC-ASSISTED INGUINAL HERNIA REPAIR; Surgeon: Karine Klein M.D.; Location: [facility] OR ROBOTIC-ASSISTED PVDR LEACH UTEROSACRAL LIGAMENT REPAIR N/A 08/22/2024 Procedure: ROBOTIC-ASSISTED PARAVAGINAL DEFECT REPAIR; Surgeon: Cande Ruiz M.D.; Location: [facility] OR ROBOTIC-ASSISTED RECTOPEXY N/A 08/22/2024 Procedure: ROBOTIC-ASSISTED RECTOPEXY; Surgeon: Sean Rodriguez M.B., Ch.B., M.P.H.; Location: [facility] OR ROBOTIC-ASSISTED SACROCOLPOPEXY N/A 08/22/2024 Procedure: ROBOTIC-ASSISTED SACROCOLPOPEXY; Surgeon: Cande Ruiz M.D.; Location: [facility] OR SUPRACERVICAL HYSTERECTOMY 1982 had hysterotony - nkt sure what all removed THYROID SURGERY 2021 The following portions of the patient's history were reviewed and updated as appropriate: allergies, current medications, family history, medical history, social history, surgical history, and problem list. Review of Systems Pertinent items are noted in HPI; all other review of systems was negative. OBJECTIVE Vitals Pain Score: 0-No pain Physical Exam General Appearance: alert and oriented and no acute distress Abdomen: soft, non-tender, and non-distended Diagnostics Assessment/Plan The patient's current conditions treated, managed, or evaluated during the inpatient stay include: Active Problems: * No active hospital problems. * Mrs. Shell is coming back today for postoperative follow-up after sacrocolpopexy, paravaginal repair in combination with a rectopexy and perineal hernia repair, and inguinal hernia repair, with Dr. Ruiz and Dr. Klein. She is doing very, denies nausea, vomiting and abdominal pain, although she has experienced occasionally some mild pelvic pain. She is having regular bowel movements. She is taking fiber supplements, and denies constipation, straining and fecal incontinence. She presented recently to the emergency department for diarrhea but this has resolved. Her postoperative recovery is therefore satisfactory, and we discussed fiber supplementation to maintain good bowel habits and to prevent constipation and straining. Her questions were answered, and she is encouraged to reach out to us with any questions or concerns. Cosigned by Sean Rodriguez M.B., Jacinta, M.P.H. at 11/07/2024 6:42 PM CDT Associated attestation - Sean Rodriguez M.B., Jacinta, M.P.H. - 11/07/2024 6:42 PM CDT I personally saw, evaluated, and examined Katharine Shell. I reviewed and discussed the case with Miguel and agree with the assessment and plan. Please see their note for specific details. Overall Katharine is doing well after surgery and is happy with her progress. We will continue to monitor her recovery. She knows to reach out at any stage with concerns. documented in this encounter Plan of Treatment Not on file documented as of this encounter Visit Diagnoses Diagnosis Follow Up Examination Status Post Surgery- Primary documented in this encounter Care Teams Data Security Administrator Relationship Specialty Start Date End Date Elsewhere, Pcp PCP - General Internal Medicine 06/12/23 documented as of this encounter
--- OUTSIDE RECORDS SUMMARY | 2024-11-26 17:05 | XMS_ITS | Encounter Summary ---
Author Organization [facility] Address [address] [place] [address] Care Team Providers Care Drying Room Attendant Name Role Phone Elsewhere, Pcp Primary Care Provider Unavailabl e Encounter Details Date Type Department Care Team (Late st Contact Info) Description 10/09/2024 Clinical Communication Division of Colon and Rectal Surgery in [place], [place] [address] [place] [phone] Sean Rodriguez M.B., Ch.B., M.P.H. [address] [place] [address] Social History Tobacco Use Types Packs/Day Years Used Date Smoking Tobacco: Former Cigarettes 0 08/04/1965 - 08/07/1977 Passive Smoke Exposure: Past Smokeless Tobacco: Never Comments:Quit when daughter Alcohol Use Standard Drinks/Week Comments Not Currently 0 (1 standard drink = 0.6 oz pure alcohol) Only at celebrations might have [address] [facility] Utilities Answer Date Recorded In the past 12 months has e [employer], gas, oil, or water [employer] threatened to shut off services in your [...] Sex Assigned at Female 06/08/2023 11:11 AM JANITORIAL SERVICES SUPERVISOR Legal Sex Female 1:47 PM CDT Gender Identity Female 06/08/2023 11:11 AM JANITORIAL SERVICES SUPERVISOR Sexual Orientation Straight 06/08/2023 11 :11 AM JANITORIAL SERVICES SUPERVISOR documented as of this encounter Miscellaneous Notes * Telephone Encounter - Rita Sesay M.A.N., R.N. - 10/09/2024 12:49 PM CDT I called Katharine in response to her questionnaire submission where she described some pain after surgery. Katharine stated that once home and starting to recover from surgery, she noticed some intermittentpain on her left side and she was not sure if she pulled a muscle, or maybe tore something. Katharine stated that the pain has been gradually improving and she has not noticed any other symptoms. She stated that she is taking metamucil and MiraLAX, and that has been keeping her stools soft and easy to pass. She has an appointment with Dr. Rodriguez on 10/20 where she will be able to ask additional questions and Dr. Rodriguez will be able to evaluate the area where she has been experiencing the intermittent pain. She stated that the pain is manageable and improving at this time. All questions answered to the best of my ability. documented in this encounter Plan of Treatment Not on file documented as of this encounter Visit Diagnoses Not on filedocumented in this encounter Care Teams Drying Room Attendant Relationship Specialty Start Date End Date Elsewhere, Pcp PCP - General Internal Medicine 06/12/23 documented as of this encounter
[2024-11-26 17:24] VITALS: BP 165/85; PULSE 77; RESP 16; TEMP 37; O2SAT 98; BMI 22.5
--- NOTE | 2024-11-26 17:42 | ED_ITS ---
HPI - General Adult General Chief complaint: Urogenital Problems, Female Stated complaint: Stomach pain, burning in vaginal area Time Seen by Provider: 11/26/24 17:31 History of Present Illness HPI narrative: Pt reports a several weeks of vaginal/ groin itching burning, now nausea and stomach discomfort as well. Has been using a topical ointment that has not been effective. Had hernia surgery in July, unsure if this is related. 71-year-old woman presenting to the emergency department History of bladder prolapse and abdominal hernia with bowel obstruction and surgery. Has had 3 weeks of vaginal and then into perineal area burning. Treated with 2 different creams the latest seems to be anti fungal 1%. Does describe such a heat and burning. No unusual discharge other than the cream. Some dysuria now as well. Over the last 3 weeks then also intermittent abdominal burning. Normal bowel movements or has been regulating them with MiraLax. Does experience some dysuria that she would associate with the generalized burning she has been experiencing Sounds like major fear is that mesh might be failing or contributing to some abdominal pain. Related Data Home Medications ?Medication ?Instructions ?Recorded ?Confirmed lisinopril 10 mg tablet 10 mg PO DAILY 05/10/23 11/26/24 simvastatin 10 mg tablet 10 mg PO QPM 05/10/23 11/26/24 coQ10 (ubiquinol) 100 mg capsule 100 mg PO DAILY 08/13/23 11/26/24 levothyroxine 75 mcg tablet 75 mcg PO DAILY 11/26/24 11/26/24 Previous Rx's ?Medication ?Instructions ?Recorded lidocaine 4 % topical cream 1 applic topical TID PRN pain #30 11/26/24 grams Allergies Allergy/AdvReac Type Severity Reaction Status Date / Time Sulfa (Sulfonamide Allergy Unknown Unknown Verified 12/21/23 14:25 Antibiotics) Review of Systems Status of ROS: Reports: 6 or more systems reviewed and unremarkable except as noted in History and below [facility] Medical History History of recurrent cystitis ?Z87.440 - Personal history of urinary (tract) infections (ICD-10) Surgical History History of hysterectomy ?Z90.710 - Acquired absence of both cervix and uterus (ICD-10) Social History What is your current living situation?: I presently have a place to live Problems where you live: no known problems Problems where you live details: n/a In the past 12 months, utilities in danger of being shut off: no In past 12 months, lack of transportation kept you from medical appts, meetings, work, or getting things needed for daily living: no In the past 12 mos, have been you worried that your food would run out before you had money to buy more?: never true In the past 12 mos, the food you bought just didn't last and you didn't have money to buy more?: never true Smoking Status: Former smoker Second hand tobacco smoke exposure: No How often do you have a drink containing alcohol: monthly or less AUDIT-C Alcohol total score: 1 Non-prescribed substance use: denies use Caffeine: Yes (coffee) How often does anyone, including family, friends and others, physically hurt you : never How often does anyone, including family, friends and others, insult or talk down to you: never How often does anyone, including family, friends and others, threaten you with harm: never How often does anyone, including family, friends and others, scream or curse at you: never service: No Exam Narrative: Exam Narrative: Pleasant. Does appear quite concerned. Animated. Breathing easily. Well- perfused without peripheral edema. Abdomen is soft and mildly uncomfortable in the low abdomen pelvis. No flank pain. No peritoneal signs. No wall defect appreciated. No discrete swelling or erythema. Had discussed repeat self wet prep collection. She would like another exam. Genitourinary exam done with staff present. There is some fresh stool present. There is noninflamed but generally germ drier perhaps vaginal tissues. Small amount of clearish white discharge. No unusual odor otherwise. No swellings. Const: Vital Signs, click to edit/add: Vital Signs - 24 hr 11/26/24 17:24 Temperature 98.6 F Pulse Rate [Pulse Oximeter] 77 Respiratory Rate 16 Blood Pressure [Ri ght Upper Arm] 165/85 H Pulse Oximetry 98 Oxygen Delivery Me thod Room Air Documenting provider has reviewed patient's vital signs: yes Course Vital Signs Vital signs: Initial Vital Signs Temperature 98.6 F 11/26/24 17:24 Temperature Source Oral 11/26/24 17:24 Pulse Rate 77 11/26/24 17:24 Respiratory Rate 16 11/26/24 17:24 Blood Pressure 165/85 H 11/26/24 17:24 Blood Pressure Mean 111 H 11/26/24 17:24 Blood Pressure Position Sitting 11/26/24 17:24 Pulse Oximetry 98 11/26/24 17:24 Oxygen Delivery Method Room Air 11/26/24 17:24 Vital Signs Temperature 98.6 F 11/26/24 17:24 Pulse Rate 77 11/26/24 17:24 Respiratory Rate 16 11/26/24 17:24 Blood Pressure 165/85 H 11/26/24 17:24 Pulse Oximetry 98 11/26/24 17:24 Oxygen Delivery Method Room Air 11/26/24 17:24 Temperature 98.6 F 11/26/24 17:24 Pulse Rate 77 11/26/24 17:24 Respiratory Rate 16 11/26/24 17:24 Blood Pressure 165/85 H 11/26/24 17:24 Pulse Oximetry 98 11/26/24 17:24 Oxygen Delivery Method Room Air 11/26/24 17:24 Medical Decision Making MDM Narrative Medical decision making narrative: Offered repeat wet prep collection as well as vaginitis panel otherwise. See above. This burning sensations that she is feeling might be multifactorial. Looking for infection as what I can do in the emergency department. I do not see any marked physical anomaly otherwise. I suspect that the burning that she is feeling her abdomen is either referred or might be intolerant of the mesh but I do not get the sense that there is any mesh failure nor appreciable hernia. She had been thinking that might need some imaging but I do not think that this would be beneficial here in the emergency department. Labs are unremarkable with only 2 - 5 white cells on microscopic and some ketones in the urine. As sensation of burning is the primary concern will offer some anesthetic cream in the meantime but needs outpatient follow-up to pursue possible causes otherwise. See patient discharge plan for further discussion We have not managed to find infection here today. A urine culture will be pending although the preliminary urinalysis does not look to have an infection. Please make a follow-up with your primary care provider or with [facility] to better evaluate the cause for this burning. The reasons for this can be multifactorial and require longer-term treatment. For now your discomfort might be temporized with an anesthetic cream that I am sending in to your pharmacy. Medical Records Medical records reviewed: Yes I reviewed the patient's medical records Lab Data Lab results reviewed: Yes I reviewed the patient's lab results Labs: Lab Results 11/26/24 11/26/24 Range/Units 18:25 18:50 Urine Color Yellow (Yellow) Urine Appearance Clear (Clear) Urine pH 5.5 (5.0-8.5) Ur Specific [place] 1.020 (1.000-1.030) Urine Protein Negative (Negative) Urine Glucose (UA) Negative (Negative) Urine Ketones 1+ A (Negative) Urine Blood Negative (Negative) Urine Nitrite Negative (Negative) Urine Bilirubin Negative (Negative) Urine Urobilinogen 0.2 (0.2-1.0) Ur Leukocyte Esterase Trace A (Negative) Urine RBC 0-2 (0-2) Urine WBC 2-5 (0-5) Ur Squamous Epith Cells Few (None-Few) Urine Bacteria Few A (None) Vaginal Trichomonas No Trichomonas Seen (None Seen) Vaginal Yeast No Yeast Seen (None Seen) Vaginal Clue Cells No Clue Cells Seen (None Seen) Vaginal Bacterial Vaginosis Negative (Negative) Vaginal Martina species NOT DETECTED (No Detected) Vag C. glabrata/krusei NOT DETECTED (No Detected) Vag T. vaginalis NOT DETECTED (No Detected) Discharge Plan Discharge Clinical Impression: Vaginal burning Patient Disposition: Home, Self-Care Condition: Stable Additional Instructions: We have not managed to find infection here today. A urine culture will be pending although the preliminary urinalysis does not look to have an infection. Please make a follow-up with your primary care provider or with Women[facility] to better evaluate the cause for this burning. The reasons for this can be multifactorial and require longer-term treatment. For now your discomfort might be temporized with an anesthetic cream that I am sending in to your pharmacy. Prescriptions: New lidocaine 4 % cream 1 applic topical TID PRN (Reason: pain) Qty: 30 1RF No Action lisinopril 10 mg tablet 10 mg PO DAILY simvastatin 10 mg tablet 10 mg PO QPM coQ10 (ubiquinol) 100 mg capsule 100 mg PO DAILY levothyroxine 75 mcg tablet 75 mcg PO DAILY Follow Up/Referrals: Angie Cali MD [Primary Care Provider] - Stand Alone Forms: [employer] Info Instructions
--- OUTSIDE RECORDS SUMMARY | 2024-11-26 18:12 | XMS_ITS | Encounter Summary ---
Author Organization [facility] Address [address] [place] [address] Care Team Providers Care Consulting Networking Engineer Name Role Phone Elsewhere, Pcp Primary Care Provider Unavailabl e Encounter Details Date Type Department Care Team (Late st Contact Info) Description 11/05/2024 Results Follow-Up [facility] [address] [place] [phone] Miranda Hernandez, FUR TRAPPER, C.N.P. [address] [place] [phone] Bacterial Culture, Aerobic + Susceptibility, Urine Social History Tobacco Use Types Packs/Day Years Used Date Smoking Tobacco: Former Cigarettes 0 08/04/1965 - 08/07/1977 Passive Smoke Exposure: Past Smokeless Tobacco: Never Comments:Quit when daughter Alcohol Use Standard Drinks/Week Comments Not Currently 0 (1 standard drink = 0.6 oz pure alcohol) Only at celebrations might have 1 drink [facility] Utilities Answer Date Recorded In the [...] with others, in a hotel, in a correction, living outside on the street, on a beach, in a car, abandoned building, bus or train station, or in a park) 08/22/2024 Comments No Sex and Gender Information Value Date Recorded Sex Assigned at Female 06/08/2023 11:11 AM ASSISTANCE COORDINATOR Legal Sex Female 1:47 PM CDT Gender Identity Female 06/08/2023 11:11 AM ASSISTANCE COORDINATOR Sexual Orientation Straight 06/08/2023 11 :11 AM ASSISTANCE COORDINATOR documented as of this encounter Plan of Treatment Not on file documented as of this encounter Visit Diagnoses Not on filedocumented in this encounter Care Teams Consulting Networking Engineer Relationship Specialty Start Date End Date Elsewhere, Pcp PCP - General Internal Medicine 06/12/23 documented as of this encounter
--- OUTSIDE RECORDS SUMMARY | 2024-11-26 18:12 | XMS_ITS | Clinical Summary ---
Author Organization [facility] Address [address] [place] [address] Care Team Providers Care T Rail Turner Name Role Phone Angie Cali MD Primary [...] Department Care Team Description 11/26/2024 Nurse Triage [facility] [address] [address] Angie Cali MD Abdominal Pain 11/13/2024 3:15 PM CDT Office Visit [facility] [address] [place] [address] Angie Cali MD UTI (Last day of macro bid 11/12 /Burning by the rectum, frequency, urgency, pain with urination.) 11/13/2024 Travel 11/06/2024 12:50 PM CDT Office Visit [facility] [address] [place] [address] Franca Park PA Back Pain 11/06/2024 Travel 11/06/2024 Nurse Triage [facility] [address] [place] [address] Angie Cali MD Vaginal Pain from Last 3 Months Immunizations Immunization Administration Dates Next Due COVID-19 VACCINE SPIKEVAX (M ODERNA 50MCG/0.5ML) 12YO+ PFS 05/19/2024,05/16/2023 COVID-19 vaccine (Pfizer-Bio NTech 30mcg/0.3mL) 12YO+ BIVALENT PF, MDV 05/15/2022 COVID-19 vaccine (Pfizer-Bio NTech 30mcg/0.3mL) 12YO+ RADHA-SUCROSE PF, MDV 12/09/2021 COVID-19 vaccine (TechLive-Bio NTech 30mcg/0.3mL) PF, MDV 05/12/2021,10/12/2020,09/21/2020 Influenza, High-dose [...] on file Legal Sex Female 6:20 AM CHROME PLATER HELPER Gender Identity Not on file Sexual Orientation [...] Date/Time Associated Diagnosis Comments URINALYSIS MACROSCOPIC - [facility] ONLY POC DIP (QUEST) Routine 11/14/2024 10:34 AM CDT Pain with urination URINALYSIS MICROSCOPIC Routine 11/14/2024 10:33 AM CDT Pain with urination URINE CULTURE Routine 11/14/2024 10:33 AM CDT Pain with urination XR DXA BONE DENSITY 2 SITES AXIAL AND 1 SITE PERIPHERAL Routine 06/16/2024 1:51 PM CHROME PLATER HELPER Menopause ANTI HCV Routine 04/09/2017 9:43 AM CDT Need for hepatitis C screening test from Last 3 Months or Most Recently Relevant to Health Maintenance Results * POCT Urinalysis Dipstick Only [[id number]] (11/14/2024 10:34 AM CDT) PH 6.0 5.0 - 8.0 [facility] SPECIFIC GRAVITY 1.010 1.001 - 1.035 [facility] GLUCOSE NEGATIVE NEGATIVE [facility] BILIRUBIN NEGATIVE NEGATIVE [facility] KETONES NEGATIVE NEGATIVE [facility] OCCULT BLOOD NEGATIVE NEGATIVE [facility] PROTEIN NEGATIVE NEGATIVE [facility] NITRITE NEGATIVE NEGATIVE [facility] LEUKOCYTE ESTERASE NEGATIVE NEGATIVE [facility] Urine URINE SPECIMEN / Unknown 11/14/2024 10:34 AM CDT 11/14/2024 10:35 AM CDT Angie Cali MD URINE Final R esult [facility] [address] [place] [address], [place] [phone] [facility] [address] [place] [address] * URINALYSIS MICROSCOPIC [91327.1] - routine (11/14/2024 10:33 AM CDT) RBC 0-2 0-2, None Seen /HPF 11/14/2024 3:56 PM CDT [facility] WBC 0-2 0-2, 3-5, None Seen /HPF 11/14/2024 3:56 PM CDT [facility] BACTERIA None Seen None Seen, Rare, Few Bacteria/ HPF 11/14/2024 3:56 PM CDT [facility] EPITHELIAL CELLS None Seen None Seen, Few Epi/HPF 11/14/2024 3:56 PM CDT [facility] HYALINE CASTS 0-2 0-2, 3-5 /LPF 11/14/2024 3:56 PM CDT [facility] Urine URINE SPECIMEN / Unknown Non-Blood / Unknown 11/14/2024 10:33 AM CDT 11/14/2024 10:33 AM CDT Angie Cali MD URINE Final R esult [facility] [address] [place] [address], * URINE CULTURE [[id number]] (11/14/2024 10:33 AM CDT) CULTURE <10,000 CFU/mL multiple organisms 11/15/2024 3:00 PM CDT [facility] Urine URINE SPECIMEN / Unknown Non-Blood / Unknown 11/14/2024 10:33 AM CDT 11/14/2024 10:33 AM CDT us Angie Cali MD MICROBIOLOGY Final R esult [facility] [address] [place] [address], * XR DXA BONE DENSITY 2 SITES AXIAL AND 1 SITE PERIPHERAL (06/16/2024 1:51 PM CHROME PLATER HELPER) Anatomical Region Laterality Modality LUMBAR SPINE Other Impressions 06/16/2024 4:30 PM CHROME PLATER HELPER Normal bone density. RECOMMENDATIONS: The National Osteoporosis [...] recommended in 3-5 years. Miriam Calvo PA-C [facility] 06/16/2024 Narrative 06/16/2024 4:30 PM CHROME PLATER HELPER For Patients: Results are automatically released to your [facility] account once available, in compliance with federal regulations. This means that you may see your results before your provider has had a chance to review them. Please allow 2-3 business days for your provider to comment on the results. XR DXA Bone Mineral Density (BMD) EXAM LOCATION: [address] [address] PATIENT NAME: Katharine Shell DATE OF : [...] two scanners are made by the same natural resources manager. PROCEDURE: Dual-energy x-ray absorptiometry performed with routine [...] DEXA Final R esult * ANTI HCV [23715.2] (04/09/2017 9:43 AM CDT) HEPATITIS C ANTIBODY Non-Reacti ve Non-Reacti ve 04/09/2017 5:52 PM CDT [facility] Blood BLOOD SPECIMEN / Unknown Venipuncture / Unknown 04/09/2017 9:43 AM CDT 04/09/2017 9:[address] [facility] - 04/09/2017 5:52 PM CDT Antibodies to HCV not detected; does not exclude the possibility of exposure to HCV. us Angie Cali MD SEND OUTS Final R esult [facility] [address] [place] [address], from Last 3 Months or Most Recently Relevant to Health Maintenance Insurance [place] MR PB ONLY [place] HB ONLY MEDICARE PART B HB ONLY MEDICARE PART A HB ONLY Advance Directives Documents on File Type Date Recorded Patient Pediatric Immunologist Expl anation Healthcare Directive 05/02/2016 11:56 AM H [facility]ENTS/DIRECTIVE, DAVE, 11/21/2010 * Full Code (Latest Code Status on File) Date Activated Date Inactivated Comments 12/14/2021 7:39 AM 12/14/2021 3:26 PM Question Answer Comments Code Status Discussion: Discussed Care Teams T Rail Turner Relationship Specialty Start Date End Date Angie Cali MD [address] [place] [address] PCP - General 01/24/10
--- OUTSIDE RECORDS SUMMARY | 2024-11-26 18:12 | XMS_ITS | Encounter Summary ---
Author Organization [facility] Address [address] [place] [address] Care Team Providers Care Sales Representative Public Utilities Name Role Phone Elsewhere, Pcp Primary Care Provider Unavailabl e Reason for Referral * Physical Therapy (Routine) - Authorized Specialty Diagnoses / Procedures Referred By Contac t Referred To Contact Physical Therapy Diagnoses Weakness Muscle Incontinence Urinary Stress Female Cande Ruiz M.D. [address] [place] [address] Phone: tel: fax: Referral ID Status Reason Start Date Expiration Date Visits Requested Visits Authorized [id number] Authorized Continuity of Care 10/20/2024 04/21/2026 99 99 Reason for Visit * Outpatient (Routine) - Closed Specialty Diagnoses / Procedures Referred By Contac t Referred To Contact Obstetrics and Gynecology Diagnoses Prolapse Vaginal Vault Post Hysterectomy Cande Riuz M.D. [address] [place] [address] Phone: tel: fax: [place] Referral ID Status Reason Start Date Expiration Date Visits Re quested Visits Authorized [id number] Closed 09/03/2024 03/05/2026 1 1 Encounter Details Date Type Department Care Team (Latest Contact Info) Description 10/20/2024 3:00 PM CDT Office Visit Department of Obstetrics and Gynecology, Division of Urogynecology in [place], [place] [address] [place] [address] Cande Ruiz M.D. [address] [place] [address] Weakness Muscle (Primary Dx); Prolapse Vaginal Vault [...] have 1 drink [facility] [employer] Answer Date Recorded In the past 12 months has [facility] [employer], oil, or water [employer] threatened to shut off services in your [...] with others, in a hotel, in a residential, living outside on the street, on a beach, in a car, abandoned building, bus or train station, or in a park) 08/22/2024 Comments No Sex and Gender Information Value Date Recorded Sex Assigned at Female 06/08/2023 11:11 AM SPECIAL EDUCATION BUS DRIVER Legal Sex Female 1:47 PM CDT Gender Identity Female 06/08/2023 11:11 AM SPECIAL EDUCATION BUS DRIVER Sexual Orientation Straight 06/08/2023 11 :11 AM SPECIAL EDUCATION BUS DRIVER documented as of this encounter Progress Notes * Lisa Akins R.N. - 10/20/2024 3:00 PM CDT NURSING DOCUMENTATION: Katharine Julia Suleman was seen in clinic with Dr. Ruiz today for postoperative exam. Pelvic Floor Physical Therapy Provider Contact Numbers INDICATION: Pelvic Floor Muscle Weakness, Stress Incontinence Renu Hill DPT [facility] [email or web address] [facility] [place], [place] [address] Odessa Arnold PT [facility] [phone] [email or web address] [place], [place] [address] * Cande Ruiz M.D. - 10/20/2024 3:00 [...] is interested in PT. OBJECTIVE PHYSICAL EXAMINATION Hotel Associate: Lisa Akins RN Examiner: Cande Ruiz MD [...] Female documented in this encounter Care Teams Sales Representative Public Utilities Relationship Specialty Start Date End Date Elsewhere, Pcp PCP - General Internal Medicine 06/12/23 documented as of this encounter
--- OUTSIDE RECORDS SUMMARY | 2024-11-26 18:12 | XMS_ITS | Encounter Summary ---
Author Organization [facility] Address [address] [place] [address] Care Team Providers Care Production Broaching Machine Operator Name Role Phone Elsewhere, Pcp Primary Care Provider Unavailabl e Reason for Visit * Reason Comments Urinary Tract Infection Encounter Details Date Type Department Care Team (Late st Contact Info) Description 11/04/2024 12:03 PM CDT - 11/04/2024 1:08 PM CDT Emergency [place] [facility] [address] [place] [phone] Sveta Adam P.A.-Holly., P.A. [address] [place] [phone] Dysuria (Primary Dx); Pruritus Vagina Discharge Disposition: Home or Self Care Social History Tobacco Use Types Packs/Day Years Used Date Smoking Tobacco: Former Cigarettes 0 08/04/1965 - 08/07/1977 Passive Smoke Exposure: Past Smokeless Tobacco: Never Comments:Quit when daughter Alcohol Use Standard Drinks/Week Comments Not Currently 0 (1 standard drink = 0.6 oz pure alcohol) Only at celebrations might have 1 drink [facility] Utilities Answer Date Recorded In the past 12 months has e [employer], gas, oil, or water company threatened to [...] with others, in a hotel, in a detention, living outside on the street, on a beach, in a car, abandoned building, bus or train station, or in a park) 08/22/2024 Comments No Sex and Gender Information Value Date Recorded Sex Assigned at Female 06/08/2023 11:11 AM METHODS SPECIALIST ENGINEER Legal Sex Female 1:47 PM CDT Gender Identity Female 06/08/2023 11:11 AM METHODS SPECIALIST ENGINEER Sexual Orientation Straight 06/08/2023 11 :11 AM METHODS SPECIALIST ENGINEER documented as of this encounter Last Filed [...] Body Mass Index 22.77 08/31/2024 8:52 AM METHODS SPECIALIST ENGINEER documented in this encounter Medications at Time [...] MICROBIOLOGY - G ENERAL ORDERABLES Final Result [facility] [address] [place] [address], [address] [address] * (ABNORMAL) Bacterial Culture, Aerobic + Susceptibility, Urine (11/04/2024 12:06 PM CDT) Pathologist [facility] Urine Culture ENTEROCOCCUS FAECALIS 10,000-100,000 cfu/mL (A) 11/06/2024 5:31 AM CDT [facility] Urine (Urine, Midstream) 11/04/2024 12:06 PM CDT [...] MICROBIOLOGY - G ENERAL ORDERABLES [place] [address], [facility] [place] [address] * Urinalysis with Microscopic if Indicated: Urine, [...] 8.0 11/04/2024 12:17 PM CDT NPRG Specific [place] 1.015 1.001 - 1.035 11/04/2024 12:17 PM CDT NPRG Urobilinogen 0.2 0.2 - 1.0 mg/dL 11/04/2024 12:17 PM CDT NPRG Urine (Urine, Midstream) 11/04/2024 12:06 PM CDT 11/04/2024 12:14 PM CDT us Sveta Adam P.A.-C., P.A. LAB URINE ORDERABLES Final Result [facility] [address] [place] [address], [facility] NPRG [facility] [address] [place] [address] documented in this encounter Visit Diagnoses Diagnosis Dysuria- Primary Pruritus Vagina documented in this encounter Care Teams Production Broaching Machine Operator Relationship Specialty Start Date End Date Elsewhere, Pcp PCP - General Internal Medicine 06/12/23 documented as of this encounter
--- OUTSIDE RECORDS SUMMARY | 2024-11-26 18:13 | XMS_ITS | Clinical Summary ---
Author Organization [facility] Address [address] [place] [address] Care Team Providers Care Commercial Lines Insurance Agent Name Role Phone Elsewhere, Pcp Primary Care Provider Unavailabl e Source Comments Patient records contain information from all sites at [facility]. For routine questions regarding patient records, call [phone] during business hours, M-F 8:00 AM - 5:00 PM Central Time. Record requests for emergency care only can be directed to [phone] at any time.[facility] Allergies Active Allergy Reactions Criticality Noted Date [...] 7 days. 2.8 mL 08/26/2024 2:11 PM SALVAGE DIVER 5 Active clotrimazole (Lotrimin) 1 % creamIndicatio [...] pain 7-10/10). 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 Bacterial Culture, Aerobic + Susceptibility, Urine 11/04/2024 12:03 PM CDT - 11/04/2024 1:08 PM CDT Emergency [place] [facility] [address] [place] [phone] Sveta Adam P.A.-Holly., P.A. Dysuria (Primary Dx); Pruritus Vagina Discharge Disposition: Home or Self Care 10/20/2024 3:00 PM CDT Office Visit Department of Obstetrics and Gynecology, Division of Urogynecology in [address] [phone] Cande Ruiz M.D. Weakness Muscle (Primary Dx); Prolapse Vaginal Vault Post Hysterectomy; Incontinence Urinary Stress Female 10/20/2024 2:30 PM CDT Office Visit Division of Colon and Rectal Surgery in [address] [phone] Sean Rodriguez M.B., Ch.B., M.P.H. Follow Up Examination Status Post Surgery (Primary Dx) 10/15/2024 10:30 AM CDT Clinical Communication Virtual Review in [place], [place] [address] [place] [phone] Previsit Preparation (CECILLE DONE JM ) 10/09/2024 Clinical Communication Division of Colon and Rectal Surgery in [address] [phone] Sean Rodriguez M.B., Ch.B., M.P.H. 09/25/2024 11:00 AM SALVAGE DIVER Telemedicine Division of Colon and Rectal Surgery in [place], [place] [address] [place] [phone] Adelaida Solares APRN, C.N.P., M.S.N. Follow Up Examination Postoperative Visit (Primary Dx); Hernia Perineal; Obstruction Intestinal (HCC); Constipation; Dysfunction Pelvic Floor Female 09/22/2024 1:30 PM SALVAGE DIVER Clinical Communication Virtual Review in [place], [place] [address] [place] [phone] Previsit Preparation 09/03/2024 Orders Only Division of Colon and Rectal Surgery in [address] [phone] Rita Sesay M.A.N., R.N. 09/03/2024 Clinical Communication Division of Colon and Rectal Surgery in [address] [phone] Sean Rodriguez M.B., Ch.B., M.P.H. 6-8 week f/up with Dr. Rodriguez & Dr. Ruiz 08/31/2024 8:58 AM SALVAGE DIVER - 08/31/2024 9:58 AM SALVAGE DIVER Emergency [place] [facility] [address] [place] [phone] Barney Austin P.A.-C., P.A. Gastroenteritis (Primary Dx) Discharge Disposition: Home or Self Care 08/31/2024 Nurse Triage Department of Family Medicine, [facility], in [address] [phone] Odalys Elizalde, RAngelo Diarrhea from Last 3 [...] Only at celebrations might have 1 drink [facility] onefortyities Answer Date Recorded In the past 12 months has [facility] [employer] gas, oil, or water [employer] threatened to shut off services in [...] ex-partner? No 08/22/2024 Overall Financial Resource Strain ([facility]) Answe r Date Recorded How hard is [...] with others, in a hotel, in a long term, living outside on the street, on a beach, in a car, abandoned building, bus or train station, or in a park) 08/22/2024 Comments No Sex and Gender Information Value Date Recorded Sex Assigned at Female 06/08/2023 11:11 AM SALVAGE DIVER Legal Sex Female 1:47 PM CDT Gender Identity Female 06/08/2023 11:11 AM SALVAGE DIVER Sexual Orientation Straight 06/08/2023 11 :11 AM SALVAGE DIVER Last Filed Vital Signs Vital Sign Reading [...] 167.6 cm (5' 6) 08/31/2024 8:52 AM SALVAGE DIVER Body Mass Index 22.77 08/31/2024 8:52 AM SALVAGE DIVER Plan of Treatment Health Maintenance Due Date [...] Wade R.N. Medical Devices Implanted Type Area Fruit Thinner Device Identifier Shelf Expiration Date Model / Serial / Lot Clp Apr End Intnl Endo 5x11 - [id number] Implanted:Q ty: 1 on 08/22/2024 by Sean Rodriguez M.B., Ch.B., M.P.H. at [facility] Hardware e.g. pins/screws/rods N/A: Abdomen Medtronic [id number] 03/29/2027 [id number] / / [id number] [facility] Sft Sophia Polyprp 30x30 - [id number] Implanted:Q ty: 1 on 08/22/2024 by Sean Rodriguez M.B., Ch.B., M.P.H. at [facility] Mesh or Patch N/A: Abdomen C.[employer].Bard 11/24/2028 [id number] / / [id number] [facility] 3dm Mid Synth Ptch Lt 5x7 - [id number] Implanted:Q ty: 1 on 08/22/2024 by Sean Rodriguez M.B., Ch.B., M.P.H. at [facility] Mesh or Patch N/A: Abdomen C.[employer].Bard 03/26/2029 [id number] / / [id number] [facility] 3dm Mid Synth Ptch Rt 5x7 - [id number] Implanted:Q ty: 1 on 08/22/2024 by Sean Rodriguez M.B., Ch.B., M.P.H. at [facility] Mesh or Patch N/A: Abdomen [employer].Bard 09/26/2028 [id number] / / [id number] [facility] Prt Sophia Polyprp 30x30 - [id number] Implanted:Q ty: 1 on 08/22/2024 by Sean Rodriguez M.B., Ch.B., M.P.H. at [facility] Mesh or Patch N/A: Abdomen Medtronic 10/28/2027 [id number] / / [id number] [facility] Pelv Flr Synth Pe 8x24 - [id number] Implanted:Q ty: 1 on 08/22/2024 by Sean Rodriguez M.B., Ch.B., M.P.H. at [facility] Pelvic Reconstruction and Inco N/A: Abdomen Coloplast 11/04/2026 [id number] / / [id number] Procedures Procedure Name Priority Date/Time Associated Diagnosis Comments VAGINITIS PANEL, AMPLIFIED RNA STAT 11/04/2024 12:44 PM CDT Pruritus Vagina URINALYSIS WITH MICROSCOPIC IF INDICATED, U STAT 11/04/2024 12:06 PM CDT Dysuria BACTERIAL CULTURE, AEROBIC + SUSC, URINE STAT 11/04/2024 12:06 PM CDT Dysuria GI PATHOGEN PANEL, PCR, F STAT 08/31/2024 9:56 AM SALVAGE DIVER Gastroenteritis CREATININE WITH EGFR, S/P Routine 08/23/2024 12:09 AM SALVAGE DIVER BASIC METABOLIC PANEL, S/P Routine 08/01/2024 1:58 PM SALVAGE DIVER Preoperative Exam from Last 3 Months or [...] ENERAL ORDERABLES Final Result Performing Organization Address City/[facility]/ZIP Co de Phone Number [facility] [address] [place] [address], [facility] MKTO [address] [facility] [address] [place] [phone] * Urinalysis with Microscopic if Indicated: Urine, [...] 8.0 11/04/2024 12:17 PM CDT NPRG Specific [place] 1.015 1.001 - 1.035 11/04/2024 12:17 PM CDT NPRG Urobilinogen 0.2 0.2 - 1.0 mg/dL 11/04/2024 12:17 PM CDT NPRG Urine (Urine, Midstream) 11/04/2024 12:06 PM CDT 11/04/2024 12:14 PM CDT us Sveta Adam P.A.-C., P.A. LAB URINE ORDERABLES Final Result [facility] [address] [facility] [place] [address], [facility] NPRG [facility] [address] [place] [address] * (ABNORMAL) Bacterial Culture, Aerobic + Susceptibility, [...] MICROBIOLOGY - G ENERAL ORDERABLES Final Result [facility] [address] [place] [address], [facility] MK[facility] [place] [address] [place] [address] * GI Pathogen Panel, PCR, Feces (08/31/2024 9:56 AM SALVAGE DIVER) Specimen Source STOOL 6:54 PM SALVAGE DIVER MKTO Campylobacter species Negative Negative 08/31/2024 6:54 PM SALVAGE DIVER MKTO C. difficile toxin Negative Negative 2024 6:54 PM SALVAGE DIVER MKTO Plesiomonas shigelloides Negative Negative 08/31/2024 6:54 PM SALVAGE DIVER MKTO Salmonella species Negative Negative 2024 6:54 PM SALVAGE DIVER MKTO Vibrio species Negative Negative 08/31/2024 6:54 PM SALVAGE DIVER MKTO Vibrio cholerae Negative Negative 5 6:54 PM SALVAGE DIVER MKTO Yersinia species Negative Negative 08/31/19 25 6:54 PM SALVAGE DIVER MKTO Enteroaggregative E. coli (EAEC) Negative Negative 08/31/2024 6:54 PM SALVAGE DIVER MKTO Enteropathogenic E. coli (EPEC) Negative Negative 08/31/2024 6:54 PM SALVAGE DIVER MKTO Enterotoxigenic E. coli (ETEC) Negative Negative 08/31/2024 6:54 PM SALVAGE DIVER MKTO Shiga toxin producing E. coli Negative Negative 08/31/2024 6:54 PM SALVAGE DIVER MKTO Shigella/Enteroinvas scottie E. coli Negative Negative 08/31/2024 6:54 PM SALVAGE DIVER MKTO Cryptosporidium species Negative Negative 08/31/2024 6:54 PM SALVAGE DIVER MKTO Cyclospora cayetanensis Negative Negative 08/31/2024 6:54 PM SALVAGE DIVER MKTO Entamoeba histolytica Negative Negative 08/31/2024 6:54 PM SALVAGE DIVER MKTO Giardia Negative Negative 08/31/2024 6:54 PM SALVAGE DIVER MKTO Adenovirus F40/41 Negative Negative 025 6:54 PM SALVAGE DIVER MKTO Astrovirus Negative Negative 08/31/2024 6:54 PM SALVAGE DIVER MKTO Norovirus GI/GII Negative Negative 08/31/19 25 6:54 PM SALVAGE DIVER MKTO Rotavirus Ag, F Negative Negative 5 6:54 PM SALVAGE DIVER MKTO Sapovirus Negative Negative 08/31/2024 6:54 PM SALVAGE DIVER MKTO Comment: ----ADDITIONAL INFORMATION---- This assay is performed using the FDA-cleared FilmArray GI Panel ([employer] Stool (Stool) 08/31/2024 9:5 6 AM SALVAGE DIVER 08/31/2024 4:47 PM SALVAGE DIVER Barney Austin P.A.-C., PFransiscoA. LAB ICROBIOLOGY - GENERAL ORDERABLES Final Result Performing Organization Address City/State/[facility] Co de Phone Number [facility] [address] [place] [address], [facility] [address] [facility] [address] [place] [address] * (ABNORMAL) Creatinine with Estimated GFR (08/23/2024 12:09 AM SALVAGE DIVER) Creatinine 1.03 0.59 - 1.04 mg/dL 08/23/2024 1:55 AM SALVAGE DIVER DTL Estimated GFR (eGFR) 56(L) >=60 mL/min/BSA 08/23/2024 1:55 AM SALVAGE DIVER DTL Comment: Estimated GFR calculated using the 2020 CKD_EPI creatinine equation. Blood (Blood, Venous) 08/23/2024 12:09 AM SALVAGE DIVER 08/23/2024 1:39 AM SALVAGE DIVER Sean Chatterjee, ChFransiscoBFransisco, M.P.H. LAB BLOOD AD D-ON Final Result Performing Organization Address City/[facility] Co de Phone Number [facility] [address] [place] [address], [facility]note 3[facility] [address] [place] [address] * (ABNORMAL) Basic Metabolic Panel (08/01/2024 1:58 PM SALVAGE DIVER) Potassium, P 4.4 3.6 - 5.2 mmol/L 08/01/2024 2:24 PM SALVAGE DIVER NPRG Sodium, P 141 135 - 145 mmol/L 08/01/2024 2:24 PM SALVAGE DIVER NPRG Chloride, P 104 98 - 107 mmol/L 08/01/2024 2:24 PM SALVAGE DIVER NPRG Bicarbonate, P 27 22 - 29 mmol/L 08/01/2024 2:24 PM SALVAGE DIVER NPRG Anion Gap, P 10 7 - 15 08/01/2024 2:24 PM SALVAGE DIVER NPRG BUN (Blood Urea Nitrogen), P 19 6 - 21 mg/dL 08/01/2024 2:24 PM SALVAGE DIVER NPRG Creatinine 1.05(H) 0.59 - 1.04 mg/dL 08/01/2024 2:24 PM SALVAGE DIVER NPRG Estimated GFR (eGFR) 54(L) >=60 mL/min/BSA 08/01/2024 2:24 PM SALVAGE DIVER NPRG Comment: Estimated GFR calculated using the 2020 CKD_EPI creatinine equation. Calcium, Total, P 9.5 8.8 - 10.2 mg/dL 08/01/2024 2:24 PM SALVAGE DIVER NPRG Glucose, P 77 70 - 140 mg/dL 08/01/2024 2:24 PM SALVAGE DIVER NPRG Blood (Blood, Venous) 08/01/2024 1:58 PM SALVAGE DIVER 08/01/2024 2:03 PM SALVAGE DIVER Cande Ruiz M.D. LAB BLOOD ADD-ON Final Res ult [facility] [address] [place] [address], [facility] NPRG [facility] [address] [place] [address] from Last 3 Months or Most Recently Relevant to Health Maintenance Additional Health Concerns Active Problems Noted Date Diagnosed Date Autogenerated Problem 11/20/2024 Insurance MEDICARE [facility] Advance Directives For more information, please contact: [phone] Documents on File Type Date Recorded Patient Haulpak Driver Expl anation Advance Directives 08/26/2024 2:26 PM [...] Negrete Daughter First Alternate Health Care Agent [email or web address] Jeremy Negrete Son In-Law Second Alternate Health Care Agent Care Teams Commercial Lines Insurance Agent Relationship Specialty Start Date End Date Elsewhere, Pcp PCP - General Internal Medicine 06/12/23
--- OUTSIDE RECORDS SUMMARY | 2024-11-26 18:13 | XMS_ITS | Encounter Summary ---
Author Organization [facility] Address [address] [place] [address] Care Team Providers Care Power Wheelchair Mechanic Name Role Phone Elsewhere, Pcp Primary Care Provider Unavailabl e Encounter Details Date Type Department Care Team (Late st Contact Info) Description 10/09/2024 Clinical Communication Division of Colon and Rectal Surgery in [place], [place] [address] [place] [phone] Sean Rodriguez M.B., Ch.B., M.P.H. [address] [place] [phone] Social History Tobacco Use Types Packs/Day Years Used Date Smoking Tobacco: Former Cigarettes 0 08/04/1965 - 08/07/1977 Passive Smoke Exposure: Past Smokeless Tobacco: Never Comments:Quit when daughter Alcohol Use Standard Drinks/Week Comments Not Currently 0 (1 standard drink = 0.6 oz pure alcohol) Only at celebrations might have 1 drink [facility] Utilities Answer Date Recorded In the past 12 months has e [employer], gas, oil, or water [employer] threatened to shut off services in your [...] with others, in a hotel, in a nursing home, living outside on the street, on a beach, in a car, abandoned building, bus or train station, or in a park) 08/22/2024 Comments No Sex and Gender Information Value Date Recorded Sex Assigned at Female 06/08/2023 11:11 AM SEPTIC PUMP TRUCK DRIVER Legal Sex Female 1:47 PM CDT Gender Identity Female 06/08/2023 11:11 AM SEPTIC PUMP TRUCK DRIVER Sexual Orientation Straight 06/08/2023 11 :11 AM SEPTIC PUMP TRUCK DRIVER documented as of this encounter Miscellaneous Notes [...] on filedocumented in this encounter Care Teams Power Wheelchair Mechanic Relationship Specialty Start Date End Date Elsewhere, Pcp PCP - General Internal Medicine 06/12/23 documented as of this encounter
--- OUTSIDE RECORDS SUMMARY | 2024-11-26 18:13 | XMS_ITS | Encounter Summary ---
Author Organization [facility] Address [address] [place] [address] Care Team Providers Care Food Preparation Kitchen Aide Name Role Phone Elsewhere, Pcp Primary Care Provider Unavailabl e Reason for Visit * Reason Comments Follow-up * Outpatient (Routine) - Closed Specialty Diagnoses / Procedures Referred By Hi steiner Referred To Contact Colon and Rectal Surgery Sean Rodriguez M.B., B., M.P.H. [address] [place] [phone] Phone: tel: fax: [facility] Referral ID Status Reason Start Date Expiration Date Visits Re quested Visits Authorized [id number] Closed 09/03/2024 03/05/2026 1 1 Encounter Details Date Type Department Care Team (Late st Contact Info) Description 10/20/2024 2:30 PM CDT Office Visit Division of Colon and Rectal Surgery in [place], [place] [address] [place] [phone] Sean Rodriguez M.B., ChFransiscoB., M.P.H. [address] [place] [phone] Follow Up Examination Status Post Surgery (Primary Dx) Social History Tobacco Use Types Packs/Day Years Used Date Smoking Tobacco: Former Cigarettes 0 08/04/1965 - 08/07/1977 Passive Smoke Exposure: Past Smokeless Tobacco: Never Comments:Quit when daughter Alcohol Use Standard Drinks/Week Comments Not Currently 0 (1 standard drink = 0.6 oz pure alcohol) Only at celebrations might have 1 drink [facility] Utilities Answer Date Recorded In the past 12 months has th e [employer], gas, oil, or water [employer] threatened to shut off services in your [...] with others, in a hotel, in a penitentiary, living outside on the street, on a beach, in a car, abandoned building, bus or train station, or in a park) 08/22/2024 Comments No Sex and Gender Information Value Date Recorded Sex Assigned at Female 06/08/2023 11:11 AM DIRECTOR MULTIPLE SCLEROSIS CENTER Legal Sex Female 1:47 PM CDT Gender Identity Female 06/08/2023 11:11 AM DIRECTOR MULTIPLE SCLEROSIS CENTER Sexual Orientation Straight 06/08/2023 11 :11 AM DIRECTOR MULTIPLE SCLEROSIS CENTER documented as of this encounter Consult Notes [...] Primary documented in this encounter Care Teams Food Preparation Kitchen Aide Relationship Specialty Start Date End Date Elsewhere, Pcp PCP - General Internal Medicine 06/12/23 documented as of this encounter
--- OUTSIDE RECORDS SUMMARY | 2024-11-26 18:13 | XMS_ITS | Encounter Summary ---
Author Organization [facility] Address [address] [place] [address] Care Team Providers Care Line Patroller Name Role Phone Elsewhere, Pcp Primary Care Provider Unavailabl e Reason for Visit * Reason Onset Date Comments Previsit Preparation 10/15/2024 CECILLE DONE 10/15 * Appointment Request (Routine) - Authorized Specialty Diagnoses / Procedures Referred By Contruth t Referred To Contact Colon and Rectal Surgery Referral ID Status Reason Start Date Expiration Date V isits Requested Visits Authorized [id number] Authorized 09/03/2024 12/04/2025 1 1 Encounter Details Date Type Department Care Team (Latest Contact Info) Description 10/15/2024 10:30 AM CDT Clinical Communication Virtual Review in [place], [place] [address] [place] [phone] Previsit Preparation (CECILLE DONE 10/15/) Social History [...] Recorded In the past 12 months has [facility] [employer] gas, oil, or water [employer] threatened to shut off services in your [...] others, in a hotel, in a senior living, living outside on the street, on a beach, in a car, abandoned building, bus or train station, or in a park) 08/22/2024 Comments No Sex and Gender Information Value Date Recorded Sex Assigned at Female 06/08/2023 11:11 AM TAILMAN Legal Sex Female 1:47 PM CDT Gender Identity Female 06/08/2023 11:11 AM TAILMAN Sexual Orientation Straight 06/08/2023 11 :11 AM TAILMAN documented as of this encounter Plan of Treatment Not on file documented as of this encounter Visit Diagnoses Not on filedocumented in this encounter Care Teams Line Patroller Relationship Specialty Start Date End Date Elsewhere, Pcp PCP - General Internal Medicine 06/12/23 documented as of this encounter
[2024-11-26 18:30] LABS: Appearance Urine Clear (Clear); Bilirubin Urine Negative (Negative); Blood Urine Negative (Negative); Color Urine Yellow (Yellow); Glucose Urine Negative (Negative); Ketones Urine 1+ (Negative); Leukocyte Esterase Urine Trace (Negative); Nitrite Urine Negative (Negative); Protein Urine Negative (Negative); Urobilinogen Urine 0.2 (0.2-1.0); pH Urine 5.5 (5.0-8.5)
[2024-11-26 18:48] LABS: Bacteria Urine Few; RBC Urine 0-2 (0-2); Squamous Epithelial Cell Urine Few (None-Few)
[2024-11-26 19:15] LABS: Clue Cells No Clue Cells Seen (None Seen); Trichomonas No Trichomonas Seen (None Seen); Yeast No Yeast Seen (None Seen)
[2024-11-26 19:55] LABS: Bacterial Vaginosis* Negative (Negative); Candida glab/krus NOT DETECTED (No Detected); Candida species NOT DETECTED (No Detected); Trichomonas vaginalis NOT DETECTED (No Detected)
== END 2024-11-26 20:26 | disposition home or self-care (01) ==
PROVIDERS: Emergency Provider Family Medicine; PCP Family Medicine
DX: N89.8 Other specified noninflammatory disorders of vagina (principal); R30.0 Dysuria; R10.9 Unspecified abdominal pain
CPT/HCPCS: 81001; 81513; 87086; 87210; 87481; 87661; 99282; 99283; 99284